=== PATIENT | male | born 1960 | race Caucasian/White ===

== ENCOUNTER → 2020-08-26 13:03 | Outpatient (BNVA) | payer BC, SELFPAY | PROVIDERS: Family Provider Family Medicine; Visit Provider Family Medicine | DX: Z11.59 Encounter for screening for other viral diseases (principal) | CPT/HCPCS: 87635 ==

== ENCOUNTER → 2020-08-28 16:21 | Outpatient (BNVA) | payer BC, SELFPAY | PROVIDERS: Family Provider Family Medicine; Visit Provider Family Medicine | DX: Z11.59 Encounter for screening for other viral diseases (principal) | CPT/HCPCS: 87635 ==

== ENCOUNTER → 2022-09-05 08:08 | Outpatient (BNVA) | payer BC, SELFPAY | PROVIDERS: Family Provider Family Medicine; PCP Family Medicine; Visit Provider Family Medicine | DX: Z00.00 Encounter for general adult medical examination without abnormal findings (principal); I10 Essential (primary) hypertension; E78.5 Hyperlipidemia, unspecified; E11.9 Type 2 diabetes mellitus without complications | CPT/HCPCS: 80053; 80061; 83036 ==

== ENCOUNTER → 2023-02-28 08:29 | Outpatient (BNVA) | payer BC, SELFPAY | PROVIDERS: Family Provider Family Medicine; PCP Family Medicine; Visit Provider Family Medicine | DX: E11.9 Type 2 diabetes mellitus without complications (principal); I10 Essential (primary) hypertension; E78.5 Hyperlipidemia, unspecified | CPT/HCPCS: 80053; 80061; 83036 ==

== ENCOUNTER → 2023-05-24 08:25 | Outpatient (BNVA) | payer BC, SELFPAY | PROVIDERS: Family Provider Family Medicine; PCP Family Medicine; Visit Provider Family Medicine | DX: E78.5 Hyperlipidemia, unspecified (principal); I10 Essential (primary) hypertension; E11.9 Type 2 diabetes mellitus without complications | CPT/HCPCS: 80053; 83036 ==

== ENCOUNTER → 2023-08-22 08:42 | Outpatient (BNVA) | payer BC, SELFPAY | PROVIDERS: Family Provider Family Medicine; PCP Family Medicine; Visit Provider Family Medicine | DX: E11.9 Type 2 diabetes mellitus without complications (principal); M10.9 Gout, unspecified; M19.90 Unspecified osteoarthritis, unspecified site | CPT/HCPCS: 83036; 84550 ==

== ENCOUNTER → 2023-10-22 12:28 | Outpatient (BNVA) | payer MEDICARE, BC, SELFPAY | PROVIDERS: Family Provider Family Medicine; PCP Family Medicine; Visit Provider Clinical Nurse Specialist Adult Health | DX: R10.9 Unspecified abdominal pain (principal) | CPT/HCPCS: 81000 ==

== ENCOUNTER → 2023-11-21 10:52 | Outpatient (BNVA) | payer MEDICARE, OTHER, SELFPAY | PROVIDERS: Family Provider Family Medicine; PCP Family Medicine; Visit Provider Family Medicine | DX: R10.9 Unspecified abdominal pain (principal); K81.9 Cholecystitis, unspecified; E11.9 Type 2 diabetes mellitus without complications | CPT/HCPCS: 80053; 82150; 83690; 85025 ==

== ENCOUNTER 2023-11-27 15:40 | Outpatient (CLI) | payer MEDICARE, OTHER, SELFPAY ==
[2023-11-27] MEDS: iohexol 350 mg/mL 500 mL Btl (per mL) PO (15:47)
--- NOTE | 2023-11-27 16:00 | CT_ITS ---
WS: [id number] CT ABDOMEN WITH AND WITHOUT CONTRAST HISTORY: R10.9 - Unspecified abdominal pain, right-sided abdominal pain. Imaging performed with and without IV contrast. Oral contrast has been provided. Coronal and sagittal reformats are submitted. All CT scans at [facility] use at least one of these dose optimizat ion techniques: automated exposure control; mA and/or kV adjustment per patient size (includes target ed exams where dose is matched to clinical indication); or iterative reconstruction. IV CONTRAST: Omnipaque 350; 100 mL IV. Oral contrast: Yes. DLP: 1256.84 mGy.cm COMPARISON: None available. Lower thorax: Incompletely visualized 6.4 mm nodule in the RIGHT lower lung field may be associated w ith the seizure. There is an additional 2 mm nodule in the RIGHT lower lobe. Heart is normal size. Sm all hiatal hernia. Liver/biliary system: Normal size with no intrahepatic dilatation. Gallbladder: Normal. No gallstones or wall thickening. No pericholecystic fluid. Pancreas: Normal size pancreas and pancreatic duct. No adjacent inflammation. Spleen: Normal size spleen. No mass or infarct. Adrenal glands: Normal. Right kidney: Moderate perinephric stranding surrounding the RIGHT kidney. There are small parapelvic cysts. No obstruction. No mass identified. Left kidney: Moderate perinephric stranding surrounding the kidney. There is small central parapelvic cyst. No obstruction or solid mass. Aorta: Moderate atherosclerotic plaque within the aorta. More dense calcified plaque at the origin of the celiac axis. There is at least a moderate stenosis. Small amount of plaque at the origin of the SMA with additional plaque in the mid to distal SMA although no obstruction. Retroaortic LEFT renal vein. Lymphadenopathy: None. Free fluid: None. GI tract: As visualized through the abdomen no abnormality. No obstructive pattern. The appendix is n ot included. Abdominal wall: Unremarkable abdominal wall. No hernia. Visualized osseous structures: Unremarkable. IMPRESSION: 1. Moderate bilateral perinephric stranding. This may be of chronic or acute etiologies. No obstruct nimco pattern. Correlate for possible urinary tract infection. 2. Normal gallbladder. 3. RIGHT lower lung field subcentimeter, noncalcified nodules. Recommend follow-up chest CT in 3 mon ths to evaluate stability of the largest nodule measuring 6.4 mm. 4. Moderate atherosclerosis aorta. More dense calcified plaque at the origin of the celiac axis caus ing at least a moderate obstructive pattern. 5. No ascites or adenopathy through the abdomen.
[2023-11-27] MEDS: iohexol 350 mg/mL 500 mL Btl (per mL) IV (16:41)
== END 2023-11-27 15:41 | disposition home or self-care (01) ==
LOC: RAD 15:41
PROVIDERS: Family Provider Family Medicine; PCP Family Medicine; Visit Provider Family Medicine
DX: R10.9 Unspecified abdominal pain (principal); K81.9 Cholecystitis, unspecified; E11.9 Type 2 diabetes mellitus without complications; I70.0 Atherosclerosis of aorta; R91.8 Other nonspecific abnormal finding of lung field
CPT/HCPCS: 74170; Q9967

== ENCOUNTER 2023-11-29 15:53 | Emergency (ER) | payer MEDICARE, OTHER, SELFPAY ==
[2023-11-29] VITALS (11 sets, daily range): BP systolic 127–192; BP diastolic 66–104; PULSE 69–87; RESP 16; TEMP 36.4; O2SAT 92–100
--- NOTE | 2023-11-29 16:00 | W.ED.BACK ---
HPI - Back Pain/Injury General: Chief Complaint: Back Pain/Injury Stated Complaint: Back pain Time Seen by Provider: 11/29/23 16:00 History of Present Illness: 63-year-old male presents emergency department with complaints of low back pain and pain on the right lower back and flank area. He states he was seen today at the walk-in clinic and advised to come to the emergency department. Patient was seen on the 10th of this month and received a CT scan that demonstrated perinephric stranding concerning for urinary tract infection at that time. Patient states that he was provided antibiotics today at the walk-in clinic but states that his pain became much worse after picking up the antibiotics and thought he should come to the emergency department for additional evaluation treatment and care. Review of Systems General: Reports: 10 or more systems reviewed and unremarkable except in HPI and below Musc: Reports: back pain [facility] ED PFSH: Medical History Gout Hyperlipidemia Hypertension Diabetes Physical Exam Narrative: EXAM NARRATIVE: Constitutional: the patient appears well nourished and of normal development. Vital signs as documented. No acute distress at present. Alert and oriented-to person, place, time and situation. Head, eyes, ears, nose, mouth, throat: Normocephalic, atraumatic. Pupils-equal, round, reactive to light. No scleral icterus. Normal-appearing external ears. Normal appearing nasal turbinates, no drainage. No obvious oral lesions, posterior oropharynx without erythema or exudates. Neck: Supple, trachea is midline, no lymphadenopathy, no jugular venous distension, thyromegaly, or carotid bruits. Carotid upstrokes are brisk bilaterally. Lungs: clear to auscultation to all lung escobar. Symmetrical rise and fall of chest, no obvious signs of increased work of breathing at present. Cardiac: Regular rate and rhythm, positive S1, S2. No murmurs, rubs or gallops that I can appreciate Abdomen: Soft, non-tender to palpation, normal active bowel sounds to all quadrants. No palpable masses, no organomegaly and abdominal bruits. Extremities: 2+ pulses in the upper extremities that are equal bilaterally, 2+ pulses in the lower extremities that are equal bilaterally. Non-edematous. Moves all extremities well, sensation to all extremities are noted. Skin: Warm, dry, intact. Course Vital Signs: Vital signs: Vital Signs Temperature 97.5 F L 11/29/23 15:58 Pulse Rate 85 11/29/23 20:58 Respiratory Rate 16 11/29/23 20:58 Blood Pressure 147/84 11/29/23 20:58 Pulse Oximetry 95 11/29/23 20:58 Oxygen Delivery Me thod Room Air 11/29/23 20:31 MDM - Back Pain/Injury Medical Decision Making 49-year-old male was seen by his primary care provider on November [address] scan concerning for bilateral perinephric stranding, patient was seen at the walk-in clinic today and given prescription for antibiotics at which time he states he picked it up from the pharmacy and then started having worse right lower back and flank pain. I reviewed the patient's previous CT scan as well as his previous medical records and the note from the walk-in clinic from Dr. Angulo who saw him today. It does appear that his last laboratory evaluation was November 21, 2023 I will repeat labs to include a CBC, CMP, procalcitonin, lactic and obtain IV access for potential IV antibiotic therapy. I will provide the patient with Toradol for his pain relief and will reevaluate. Medical Records I reviewed the patient's medical records. Labs I reviewed the patient's lab results. 11/29/23 16:34 11/29/23 16:34 Radiology Impressions Abdomen X-Ray 11/29/23 16:46 IMPRESSION: No evidence of bowel obstruction. Dilute contrast noted throughout the colon. Abdomen/Pelvis CT 11/29/23 19:38 IMPRESSION: 1. No acute findings. 2. Stable appearance of nonspecific symmetrical bilateral perinephric stranding without evidence of urinary obstruction. Laboratory Results WBC 10.49 10^3/uL (3.29-11.43) 11/29/23 16:34 RBC 5.77 10^6/uL (3.85-5.65) H 11/29/23 16:34 Hgb 17.10 g/dL (11.27-16.99) H 11/29/23 16:34 Hct 51.0 % (37-53) 11/29/23 16:34 MCV 88.4 fl (82-101) 11/29/23 16:34 MCH 29.6 pg (27-33) 11/29/23 16:34 MCHC 33.5 g/dL (30-55) 11/29/23 16:34 RDW 13.8 % (12.1-15.1) 11/29/23 16:34 Plt Count 219 10^3/cmm (157-399) 11/29/23 16:34 MPV 10.6 fL (7.4-10.4) H 11/29/23 16:34 Neut % (Auto) 68.4 % 11/29/23 16:34 Lymph % (Auto) 20.3 % 11/29/23 16:34 [place] % (Auto) 8.1 % 11/29/23 16:34 Eos % (Auto) 2.6 % 11/29/23 16:34 Baso % (Auto) 0.3 % 11/29/23 16:34 Neut # (Auto) 7.18 10^3/uL (1.8-7.7) 11/29/23 16:34 Lymph # (Auto) 2.1 10^3/uL (0.8-4.8) 11/29/23 16:34 [place] # (Auto) 0.9 10^3/uL (0.2-0.9) 11/29/23 16:34 Eos # (Auto) 0.3 10^3/uL (0.0-0.8) 11/29/23 16:34 Baso # (Auto) 0.0 10^3/uL (0.0-0.1) 11/29/23 16:34 Nucleated RBC % (auto) 0 % 11/29/23 16:34 Nucleated RBCs # 0.0 /100WBC 11/29/23 16:34 Sodium 130 mmol/L (136-145) L 11/29/23 16:34 Potassium 4.3 mmol/L (3.5-5.1) 11/29/23 16:34 Chloride 93 mmol/L (98-107) L 11/29/23 16:34 Carbon Dioxide 25 mmol/L (22-29) 11/29/23 16:34 Anion Gap 16.3 (5-19) 11/29/23 16:34 BUN 17 mg/dL (8-23) 11/29/23 16:34 Creatinine 1.0 mg/dL (0.7-1.2) 11/29/23 16:34 GFR Calculation 75.0 mL/min (90-130) L 11/29/23 16:34 Glucose 409 mg/dL (65-115) H 11/29/23 16:34 Calculated Osmolality 289 mOsm/kg (285-295) 11/29/23 16:34 Lactic Acid 1.5 mmol/L (0.5-2.2) 11/29/23 16:34 Calcium 9.8 mg/dL (8.5-10.5) 11/29/23 16:34 Total Bilirubin 0.5 mg/dL (0.15-1.2) 11/29/23 16:34 AST 18 U/L (0-40) 11/29/23 16:34 ALT 22 U/L (0-41) 11/29/23 16:34 Alkaline Phosphatase 114 U/L (40-130) 11/29/23 16:34 Total Protein 7.5 g/dL (6.6-8.7) 11/29/23 16:34 Albumin 4.5 g/dL (3.5-5.2) 11/29/23 16:34 Globulin 3.0 g/dL (1.3-4.6) 11/29/23 16:34 Lipase 34 U/L (13-60) 11/29/23 16:34 Procalcitonin 0.07 ng/mL (0-0.5) 11/29/23 16:34 Urine Color Colorless (Yellow) 11/29/23 18:13 Urine Appearance Clear (CLEAR) 11/29/23 18:13 Urine pH 5 (5-7) 11/29/23 18:13 Ur Specific [place] 1.015 (1.005-1.030) 11/29/23 18:13 Urine Protein Trace (Negative) 11/29/23 18:13 Urine Glucose (UA) 4+ (Normal) H 11/29/23 18:13 Urine Ketones Negative (Negative) 11/29/23 18:13 Urine Blood Neg (Negative) 11/29/23 18:13 Urine Nitrate Negative (Negative) 11/29/23 18:13 Urine Bilirubin Neg (Negative) 11/29/23 18:13 Urine Urobilinogen Norm mg/dL (Negative) 11/29/23 18:13 Ur Leukocyte Esterase Negative (Negative) 11/29/23 18:13 Urine RBC 0-4 /hpf (0-2) H 11/29/23 18:13 Urine WBC 0-4 /hpf (0-5) H 11/29/23 18:13 Ur Squamous Epith Cells 0-4 /hpf (0-5) H 11/29/23 18:13 Amorphous Sediment Not Reportable 11/29/23 18:13 Urine Bacteria Trace /hpf (NONE) 11/29/23 18:13 Hyaline Casts 0-4 /lpf H 11/29/23 18:13 Urine Mucus Trace /hpf 11/29/23 18:13 All radiology interpretation(s) finalized by discharge Discharge Plan Discharge Patient Disposition: Home Clinical Impression: Acute UTI Back pain Qualifiers: Back pain location: low back pain Chronicity: acute Back pain laterality: right Sciatica presence: without sciatica Qualified Code(s): M54.50 - Low back pain, unspecified Condition: Stable Prescriptions: No Action colchicine 0.6 mg capsule See Rx Instructions PO DAILY Qty: 9 3RF Rx Instructions: take 2 tabs at onset of symptoms of gout, may repeat one dose one hour later as needed. hydrocodone-acetaminophen 5-325 mg tablet 1 tab PO Q4H PRN (Reason: pain, acute) 7 Days Qty: 42 0RF olmesartan 20 mg tablet PO semaglutide 0.25 mg or 0.5 mg (2 mg/3 mL) pen injector 0.5 mg SUBCUT .weekly Qty: 3 3RF Rx Instructions: 0.5 mg weekly X 1 month the increase to 1 mg weekly cyclobenzaprine 5 mg tablet 5 mg PO TID PRN (Reason: muscle spasm) Qty: 30 0RF tramadol 50 mg tablet 50 mg PO BID PRN (Reason: pain) Qty: 20 0RF hydrocodone-acetaminophen 7.5-325 mg tablet 1 tab PO Q6H PRN (Reason: pain) 7 Days Qty: 28 0RF sulfamethoxazole-trimethoprim [Bactrim DS] 800-160 mg tablet 1 tab PO BID 10 Days Qty: 20 0RF Januvia 100 mg tablet 100 mg PO DAILY Qty: 90 3RF metformin 1,000 mg tablet 1,000 mg PO BID Qty: 180 3RF semaglutide 1 mg/dose (4 mg/3 mL) pen injector 2 mg SUBCUT .weekly Qty: 3 5RF atorvastatin 40 mg tablet 40 mg PO DAILY 90 Days Qty: 90 3RF Levemir FlexPen 100 unit/mL (3 mL) insulin pen See Rx Instructions .ROUTE .COMPLEX Qty: 45 3RF Dose Instruction: INJECT 105 UNITS SUBCUTANEOUSLY ONCE DAILY Rx Instructions: INJECT 105 UNITS SUBCUTANEOUSLY ONCE DAILY Discharge Orders: Discharge ED (Routine); Ordered 11/29/23 Ordered By: Ashok Jacob Referrals: Karl Whitmore, DO [Primary Care Provider] - Discharge Diet: Advance as tolerated Discharge Activity: Resume usual activity Patient Instructions: Opioid Safety, Pain Management Activity Restrictions/Additional Instructions: Activity Restrictions/Additional Instructions: Thank you for choosing [facility] for your healthcare needs today. Please realize that you were seen in the Emergency Department and that we are providing you with an emergency medical screening exam and this may not be a complete and all inclusive of all the testing and or medical work-up that you may need to determine your ailment or severity of your illness. It is very important that you follow-up as instructed with your Primary care provider or Specialist for additional evaluation and to discuss your medical treatment plan. You may return to the Emergency Department should you have concerns or if your condition changes or worsens in any way. Coding Level of Care Code ED Shelter Case Manager for [facility]
[2023-11-29] MEDS: ketorolac 30 mg/mL INJ IVP (16:38)
[2023-11-29 16:41] LABS: Basophils % 0.3 %; Eosinophils # 0.3 10^3/uL (0.0-0.8); Eosinophils % 2.6 %; Lymphocytes # 2.1 10^3/uL (0.8-4.8); Lymphocytes % 20.3 %; Mean Corpuscular HGB Conc 33.5 g/dL (30-55); Mean Corpuscular Hemoglobin 29.6 pg (27-33); Mean Corpuscular Volume 88.4 fl (82-101); Mean Platelet Volume 10.6 fL (7.4-10.4); Monocytes # 0.9 10^3/uL (0.2-0.9); Monocytes % 8.1 %; Neutrophils # 7.18 10^3/uL (1.8-7.7); Neutrophils % 68.4 %; Nucleated Red Blood Cells % 0 %; Platelet Count 219 10^3/cmm (157-399); Red Blood Count 5.77 10^6/uL (3.85-5.65); Red Cell Distribution Width 13.8 % (12.1-15.1); White Blood Count 10.49 10^3/uL (3.29-11.43)
--- NOTE | 2023-11-29 16:46 | XRR_ITS ---
PROCEDURE INFORMATION: Exam: XR Abdomen Exam date and time: 11/29/2023 5:03 PM Age: 63 years old Clinical indication: Bloating and constipation; Additional info: Abdominal bloating/cramping TECHNIQUE: Imaging protocol: Radiologic exam of the abdomen. Views: Frontal supine view of the abdomen. 1 View. COMPARISON: CT abdomen wo/w con [id number] 11/27/2023 4:43 PM FINDINGS: Gastrointestinal tract: Dilute contrast material is now distributed throughout the colon. No significantly dilated bowel loops are evident. Intraperitoneal space: Vascular calcifications are present in the pelvis. Bones/joints: Scattered multilevel degenerative changes noted in the skeletal system. XR/XR abdomen 1V* [id number] IMPRESSION: No evidence of bowel obstruction. Dilute contrast noted throughout the colon.
[2023-11-29 16:59] LABS: Alanine Aminotransferase 22 U/L (0-41); Albumin Level 4.5 g/dL (3.5-5.2); Alkaline Phosphatase 114 U/L (40-130); Anion Gap 16.3 (5-19); Aspartate Amino Transferase 18 U/L (0-40); Blood Urea Nitrogen 17 mg/dL (8-23); Calcium 9.8 mg/dL (8.5-10.5); Carbon Dioxide 25 mmol/L (22-29); Chloride 93 mmol/L (98-107); Glucose 409 mg/dL (65-115); Osmolality Calculated 289 mOsm/kg (285-295); Potassium 4.3 mmol/L (3.5-5.1); Sodium 130 mmol/L (136-145); Total Bilirubin 0.5 mg/dL (0.15-1.2); Total Protein 7.5 g/dL (6.6-8.7)
[2023-11-29 17:00] LABS: Lactic Sepsis W/Reflex 1.5 mmol/L (0.5-2.2)
[2023-11-29 17:06] LABS: Procalcitonin 0.07 ng/mL (0-0.5)
[2023-11-29 17:10] LABS: Lipase 34 U/L (13-60)
[2023-11-29 18:38] LABS: Add Urine Microscopic? YES; Bilirubin Urine Neg (Negative); Blood Urine Neg (Negative); Glucose Urine UA 4+ (Normal); Ketones Urine Negative (Negative); Leukocyte Esterase Urine Negative (Negative); Nitrate Urine Negative (Negative); Protein Urine Trace (Negative); Specific Gravity, Urine 1.015 (1.005-1.030); Urine Appearance Clear (CLEAR); Urine Color Colorless (Yellow); Urobilinogen Urine Norm (Negative); pH Urine 5 (5-7)
[2023-11-29 18:40] LABS: Bacteria Urine TRACE /hpf; Hyaline Casts Urine 0-4 /lpf; Mucus Urine TRACE /hpf; RBC Urine 0-4 /hpf (0-2); Squamous Epithelial Cell Urine 0-4 /hpf (0-5); WBC Urine 0-4 /hpf (0-5)
--- NOTE | 2023-11-29 18:49 | PC.NURSE ---
Creative Art Therapist assumed care at 1850.
--- NOTE | 2023-11-29 19:38 | CTR_ITS ---
PROCEDURE INFORMATION: Exam: CT Abdomen And Pelvis With Contrast Exam date and time: 11/29/2023 7:43 PM Age: 63 years old Clinical indication: Abdominal pain; Localized; Right; Patient HX: C/O RT sided abd pain. ; Additional info: Flank pain TECHNIQUE: Imaging protocol: Computed tomography of the abdomen and pelvis with contrast. Radiation optimization: All CT scans at this facility use at least one of these dose optimization techniques: automated exposure control; mA and/or kV adjustment per patient size (includes targeted exams where dose is matched to clinical indication); or iterative reconstruction. Contrast material: OMNI 350; Contrast volume: 100 ml; Contrast route: INTRAVENOUS (IV); COMPARISON: CT abdomen wo/w con [id number] 11/27/2023 4:43 PM RADIATION DOSE METRICS: Total DLP (mGy-cm): 1020.88 FINDINGS: Liver: Unremarkable. Gallbladder and bile ducts: Unremarkable. Pancreas: Unremarkable. Spleen: Unremarkable. Adrenal glands: Unremarkable. Kidneys and ureters: Symmetric perinephric stranding which is unchanged and nonspecific. No hydronephrosis. Mild colonic diverticulosis without evidence of acute diverticulitis. Stomach and bowel: See Kidneys and ureters finding. Appendix: No evidence of appendicitis. Intraperitoneal space: Unremarkable. Vasculature: [id number] atherosclerotic disease in the abdomen and pelvis. Incidental note of a left retroaortic renal vein. Lymph nodes: Unremarkable. Urinary bladder: Unremarkable as visualized. Reproductive: Unremarkable as visualized. Bones/joints: No acute osseous abnormality. Soft tissues: Fat containing bilateral inguinal hernias. CT/CT abdomen pelvis w con* [id number] IMPRESSION: 1. No acute findings. 2. Stable appearance of nonspecific symmetrical bilateral perinephric stranding without evidence of urinary obstruction.
[2023-11-29] MEDS: iohexol 350 mg/mL 500 mL Btl (per mL) IV (19:46)
[2023-11-29] MEDS: cefTRIAXone 1,000 MG in sodium chloride 0.9% (plus) 50 ML 100 MG IV (20:25)
[2023-11-29] MEDS: morphine 4 mg/mL SDV 1 mL IM (20:28)
[2023-11-29] MEDS: ondansetron 2 mg/ML SDV 2 mL 4 MG IVP (20:29)
== END 2023-11-29 21:00 | disposition home or self-care (01) ==
PROVIDERS: Emergency Provider Internal Medicine; Family Provider Family Medicine; PCP Family Medicine
DX: N39.0 Urinary tract infection, site not specified (principal); M54.50 Low back pain, unspecified; Z79.4 Long term (current) use of insulin; Z79.84 Long term (current) use of oral hypoglycemic drugs; E78.5 Hyperlipidemia, unspecified; I10 Essential (primary) hypertension; E11.9 Type 2 diabetes mellitus without complications
CPT/HCPCS: 74018; 74177; 80053; 81000; 81001; 83605; 83690; 84145; 85025; 87086; 96365; 96372; 96375; 99285; J0696; J1885; J2270; J2405; Q9967

== ENCOUNTER → 2023-12-12 09:45 | Outpatient (BNVA) | payer MEDICARE, OTHER, SELFPAY | PROVIDERS: Family Provider Family Medicine; PCP Family Medicine; Visit Provider Clinical Nurse Specialist Adult Health | DX: N39.0 Urinary tract infection, site not specified (principal) | CPT/HCPCS: 81000; 87086 ==

== ENCOUNTER 2024-02-08 18:23 | Emergency (ER) | payer MEDICARE, OTHER, SELFPAY ==
[2024-02-08] VITALS (8 sets, daily range): BP systolic 127–173; BP diastolic 84–99; PULSE 102–109; RESP 12–20; TEMP 36.6; O2SAT 95–100; BMI 30.1
--- NOTE | 2024-02-08 18:33 | ECG_ITS ---
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 Measurements Intervals [place] Rate: 102 P: 63 MT: 163 QRS: -20 QRSD: 93 T: 149 QT: 322 QTc: 421 Interpretive Statements SINUS TACHYCARD[address] DEVIATION AND MODERATE T-WAVE ABNORMALITY, CONSIDER LATERAL ISCHEMIA [-0.1+ mV T-WAVE IN I/aVL/V5/V6] No previous ECG available for comparison Electronically Signed On 02-09-2024 23:56:38 CDT by Jersey Watts M.D. [email or web address]
--- NOTE | 2024-02-08 20:12 | XRR_ITS ---
PROCEDURE INFORMATION: Exam: XR Chest Exam date and time: 02/08/2024 8:29 PM Age: 63 years old Clinical indication: Shortness of breath; Patient HX: Increased SOB; Lung CA PT TECHNIQUE: Imaging protocol: Radiologic exam of the chest. Views: 1 view. COMPARISON: CT abdomen pelvis w con* [id number] 11/29/2023 7:43 PM FINDINGS: Tubes, catheters and devices: Right chest port a cath. Lungs: No consolidation. Pleural spaces: No pleural effusion. No pneumothorax. Heart/Mediastinum: Normal cardiomediastinal silhouette. Bones/joints: No acute osseous abnormality. XR/XR chest 1V portable [id number] IMPRESSION: No acute findings.
[2024-02-08 20:29] LABS: Basophils % 0.3 %; Eosinophils # 0.2 10^3/uL (0.0-0.8); Eosinophils % 1.9 %; Hematocrit 41.3 % (37-53); Lymphocytes # 0.9 10^3/uL (0.8-4.8); Lymphocytes % 8.8 %; Mean Corpuscular HGB Conc 33.2 g/dL (30-55); Mean Corpuscular Hemoglobin 29.3 pg (27-33); Mean Corpuscular Volume 88.2 fl (82-101); Mean Platelet Volume 10.5 fL (7.4-10.4); Monocytes # 0.9 10^3/uL (0.2-0.9); Monocytes % 8.8 %; Neutrophils % 79.8 %; Nucleated Red Blood Cells % 0 %; Platelet Count 305 10^3/cmm (157-399); Red Blood Count 4.68 10^6/uL (3.85-5.65); Red Cell Distribution Width 12.9 % (12.1-15.1); White Blood Count 10.65 10^3/uL (3.29-11.43)
[2024-02-08] MEDS: HYDROmorphone 1 mg/mL INJ 1 mL IVP ×2 (20:36→22:48)
[2024-02-08 20:47] LABS: Anion Gap 18.6 (5-19); Blood Urea Nitrogen 13 mg/dL (8-23); Calcium 8.7 mg/dL (8.5-10.5); Carbon Dioxide 23 mmol/L (22-29); Chloride 101 mmol/L (98-107); Creatinine Clr Calc Pharmacy 113.0719; Glomerular Filtration Rate 113.2 mL/min (90-130); Glucose 204 mg/dL (65-115); Osmolality Calculated 292 mOsm/kg (285-295); Potassium 4.6 mmol/L (3.5-5.1); Sodium 138 mmol/L (136-145); Troponin(5th) Baseline 45 ng/L (0-15)
--- NOTE | 2024-02-08 21:04 | ED_ITS ---
Documented by User: Shant Olivares DO 02/08/24 21:05 HPI - SOB/Dyspnea 2 General: Chief Complaint: Shortness of Breath/Dyspnea Stated Complaint: SOB, Cancer pt Time Seen by Provider: 02/08/24 20:08 History of Present Illness: HPI Narrative: Patient presents to the ER complaining of being shortness of breath. Patient stated this started at 4:00 this morning and is been bad all day long. He states he can barely breathe and got worse this afternoon. Patient does not wear oxygen. Patient denies any history of CHF or COPD but does have lung cancer. Upon arrival patient was O2 sat was 98% on room air and patient was in no distress and appears nontoxic. Review of Systems 2 General: Reports: 10 or more systems reviewed and unremarkable except in HPI and below PFSH ED 2 PFSH: Medical History Gout Hyperlipidemia Hypertension Diabetes Physical Exam 2 Const: COMMON NORMALS: no acute distress, average body habitus, patient oriented x3, no limitations, healthy appearing, alert and well nourished HENMT: COMMON NORMALS: normocephalic, atraumatic, hearing grossly normal bilaterally, external ears normal, Normal external nose present, moist oral mucous membranes and oropharynx normal HEAD & SCALP: normocephalic and atraumatic NOSE: Normal external nose present EXTERNAL EAR: Yes external ears normal Neck/C-Spine: COMMON NORMALS: no JVD Chest: COMMONS NORMALS: normal inspection of the chest and normal palpation of entire chest wall Resp: COMMON NORMALS: normal respiratory effort, No retractions, No use of accessory muscles and clear to auscultation bilaterally AUSCULTATION: clear to auscultation bilaterally Cardio: COMMON NORMALS: no JVD, regular rate, regular rhythm, S1 normal heart sound present, S2 normal heart sound present, No gallops present (Cardio), No clicks present (Cardio), No murmurs present (Cardio) and No rub (Cardio) R ATE: regular rate RHYTHM: regular rhythm HEART SOUNDS: S1 normal heart sound present and S2 normal heart sound present GI: COMMON NORMALS: Normal to inspection, nondistended, normoactive bowel sounds present, Soft to palpation, non-tender, No hepatosplenomegaly present and no masses PALPATION: Yes Soft to palpation and Yes No hepatosplenomegaly present Neuro: COMMON NORMALS: patient oriented x3 SENSORIUM/ORIENTATION: Yes alert Course 2 Vital Signs: Vital signs: Vital Signs Temperature 97.9 F 02/08/24 18:27 Pulse Rate 94 02/09/24 00:34 Respiratory Rate 18 02/09/24 00:34 Blood Pressure 178/105 02/09/24 00:34 Pulse Oximetry 94 02/09/24 00:34 Oxygen Delivery Me thod Room Air 02/08/24 22:28 MDM - SOB/Dyspnea Differential Diagnosis Unlikely acute exacerbation of chronic obstructive airways disease, congestive heart failure, community acquired pneumonia, asthma with exacerbation or pulmonary embolism Medical Records I reviewed the patient's medical records. Lab Data I reviewed the patient's lab results. 02/08/24 20:23 02/08/24 20:23 Labs/Radiology: Radiology Impressions Chest X-Ray 02/08/24 20:12 IMPRESSION: No acute findings. Chest CTA 02/08/24 23:52 IMPRESSION: 1. No evidence of acute pulmonary embolism. 2. Right upper lobe spiculated 1.7 cm nodule with cavitation in keeping with history of lung cancer. 3. Solid right lung pulmonary nodules compatible with pulmonary metastatic disease. 4. T10 metastatic lesion involving the right 10th rib with epidural and neural foraminal extension. 5. Small right pleural effusion compatible with malignant effusion. Nonspecific trace left pleural effusion. 6. Small pericardial effusion with pericardial thickening compatible with pericarditis. 7. Mildly enlarged subcarinal and right hilar lymph nodes compatible with lymph node metastatic disease. Laboratory Results WBC 10.65 10^3/uL (3.29-11.43) 02/08/24 20: RBC 4.68 10^6/uL (3.85-5.65) 02/08/24 20:23 Hgb 13.70 g/dL (11.27-16.99) 02/08/24 20: Hct 41.3 % (37-53) 02/08/24 20: MCV 88.2 fl (82-101) 02/08/24 20: MCH 29.3 pg (27-33) 02/08/24 20: MCHC 33.2 g/dL (30-55) 02/08/24 20: RDW 12.9 % (12.1-15.1) 02/08/24 20:23 Plt Count 305 10^3/cmm (157-399) 02/08/24 20: MPV 10.5 fL (7.4-10.4) H 02/08/24 20: Neut % (Auto) 79.8 % 02/08/24 20: Lymph % (Auto) 8.8 % 02/08/24 20: [place] % (Auto) 8.8 % 02/08/24 20: Eos % (Auto) 1.9 % 02/08/24 20: Baso % (Auto) 0.3 % 02/08/24 20: Neut # (Auto) 8.50 10^3/uL (1.8-7.7) H 02/08/24 20: Lymph # (Auto) 0.9 10^3/uL (0.8-4.8) 02/08/24 20: [place] # (Auto) 0.9 10^3/uL (0.2-0.9) 02/08/24 20: Eos # (Auto) 0.2 10^3/uL (0.0-0.8) 02/08/24 20: Baso # (Auto) 0.0 10^3/uL (0.0-0.1) 02/08/24 20: Nucleated RBC % (auto) 0 % 02/08/24 20: Nucleated RBCs # 0.0 /100WBC 02/08/24 20: D-Dimer 3.44 ug/mLFEU (0-0.59) H 02/08/24 20:23 Sodium 138 mmol/L (136-145) 02/08/24 20:23 Potassium 4.6 mmol/L (3.5-5.1) 02/08/24 20:23 Chloride 101 mmol/L (98-107) 02/08/24 20:23 Carbon Dioxide 23 mmol/L (22-29) 02/08/24 20:23 Anion Gap 18.6 (5-19) 02/08/24 20:23 BUN 13 mg/dL (8-23) 02/08/24 20:23 Creatinine 0.7 mg/dL (0.7-1.2) 02/08/24 20: GFR Calculation 113.2 mL/min (90-130) 02/08/24 20:23 Glucose 204 mg/dL (65-115) H 02/08/24 20:23 POC Glucose 232 mg/dL (70-110) H 02/08/24 23:04 Calculated Osmolality 292 mOsm/kg (285-295) 02/08/24 20:23 Calcium 8.7 mg/dL (8.5-10.5) 02/08/24 20:23 Troponin T Baseline 45 ng/L (0-15) H 02/08/24 20:23 Troponin T 120 Minute 43.25 ng/L (0-15) H 02/08/24 22:23 Delta Troponin T -1.75 ABS# (0-10) L 02/08/24 22:23 NT-Pro-B Natriuret Pep 507 pg/mL (0-125) H 02/08/24 22:23 All radiology interpretation(s) finalized by discharge Discharge Plan Discharge Patient Disposition: Home Clinical Impression: Pneumonitis, Pericarditis Condition: Stable Prescriptions: New ondansetron 4 mg tablet,disintegrating 4 mg PO Q6H PRN (Reason: nausea and vomiting) Qty: 14 0RF Medrol (Alfred) 4 mg tablets,dose pack See Rx Instructions .ROUTE .COMPLEX Qty: 21 0RF Rx Instructions: orally per package directions Changed colchicine 0.6 mg capsule 0.6 mg PO BID Qty: 30 0RF No Action hydrocodone-acetaminophen 5-325 mg tablet 1 tab PO Q4H PRN (Reason: pain, acute) 7 Days Qty: 42 0RF olmesartan 20 mg tablet PO cyclobenzaprine 10 mg tablet 10 mg PO TID PRN (Reason: muscle spasm) Qty: 60 0RF hydromorphone 2 mg tablet 2 mg PO Q6H PRN (Reason: pain) 7 Days Qty: 30 0RF metformin 1,000 mg tablet 1,000 mg PO BID Qty: 180 3RF atorvastatin 40 mg tablet 40 mg PO DAILY 90 Days Qty: 90 3RF Levemir FlexPen 100 unit/mL (3 mL) insulin pen See Rx Instructions .ROUTE .COMPLEX Qty: 45 3RF Dose Instruction: INJECT 105 UNITS SUBCUTANEOUSLY ONCE DAILY Rx Instructions: INJECT 105 UNITS SUBCUTANEOUSLY ONCE DAILY Discharge Orders: Discharge ED (Routine); Ordered 02/09/24 Ordered By: Rafael Sanders Referrals: Karl Whitmore DO [Primary Care Provider] - 1-3 days Patient Instructions: Pneumonitis (ED), Acute Pericarditis (ED), Opioid Safety, Pain Management Activity Restrictions/Additional Instructions: Medication as directed. Take the prescribed steroid in addition to your previously prescribed steroid per package directions. Return for worsening shortness of breath despite treatment, fever, chest pain, any other concerning symptoms. Call your doctor on Saturday and let them know you were seen here. 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[employer] Documented by User: Rafael Sanders DO 02/09/24 05:49 HPI - SOB/Dyspnea 2 General: Chief Complaint: Shortness of Breath/Dyspnea Stated Complaint: SOB, Cancer pt Time Seen by Provider: 02/08/24 20:08 PFSH ED 2 PFSH: Medical History Gout Hyperlipidemia Hypertension Diabetes Course 2 Vital Signs: Vital signs: Vital Signs Temperature 97.9 F 02/08/24 18:27 Pulse Rate 94 02/09/24 00:34 Respiratory Rate 18 02/09/24 00:34 Blood Pressure 178/105 02/09/24 00:34 Pulse Oximetry 94 02/09/24 00:34 Oxygen Delivery Me thod Room Air 02/08/24 22:28 MDM - SOB/Dyspnea Medical Decision Making 63-year-old male gentleman checked out at shift change. This gentleman was complaining of shortness of breath. His vitals remained good, except for minimal tachycardia. His respiratory rate has remained normal, and saturations are normal. However, the patient does have a history of metastatic lung disease. EKGs showed some T wave inversions without significant ST depression or elevation. CBC is not remarkable. BMP is not remarkable. Troponin did not change significantly in 2 hours. However, D-dimer was significantly elevated. This prompted CTA of the chest to be performed. It shows no acute findings in the lungs including no pulmonary embolus. It does show a small pericardial effusion with pericardial thickening compatible with pericarditis. This may be due to metastatic disease, recent radiation, or other causes. The patient will be placed on colchicine for this as well as a tapering dose of steroid. Close outpatient follow-up will be needed. Return for worsening symptoms. Lab Data 02/08/24 20:23 02/08/24 20:23 Labs/Radiology: Radiology Impressions Chest X-Ray 02/08/24 20:12 IMPRESSION: No acute findings. Chest CTA 02/08/24 23:52 IMPRESSION: 1. No evidence of acute pulmonary embolism. 2. Right upper lobe spiculated 1.7 cm nodule with cavitation in keeping with history of lung cancer. 3. Solid right lung pulmonary nodules compatible with pulmonary metastatic disease. 4. T10 metastatic lesion involving the right 10th rib with epidural and neural foraminal extension. 5. Small right pleural effusion compatible with malignant effusion. Nonspecific trace left pleural effusion. 6. Small pericardial effusion with pericardial thickening compatible with pericarditis. 7. Mildly enlarged subcarinal and right hilar lymph nodes compatible with lymph node metastatic disease. Laboratory Results WBC 10.65 10^3/uL (3.29-11.43) 02/08/24 20:23 RBC 4.68 10^6/uL (3.85-5.65) 02/08/24 20:23 Hgb 13.70 g/dL (11.27-16.99) 02/08/24 20:23 Hct 41.3 % (37-53) 02/08/24 20:23 MCV 88.2 fl (82-101) 02/08/24 20: MCH 29.3 pg (27-33) 02/08/24 20: MCHC 33.2 g/dL (30-55) 02/08/24 20:23 RDW 12.9 % (12.1-15.1) 02/08/24 20:23 Plt Count 305 10^3/cmm (157-399) 02/08/24 20: MPV 10.5 fL (7.4-10.4) H 02/08/24 20:23 Neut % (Auto) 79.8 % 02/08/24 20:23 Lymph % (Auto) 8.8 % 02/08/24 20: [place] % (Auto) 8.8 % 02/08/24 20: Eos % (Auto) 1.9 % 02/08/24 20:23 Baso % (Auto) 0.3 % 02/08/24 20: Neut # (Auto) 8.50 10^3/uL (1.8-7.7) H 02/08/24 20:23 Lymph # (Auto) 0.9 10^3/uL (0.8-4.8) 02/08/24 20:23 [place] # (Auto) 0.9 10^3/uL (0.2-0.9) 02/08/24 20: Eos # (Auto) 0.2 10^3/uL (0.0-0.8) 02/08/24 20: Baso # (Auto) 0.0 10^3/uL (0.0-0.1) 02/08/24 20: Nucleated RBC % (auto) 0 % 02/08/24: Nucleated RBCs # 0.0 /100WBC 02/08/24 20:23 D-Dimer 3.44 ug/mLFEU (0-0.59) H 02/08/24 20:23 Sodium 138 mmol/L (136-145) 02/08/24 20:23 Potassium 4.6 mmol/L (3.5-5.1) 02/08/24 20:23 Chloride 101 mmol/L (98-107) 02/08/24 20:23 Carbon Dioxide 23 mmol/L (22-29) 02/08/24 20:23 Anion Gap 18.6 (5-19) 02/08/24 20:23 BUN 13 mg/dL (8-23) 02/08/24 20:23 Creatinine 0.7 mg/dL (0.7-1.2) 02/08/24 20:23 GFR Calculation 113.2 mL/min (90-130) 02/08/24 20:23 Glucose 204 mg/dL (65-115) H 02/08/24 20:23 POC Glucose 232 mg/dL (70-110) H 02/08/24 23:04 Calculated Osmolality 292 mOsm/kg (285-295) 02/08/24 20:23 Calcium 8.7 mg/dL (8.5-10.5) 02/08/24 20:23 Troponin T Baseline 45 ng/L (0-15) H 02/08/24 20:23 Troponin T 120 Minute 43.25 ng/L (0-15) H 02/08/24 22:23 Delta Troponin T -1.75 ABS# (0-10) L 02/08/24 22:23 NT-Pro-B Natriuret Pep 507 pg/mL (0-125) H 02/08/24 22:23 Discharge Plan Discharge Patient Disposition: Home Clinical Impression: Pneumonitis, Pericarditis Condition: Stable Prescriptions: New ondansetron 4 mg tablet,disintegrating 4 mg PO Q6H PRN (Reason: nausea and vomiting) Qty: 14 0RF Medrol (Alfred) 4 mg tablets,dose pack See Rx Instructions .ROUTE .COMPLEX Qty: 21 0RF Rx Instructions: orally per package directions Changed colchicine 0.6 mg capsule 0.6 mg PO BID Qty: 30 0RF No Action hydrocodone-acetaminophen 5-325 mg tablet 1 tab PO Q4H PRN (Reason: pain, acute) 7 Days Qty: 42 0RF olmesartan 20 mg tablet PO cyclobenzaprine 10 mg tablet 10 mg PO TID PRN (Reason: muscle spasm) Qty: 60 0RF hydromorphone 2 mg tablet 2 mg PO Q6H PRN (Reason: pain) 7 Days Qty: 30 0RF metformin 1,000 mg tablet 1,000 mg PO BID Qty: 180 3RF atorvastatin 40 mg tablet 40 mg PO DAILY 90 Days Qty: 90 3RF Levemir FlexPen 100 unit/mL (3 mL) insulin pen See Rx Instructions .ROUTE .COMPLEX Qty: 45 3RF Dose Instruction: INJECT 105 UNITS SUBCUTANEOUSLY ONCE DAILY Rx Instructions: INJECT 105 UNITS SUBCUTANEOUSLY ONCE DAILY Discharge Orders: Discharge ED (Routine); Ordered 02/09/24 Ordered By: Rafael Sanders Referrals: Karl Whitmore DO [Primary Care Provider] - 1-3 days Patient Instructions: Pneumonitis (ED), Acute Pericarditis (ED), Opioid Safety, Pain Management Activity Restrictions/Additional Instructions: Medication as directed. Take the prescribed steroid in addition to your previously prescribed steroid per package directions. Return for worsening shortness of breath despite treatment, fever, chest pain, any other concerning symptoms. Call your doctor on Saturday and let them know you were seen here. 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
[2024-02-08] MEDS: ipratropium-albuterol 3 mL Neb INHALATION (22:23)
--- NOTE | 2024-02-08 22:25 | ECG_ITS ---
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 Measurements Intervals [place] Rate: 102 P: 28 [place]: 158 QRS: -29 QRSD: 96 T: 126 QT: 323 QTc: 422 Interpretive Statements SINUS TACHYCARDIA WITH OCCASIONAL SUPRAVENTRICULAR PREMATURE COMPLEXES BORDERLINE LEFT AXIS DEVIATION [QRS AXIS < -20] ST DEVIATION AND MODERATE T-WAVE ABNORMALITY, CONSIDER LATERAL ISCHEMIA [-0.1+ mV T-WAVE IN I/aVL/V5/V6] Compared to ECG 02/08/2024 18:33:28 No significant changes Electronically Signed On 02-09-2024 23:58:38 CDT by Jersey Watts M.D. [id number]
[2024-02-08 22:47] LABS: Troponin 5 2HR 43.25 ng/L (0-15)
[2024-02-08 22:49] LABS: Troponin 5 2HR Delta -1.75 ABS# (0-10)
[2024-02-08] MEDS: methylPREDNISolone sod succ 125 mg/2 mL INJ IVP (22:49)
[2024-02-08 22:54] LABS: NT Pro B Type Natriuretic Pept 507 pg/mL (0-125)
[2024-02-08 23:07] LABS: Glucose Point of Care 232 mg/dL (70-110)
[2024-02-08 23:49] LABS: D Dimer 3.44 ug/mLFEU (0-0.59)
--- NOTE | 2024-02-08 23:52 | CTR_ITS ---
PROCEDURE INFORMATION: Exam: CTA Chest With Contrast Exam date and time: 02/09/2024 12:12 AM Age: 63 years old Clinical indication: Pain and abnormal findings; Abnormal diagnostic tests; Elevated d-dimer; Shortness of breath; Chest pressure; Prior surgery; Surgery date: 6+ months; Surgery type: Chest port; Patient HX: Cp with SOB and tachycardia. Dimer 3.4. History of lung cancer with bone mets. TECHNIQUE: Imaging protocol: Computed tomographic angiography of the chest with contrast. Exam focused on the arteries. 3D rendering (Not supervised by radiologist): MIP and/or 3D reconstructed images were created by the technologist. Radiation optimization: All CT scans at this facility use at least one of these dose optimization techniques: automated exposure control; mA and/or kV adjustment per patient size (includes targeted exams where dose is matched to clinical indication); or iterative reconstruction. Contrast material: OMNI 350; Contrast volume: 54 ml; Contrast route: INTRAVENOUS (IV); COMPARISON: CR (CHEST, ) 02/08/2024 8:29 PM RADIATION DOSE METRICS: Total DLP (mGy-cm): 488.37 FINDINGS: Tubes, catheters and devices: Right chest port. Pulmonary arteries: Normal caliber main pulmonary artery. No definite pulmonary artery filling defect. Aorta: Mild atherosclerosis. No aortic aneurysm. No aortic dissection. Lungs: Mild emphysema. Spiculated right upper lobe 1.7cm nodule with cavitation. SMall right lung solid nodules (eg 11 mm right lower lobe nodule on axial image 307) Pleural spaces: No pneumothorax. Small right and trace left pleural effusions. Heart: Small pericardial effusion with pericardial thickening. Stranding of the epicardial fat. Lymph nodes: Mildly enlarged subcarinal and right hilar lymph nodes.. Bones/joints: T10 osteolytic lesion which involves the right pedicle and right posterior 10th rib. Epidural and neuroforaminal extension present. Soft tissues: Unremarkable. CT/CT angio chest PE protcl [id number] IMPRESSION: 1. No evidence of acute pulmonary embolism. 2. Right upper lobe spiculated 1.7 cm nodule with cavitation in keeping with history of lung cancer. 3. Solid right lung pulmonary nodules compatible with pulmonary metastatic disease. 4. T10 metastatic lesion involving the right 10th rib with epidural and neural foraminal extension. 5. Small right pleural effusion compatible with malignant effusion. Nonspecific trace left pleural effusion. 6. Small pericardial effusion with pericardial thickening compatible with pericarditis. 7. Mildly enlarged subcarinal and right hilar lymph nodes compatible with lymph node metastatic disease.
[2024-02-08] MEDS: metoprolol tartrate 25 mg Tablet PO (23:57)
[2024-02-09] MEDS: iohexol 350 mg/mL 500 mL Btl (per mL) IV (00:19)
[2024-02-09 00:34] VITALS: BP 178/105; PULSE 94; RESP 18; O2SAT 94
== END 2024-02-09 01:11 | disposition home or self-care (01) ==
PROVIDERS: Emergency Medicine; Emergency Provider Emergency Medicine; Family Provider Family Medicine; PCP Family Medicine
DX: J98.4 Other disorders of lung (principal); I31.9 Disease of pericardium, unspecified; Z79.4 Long term (current) use of insulin; E78.5 Hyperlipidemia, unspecified; I10 Essential (primary) hypertension; E11.9 Type 2 diabetes mellitus without complications
CPT/HCPCS: 36415; 36416; 71045; 71275; 80048; 82962; 83880; 84484; 85025; 85378; 93005; 94640; 96374; 96375; 96376; 99285; J1170; J2930; Q9967

== ENCOUNTER 2024-03-09 08:00 | Oncology outpatient (recurring) (ONCR) | payer MEDICARE, OTHER, SELFPAY ==
[2024-03-06] MEDS: sodium chloride 0.9% 1,000 ML 999 ML IV (08:23)
[2024-03-09 08:05] VITALS: BP 91/63; PULSE 119; RESP 18; TEMP 35.9; O2SAT 96
[2024-03-09] MEDS: sodium chloride 0.9% 1,000 ML 999 ML IV (08:12)
== END 2024-03-17 23:59 | disposition home or self-care (01) ==
PROVIDERS: Family Provider Family Medicine; PCP Family Medicine; Visit Provider Internal Medicine Hematology & Oncology
DX: K81.9 Cholecystitis, unspecified (principal); Z53.9 Procedure and treatment not carried out, unspecified reason
CPT/HCPCS: 96360; J7030

== ENCOUNTER 2024-04-16 15:00 | Oncology outpatient (recurring) (ONCR) | payer MEDICARE, OTHER, SELFPAY ==
[2024-03-25] MEDS: sodium chloride 0.9% 1,000 ML 999 ML IV (12:57)
[2024-03-25 13:00] VITALS: BP 101/66; PULSE 75; RESP 16; TEMP 36.6; O2SAT 96
[2024-03-25 13:50] VITALS: BP 125/75; PULSE 66; RESP 16; O2SAT 94
[2024-03-27 09:14] VITALS: BP 147/75; PULSE 94; RESP 16; TEMP 36.3; O2SAT 96
[2024-03-27] MEDS: sodium chloride 0.9% 1,000 ML 999 ML IV (09:31)
[2024-03-27 09:34] VITALS: BP 132/80; PULSE 83; RESP 17; TEMP 35.6; O2SAT 100
[2024-03-27 10:22] VITALS: BP 152/86; PULSE 82; RESP 16; O2SAT 99
[2024-03-30 14:42] VITALS: BP 101/67; PULSE 99; RESP 18; TEMP 35.8; O2SAT 92
[2024-03-30] MEDS: sodium chloride 0.9% 1,000 ML 999 ML IV (14:48)
[2024-03-30 15:40] VITALS: BP 122/64; PULSE 87; RESP 16; TEMP 35.9; O2SAT 97
[2024-04-15] MEDS: sodium chloride 0.9% 1,000 ML 999 ML IV (15:15)
[2024-04-15 15:20] VITALS: BP 124/78; PULSE 74; RESP 18; TEMP 36.6; O2SAT 98
[2024-04-15 15:27] VITALS: BP 124/78; PULSE 78; RESP 18; TEMP 36.6; O2SAT 98
[2024-04-16 15:10] VITALS: BP 130/77; PULSE 77; RESP 18; TEMP 35.6; O2SAT 96
[2024-04-16] MEDS: sodium chloride 0.9% 1,000 ML 999 ML IV (15:16)
[2024-04-16 16:50] VITALS: BP 132/78; PULSE 78; RESP 18; TEMP 36.6; O2SAT 98
== END 2024-04-17 23:59 | disposition home or self-care (01) ==
PROVIDERS: Family Provider Family Medicine; PCP Family Medicine; Visit Provider Internal Medicine Hematology & Oncology
DX: Z53.9 Procedure and treatment not carried out, unspecified reason (principal); E87.8 Other disorders of electrolyte and fluid balance, not elsewhere classified
CPT/HCPCS: 96360; J7030

== ENCOUNTER 2024-04-22 17:13 | Inpatient (IN) | payer MEDICARE, SELFPAY ==
[2024-04-22 17:14] VITALS: BP 96/65; PULSE 77; RESP 18; TEMP 36.8; O2SAT 94; BMI 27.8
--- NOTE | 2024-04-22 17:18 | XRR_ITS ---
PROCEDURE INFORMATION: Exam: XR Chest Exam date and time: 04/22/2024 5:22 PM Age: 63 years old Clinical indication: Other: Dizzy; Additional info: Weakness TECHNIQUE: Imaging protocol: Radiologic exam of the chest. Views: 1 view. COMPARISON: CT angio chest PE protcl [id number] 02/09/2024 12:12 AM FINDINGS: Tubes, catheters and devices: Port catheter tip remains in the lower superior vena cava. Lungs: Focal vague opacity at the site of the nodule seen on the prior CT. Pleural spaces: Unremarkable. No pleural effusion. No pneumothorax. Heart/Mediastinum: Unremarkable. No cardiomegaly. Bones/joints: Unremarkable. Other findings: XR/XR chest 1V portable [id number] IMPRESSION: 1. No acute findings. 2. Focal vague opacity at the site of the nodule seen on the prior CT.
--- NOTE | 2024-04-22 17:24 | ECG_ITS ---
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 Measurements Intervals [place] Rate: 74 P: 29 [place]: 155 QRS: -3 QRSD: 91 T: -74 QT: 378 QTc: 421 Interpretive Statements SINUS RHYTHM WITH FREQUENT SUPRAVENTRICULAR PREMATURE COMPLEXES NONSPECIFIC T-WAVE ABNORMALITY Compared to ECG 02/08/2024 22:25:42 Sinus tachycardia no longer present Possible ischemia no longer present T-wave abnormality still present Electronically Signed On 04-22-2024 18:13:56 CDT by Jersey Watts M.D. [id number]
--- NOTE | 2024-04-22 17:41 | ED_ITS ---
HPI - Weakness 2 General: Chief complaint: Weakness Stated complaint: Dizzy, Weakness Time Seen by Provider: 04/22/24 17:15 Source: patient and EMS Mode of arrival: EMS Limitations: no limitations History of Present Illness: 63-year-old male with a history of lung cancer with mets to the spine he states he had just finished chemo and radiation states that last day has been having increasing weakness fatigue and feeling extremely lightheaded like he is going to pass out anytime he ambulates with family called EMS because having some diaphoresis. Patient was found to be hypotensive into the 80s. He denies any acute pain anywhere denies any vomiting or diarrhea Associated symptoms: Denies chest pain, chills, fever(s), headache(s), nausea or vomiting Review of Systems 2 Const: Reports: fatigue and malaise; Denies: fever(s), chills, body aches or change in appetite ENMT: Denies: throat pain or dental pain Card: Denies: chest pain Resp: Denies: dyspnea GI: Denies: abdominal pain, nausea, vomiting or diarrhea Musc: Denies: neck pain or back pain Skin/Breast: Denies: rash Neuro: Denies: headache(s) PFSH ED 2 PFSH: Medical History Gout Hyperlipidemia Hypertension Diabetes Physical Exam 2 Const: COMMON NORMALS: patient oriented x3 GENERAL APPEARANCE: ill appearing and frail appearing HENMT: COMMON NORMALS: normocephalic and atraumatic HEAD & SCALP: n ormocephalic and atraumatic Eye: COMMON NORMALS: Equal, round and reactive pupils present and EOMs intact bilaterally PUPIL: Yes Equal, round and reactive pupils present Neck/C-Spine: COMMON NORMALS: full ROM and supple Chest: COMMONS NORMALS: normal inspection of the chest and normal palpation of entire chest wall Resp: COMMON NORMALS: normal respiratory effort, No retractions, No use of accessory muscles and clear to auscultation bilaterally AUSCULTATION: clear to auscultation bilaterally Cardio: COMMON NORMALS: regular rate, regular rhythm and No murmurs present (Cardio) RATE: regular rate RHYTHM: regular rhythm GI: COMMON NORMALS: Normal to inspection, nondistended, normoactive bowel sounds present, Soft to palpation, non-tender and no masses PALPATION: Yes Soft to palpation Extremity: COMMON NORMALS: normal to inspection and full ROM Neuro: COMMON NORMALS: patient oriented x3, moves all extremities and no focal motor deficits Psych: COMMON NORMALS: mental status grossly normal, Normal thought process present and cooperative THOUGHT PROCESS: Normal thought process present Skin: COMMON NORMALS: no rashes or lesions noted and no wounds GENERAL SKIN EXAM: no rashes or lesions noted Course 2 Vital Signs: Vital signs: Vital Signs Temperature 98.3 F 04/22/24 17:14 Pulse Rate 71 04/22/24 19:37 Respiratory Rate 22 H 04/22/24 19:37 Blood Pressure 110/60 04/22/24 19:37 Pulse Oximetry 100 04/22/24 19:37 Oxygen Delivery Me thod Room Air 04/22/24 19:37 MDM - Weakness Medical Decision Making Patient presents here with near syncopal event generalized weakness he was hypotensive his blood pressure is much improved here after IV fluids is likely from some dehydration he does have a leukopenia as well likely from his chemo he has no signs of infection he has no fever. Spoke to the hospitalist will admit for observation. Medical Records I reviewed the patient's medical records. Lab Data I reviewed the patient's lab results. 04/22/24 17:43 04/22/24 17:43 Radiology Impressions Chest X-Ray 04/22/24 17:18 IMPRESSION: 1. No acute findings. 2. Focal vague opacity at the site of the nodule seen on the prior CT. Laboratory Results WBC 2.11 10^3/uL (3.29-11.43) L 04/22/24 17:43 RBC 2.77 10^6/uL (3.85-5.65) L 04/22/24 17:43 Hgb 8.30 g/dL (11.27-16.99) L 04/22/24 17:43 Hct 25.4 % (37-53) L 04/22/24 17:43 MCV 91.7 fl (82-101) 04/22/24 17:43 MCH 30.0 pg (27-33) 04/22/24 17:43 MCHC 32.7 g/dL (30-55) 04/22/24 17:43 RDW 17.9 % (12.1-15.1) H 04/22/24 17:43 Plt Count 118 10^3/cmm (157-399) L 04/22/24 17:43 MPV 10.2 fL (7.4-10.4) 04/22/24 17:43 Neut % (Auto) 44.5 % 04/22/24 17:43 Lymph % (Auto) 37.0 % 04/22/24 17:43 Irwin % (Auto) 17.1 % 04/22/24 17:43 Eos % (Auto) 0.5 % 04/22/24 17:43 Baso % (Auto) 0.9 % 04/22/24 17:43 Neut # (Auto) 0.94 10^3/uL (1.8-7.7) L* 04/22/24 17:43 Lymph # (Auto) 0.8 10^3/uL (0.8-4.8) 04/22/24 17:43 Irwin # (Auto) 0.4 10^3/uL (0.2-0.9) 04/22/24 17:43 Eos # (Auto) 0.0 10^3/uL (0.0-0.8) 04/22/24 17:43 Baso # (Auto) 0.0 10^3/uL (0.0-0.1) 04/22/24 17:43 Nucleated RBC % (auto) 0 % 04/22/24 17:43 Nucleated RBCs # 0.0 /100WBC 04/22/24 17:43 PT 12.80 SECONDS (12.1-14.9) 04/22/24 17:43 INR 0.94 (0.8-1.2) 04/22/24 17:43 Sodium 139 mmol/L (136-145) 04/22/24 17:43 Potassium 4.7 mmol/L (3.5-5.1) 04/22/24 17:43 Chloride 103 mmol/L (98-107) 04/22/24 17:43 Carbon Dioxide 25 mmol/L (22-29) 04/22/24 17:43 Anion Gap 15.7 (5-19) 04/22/24 17:43 BUN 25 mg/dL (8-23) H 04/22/24 17:43 Creatinine 1.2 mg/dL (0.7-1.2) 04/22/24 17:43 GFR Calculation 60.8 mL/min (90-130) L 04/22/24 17:43 Glucose 114 mg/dL (65-115) 04/22/24 17:43 POC Glucose 122 mg/dL (70-110) H 04/22/24 18:06 Calculated Osmolality 293 mOsm/kg (285-295) 04/22/24 17:43 Lactic Acid 2.1 mmol/L (0.5-2.2) 04/22/24 17:43 Calcium 8.3 mg/dL (8.5-10.5) L 04/22/24 17:43 Magnesium 1.3 mg/dL (1.7-2.3) L 04/22/24 17:43 Total Bilirubin 0.3 mg/dL (0.15-1.2) 04/22/24 17:43 AST 25 U/L (0-40) 04/22/24 17:43 ALT 14 U/L (0-41) 04/22/24 17:43 Alkaline Phosphatase 92 U/L (40-130) 04/22/24 17:43 NT-Pro-B Natriuret Pep 581 pg/mL (0-125) H 04/22/24 17:43 Total Protein 6.2 g/dL (6.6-8.7) L 04/22/24 17:43 Albumin 3.7 g/dL (3.5-5.2) 04/22/24 17:43 Globulin 2.5 g/dL (1.3-4.6) 04/22/24 17:43 All radiology interpretation(s) finalized by discharge EKG Data EKG 1: I personally reviewed and interpreted this EKG as follows: EKG interpretation date: 04/22/24 EKG interpretation time: 17:24 Interpretation: nsr hr [address] or t wave abnormalities qrs 91 qtc 406 Discharge Plan Discharge Patient Disposition: Admitted As Inpatient Clinical Impression: Near syncope, Weakness, Leukopenia Condition: Stable Prescriptions: No Action hydrocodone-acetaminophen 5-325 mg tablet 1 tab PO Q4H PRN (Reason: pain, acute) 7 Days Qty: 42 0RF olmesartan 20 mg tablet PO cyclobenzaprine 10 mg tablet 10 mg PO TID PRN (Reason: muscle spasm) Qty: 60 0RF hydromorphone 2 mg tablet 2 mg PO Q6H PRN (Reason: pain) 7 Days Qty: 30 0RF atorvastatin 40 mg tablet 40 mg PO DAILY 90 Days Qty: 90 3RF Levemir FlexPen 100 unit/mL (3 mL) insulin pen See Rx Instructions .ROUTE .COMPLEX Qty: 45 3RF Dose Instruction: INJECT 105 UNITS SUBCUTANEOUSLY ONCE DAILY Rx Instructions: INJECT 105 UNITS SUBCUTANEOUSLY ONCE DAILY insulin glargine [Lantus Solostar U-100 Insulin] 100 unit/mL (3 mL) insulin pen See Rx Instructions SUBCUT BID Qty: 15 0RF Rx Instructions: INJECT 105 UNITS SUBCUTANEOUSLY ONCE DAILY metformin 1,000 mg tablet 1,000 mg PO BID Qty: 180 3RF ondansetron 4 mg tablet,disintegrating 4 mg PO Q6H PRN (Reason: nausea and vomiting) Qty: 14 0RF colchicine 0.6 mg capsule 0.6 mg PO BID Qty: 30 0RF Medrol (Alfred) 4 mg tablets,dose pack See Rx Instructions .ROUTE .COMPLEX Qty: 21 0RF Rx Instructions: orally per package directions Referrals: Cole Helms DO [Primary Care Provider] - Coding Level of Care Code ED Courtesy [facility] for [facility]
[2024-04-22] MEDS: sodium chloride 0.9% 1,000 ML 999 ML IV ×2 (17:42→19:27)
[2024-04-22 18:00] VITALS: BP 76/48; PULSE 70; RESP 19; O2SAT 97
[2024-04-22 18:00] LABS: Basophils % 0.9 %; Eosinophils % 0.5 %; Hematocrit 25.4 % (37-53); Lymphocytes # 0.8 10^3/uL (0.8-4.8); Mean Corpuscular HGB Conc 32.7 g/dL (30-55); Mean Corpuscular Volume 91.7 fl (82-101); Mean Platelet Volume 10.2 fL (7.4-10.4); Monocytes # 0.4 10^3/uL (0.2-0.9); Monocytes % 17.1 %; Neutrophils % 44.5 %; Nucleated Red Blood Cells % 0 %; Platelet Count 118 10^3/cmm (157-399); Red Blood Count 2.77 10^6/uL (3.85-5.65); Red Cell Distribution Width 17.9 % (12.1-15.1); White Blood Count 2.11 10^3/uL (3.29-11.43)
[2024-04-22 18:09] LABS: Glucose Point of Care 122 mg/dL (70-110)
[2024-04-22 18:18] LABS: Lactic Sepsis W/Reflex 2.1 mmol/L (0.5-2.2)
[2024-04-22 18:28] LABS: Alanine Aminotransferase 14 U/L (0-41); Albumin Level 3.7 g/dL (3.5-5.2); Alkaline Phosphatase 92 U/L (40-130); Anion Gap 15.7 (5-19); Aspartate Amino Transferase 25 U/L (0-40); Blood Urea Nitrogen 25 mg/dL (8-23); Calcium 8.3 mg/dL (8.5-10.5); Carbon Dioxide 25 mmol/L (22-29); Chloride 103 mmol/L (98-107); Creatinine Clr Calc Pharmacy 72.7035; Globulin 2.5 g/dL (1.3-4.6); Glomerular Filtration Rate 60.8 mL/min (90-130); Glucose 114 mg/dL (65-115); Magnesium 1.3 mg/dL (1.7-2.3); NT Pro B Type Natriuretic Pept 581 pg/mL (0-125); Osmolality Calculated 293 mOsm/kg (285-295); Potassium 4.7 mmol/L (3.5-5.1); Sodium 139 mmol/L (136-145); Total Bilirubin 0.3 mg/dL (0.15-1.2); Total Protein 6.2 g/dL (6.6-8.7)
[2024-04-22 18:30] VITALS: BP 102/55; PULSE 77; O2SAT 100
[2024-04-22 18:30] LABS: INR 0.94 (0.8-1.2)
[2024-04-22 19:19] LABS: Neutrophils # 0.94 10^3/uL (1.8-7.7)
[2024-04-22] MEDS: magnesium sulfate premix 2 GM/50 ML PIGGYBACK IV (19:33)
[2024-04-22 19:37] VITALS: BP 110/60; PULSE 71; RESP 22; O2SAT 100
[2024-04-22 19:42] LABS: Reflex Lactate Order REFLEX LACTIC ORDERD
--- NOTE | 2024-04-22 19:49 | P.HP_ITS ---
Providers/Chief Complaint 2 Primary Care Provider: Cole Helms DO Chief Complaint: Dizzy, Weakness History of Present Illness Siddhartha Christina is a 63 year old male with a past medical history significant for non-small cell lung cancer (grade 2 adenocarcinoma) stage IV T4N2M1 with metastasis to rib and spine status post palliative radiation and currently on palliative chemotherapy just completing cycle 4 of carboplatinum/pemetrexed/pembrolizumab on 04/14/24, insulin-dependent type 2 diabetes mellitus, hypertension, and multiple other comorbidities who presents to the emergency department via EMS with generalized malaise and fatigue. Patient reports he has not felt well for some time but the last few days symptoms have been worsening. Endorses weakness, generalized fatigue, malaise, nausea and very poor oral intake. Exertion worsens symptoms; rest improves. Denies othe alleviating or aggrevating factors. Family is bedside and appears very supportive. They noticed severe weakness today. They took his blood pressure and it was around 60/40 for which they called EMS for further help. Patient denies any fevers or chills. He notes an occasional cough, occurring about 3 times a day which is new for him. Otherwise denies other new complaints. In the emergency department, patient was found to be hypotensive on arrival. He was started on IV fluid boluses. His other vitals were largely unremarkable. CBC revealed pancytopenia including moderate neutropenia. CMP revealed azotemia and elevated creatinine to 1.2, previously 0.7; as well as hypomagnesia. Review of Systems 2 Narrative: A complete review of systems was obtained and is negative except as stated in HPI. Medications/Allergies Home Medications Medication Instructions Recorded Confirmed Last Taken Type olmesartan 20 mg tablet ea PO 09/11/22 12/27/23 Unknown History atorvastatin 40 mg tablet 40 mg PO DAILY 90 days #90 tabs 09/17/23 12/27/23 Unknown Rx insulin detemir U-100 100 unit/mL See Rx Instructions .Route 10/16/23 12/27/23 Unknown Rx (3 mL) subcutaneous pen (Levemir .COMPLEX #45 mL FlexPen) hydrocodone 5 mg-acetaminophen 325 1 tab PO Q4H PRN pain, acute 7 11/21/23 12/27/23 Unknown Rx mg tablet days #42 tabs cyclobenzaprine 10 mg tablet 10 mg PO TID PRN muscle spasm #60 12/12/23 12/27/23 Unknown Rx tabs hydromorphone 2 mg tablet 2 mg PO Q6H PRN pain 7 days #30 12/31/23 12/31/23 Unknown Rx tabs colchicine 0.6 mg capsule 0.6 mg PO BID gout #30 caps 02/09/24 Unknown Rx methylprednisolone 4 mg tablets in See Rx Instructions PO .COMPLEX 02/09/24 Unknown Rx a dose pack (Medrol (Alfred)) #21 ea ondansetron 4 mg disintegrating 4 mg PO Q6H PRN nausea and 02/09/24 Unknown Rx tablet vomiting #14 tabs insulin glargine 100 unit/mL (3 See Rx Instructions SUBCUT BID #15 02/25/24 Unknown Rx mL) subcutaneous pen (Lantus mL Solostar U-100 Insulin) metformin 1,000 mg tablet 1,000 mg PO BID #180 tabs 03/18/24 Unknown Rx Allergies Allergy/AdvReac Type Severity Reaction Status Date / Time No Known Allergies Allergy Verified 12/31/23 08:57 PFSH Acute 2 PFSH: Medical History Port-A-Cath in place Non-small cell lung cancer Right-sided back pain Cholecystitis Abdominal pain Rib pain on right side Gout Hyperlipidemia Hypertension Diabetes Surgical History History of cholecystectomy Family History Father Stomach cancer Grandfather Stomach cancer Social History Smoking and tobacco/nicotine status: former use of tobacco/nicotine Alcohol intake: never Substance/Drug Use: never 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 Vitals/I&O/Wt Last Vital Signs Temp 98.3 F 04/22/24 17:14 Pulse 71 04/22/24 19:37 Resp 22 H 04/22/24 19:37 BP 110/60 04/22/24 19:37 Pulse Ox 100 04/22/24 19:37 O2 Del Method Room Air 04/22/24 19:37 04/22/24 04/22/24 04/22/24 06:59 14:59 22:59 Intake Total 1000 / 1000 Balance 1000 / 1000 Weight last 48 hrs Weight 92.986 kg Physical Exam 2 Narrative: General: Patient is awake and alert. Very pleasant but appears fatigued. Head: Normocephalic. Atraumatic. EOM intact. Dry mucous membranes. Neck: No JVD. Cardiovascular: RRR. No gallops. No murmurs. Trace pedal edema. Blood pressure is soft. Lungs: Clear to auscultation, no use of accessory muscles, no crackles or wheezes. Skin: No jaundice. No rashes. Abdomen: Normal bowel sounds, abdomen soft and nontender. Genito Urinary: Genital exam not performed since complaints not related. Rectal: Rectal exam not performed since no symptoms indicated blood loss. Extremities: No cyanosis or clubbing. Musculoskeletal: No swollen or erythematous joints. Neurological: Moves all 4 extremities. No myoclonus. Data 04/22/24 17:43 04/22/24 17:43 A&P Assessment and plan (1) Hypotension due to hypovolemia: Presentation most consistent with hypotension secondary to hypovolemia from dehydration and anorexia Suspect presentation secondary to side effects from his cumulative side effects of chemotherapy Continue evaluating for underlying infection, urinalysis is pending Blood cultures x 2 obtained Procalcitonin 0.15; CRP 6.2 Monitor for development of fever Continue to monitor blood pressure Status post IV fluids in ED Continue hydration Consider appetite stimulant Antiemetics for nausea Supportive care (2) Leukopenia: CBC with leukopenia with moderate neutropenia Suspect findings secondary to chemotherapy side effects Trend CBC Monitor platelets closely while on Lovenox (3) Non-small cell lung cancer: Status post radiation Currently on chemotherapy, completing cycle 4 last Saturday He follows with [facility] medical oncology in [place] Continue supportive care (4) Anorexia: Management as above (5) Dehydration: Dehydration with acute kidney injury, suspected prerenal Baseline creatinine previously 0.7-0.8 Admission creatinine 1.2 with associated azotemia to 25 IV fluid management as noted above Strict I's and O's Daily weights Encourage oral intake, can consider appetite stimulant pending clinical course (6) Diabetes: Insulin-dependent diabetes mellitus Hold home metformin Awaiting home insulin dose to be updated Will continue insulin at marked reduced rate is to avoid hypoglycemia after home med list is updated Plan for sliding scale correction as well Qualifiers: Diabetes mellitus type: type 2 Diabetes mellitus retirement insulin use: without retirement use Diabetes mellitus complication status: with other specified complication Qualified Code(s): E11.69 - Type 2 diabetes mellitus with other specified complication (7) Hyperlipidemia: Continue home statin Plan DVT prophylaxis: Lovenox CODE STATUS: Full code Attestations 2 Medical Necessity Statement*: Patient presents with hypotension among other symptoms, found to have dehydration, acute kidney injury, anorexia, leukopenia and other metabolic/hematologic derangement with expected hospitalization not to cross 2 midnights for IV fluid resuscitation, serial labs, and supportive care. Coding Level of Care Code Acute Code for Chg Fwd Diagnoses Hypotension due to hypovolemia E86.1 Leukopenia D72.819 Non-small cell lung cancer C34.90 Anorexia R63.0 Dehydration E86.0 Type 2 diabetes mellitus with other specified complication, without long-term current use of insulin E11.69 Diabetes mellitus type: type 2 Diabetes mellitus terminal carman insulin use: without terminal carman use Diabetes mellitus complication status: with other specified complication Hyperlipidemia E78.5
[2024-04-22 20:00] VITALS: BP 113/77; PULSE 95; RESP 20; O2SAT 99
[2024-04-22 20:18] LABS: C Reactive Protein 8.4 mg/L (0.0-4.9)
[2024-04-22 20:26] LABS: Procalcitonin 0.15 ng/mL (0-0.5)
--- NOTE | 2024-04-22 20:36 | PC.NURSE ---
report called to rudy r/sanna landaverde at 2035. room currently dirty, 261, rudy will call back when clean.
[2024-04-22 21:18] VITALS: BMI 29.1
[2024-04-22] MEDS: sodium chloride 0.9% 1,000 ML 90 ML IV (21:43)
[2024-04-22] MEDS: enoxaparin 40 mg/0.4 mL Syringe SUBCUT (21:43)
[2024-04-22] MEDS: duloxetine 60 mg Capsule PO (22:00)
[2024-04-22] MEDS: acetaminophen 325 mg Tablet 650 MG PO (22:02)
[2024-04-23] VITALS (10 sets, daily range): BP systolic 84–150; BP diastolic 50–82; PULSE 66–84; RESP 16–17; TEMP 36.3–36.6; O2SAT 91–97
[2024-04-23 00:29] LABS: Basophils % 0.4 %; Eosinophils % 0.4 %; Hematocrit 21.2 % (37-53); Lymphocytes # 0.9 10^3/uL (0.8-4.8); Lymphocytes % 38.7 %; Mean Corpuscular HGB Conc 32.1 g/dL (30-55); Mean Corpuscular Hemoglobin 29.8 pg (27-33); Mean Platelet Volume 10.4 fL (7.4-10.4); Monocytes # 0.4 10^3/uL (0.2-0.9); Monocytes % 16.4 %; Neutrophils # 1.03 10^3/uL (1.8-7.7); Neutrophils % 43.3 %; Nucleated Red Blood Cells % 0 %; Platelet Count 95 10^3/cmm (157-399); Red Blood Count 2.28 10^6/uL (3.85-5.65); Red Cell Distribution Width 18.2 % (12.1-15.1); White Blood Count 2.38 10^3/uL (3.29-11.43)
[2024-04-23 00:41] LABS: Lactic Acid level (Lactate) 0.6 mmol/L (0.5-2.2)
[2024-04-23 00:48] LABS: Alanine Aminotransferase 12 U/L (0-41); Albumin Level 3.2 g/dL (3.5-5.2); Alkaline Phosphatase 76 U/L (40-130); Anion Gap 13.9 (5-19); Aspartate Amino Transferase 20 U/L (0-40); Blood Urea Nitrogen 25 mg/dL (8-23); Calcium 7.8 mg/dL (8.5-10.5); Carbon Dioxide 23 mmol/L (22-29); Chloride 108 mmol/L (98-107); Creatinine Clr Calc Pharmacy 89.1342; Globulin 1.7 g/dL (1.3-4.6); Glucose 49 mg/dL (65-115); Magnesium 1.8 mg/dL (1.7-2.3); Osmolality Calculated 294 mOsm/kg (285-295); Potassium 3.9 mmol/L (3.5-5.1); Sodium 141 mmol/L (136-145); Total Bilirubin 0.2 mg/dL (0.15-1.2); Total Protein 4.9 g/dL (6.6-8.7)
[2024-04-23] MEDS: dextrose 5%-sod chloride 0.45% 1,000 ML 100 ML IV (01:52)
[2024-04-23] MEDS: HYDROcodone-acetaminophen 5-325 mg Tablet 1 TAB PO ×3 (01:55→16:58)
[2024-04-23 04:09] LABS: Add Urine Microscopic? NO; Charge for UA Resulting for Rev
[2024-04-23 04:14] LABS: Bilirubin Urine Neg (Negative); Blood Urine Neg (Negative); Glucose Urine UA Norm (Normal); Ketones Urine Negative (Negative); Leukocyte Esterase Urine Negative (Negative); Nitrate Urine Negative (Negative); Protein Urine Neg (Negative); Specific Gravity, Urine 1.025 (1.005-1.030); Urine Appearance Clear (CLEAR); Urine Color Yellow (Yellow); Urobilinogen Urine Neg (Negative); pH Urine 5 (5-7)
--- NOTE | 2024-04-23 05:31 | PC.NURSE ---
Pt's blood sugar was [address] Conroy notified and stated to hold morning dose of Lantus.
[2024-04-23 05:58] LABS: Glucose Point of Care 88 mg/dL (70-110)
[2024-04-23 06:23] LABS: Glucose Point of Care 83 mg/dL (70-110)
[2024-04-23 08:04] LABS: Hematocrit 23.4 % (37-53)
[2024-04-23] MEDS: sennosides 8.6 mg Tablet 17.2 MG PO (09:20)
[2024-04-23] MEDS: duloxetine 60 mg Capsule PO (09:20)
[2024-04-23] MEDS: atorvastatin 40 mg Tablet PO (09:20)
--- NOTE | 2024-04-23 09:30 | P.PN_ITS ---
Subjective 2 Subjective: White count improving No fever this morning Patient complaining of back pain, he takes fentanyl patch every 72 hours Hemodynamically stable Continue IV fluids I have asked family to get me information if patient has received Neulasta or Neupogen with his chemotherapy Vitals/I&O/Wt Last Vital Signs Temp 97.6 F 04/23/24 05:51 Pulse 71 04/23/24 05:51 Resp 16 04/23/24 05:51 BP 128/79 04/23/24 05:51 Pulse Ox 96 04/23/24 05:51 O2 Del Method Room Air 04/23/24 04:00 04/22/24 04/23/24 04/23/24 22:59 06:59 14:59 Intake Total 2049 350 / 2400 Balance 2049 350 / 2400 Weight last 48 hrs Weight 97.522 kg Weight 97.522 kg Weight 92.986 kg Physical Exam 2 Narrative: Awake and alert Euvolemic GCS 15 nonfocal neuroexam Complain of back pain No signs of cauda equina Nonfocal neuroexam S1, S2 Currently on room air Family at the bedside Normotensive Data 04/23/24 07:20 04/23/24 00:12 Micro: Microbiology 04/22/24 19:34 Blood Culture - Preliminary Blood SPECIMEN COLLECTED 04/22/24 19:34 Blood Culture - Preliminary Blood SPECIMEN COLLECTED A&P Assessment and plan (1) Hypotension due to hypovolemia: (2) Diabetes: Qualifiers: Diabetes mellitus type: type 2 Diabetes mellitus ferry terminal supervisor insulin use: without ferry terminal supervisor use Diabetes mellitus complication status: with other specified complication Qualified Code(s): E11.69 - Type 2 diabetes mellitus with other specified complication (3) Dehydration: (4) Leukopenia: (5) Non-small cell lung cancer: (6) Weakness: (7) Anorexia: Plan Hypovolemic hypotension Patient was also taking antihypertensive regimen at home Antihypertensive regimen on hold Continue IV fluids No sign of sepsis or septic shock I do not see sign of addisonian crisis Change IV fluid to normal saline Neutropenia White count improving I will hold off on giving Neupogen and Neulasta will try to find out if oncology clinic has given him already Afebrile Continue neutropenic precautions Type 2 diabetes continue insulin with sliding scale Cardiac consistent carb diet will be used Plan to discharge by tomorrow Blood pressure is better Full code Use fentanyl patch for his back pain Which needs to be changed every 72 hours Constipation secondary to opioids Will give him lactulose She had 1 bowel movement this morning which was loose Attestations 2 Medical Necessity Statement*: Continue medical management Diagnoses Hypotension due to hypovolemia E86.1 Type 2 diabetes mellitus with other specified complication, without long-term current use of insulin E11.69 Diabetes mellitus type: type 2 Diabetes mellitus ferry terminal supervisor insulin use: without ferry terminal supervisor use Diabetes mellitus complication status: with other specified complication Dehydration E86.0 Leukopenia D72.819 Non-small cell lung cancer C34.90 Weakness R53.1 Anorexia R63.0
[2024-04-23] MEDS: fentaNYL 100 mcg Patch 1 PATCH TRANSDERMA (10:37)
--- NOTE | 2024-04-23 10:39 | PC.PHAR ---
FAMILY PRESENTED CURRENT MED LIST TO COMPARE WITH INTERNAL AND EXTERNAL MED LIST. VERIFIED AND COMBINED ALL MEDICATIONS. DOSAGE ON OXYCODONE 10MG CHANGED PER PT FAMILY TO 1.5 TABLETS (15MG) EVERY 4 HOURS NEEDED FOR PAIN. PT IS ON FENTANYL 50MCG PATCH-2 PATCHES EVERY 72 HOURS. ALL OTHER PREVIOUS PAIN MEDS DC'D.
[2024-04-23] MEDS: lactulose oral liq 20 gm/30 mL UDC 10 GM PO (10:47)
[2024-04-23] MEDS: meloxicam 7.5 mg tablet PO (10:47)
[2024-04-23] MEDS: sodium chloride 0.9% 1,000 ML 75 ML IV (10:48)
[2024-04-23 11:18] LABS: Glucose Point of Care 113 mg/dL (70-110)
--- NOTE | 2024-04-23 12:17 | PC.NURSE ---
Pt complains of dizziness and appears diaphoretic. This nurse assesses pt. Orthostatics positive - see charting. 1L bolus ordered per Dr. De La Paz. BS WNL.
--- NOTE | 2024-04-23 12:19 | PC.NURSE ---
New Fentanyl patch applied to pt left shoulder. Secured with tegaderm. Two 50mcg patches removed and wasted with Meredith Castillo LPN.
[2024-04-23] MEDS: sodium chloride 0.9% 1,000 ML 999 ML IV (12:20)
[2024-04-23 16:41] LABS: Glucose Point of Care 75 mg/dL (70-110)
[2024-04-23 20:03] LABS: Glucose Point of Care 91 mg/dL (70-110)
[2024-04-23] MEDS: ondansetron 4 MG Tablet PO (20:09)
[2024-04-23 20:37] LABS: Glucose Point of Care 70 mg/dL (70-110)
[2024-04-23] MEDS: dextrose 5%-sod chloride 0.45% 1,000 ML 75 ML IV (21:06)
[2024-04-23] MEDS: enoxaparin 40 mg/0.4 mL Syringe SUBCUT (21:06)
[2024-04-24] VITALS: BP 129/69; PULSE 73; RESP 17; TEMP 36.8; O2SAT 97
[2024-04-24 04:00] VITALS: BP 150/80; PULSE 95; RESP 19; TEMP 36.3; O2SAT 97
[2024-04-24 06:02] LABS: Glucose Point of Care 131 mg/dL (70-110)
[2024-04-24 06:32] LABS: Basophils % 0.4 %; Lymphocytes # 0.7 10^3/uL (0.8-4.8); Lymphocytes % 28.3 %; Mean Corpuscular HGB Conc 32.5 g/dL (30-55); Mean Corpuscular Hemoglobin 29.5 pg (27-33); Mean Corpuscular Volume 90.9 fl (82-101); Mean Platelet Volume 10.3 fL (7.4-10.4); Monocytes # 0.4 10^3/uL (0.2-0.9); Monocytes % 15.5 %; Neutrophils # 1.28 10^3/uL (1.8-7.7); Neutrophils % 54.9 %; Nucleated Red Blood Cells % 0 %; Platelet Count 63 10^3/cmm (157-399); Red Blood Count 2.64 10^6/uL (3.85-5.65); Red Cell Distribution Width 17.1 % (12.1-15.1); White Blood Count 2.33 10^3/uL (3.29-11.43)
[2024-04-24 06:54] LABS: Anion Gap 11.1 (5-19); Blood Urea Nitrogen 12 mg/dL (8-23); Calcium 7.8 mg/dL (8.5-10.5); Carbon Dioxide 24 mmol/L (22-29); Chloride 109 mmol/L (98-107); Creatinine Clr Calc Pharmacy 111.7016; Glomerular Filtration Rate 113.2 mL/min (90-130); Glucose 123 mg/dL (65-115); Osmolality Calculated 291 mOsm/kg (285-295); Potassium 4.1 mmol/L (3.5-5.1); Sodium 140 mmol/L (136-145)
[2024-04-24 08:00] VITALS: BP 143/77; PULSE 93; RESP 16; TEMP 36.6; O2SAT 96
[2024-04-24] MEDS: lactulose oral liq 20 gm/30 mL UDC 10 GM PO (08:41)
[2024-04-24] MEDS: sennosides 8.6 mg Tablet 17.2 MG PO (08:42)
[2024-04-24] MEDS: atorvastatin 40 mg Tablet PO (08:42)
[2024-04-24] MEDS: duloxetine 60 mg Capsule PO (08:42)
[2024-04-24] MEDS: HYDROcodone-acetaminophen 5-325 mg Tablet 1 TAB PO (08:42)
[2024-04-24] MEDS: meloxicam 7.5 mg tablet PO (08:42)
--- NOTE | 2024-04-24 08:47 | P.DS_ITS ---
Discharge Providers Date of Admission: 04/23/24 12:30 Date of Discharge: April 24, 2024 Attending Provider at Admission: Jose Raul Conroy MD Attending Provider at Discharge: Henrry De La Paz MD Primary Care Provider: Cole Helms DO Diagnoses at Discharge Discharge Diagnosis (1) Hypotension due to hypovolemia: Status: Acute (2) Diabetes: Status: Acute Qualifiers: Diabetes mellitus complication status: with other specified complication Diabetes mellitus terminal worker insulin use: without terminal worker use Diabetes mellitus type: type 2 Qualified Code(s): E11.69 - Type 2 diabetes mellitus with other specified complication (3) Dehydration: Status: Acute (4) Leukopenia: Status: Acute (5) Non-small cell lung cancer: Status: Acute (6) Weakness: Status: Acute (7) Anorexia: Status: Acute Reason for Visit Reason for Visit: Dizzy, Weakness Hospital Course Hospital Course 63-year male who present to the hospital with dehydration related hypotension, he was orthostatic positive, he was neutropenic as well, he was given aggressive IV fluid hydration, remained afebrile, white count is improving, he received Neupogen during hospitalization because he did not receive that with his chemotherapy that was confirmed from his oncology clinic in [facility]. Patient remained hemodynamically stable improved with IV fluid hydration. He will be discharged home with stable hemodynamics. Patient never required steroids. He does have constipation related to opioids. He had 1 bowel movement on day of discharge, I will add lactulose at the time of discharge. Next appointment is on Saturday at oncology clinic for his bone scan. I am feeling comfortable discharging him after knowing that he will close follow-up with his oncology clinic as follow-up for his neutropenia. He may resume his antihypertensive regimen when he goes home, we held his antinausea regimen during hospitalization. Physical Exam Narrative: Awake and alert Euvolemic GCS 15 Nonfocal neuroexam Tolerating diet Pleasant and cooperative Discharge Data Studies Completed and Pending Completed Studies During Hospitalization Category Date Time Status XR chest 1V portable [id number] Stat Exams 04/22/24 17:18 Completed Pending at discharge Category Date Time Status Blood Culture Stat Lab 04/22/24 19:34 Results Radiology Impressions Chest X-Ray 04/22/24 17:18 IMPRESSION: 1. No acute findings. 2. Focal vague opacity at the site of the nodule seen on the prior CT. Laboratory Results WBC 2.33 10^3/uL (3.29-11.43) L 04/24/24 06:20 RBC 2.64 10^6/uL (3.85-5.65) L 04/24/24 06:20 Hgb 7.80 g/dL (11.27-16.99) L 04/24/24 06:20 Hct 24.0 % (37-53) L 04/24/24 06:20 MCV 90.9 fl (82-101) 04/24/24 06:20 MCH 29.5 pg (27-33) 04/24/24 06:20 MCHC 32.5 g/dL (30-55) 04/24/24 06:20 RDW 17.1 % (12.1-15.1) H 04/24/24 06:20 Plt Count 63 10^3/cmm (157-399) L 04/24/24 06:20 MPV 10.3 fL (7.4-10.4) 04/24/24 06:20 Neut % (Auto) 54.9 % 04/24/24 06:20 Lymph % (Auto) 28.3 % 04/24/24 06:20 [place] % (Auto) 15.5 % 04/24/24 06:20 Eos % (Auto) 0.0 % 04/24/24 06:20 Baso % (Auto) 0.4 % 04/24/24 06:20 Neut # (Auto) 1.28 10^3/uL (1.8-7.7) L 04/24/24 06:20 Lymph # (Auto) 0.7 10^3/uL (0.8-4.8) L 04/24/24 06:20 [place] # (Auto) 0.4 10^3/uL (0.2-0.9) 04/24/24 06:20 Eos # (Auto) 0.0 10^3/uL (0.0-0.8) 04/24/24 06:20 Baso # (Auto) 0.0 10^3/uL (0.0-0.1) 04/24/24 06:20 Nucleated RBC % (auto) 0 % 04/24/24 06:20 Nucleated RBCs # 0.0 /100WBC 04/24/24 06:20 PT 12.80 SECONDS (12.1-14.9) 04/22/24 17:43 INR 0.94 (0.8-1.2) 04/22/24 17:43 Sodium 140 mmol/L (136-145) 04/24/24 06:20 Potassium 4.1 mmol/L (3.5-5.1) 04/24/24 06:20 Chloride 109 mmol/L (98-107) H 04/24/24 06:20 Carbon Dioxide 24 mmol/L (22-29) 04/24/24 06:20 Anion Gap 11.1 (5-19) 04/24/24 06:20 BUN 12 mg/dL (8-23) 04/24/24 06:20 Creatinine 0.7 mg/dL (0.7-1.2) 04/24/24 06:20 GFR Calculation 113.2 mL/min (90-130) 04/24/24 06:20 Glucose 123 mg/dL (65-115) H 04/24/24 06:20 POC Glucose 131 mg/dL (70-110) H 04/24/24 05:44 Calculated Osmolality 291 mOsm/kg (285-295) 04/24/24 06:20 Lactic Acid 2.1 mmol/L (0.5-2.2) 04/22/24 17:43 Lactic Acid (Sepsis) 0.6 mmol/L (0.5-2.2) 04/23/24 00:12 Calcium 7.8 mg/dL (8.5-10.5) L 04/24/24 06:20 Phosphorus 3.0 mg/dL (2.5-4.5) 04/23/24 00:12 Magnesium 1.8 mg/dL (1.7-2.3) 04/23/24 00:12 Total Bilirubin 0.2 mg/dL (0.15-1.2) 04/23/24 00:12 AST 20 U/L (0-40) 04/23/24 00:12 ALT 12 U/L (0-41) 04/23/24 00:12 Alkaline Phosphatase 76 U/L (40-130) 04/23/24 00:12 C-Reactive Protein 8.4 mg/L (0.0-4.9) H 04/22/24 17:43 NT-Pro-B Natriuret Pep 581 pg/mL (0-125) H 04/22/24 17:43 Total Protein 4.9 g/dL (6.6-8.7) L D 04/23/24 00:12 Albumin 3.2 g/dL (3.5-5.2) L 04/23/24 00:12 Globulin 1.7 g/dL (1.3-4.6) 04/23/24 00:12 Procalcitonin 0.15 ng/mL (0-0.5) 04/22/24 17:43 Urine Color Yellow (Yellow) 04/23/24 04:04 Urine Appearance Clear (CLEAR) 04/23/24 04:04 Urine pH 5 (5-7) 04/23/24 04:04 Ur Specific [place] 1.025 (1.005-1.030) 04/23/24 04:04 Urine Protein Neg (Negative) 04/23/24 04:04 Urine Glucose (UA) Norm (Normal) 04/23/24 04:04 Urine Ketones Negative (Negative) 04/23/24 04:04 Urine Blood Neg (Negative) 04/23/24 04:04 Urine Nitrate Negative (Negative) 04/23/24 04:04 Urine Bilirubin Neg (Negative) 04/23/24 04:04 Urine Urobilinogen Neg mg/dL (Negative) 04/23/24 04:04 Ur Leukocyte Esterase Negative (Negative) 04/23/24 04:04 Blood Type O Positive 04/23/24 01:49 Rho(D) Type Rh positive 04/23/24 01:49 Antibody Screen Negative 04/23/24 01:49 Crossmatch See Detail 04/23/24 01:49 Vitals Last Vital Signs Temp 98 F 04/24/24 08:00 Pulse 93 04/24/24 08:00 Resp 16 04/24/24 08:00 BP 143/77 04/24/24 08:00 Pulse Ox 96 04/24/24 08:00 O2 Del Method Room Air 04/23/24 16:35 Discharge Plan Discharge Patient Disposition: Home Condition: Stable Prescriptions: New lactulose 20 gram/30 mL solution 20 g PO DAILY PRN (Reason: constipation) Qty: 1200 0RF Continued olmesartan 20 mg tablet 10 mg PO DAILY atorvastatin 40 mg tablet 40 mg PO DAILY 90 Days Qty: 90 3RF metformin 1,000 mg tablet 1,000 mg PO BID Qty: 180 3RF ondansetron 4 mg tablet,disintegrating 4 mg PO Q6H PRN (Reason: nausea and vomiting) Qty: 14 0RF colchicine 0.6 mg Tablet 0.6 mg PO BID PRN (Reason: gout) Lantus Solostar U-100 Insulin 100 unit/mL (3 mL) insulin pen 105 unit SUBCUT DAILY fentanyl 50 mcg/hr patch 72 hour 2 patch topical .Q72H metoprolol succinate 50 mg tablet extended release 24 hr 50 mg PO BID prochlorperazine maleate 10 mg tablet 10 mg PO QID PRN (Reason: Nausea And Vomiting) olanzapine 2.5 mg tablet 2.5 mg PO BID meloxicam 7.5 mg tablet 7.5 mg PO DAILY folic acid 1 mg tablet 1 mg PO DAILY duloxetine 60 mg capsule,delayed release(DR/EC) 60 mg PO DAILY oxycodone 10 mg tablet 15 mg PO Q4H PRN (Reason: Pain) Discharge Orders: Discharge Order (Routine); Ordered 04/24/24 Ordered By: Henrry De La Paz Referrals: Cole Helms DO [Primary Care Provider] - 04/29/24 2:00 pm Patient Instructions: Syncope, Neutropenia (GEN), Near Syncope (GEN), Neutropenic Diet, Opioid Safety Discharge Attestations Time Spent in Discharge Care*: greater than 30 min Quality Metrics Clinical Quality Measures [ No reported AMI, CVA or VTE this stay] Coding Level of Care Code Acute Code for Chg Fwd Diagnoses Hypotension due to hypovolemia E86.1 Type 2 diabetes mellitus with other specified complication, without long-term current use of insulin E11.69 Diabetes mellitus complication status: with other specified complication Diabetes mellitus terminal worker insulin use: without terminal worker use Diabetes mellitus type: type 2 Dehydration E86.0 Leukopenia D72.819 Non-small cell lung cancer C34.90 Weakness R53.1 Anorexia R63.0
[2024-04-24 08:48] VITALS: BP 120/74; BP 156/88; BP 160/88
--- NOTE | 2024-04-24 10:33 | PC.SOCIAL ---
IMM Update pg 2 of IMM updated and reviewed w/ patient. Copy provided and copy dated, initialed and placed in chart.
--- NOTE | 2024-04-24 10:38 | PC.PHAR ---
CALLED DR. SEARS. ORDER CLARIFIED FILGRASTIM OVER PEGFILGRASTIM. WILL GIVE THE PATIENT 480MCG X1 PRIOR TO DISCHARGE. RBTO /ORION/ADALID HEATH
[2024-04-24] MEDS: filgrastim-sndz 480 mcg/0.8 mL Syringe SUBCUT (11:00)
[2024-04-24 11:24] LABS: Glucose Point of Care 152 mg/dL (70-110)
[2024-04-24 11:33] VITALS: BP 143/77; PULSE 93; RESP 16; TEMP 36.6; O2SAT 96
--- NOTE | 2024-04-24 12:54 | PC.SOCIAL ---
IMM Update pg 2 of IMM updated and reviewed w/ patient and signed. Copy provided and copy dated, initialed and placed in chart.
== END 2024-04-24 11:36 | disposition home or self-care (01) | DRG 312 ==
LOC: ER 19:52 → MEDSURG 20:25
PROVIDERS: Admitting Provider Internal Medicine; Emergency Provider Emergency Medicine; PCP Electrodiagnostic Medicine; Visit Provider Internal Medicine
DX: I95.1 Orthostatic hypotension (principal); D61.818 Other pancytopenia; C34.90 Malignant neoplasm of unspecified part of unspecified bronchus or lung; C79.51 Secondary malignant neoplasm of bone; N17.9 Acute kidney failure, unspecified; T45.1X5A Adverse effect of antineoplastic and immunosuppressive drugs, initial encounter; D70.1 Agranulocytosis secondary to cancer chemotherapy; E86.0 Dehydration; R63.0 Anorexia; Z87.891 Personal history of nicotine dependence; Z79.84 Long term (current) use of oral hypoglycemic drugs; Z79.4 Long term (current) use of insulin; Z95.828 Presence of other vascular implants and grafts; E83.42 Hypomagnesemia; K59.03 Drug induced constipation; T40.2X5A Adverse effect of other opioids, initial encounter; E78.5 Hyperlipidemia, unspecified; E11.9 Type 2 diabetes mellitus without complications; I10 Essential (primary) hypertension; Z92.3 Personal history of irradiation; Z79.891 Long term (current) use of opiate analgesic; R53.1 Weakness; Z68.29 Body mass index [BMI] 29.0-29.9, adult; Z79.1 Long term (current) use of non-steroidal anti-inflammatories (NSAID); M54.9 Dorsalgia, unspecified; M10.9 Gout, unspecified
CPT/HCPCS: 36415; 36416; 36430; 36591; 71045; 80048; 80053; 81003; 82962; 83605; 83735; 83880; 84100; 84145; 85014; 85018; 85025; 85610; 86140; 86850; 86900; 86920; 87040; 93005; 96372; G0378; J1650; J3475; J7030; J7799; P9016; Q0162; Q5101

== ENCOUNTER 2024-06-17 15:00 | Oncology outpatient (recurring) (ONCR) | payer MEDICARE, SELFPAY ==
[2024-05-25] MEDS: sodium chloride 0.9% 1,000 ML 999 ML IV (15:25)
[2024-05-25 16:17] VITALS: BP 149/85; PULSE 80; RESP 17; TEMP 36.3; O2SAT 98
--- OUTSIDE RECORDS SUMMARY | 2024-05-27 14:49 | XMS_ITS | Continuity of Care Document ---
Author Name Unknown Organization [facility] Address [address] [place] [address]- Care Team Providers Care Natural Remedy Consultant Name Role Phone Karl Whitmore DO Primary Care Physician [phone] Encounter [employer] Number [id number] Date(s): 01/16/24 - 01/16/24 [facility] [address] [place] [address]- [phone] Encounter Diagnosis Family history of stomach cancer(Discharge Diagnosis) - 01/16/24 Lesion of lung(Discharge Diagnosis) - 01/16/24 Bone lesion(Discharge Diagnosis) - 01/16/24 Discharge Disposition: .Discharge to Home (Routine) Attending Physician: Ryan Jefferson III, MD Admitting Physician: Ryan Jefferson III, MD Allergies, Adverse Reactions, Alerts No Known Medication Allergies Assessment and Plan Extracted from: Title:Instructions to Patients Author:Yari De La Vega Date:01/16/24 Infectious Disease Implanted Port Insertion, Care After The following information offers guidance on how to care for yourself after your procedure. Your health care provider may also give you more specific instructions. If you have problems or questions, contact your health care provider. What can I expect after the procedure? After the procedure, it is common to have: ? ? Discomfort at the port insertion site. ? ? Bruising on the skin over the port. This should improve over 3? 4 days. Follow these instructions at home: Port care ? ? After your port is placed, you will get a sawmill supervisor's information card. The card has information about your port. Keep this card with you at all times. ? ? Take care of the port as told by your health care provider. Ask your health care provider if you or a family member can get training for taking care of the port at home. ? ? A home health care nurse will be be available to help care for the port. ? ? Make sure to remember what type of port you have. Incision care ? ? Follow instructions from your health care provider about how to take care of your port insertion site. Make sure you: ? ? Wash your hands with soap and water for at least 20 seconds before and after you change your bandage (dressing). If soap and water are not available, use hand copper miner. ? ? Change your dressing as told by your health care provider. ? ? Leave stitches (sutures), skin glue, or adhesive strips in place. These skin closures may need to stay in place for 2 weeks or longer. If adhesive strip edges start to loosen and curl up, you may trim the loose edges. Do not remove adhesive strips completely unless your health care provider tells you to do that. ? ? Check your port insertion site every day for signs of infection. Check for: ? ? Redness, swelling, or pain. ? ? Fluid or blood. ? ? Warmth. ? ? Pus or a bad smell. Activity ? ? Return to your normal activities as told by your health care provider. Ask your health care provider what activities are safe for you. ? ? You may have to avoid lifting. Ask your health care provider how much you can safely lift. General instructions ? ? Take tjto-yfq-yjwnbsd and prescription medicines only as told by your health care provider. ? ? Do not take baths, swim, or use a hot tub until your health care provider approves. Ask your health care provider if you may take showers. You may only be allowed to take sponge baths. ? ? If you were given a sedative during the procedure, it can affect you for several hours. Do not drive or operate machinery until your health care provider says that it is safe. ? ? Wear a medical alert bracelet in case of an emergency. This will tell any health care providers that you have a port. ? ? Keep all follow-up visits. This is important. Contact a health care provider if: ? ? You cannot flush your port with saline as directed, or you cannot draw blood from the port. ? ? You have a fever or chills. ? ? You have redness, swelling, or pain around your port insertion site. ? ? You have fluid or blood coming from your port insertion site. ? ? Your port insertion site feels warm to the touch. ? ? You have pus or a bad smell coming from the port insertion site. Get help right away if: ? ? You have chest pain or shortness of breath. ? ? You have bleeding from your port that you cannot control. These symptoms may be an emergency. Get help right away. Call 911. ? ? Do not wait to see if the symptoms will go away. ? ? Do not drive yourself to the hospital. Summary ? ? Take care of the port as told by your health care provider. Keep the sawmill supervisor's information card with you at all times. ? ? Change your dressing as told by your health care provider. ? ? Contact a health care provider if you have a fever or chills or if you have redness, swelling, or pain around your port insertion site. ? ? Keep all follow-up visits. This information is not intended to replace advice given to you by your health care provider. Make sure you discuss any questions you have with your health care provider. Document Revised: 05/08/2022 Document Reviewed: 05/08/2022 [employer] Patient Education ?? 2021 [employer]. Pharmacology Monitored Anesthesia Care, Care After This sheet gives you information about how to care for yourself after your procedure. Your health care provider may also give you more specific instructions. If you have problems or questions, contact your health care provider. What can I expect after the procedure? After the procedure, it is common to have: ? ? Tiredness. ? ? Forgetfulness about what happened after the procedure. ? ? Impaired judgment for important decisions. ? ? Nausea or vomiting. ? ? Some difficulty with balance. Follow these instructions at home: For the time period you were told by your health care provider: ? ? Rest as needed. ? ? Do not participate in activities where you could fall or become injured. ? ? Do not drive or use machinery. ? ? Do not drink alcohol. ? ? Do not take sleeping pills or medicines that cause drowsiness. ? ? Do not make important decisions or sign legal documents. ? ? Do not take care of children on your own. Eating and drinking ? ? Follow the diet that is recommended by your health care provider. ? ? Drink enough fluid to keep your urine pale yellow. ? ? If you vomit: ? ? Drink water, juice, or soup when you can drink without vomiting. ? ? Make sure you have little or no nausea before eating solid foods. General instructions ? ? Have a responsible adult stay with you for the time you are told. It is important to have someone help care for you until you are awake and alert. ? ? Take bibw-ecw-fiucxkk and prescription medicines only as told by your health care provider. ? ? If you have sleep apnea, surgery and certain medicines can increase your risk for breathing problems. Follow instructions from your health care provider about wearing your sleep device: ? ? Anytime you are sleeping, including during daytime naps. ? ? While taking prescription pain medicines, sleeping medicines, or medicines that make you drowsy. ? ? Avoid smoking. ? ? Keep all follow-up visits as told by your health care provider. This is important. Contact a health care provider if: ? ? You keep feeling nauseous or you keep vomiting. ? ? You feel light-headed. ? ? You are still sleepy or having trouble with balance after 24 hours. ? ? You develop a rash. ? ? You have a fever. ? ? You have redness or swelling around the IV site. Get help right away if: ? ? You have trouble breathing. ? ? You have new-onset confusion at home. Summary ? ? For several hours after your procedure, you may feel tired. You may also be forgetful and have poor judgment. ? ? Have a responsible adult stay with you for the time you are told. It is important to have someone help care for you until you are awake and alert. ? ? Rest as told. Do not drive or operate machinery. Do not drink alcohol or take sleeping pills. ? ? Get help right away if you have trouble breathing, or if you suddenly become confused. This information is not intended to replace advice given to you by your health care provider. Make sure you discuss any questions you have with your health care provider. Document Revised: 07/20/2021 Document Reviewed: 10/06/2020 [employer] Patient Education ?? 2021 [employer] Future Appointments Appointment Date:01/22/2024 10:00:00 AM Scheduled Provider:Danilo Freitas MD Location:[facility] Appointment Type:Established Patient Appointment Date:01/22/2024 10:15:00 AM Scheduled Provider:Danilo Freitas MD Location:[facility] Appointment Type:Simulation Appointment Date:01/22/2024 11:20:00 AM Scheduled Provider:Harrison Lopez DO Location:[facility] Appointment Type:Established Patient Appointment Date:01/23/2024 01:00:00 PM Scheduled Provider:Juli Mensah DO Location:[facility] Appointment Type:New Patient Appointment Date:02/12/2024 11:00:00 AM Scheduled Provider:Boo Trejo MD Location:[facility] Appointment Type:New Patient Medications atorvastatin By mouth, Daily, Refill(s) 0 Start Date: 12/05/23 Status: Ordered Colace 100 mg oral capsule 100 mg = 1 cap, By mouth, BID, PRN for constipation, # 20 cap, Refill(s) 0, Pharmacy: [facility] #[id number], [id number], 1 cap By mouth BID,PRN:for constipation, 110.9, 12/06/23 8:09:00 PROFESSIONAL NURSING ASSISTANT, kg, Weight (kg) (Clinical) Start Date: 12/06/23 Status: Ordered colchicine mg, By mouth, Daily, as needed for gout., Refill(s) 0 Start Date: 12/05/23 Status: Ordered gabapentin 300 mg oral capsule 300 mg = 1 cap, By mouth, TID, # 90 cap, Refill(s) 0, Pharmacy: [facility] #[id number], [id number], 1 cap By mouth TID, 104.95, 01/01/24 11:49:00 PROFESSIONAL NURSING ASSISTANT, kg, Weight (kg) (Clinical) Start Date: 01/01/24 Status: Ordered Levemir SUBQ, Refill(s) 0 Start Date: 12/05/23 Status: Ordered MetFORMIN (Eqv-Fortamet) By mouth, Daily, Refill(s) 0 Start Date: 12/05/23 Status: Ordered Metoprolol Tartrate BID, Refill(s) 0 Start Date: 12/05/23 Status: Ordered olmesartan By mouth, Daily, Refill(s) 0 Start Date: 12/05/23 Status: Ordered oxyCODONE 5 mg oral tablet 10 mg, = 2 tab, By mouth, Q4H, PRN for moderate pain, 40 tab, 0, 0, Substitution Permitted, [facility], 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 Start Date: 01/16/24 Stop Date: 02/15/24 Status: Ordered Tylenol By mouth, Refill(s) 0 Start Date: 12/23/23 Status: Ordered Problem List Condition Confirmation Course Effective Dates Status Health [facility] Informant Ex-smoker Confirmed Active patient Family history of stomach cancer Confirmed Active Bone lesion Confirmed Active Lesion of lung Confirmed Active Procedures Procedure Date Related Diagnosis Body Site Status ESOPHAGOGASTRODUODENOSCOPY T RANSORAL DIAGNOSTIC 01/16/24 Completed INSJ TUNNELED CTR VAD W/SUBQ PORT AGE 5 YR/> 01/16/24 Completed Robotic Lap Lupe 12/06/23 Complet ed Results Laboratory List Name Date PT/INR 01/16/24 PTT 01/16/24 Most recent to oldest [Reference Range]: 1 Bedside Glucose 317 mg/dL 1 (01/16/24 1:55 PM) PTT [22-33 sec] 26 sec (01/16/24 1:56 PM) PT [9.0-13.5 sec] 10.6 sec (01/16/24 1:56 PM) INR [0.80-1.30] 0.99 (01/16/24 1:56 PM) 1Result Comment: Notify RN/DR Performed at:[facility], [address] [place] [address], [id number] Reference Ranges: Age 0 - 24 hours: 45 - 115 mg/dL Age 24 hours - 30 days: 55 - 115 mg/dL Age > 30 days: 70 - 100 mg/dL Critical Results Requiring Immediate Notification: Age <72 Hours: <40 or >350 mg/dL Age >72 Hours: <50 or >400 mg/dL Radiology Reports * Exam Date Time Procedure Performing Provider Status 01/16/24 4:43 PM XR Chest 1 View Li BRISENO MD, Prateek Gaines; Auth (Verified) Notes: (XR Chest 1 View) Reason For Exam: Post op Port Placement XR Chest 1 View PROCEDURE INFORMATION: Exam: XR Chest Exam date and time: 01/16/2024 4:33 PM Age: 63 years old Clinical indication: Disorder of bone, unspecified; Solitary pulmonary nodule; Family history of malignant neoplasm of digestive organs; Additional info: Post op port placement TECHNIQUE: Imaging protocol: Radiologic exam of the chest. Views: 1 view. COMPARISON: DX XR Chest 1 View 01/16/2024 3:47 PM FINDINGS: Lungs: A group of small nodules can be seen in the right mid lung field. Pleural spaces: Unremarkable. No pleural effusion. No pneumothorax. Heart/Mediastinum: Unremarkable. No cardiomegaly. Bones/joints: Unremarkable. Other findings: A right-sided VAD is in good position. IMPRESSION: Good VAD positioning. No complication. Electronically signed by: Kimani Ocampo MD, [facility], 01/16/2024 17:0 Terrence SHAH, Kimani Montejo Signed 01/16/24 17:00:54 (Electronic Signature) Technologist BLANCA CARLSON REPORT * Exam Date Time Procedure Performing Provider Status 01/16/24 3:47 PM XR Chest 1 View Rm RT(R), Siria; Gi[facility] (Verified) Notes: (XR Chest 1 View) Reason For Exam: s/p port placement REPORT XR Chest 1 View Exam: XR Chest 1 View Date/Time of Exam: 01/16/2024 3:47 PM Reason For Exam: Preop for port placement. Diagnosis Codes: Z80.0 Family history of malignant neoplasm of digestive organs M89.9 Disorder of bone, unspecified R91.1 Solitary pulmonary nodule Comparison: CXR 01/15/2024. Reading Location: [address]\ [address] Findings: Lungs: There is no consolidation or atelectasis in either lung. Heart and mediastinum: Heart size normal. No abnormal mediastinal or hilar lymph nodes. Tracheal air shadow and aortic contour normal. Pleural spaces: No pleural fluid nor pneumothorax. Musculoskeletal: No acute osseous abnormalities present. IMPRESSION: No acute cardiopulmonary process. Electronically signed by: Dr Dona Rashid 01/16/2024 4:29 PM Dona Rashid DO Signed 01/16/24 16:29:02 (Electronic Signature) Dermatological Surgeon IMELDA Technologist CORDELL Vital Signs Most recent to oldest [Reference Range]: 1 2 3 Blood Pressure 145/86mmHg (01/16/24 5:28 PM) 156/82mmHg (01/16/24 5:20 PM) 143/75mmHg (01/16/24 5:06 PM) Height (inches) (Clinical) 72 in (01/16/24 2:16 PM) 72 in (01/16/24 1:52 PM) Weight (kg) (Clinical) 102.1 kg (01/16/24 1:52 PM) BMI (Clinical) 0 kg/m2 (01/16/24 2:16 PM) 30.5 kg/m2 (01/16/24 1:52 PM) Scale Type Bed (01/16/24 1:52 PM) Social History Social History Type Response Smoking Status Former smoker; Smoke less tobacco use: Never; Has the patient smoked in the last 365 days, even once? No; Type: Cigarettes 1 entered on: 01/07/24 Sex Male 1quit 15 years ago. Implantable Device List Procedure Provider Procedure Date Device Type Site Unknown Unknown 01/16/24 Non Biological Subclavian , Right Device Identifier Serial Number Lot or Batch Number Manufacturing Date Expiration Date Distinct Identification Code MRI Safety Implantable Status Assigning Authority Unknown Unknown [id number] Unknown 05/17/25 Unknown Unknown Active Unknown Hospital Discharge Instructions Patient Education 01/16/2024 15:53:49 Implanted Port Insertion, Care After Implanted Port Insertion, Care After The following information offers guidance on how to care for yourself after your procedure. Your health care provider may also give you more specific instructions. If you have problems or questions, contact your health care provider. What can I expect after the procedure? After the procedure, it is common to have: ??? Discomfort at the port insertion site. ??? Bruising on the skin over the port. This should improve over 3???4 days. Follow these instructions at home: Port care ??? After your port is placed, you will get a sawmill supervisor's information card. The card has information about your port. Keep this card with you at all times. ??? Take care of the port as told by your health care provider. Ask your health care provider if you or a family member can get training for taking care of the port at home. ??? A home health care nurse will be be available to help care for the port. ??? Make sure to remember what type of port you have. Incision care ??? Follow instructions from your health care provider about how to take care of your port insertion site. Make sure you: ??? Wash your hands with soap and water for at least 20 seconds before and after you change your bandage (dressing). If soap and water are not available, use hand copper miner. ??? Change your dressing as told by your health care provider. ??? Leave stitches (sutures), skin glue, or adhesive strips in place. These skin closures may need to stay in place for 2 weeks or longer. If adhesive strip edges start to loosen and curl up, you maytrim the loose edges. Do not remove adhesive strips completely unless your health care provider tells you to do that. ??? Check your port insertion site every day for signs of infection. Check for: ??? Redness, swelling, or pain. ??? Fluid or blood. ??? Warmth. ??? Pus or a bad smell. Activity ??? Return to your normal activities as told by your health care provider. Ask your health care provider what activities are safe for you. ??? You may have to avoid lifting. Ask your health care provider how much you can safely lift. General instructions ??? Take xuwh-lgq-ecethet and prescription medicines only as told by your health care provider. ??? Do not take baths, swim, or use a hot tub until your health care provider approves. Ask your health care provider if you may take showers. You may only be allowed to take sponge baths. ??? If you were given a sedative during the procedure, it can affect you for several hours. Do not drive or operate machinery until your health care provider says that it is safe. ??? Wear a medical alert bracelet in case of an emergency. This will tell any health care providersthat you have a port. ??? Keep all follow-up visits. This is important. Contact a health care provider if: ??? You cannot flush your port with saline as directed, or you cannot draw blood from the port. ??? You have a fever or chills. ??? You have redness, swelling, or pain around your port insertion site. ??? You have fluid or blood coming from your port insertion site. ??? Your port insertion site feels warm to the touch. ??? You have pus or a bad smell coming from the port insertion site. Get help right away if: ??? You have chest pain or shortness of breath. ??? You have bleeding from your port that you cannot control. These symptoms may be an emergency. Get help right away. Call 911. ??? Do not wait to see if the symptoms will go away. ??? Do not drive yourself to the hospital. Summary ??? Take care of the port as told by your health care provider. Keep the sawmill supervisor's informationcard with you at all times. ??? Change your dressing as told by your health care provider. ??? Contact a health care provider if you have a fever or chills or if you have redness, swelling, or pain around your port insertion site. ??? Keep all follow-up visits. This information is not intended to replace advice given to you by your health care provider. Make sure you discuss any questions you have with your health care provider. Document Revised: 05/08/2022 Document Reviewed: 05/08/2022 [employer] Patient Education ?? 2021 [employer]. 01/16/2024 15:53:49 Monitored Anesthesia Care, Care After Monitored Anesthesia Care, Care After This sheet gives you information about how to care for yourself after your procedure. Your health care provider may also give you more specific instructions. If you have problems or questions, contact your health care provider. What can I expect after the procedure? After the procedure, it is common to have: ??? Tiredness. ??? Forgetfulness about what happened after the procedure. ??? Impaired judgment for important decisions. ??? Nausea or vomiting. ??? Some difficulty with balance. Follow these instructions at home: For the time period you were told by your health care provider: ??? Rest as needed. ??? Do not participate in activities where you could fall or become injured. ??? Do not drive or use machinery. ??? Do not drink alcohol. ??? Do not take sleeping pills or medicines that cause drowsiness. ??? Do not make important decisions or sign legal documents. ??? Do not take care of children on your own. Eating and drinking ??? Follow the diet that is recommended by your health care provider. ??? Drink enough fluid to keep your urine pale yellow. ??? If you vomit: ??? Drink water, juice, or soup when you can drink without vomiting. ??? Make sure you have little or no nausea before eating solid foods. General instructions ??? Have a responsible adult stay with you for the time you are told. It is important to have someone help care for you until you are awake and alert. ??? Take prov-laq-wjqqtrk and prescription medicines only as told by your health care provider. ??? If you have sleep apnea, surgery and certain medicines can increase your risk for breathing problems. Follow instructions from your health care provider about wearing your sleep device: ??? Anytime you are sleeping, including during daytime naps. ??? While taking prescription pain medicines, sleeping medicines, or medicines that make you drowsy. ??? Avoid smoking. ??? Keep all follow-up visits as told by your health care provider. This is important. Contact a health care provider if: ??? You keep feeling nauseous or you keep vomiting. ??? You feel light-headed. ??? You are still sleepy or having trouble with balance after 24 hours. ??? You develop a rash. ??? You have a fever. ??? You have redness or swelling around the IV site. Get help right away if: ??? You have trouble breathing. ??? You have new-onset confusion at home. Summary ??? For several hours after your procedure, you may feel tired. You may also be forgetful and have poor judgment. ??? Have a responsible adult stay with you for the time you are told. It is important to have someone help care for you until you are awake and alert. ??? Rest as told. Do not drive or operate machinery. Do not drink alcohol or take sleeping pills. ??? Get help right away if you have trouble breathing, or if you suddenly become confused. This information is not intended to replace advice given to you by your health care provider. Make sure you discuss any questions you have with your health care provider. Document Revised: 07/20/2021 Document Reviewed: 10/06/2020 [employer] Patient Education ?? 2021 [employer]. Follow Up Care 01/08/2024 00:06:53 With:Harrison Lopez Address: [address] [place] [id number] Business (1) When:1 to 2 weeks Comments:Office to contact you with follow up appt. Progress note * Ryan Jefferson III, MD: MODIFY, SIGN, VERIFY, PERFORM Event Display: Progress Notes Authored Date: [id number] Patient: ERNESTINA VILLEGAS Age: 63 years Sex: Male : 1960 Associated Diagnoses: None Author: Ryan Jefferson III, MD Postoperative Information Date/ Time: 01/16/2024 15:45:00 Preoperative Diagnosis: Bone lesion - [id number]-FV M89.9, Family history of stomach cancer - GQU00-FG Z80.0, Lesion of lung - OZW45-AL R91.1. Postoperative Diagnosis: Bone lesion - JYA54-PX M89.9, Family history of stomach cancer - FUV98-XV Z80.0, Lesion of lung - OCO14-ZT R91.1. Procedure: 1) Port 2) Fluoro 3) US 4) EGD. Performed by: Ryan Jefferson III, MD. Anesthetic Used: MAC. Findings: Satisfactorily placed port. Specimens Removed: None. Estimated Blood Loss: 5 ml. Complications: None. Description of Techniques: Standard. Implants/Grafts: Port. Final Count Verification: OK . Electronically signed by:Ryan Jefferson III, MD 01/16/24 15:45 XR Chest Single view * Rachid DO, Veeral: PERFORM, TRANSCRIBE, VERIFY, VERIFY Event Display: Report Authored Date: [id number] * Kimani Ocampo MD: PERFORM, VERIFY, VERIFY Event Display: [employer] Read Authored Date: [id number] PROCEDURE INFORMATION: Exam: XR Chest Exam date and time: 01/16/2024 4:33 PM Age: 63 years old Clinical indication: Disorder of bone, unspecified; Solitary pulmonary nodule; Family history of malignant neoplasm of digestive organs; Additional info: Post op port placement TECHNIQUE: Imaging protocol: Radiologic exam of the chest. Views: 1 view. COMPARISON: DX XR Chest 1 View 01/16/2024 3:47 PM FINDINGS: Lungs: A group of small nodules can be seen in the right mid lung field. Pleural spaces: Unremarkable. No pleural effusion. No pneumothorax. Heart/Mediastinum: Unremarkable. No cardiomegaly. Bones/joints: Unremarkable. Other findings: A right-sided VAD is in good position. IMPRESSION: Good VAD positioning. No complication. Electronically signed by: Kimani Ocampo MD, [employer], 01/16/2024 17:0 Kimani Ocampo MD Signed 01/16/24 17:00:54 (Electronic Signature) Technologist BLANCA CARLSON Note * Dona Rashid DO: PERFORM, TRANSCRIBE, VERIFY, VERIFY Event Display: [employer] Read Authored Date: [id number] Exam: XR Chest 1 View Date/Time of Exam: 01/16/2024 3:47 PM Reason For Exam: Preop for port placement. Diagnosis Codes: Z80.0 Family history of malignant neoplasm of digestive organs M89.9 Disorder of bone, unspecified R91.1 Solitary pulmonary nodule Comparison: CXR 01/15/2024. Reading Location: [place] [address] \\ [facility] Findings: Lungs: There is no consolidation or atelectasis in either lung. Heart and mediastinum: Heart size normal. No abnormal mediastinal or hilar lymph nodes. Tracheal air shadow and aortic contour normal. Pleural spaces: No pleural fluid nor pneumothorax. Musculoskeletal: No acute osseous abnormalities present. IMPRESSION: No acute cardiopulmonary process. Electronically signed by: Dr Dona Rashid 01/16/2024 4:29 PM Dona Rashid DO Signed 01/16/24 16:29:02 (Electronic Signature) Dermatological Surgeon VB Technologist JW * Kimani Ocampo MD: PERFORM, VERIFY, VERIFY Event Display: Report Authored Date: [id number] Cardiology * Kimani Ramsey MD: SIGN, VERIFY Event Display: EKG 12-Lead Authored Date: [id number] Patient Care team information Care Team Personnel Name: Karl Whitmore DO Position: 2 Restricted Providers Member Role: Primary Care Physician Address: Address: [address], [place] [address] Name: Ryan Jefferson III, MD Position: PX Physician - General Surgery Med Service: General Surgery Member Role: Ordering Physician Address: Address: [address] [place] [address] Care Team Related Persons Name: NORMA VILLEGAS Name: FRAN ALVES Name: NELLY GREEN
--- OUTSIDE RECORDS SUMMARY | 2024-05-27 14:49 | XMS_ITS | Continuity of Care Document ---
Author Name Unknown Organization [facility] Address [address] [place] [address]- Care Team Providers Care Warehouse Consultant Name Role Phone Karl Whitmore DO Primary Care Physician Encounter [employer] Number [id number] Date(s): 12/27/23 - 12/27/23 [facility] [address] [place] [address]- Encounter Diagnosis Multiple lung nodules on CT(Discharge Diagnosis) - 12/27/23 Lytic lesion of bone on x-ray(Discharge Diagnosis) - 12/27/23 Discharge Disposition: .Discharge to Home (Routine) Attending Physician: Isaias Brewer MD Allergies, Adverse Reactions, Alerts No Known Medication Allergies Assessment and Plan Extracted from: Title:Abdominal Pain *ED Author:Eliana Diallo Date:12/27/23 Impression and Plan Diagnosis Lytic lesion of bone on x-ray ([id number] M89.9, Emergency medicine) Multiple lung nodules on CT ([id number] R91.8, Emergency medicine) Calls-Consults - Boo Trejo MD, pulm, consult, recommends will follow up outpatient for ion bronch. - Harrison Lopez DO, onc, recommends will follow up OP. Plan Condition: Stable. Disposition: Medically cleared, Discharged: To home, The patient received an appropriate MSE including H&P exam as well as ancillary studies and procedures determined appropriate in the provider's judgement. The patient is medically and/or psychologically cleared for discharge. . Patient was given the following educational materials: Lung Mass. Follow up with: Karl Whitmore Within 5 to 7 days; Boo Trejo Within 1 to 3 days; Harrison Lopez Within 1 to 3 days Please follow up with oncology and pulmonology - if you do not hear from the office regarding follow up in 3-5 days, call the office numbers provided.. 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 Education: Lung Mass Orders: ( Completed ): Height to [employer] CBC-d (CBC-d) 12/27/2023 14:47 CMP (CMP) 12/27/2023 15:09 Lipase (Lipase) 12/27/2023 15:09 zCBC Automated Diff 12/27/2023 14:47 Phlebotomy dicyclomine (Bentyl) 20 mg 12/27/2023 20:51 CT Abd Pelvis w Contrast Routine (CT Abd Pelvis w Contrast Routine) 12/27/2023 21:49 labetalol (labetalol) 20 mg 12/27/2023 20:51 Sodium Chloride 0.9% intravenous solutio (Sodium Chloride 0.9% bolus) 500 mL 12/27/2023 20:51 iopamidol (ISOVUE 370 IBP INJ 500 ML) 75 mL 12/27/2023 21:13 EKG 12-Lead (EKG 12-Lead) 12/27/2023 21:08 Obtain EKG (Obtain EKG) 12/27/2023 20:59 morphine (morphine INJ) 4 mg 12/27/2023 20:51 ED Physician Request Pending Complete (ED Physician Request Pending Complete) 12/27/2023 21:56 CRP-Cardiac (HS CRP) 12/27/2023 21:30 ED Physician Request (ED Physician Request) 12/27/2023 21:56 CT Chest wo Contrast (CT Chest wo Contrast) 12/27/2023 22:43 ED Physician Request (ED Physician Request) 12/27/2023 22:56 HYDROmorphone (Dilaudid INJ) 1 mg 12/27/2023 22:23 ED Physician Request Pending Complete (ED Physician Request Pending Complete) 12/27/2023 22:59 Orders: ( Ordered ): Urinalysis w/ microscopy (Urinalysis w/ microscopy) Follow Up: Karl Whitmore 5 to 7 days Boo Trejo 1 to 3 days Harrison Lpoez 1 to 3 days Please follow up with oncology and pulmonology - if you do not hear from the office regarding follow up in 3-5 days, call the office numbers provided. . Counseled: Patient, Family, Regarding diagnosis, Regarding diagnostic results, Regarding treatment plan, Regarding prescription, Patient indicated understanding of instructions. Diagnostic Tests Pending * Urinalysis w/ microscopy 12/27/23 Medications atorvastatin By mouth, Daily, Refill(s) 0 Start Date: 12/05/23 Status: Ordered Colace 100 mg oral capsule 100 mg = 1 cap, By mouth, BID, PRN for constipation, # 20 cap, Refill(s) 0, Pharmacy: [facility] #[id number], [id number], 1 cap By mouth BID,PRN:for constipation, 110.9, 12/06/23 8:09:00 POST CLOSER, kg, Weight (kg) (Clinical) Start Date: 12/06/23 Status: Ordered colchicine mg, By mouth, Daily, Refill(s) 0 Start Date: 12/05/23 Status: Ordered hydrocodone-APAP 5mg-325mg oral tablet ED RX 6PK By mouth, Q6H, 0, 0, Substitution Permitted Start Date: 12/05/23 Status: Ordered Levemir SUBQ, Refill(s) 0 Start Date: 12/05/23 Status: Ordered MetFORMIN (Eqv-Fortamet) By mouth, Daily, Refill(s) 0 Start Date: 12/05/23 Status: Ordered Metoprolol Tartrate BID, Refill(s) 0 Start Date: 12/05/23 Status: Ordered olmesartan By mouth, Daily, Refill(s) 0 Start Date: 12/05/23 Status: Ordered oxyCODONE 5 mg oral tablet 5 mg, = 1 tab, By mouth, Q6H, PRN for moderate pain, 30 tab, 0, 0, 01/17/24 0:00:00 POST CLOSER, Substitution Permitted, [facility] #[id number], 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 Start Date: 12/27/23 Stop Date: 01/17/24 Status: Ordered Tylenol By mouth, Refill(s) 0 Start Date: 12/23/23 Status: Ordered Problem List Condition Confirmation Course Effective Dates Status [facility] Informant Ex-smoker Confirmed Active patient Procedures Procedure Date Related Diagnosis Body Site Status Robotic Lap Lupe 12/06/23 Complet ed Results Laboratory List Name Date CBC-d 12/27/23 CMP 12/27/23 CRP-Cardiac (HS CRP) 12/27/23 Lipase 12/27/23 zCBC Automated Diff 12/27/23 Most recent to oldest [Reference Range]: 1 Anion Gap [2-15 mEq/L] 7 mEq/L (12/27/23 2:34 PM) CRP High Sensitivity [0.000-0.300 mg/dL] 0.350 mg/dL *HI* (12/27/23 2:34 PM) eGFR CKD-EPI [>=61 mL/min/1.73 m2] 96 mL /min/1.73 m2 (12/27/23 2:34 PM) Glucose, Serum/Plasma [70-100 mg/dL] 251 mg/dL *HI* (12/27/23 2:34 PM) WBC [4.8-10.8 Thous/mm3] 11.8 Thous/mm3 *HI* (12/27/23 2:34 PM) Hct [42.0-52.0 %] 47.2 % (12/27/23 2:34 PM) Hgb [14.0-18.0 g/dL] 16.1 g/dL (12/27/23 2:34 PM) RBC [4.60-6.20 Million/mm3] 5.46 Million /mm3 (12/27/23 2:34 PM) MCV [80.0-100.0 fl] 86.4 fl (12/27/23 2:34 PM) MCH [26.0-34.0 pg] 29.5 pg (12/27/23 2:34 PM) MCHC [31.0-36.5 g/dL] 34.1 g/dL (12/27/23 2:34 PM) RDW [10.4-14.4 %] 13.2 % (12/27/23 2:34 PM) Platelets [130-440 Thous/mm3] 252 Thous/ mm3 (12/27/23 2:34 PM) MPV [9.4-12.4 fl] 10.7 fl (12/27/23 2:34 PM) AutoNeutrophil [43.0-78.0 %] 70.5 % (12/27/23 2:34 PM) AutoLymphs [20.0-40.0 %] 20.1 % (12/27/23 2:34 PM) AutoMono [2.0-10.0 %] 7.1 % (12/27/23:34 PM) AutoEo [0.0-7.0 %] 1.8 % (12/27/23 2:34 PM) Sodium [136-145 mEq/L] 137 mEq/L (12/27/23:34 PM) Potassium [3.5-5.1 mEq/L] 4.4 mEq/L (12/27/23:34 PM) Chloride [98-107 mEq/L] 103 mEq/L (12/27/23 2:34 PM) AbsNeut [2.0-8.0 Thous/mm3] 8.3 Thous/mm 3 *HI* (12/27/23:34 PM) CO2 [21-32 mEq/L] 27 mEq/L (12/27/23 2:34 PM) BUN [7-18 mg/dL] 16 mg/dL (12/27/23 2:34 PM) Creatinine [0.73-1.18 mg/dL] 0.86 mg/dL (12/27/23 2:34 PM) AbsLymph [1.0-4.0 Thous/mm3] 2.4 Thous/m m3 (12/27/23 2:34 PM) AbsMono [0.1-1.0 Thous/mm3] 0.8 Thous/mm 3 (12/27/23 2:34 PM) Bilirubin, Total [0.2-1.0 mg/dL] 0.7 mg/ dL (12/27/23 2:34 PM) AbsEo [0.0-0.5 Thous/mm3] 0.2 Thous/mm3 (12/27/23 2:34 PM) AbsBaso [0.0-0.2 Thous/mm3] 0.0 Thous/mm 3 (12/27/23 2:34 PM) AutoBaso [0.0-2.5 %] 0.3 % (12/27/23 2:34 PM) Calcium [8.3-10.6 mg/dL] 9.5 mg/dL (12/27/23 2:34 PM) Protein Total [6.4-8.5 g/dL] 7.3 g/dL (12/27/23 2:34 PM) Albumin [3.4-5.0 g/dL] 4.2 g/dL (12/27/23 2:34 PM) AST [15-37 U/L] 20 U/L (12/27/23 2:34 PM) Alk Phos [45-117 U/L] 112 U/L (12/27/23 2:34 PM) ALT [10-49 U/L] 25 U/L (12/27/23 2:34 PM) Lipase, Serum/Plasma [12-53 U/L] 28 U/L (12/27/23 2:34 PM) Imm. Grans % [0-5 %] <5 % (12/27/23 2:34 PM) Imm. Grans # [0.0-0.5 Thous/mm3] <0.5 Th ous/mm3 (12/27/23 2:34 PM) ANC-AbsNeutCount 8.3 Thous/mm3 *NA* (12/27/23 2:34 PM) Radiology Reports * Exam Date Time Procedure Performing Provider Status 12/27/23 10:[address] Chest wo Contrast Eliana Diallo; Auth (Verified) Notes: (CT Chest wo Contrast) Reason For Exam: Pain REPORT CT Chest wo Contrast PROCEDURE INFORMATION: Exam: CT Chest Without Contrast; Diagnostic Exam date and time: 12/27/2023 10:08 PM Age: 63 years old Clinical indication: Pain TECHNIQUE: Imaging protocol: Diagnostic computed tomography of the chest without contrast. Radiation optimization: All CT scans at this facility use at least one of these dose optimization techniques: automated exposure control; mA and/or kV adjustment per patient size (includes targeted exams where dose is matched to clinical indication); or iterative reconstruction. COMPARISON: DX XR Chest 1 View 05/12/2023 14:46 FINDINGS: Thyroid: Calcification in the left thyroid lobe. No visible nodule. No imaging follow-up recommended. Lungs: Severe emphysema. 1.7 cm spiculated nodule in the inferior right lower lobe, abutting the major fissure. Multiple smaller scattered nodules in the right middle and lower lobes, the largest measuring 8 mm. The left lung is clear. No left pulmonary nodules. Pleural spaces: Unremarkable. No pneumothorax. No pleural effusion. Heart: Mild coronary artery calcifications. No cardiomegaly. No pericardial effusion. Lymph nodes: Unremarkable. No enlarged lymph nodes. Vasculature: Unremarkable. No aortic aneurysm. Bones/joints: Lytic lesions in the T10 vertebral body and right pedicle. Expansile destructive lesion in the posterior right 10th rib with soft tissue extension. The other bones are intact. Mild degenerative changes. Soft tissues: See Bones/joints finding. IMPRESSION: 1. Dominant 1.7 cm spiculated nodule in the right lower lobe. This is highly suspicious for primary lung malignancy. Consider non-emergent PET/CT, or tissue sampling.(Reference: Gt) 2. Multiple additional smaller nodules in the right lung, most likely metastatic disease. 3. 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 References: Gt H, et al. Guidelines for Management of Incidental Pulmonary Nodules Detected on CT Images: From the Fleischner Society 2017. Radiology. 2017;284(1):228-243. COMMENTS: The presence of pulmonary emphysema on CT is an independent risk factor for lung cancer. In the absence of a history or active diagnosis of lung cancer, it is recommended that this patient with emphysema be evaluated for enrollment in a low dose CT lung cancer screening program. Electronically signed by: Luis Miguel Braun MD, [facility], 12/27/2023 22:43 Kade SHAH, Luis Miguel O Signed 12/27/23 22:43:26 (Electronic Signature) Technologist RW * Exam Date Time Procedure Performing Provider Status 12/27/23 9:[address] Abd Pelvis w Contrast Eliana Diallo; Modified Notes: (CT Abd Pelvis w Contrast) Reason For Exam: Abdominal Pain CT Abd Pelvis w Contrast Addendum Begin THIS REPORT CONTAINS FINDINGS THAT MAY BE CRITICAL TO PATIENT CARE. The findings were verbally communicated via telephone conference with Dr. Brewer at 9:57 PM POST CLOSER on 12/27/2023. The findings were acknowledged and understood. Addendum End Kade SHAH, Luis Miguel Weaver Signed 12/27/23 21:57:43 (Electronic Signature) Technologist JH REPORT CT Abd Pelvis w Contrast PROCEDURE INFORMATION: Exam: CT Abdomen And Pelvis With Contrast Exam date and time: 12/27/2023 9:13 PM Age: 63 years old Clinical indication: Abdominal pain TECHNIQUE: Imaging protocol: Computed tomography of the abdomen and pelvis with contrast. Radiation optimization: All CT scans at this facility use at least one of these dose optimization techniques: automated exposure control; mA and/or kV adjustment per patient size (includes targeted exams where dose is matched to clinical indication); or iterative reconstruction. COMPARISON: US GB Bile Ducts 05/12/2023 13:03 FINDINGS: Lungs: 6 mm right middle lobe nodule. 6 mm and 4 mm right lower lobe nodules. Liver: Normal. No mass. Gallbladder and bile ducts: Cholecystectomy. The bile ducts are normal. Pancreas: Normal. No ductal dilation. Spleen: Normal. No splenomegaly. Adrenal glands: Normal. No mass. Kidneys and ureters: Small central cysts in both kidneys, Hounsfield units less than 20. No follow-up imaging recommended. No calculus or hydronephrosis. Mild perinephric stranding is most likely chronic. Stomach and bowel: Mild diverticulosis of the colon. No diverticulitis. The stomach and small bowel are unremarkable. No wall thickening or obstruction. Appendix: The appendix is visualized and is normal. Intraperitoneal space: Unremarkable. No free air. No significant fluid collection. Vasculature: Diffuse calcified arterial plaque. No aneurysm. 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 Mild stenosis at the origin of the superior mesenteric artery. Lymph nodes: Unremarkable. No enlarged lymph nodes. Urinary bladder: Unremarkable as visualized. Reproductive: Mildly enlarged prostate. Bones/joints: Degenerative changes of the spine. Multiple Schmorl's nodes. Multiple lytic lesions in the T10 vertebral body and right pedicle. Destructive lesion with soft tissue extension in the posterior right 10th rib. Soft tissues: Fat containing bilateral inguinal hernias. Scar in the left abdominal wall. IMPRESSION: 1. No acute findings in the abdomen or pelvis. 2. Lytic lesion in the T10 vertebral body and right pedicle, suspicious for metastatic disease. 3. Expansile lytic lesion with soft tissue extension in the posterior right 10th rib, suspicious for metastatic disease. 4. Right pulmonary nodules, suspicious for metastatic disease. Follow-up with a CT chest versus PET/CT imaging should be considered. COMMENTS: Consistent with the [employer]'s Incidental Findings Committee white paper (J Am Stella Radiol 2018): Any incidental renal lesion less than 1 cm or classified as too small to characterize, or any incidental cystic renal lesion characterized as simple-appearing, is likely benign. No follow-up imaging is recommended for these lesions per consensus recommendations based on imaging criteria. Electronically signed by: Luis Miguel Braun MD, [facility], 12/27/2023 21:49 Luis Miguel Braun MD Signed 12/27/23 21:49:40 (Electronic Signature) Technologist JH Vital Signs Most recent to oldest [Reference Range]: 1 2 3 Blood Pressure 161/74 (12/27/23 10:30 PM) 163/91 (12/27/23 10:00 PM) 148/74 (12/27/23 9:30 PM) Height (inches) (Clinical) 71 in (12/27/23 1:58 PM) Weight (kg) (Clinical) 106 kg (12/27/23 1:58 PM) BMI (Clinical) 32.5 kg/m2 (12/27/23 1:58 PM) Social History Social History Type Response Smoking Status Former smoker; Smoke less tobacco use: Never; Has the patient smoked in the last 365 days, even once? No; Type: Cigarettes entered on: 12/23/23 Sex Male Hospital Discharge Instructions Patient Education 12/27/2023 23:09:36 Lung Mass Lung Mass A lung mass is a growth in the lung that is larger than 1.2 inches (3 cm). Smaller growths are called nodules. Most lung, or pulmonary, nodules are not cancer. Lung masses have a higher risk of beingcancer than nodules do. A lung mass is sometimes found during a routine chest X-ray or while other imaging tests are done to check for other problems. Lung masses include: ??? Tumors. These may be cancerous (malignant) or noncancerous (benign). ??? Granulomas. These are infectious masses. They are caused by inflammation from bacterial infections, such as tuberculosis, or from fungal infections. ??? Noninfectious masses. Some diseases that cause lung inflammation may also cause lung masses to form. ??? Blood vessel malformations. What are the causes? This condition may be caused by: ??? A bacterial, fungal, or viral infection, such as tuberculosis. The infection is usually an old and inactive one. ??? Cancerous tissue, such as lung cancer or a cancer in another part of the body that has spread to the lung. ??? A noncancerous mass of tissue. ??? Inflammation from conditions such as rheumatoid arthritis. ??? Abnormal blood vessels in the lungs. What are the signs or symptoms? Usually, there are no symptoms of this condition. If symptoms appear, they are usually related to the underlying cause or due to pressure on surrounding tissue. For example, if the condition is caused by an infection, you may have a cough or a fever. How is this diagnosed? This condition may be diagnosed based on testing to find the cause of the mass. If a lung mass is found, you may have: ??? A physical exam. ??? Blood tests. ??? Imaging tests. These may include: ??? Chest X-rays. ??? CT scan. This test shows smaller pulmonary nodules more clearly and with more detail than an X-ray. ??? Positron emission tomography (PET) scan. This test is done to check if a nodule or mass is cancerous. During the test, a small amount of a radioactive substance is injected into the bloodstream. Then a picture is taken. ??? Biopsy to evaluate for cancer or confirm a diagnosis. This procedure involves removing a tissuesample from the mass by: ??? Inserting a needle through the chest. ??? Using a scope placed down into the lung. ??? Doing open surgery. Tests and physical exams may be done once, or they may be done regularly for a period of time. Tests and exams that are done regularly will help monitor whether the mass is growing and becoming a concern. How is this treated? Treatment for a lung mass depends on the cause and whether the mass is cancerous. Treatment optionsfor a cancerous lung mass may include: ??? Surgical removal. ??? Radiation therapy. This therapy uses high-energy X-rays to kill cancer cells. ??? Chemotherapy. This therapy uses medicines to slow down or stop the growth of cancer. ??? Targeted therapy, if the mass is cancerous. In this therapy, medicines are used that directly fight cancer cells and do not harm normal cells. ??? Immunotherapy, if the mass is cancerous. This therapy uses medicines that help your disease-fighting system (immune system) fight cancer cells. Noncancerous masses may require treatment specific to the cause. Follow these instructions at home: If you have had surgery or a biopsy, your health care provider will give you specific instructions for taking care of yourself at home after your procedure. Follow these instructions carefully. General home care instructions include: ??? Take mpec-luw-[id number] and prescription medicines only as told by your health care provider. ??? Return to your normal activities as told by your health care provider. Ask your health care provider what activities are safe for you. ??? Do not use any products that contain nicotine or tobacco. These products include cigarettes, chewing tobacco, and vaping devices, such as e-cigarettes. If you need help quitting, ask your health care provider. ??? Keep all follow-up visits. This is important. Contact a health care provider if: ??? You have pain in your chest, back, or shoulder. ??? You are short of breath or have trouble breathing when you are active. ??? You develop a cough, or you develop hoarseness for an unexplained reason. ??? You feel sick or unusually tired. ??? You do not feel like eating, or you lose weight without trying. ??? You get chills or night sweats. ??? You need two or more pillows to sleep on at night. ??? You have any of these problems: ??? A fever and symptoms that suddenly get worse. ??? A fever or persistent symptoms for more than 2???3 days. Get help right away if: ??? You cannot catch your breath. ??? You have sudden chest pain. ??? You start making high-pitched whistling sounds when you breathe, most often when you breathe out (you wheeze). ??? You cannot stop coughing, or you cough up blood or bloody mucus from your lungs (sputum). ??? You become dizzy or feel like you may faint. These symptoms may represent a serious problem that is an emergency. Do not wait to see if the symptoms will go away. Get medical help right away. Call your local emergency services (911 in the [place] Do not drive yourself to the hospital. Summary ??? A lung mass is a growth in the lung that is larger than 1.2 inches (3 cm). ??? Lung masses have a higher risk of being cancer than do smaller growths. ??? Sometimes a lung mass is found during a routine chest X-ray or other imaging test. ??? Your health care provider may remove a tissue sample of the lung mass for testing (do a biopsy)to rule out or confirm cancer. ??? Treatment for this condition depends on the cause. This information is not intended to replace advice given to you by your health care provider. Make sure you discuss any questions you have with your health care provider. Document Revised: 05/24/2021 Document Reviewed: 05/24/2021 [employer] Patient Education ?? 2022 [employer]. Follow Up Care 12/27/2023 13:57:29 With:Harrison Lopez Address: [address] [place] [address]- Business (1) When:1 to 3 days Comments:Please follow up with oncology and pulmonology - if you do not hear from the office regarding follow up in 3-5 days, call the office numbers provided. With:Boo Trejo Address: [address] [facility] [address] [place], [place] [address]- Business (1) When:1 to 3 days With:Karl Whitmore Address: [address] [place] [address] Business (1) When:[address] Abdomen and Pelvis W contrast IV * Luis Miguel Braun MD: PERFORM, VERIFY, MODIFY Event Display: [employer] Addendum Authored Date: [id number] Addendum Begin THIS REPORT CONTAINS FINDINGS THAT MAY BE CRITICAL TO PATIENT CARE. The findings were verbally communicated via telephone conference with Dr. Brewer at 9:57 PM POST CLOSER on 12/27/2023. The findings were acknowledged and understood. Addendum End Luis Miguel Braun MD Signed 12/27/23 21:57:43 (Electronic Signature) Technologist Note * Luis Miguel Braun MD: PERFORM, VERIFY, VERIFY Event Display: Report Authored Date: * Luis Miguel Braun MD: PERFORM, VERIFY, VERIFY Event Display: Powers[employer] Read Authored Date: PROCEDURE INFORMATION: Exam: CT Abdomen And Pelvis With Contrast Exam date and time: 12/27/2023 9:13 PM Age: 63 years old Clinical indication: Abdominal pain TECHNIQUE: Imaging protocol: Computed tomography of the abdomen and pelvis with contrast. Radiation optimization: All CT scans at this facility use at least one of these dose optimization techniques: automated exposure control; mA and/or kV adjustment per patient size (includes targeted exams where dose is matched to clinical indication); or iterative reconstruction. COMPARISON: US GB Bile Ducts 05/12/2023 13:03 FINDINGS: Lungs: 6 mm right middle lobe nodule. 6 mm and 4 mm right lower lobe nodules. Liver: Normal. No mass. Gallbladder and bile ducts: Cholecystectomy. The bile ducts are normal. Pancreas: Normal. No ductal dilation. Spleen: Normal. No splenomegaly. Adrenal glands: Normal. No mass. Kidneys and ureters: Small central cysts in both kidneys, Hounsfield units less than 20. No follow-up imaging recommended. No calculus or hydronephrosis. Mild perinephric stranding is most likely chronic. Stomach and bowel: Mild diverticulosis of the colon. No diverticulitis. The stomach and small bowel are unremarkable. No wall thickening or obstruction. Appendix: The appendix is visualized and is normal. Intraperitoneal space: Unremarkable. No free air. No significant fluid collection. Vasculature: Diffuse calcified arterial plaque. No aneurysm. 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 Mild stenosis at the origin of the superior mesenteric artery. Lymph nodes: Unremarkable. No enlarged lymph nodes. Urinary bladder: Unremarkable as visualized. Reproductive: Mildly enlarged prostate. Bones/joints: Degenerative changes of the spine. Multiple Schmorl's nodes. Multiple lytic lesions in the T10 vertebral body and right pedicle. Destructive lesion with soft tissue extension in the posterior right 10th rib. Soft tissues: Fat containing bilateral inguinal hernias. Scar in the left abdominal wall. IMPRESSION: 1. No acute findings in the abdomen or pelvis. 2. Lytic lesion in the T10 vertebral body and right pedicle, suspicious for metastatic disease. 3. Expansile lytic lesion with soft tissue extension in the posterior right 10th rib, suspicious for metastatic disease. 4. Right pulmonary nodules, suspicious for metastatic disease. Follow-up with a CT chest versus PET/CT imaging should be considered. COMMENTS: Consistent with the [employer]'s Incidental Findings Committee white paper (J Am Stella Radiol 2018): Any incidental renal lesion less than 1 cm or classified as too small to characterize, or any incidental cystic renal lesion characterized as simple-appearing, is likely benign. No follow-up imaging is recommended for these lesions per consensus recommendations based on imaging criteria. Electronically signed by: Luis Miguel Braun MD, [facility], 12/27/2023 21:49 Luis Miguel Braun MD Signed 12/27/23 21:49:40 (Electronic Signature) Technologist Luis Miguel Farah MD: PERFORM, VERIFY, VERIFY Event Display: [employer] Read Authored Date: [id number] PROCEDURE INFORMATION: Exam: CT Chest Without Contrast; Diagnostic Exam date and time: 12/27/2023 10:08 PM Age: 63 years old Clinical indication: Pain TECHNIQUE: Imaging protocol: Diagnostic computed tomography of the chest without contrast. Radiation optimization: All CT scans at this facility use at least one of these dose optimization techniques: automated exposure control; mA and/or kV adjustment per patient size (includes targeted exams where dose is matched to clinical indication); or iterative reconstruction. COMPARISON: DX XR Chest 1 View 05/12/2023 14:46 FINDINGS: Thyroid: Calcification in the left thyroid lobe. No visible nodule. No imaging follow-up recommended. Lungs: Severe emphysema. 1.7 cm spiculated nodule in the inferior right lower lobe, abutting the major fissure. Multiple smaller scattered nodules in the right middle and lower lobes, the largest measuring 8 mm. The left lung is clear. No left pulmonary nodules. Pleural spaces: Unremarkable. No pneumothorax. No pleural effusion. Heart: Mild coronary artery calcifications. No cardiomegaly. No pericardial effusion. Lymph nodes: Unremarkable. No enlarged lymph nodes. Vasculature: Unremarkable. No aortic aneurysm. Bones/joints: Lytic lesions in the T10 vertebral body and right pedicle. Expansile destructive lesion in the posterior right 10th rib with soft tissue extension. The other bones are intact. Mild degenerative changes. Soft tissues: See Bones/joints finding. IMPRESSION: 1. Dominant 1.7 cm spiculated nodule in the right lower lobe. This is highly suspicious for primary lung malignancy. Consider non-emergent PET/CT, or tissue sampling.(Reference: Gt) 2. Multiple additional smaller nodules in the right lung, most likely metastatic disease. 3. 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 References: Gt Mcclendon, et al. Guidelines for Management of Incidental Pulmonary Nodules Detected on CT Images: From the [employer] 2017. Radiology. 2017;284(1):228-243. COMMENTS: The presence of pulmonary emphysema on CT is an independent risk factor for lung cancer. In the absence of a history or active diagnosis of lung cancer, it is recommended that this patient with emphysema be evaluated for enrollment in a low dose CT lung cancer screening program. Electronically signed by: Luis Miguel Braun MD, [facility], 12/27/2023 22:43 Luis Miguel Braun MD Signed 12/27/23 22:43:26 (Electronic Signature) Technologist RW CT Chest WO contrast * Luis Miguel Braun MD: PERFORM, VERIFY, VERIFY Event Display: Report Authored Date: [id number] Cardiology * Kimani Ramsey MD: SIGN, VERIFY Event Display: EKG 12-Lead Authored Date: [id number] Patient Care team information Care Team Personnel Name: Karl Whitmore DO Position: 2 Restricted Providers Member Role: Primary Care Physician Address: Address: [address] [place] [id number]- Care Team Related Persons Name: NELLY GREEN
--- OUTSIDE RECORDS SUMMARY | 2024-05-27 14:49 | XMS_ITS | Continuity of Care Document ---
Author Name Unknown Organization [facility] Address [address] 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 Name Role Phone Karl Whitmore DO Primary Care Physician [phone] Encounter [employer] Number [id number] Date(s): 02/14/24 - 02/14/24 [facility] [address] [place] [address]- Encounter Diagnosis Lung cancer(Discharge Diagnosis) - 02/14/24 Dyspnea(Discharge Diagnosis) - 02/14/24 PAC (premature atrial contraction)(Discharge Diagnosis) - 02/14/24 Palpitations(Discharge Diagnosis) - 02/14/24 Discharge Disposition: .Discharge to Home (Routine) Attending Physician: Hal Healy MD Allergies, Adverse Reactions, Alerts Substance Reaction Severity Status morphine pain Unknown Active Assessment and Plan Extracted from: Title:ED Physician Note Author:Hal Healy MD Date:02/14/24 Impression and Plan Plan Condition: Stable. Disposition: Discharged: The patient received an appropriate MSE including H&P exam as well as ancillary studies and procedures determined appropriate in the provider's judgement. The patient is medically and/or psychologically cleared for discharge. . Discharge: Diagnosis: Lung cancer (C34.90) Dyspnea (R06.00) PAC (premature atrial contraction) (I49.1) Palpitations (R00.2) Education: Palpitations, Ucyt-ti-Wrar Orders: ( Completed ): EKG 12-Lead (EKG 12-Lead) 02/14/2024 08:35 Height to Glucommander Obtain EKG (Obtain EKG) 02/14/2024 07:13 Xtra Gold Top 02/14/2024 08:40 Xtra blue top 02/14/2024 08:40 Xtra Amin Top 02/14/2024 08:40 Xtra green top 02/14/2024 08:40 CBC-d (CBC-d) 02/14/2024 08:44 CMP (CMP) 02/14/2024 09:05 NT-proBNP (NT-proBNP) 02/14/2024 09:23 Troponin I - Series High-Sensitivity (Troponin I - Series High-Sensitivity) 02/14/2024 09:05 XR Chest PA Lateral Left Routine (XR Chest PA Lateral Left Routine) 02/14/2024 09:16 zCBC Automated Diff 02/14/2024 08:44 zTroponin I - HS 2 Hr (zTroponin I - HS 2 Hr) 02/14/2024 10:53 LORazepam (Ativan) 0.5 mg 02/14/2024 09:28 CT Angio Chest (CT Angio Chest for PE Protocol) 02/14/2024 10:21 LORazepam (LORazepam 2 mg/1 mL INJ *VIAL*) 2 mg Xtra Blood Culture 02/14/2024 09:57 iopamidol (ISOVUE 370 IBP INJ 500 ML) 100 mL 02/14/2024 10:02 Orders: ( Ordered ): Obtain EKG 12 Lead (Obtain EKG 12 Lead) Follow Up: Karl Whitmore 5 to 7 days . Counseled: Patient, Regarding diagnosis, Regarding diagnostic results, Regarding treatment plan, Patient indicated understanding of instructions. Future Appointments Appointment Date:02/18/2024 10:00:00 AM Scheduled Provider: Location:[address] Appointment Type:OP Central Line Draw Appointment Date:02/18/2024 11:20:00 AM Scheduled Provider:Anna Gamez Location:[facility] Appointment Type:Established Patient Appointment Date:03/03/2024 09:30:00 AM Scheduled Provider: Location:[address] Appointment Type:OP Central Line Draw Appointment Date:03/03/2024 10:20:00 AM Scheduled Provider:Harrison Lopez DO Location:[facility] Appointment Type:Established Patient Appointment Date:03/03/2024 11:30:00 AM Scheduled Provider: Location:[address] Appointment Type:Orders Infusion Chemo Appointment Date:03/24/2024 10:00:00 AM Scheduled Provider: Location:[address] Appointment Type:OP Central Line Draw Appointment Date:03/24/2024 11:00:00 AM Scheduled Provider:Harrison Lopez DO Location:[facility] Appointment Type:Established Patient Appointment Date:03/24/2024 12:30:00 PM Scheduled Provider: Location:[place] [facility] Appointment Type:Orders Infusion Chemo Appointment Date:04/14/2024 10:00:00 AM Scheduled Provider: Location:[place] [facility] Appointment Type:OP Central Line Draw Appointment Date:04/14/2024 11:20:00 AM Scheduled Provider:Harrison Lopez DO Location:[facility] Appointment Type:Established Patient Appointment Date:04/14/2024 12:00:00 PM Scheduled Provider: Location:[place] [address] [facility] Appointment Type:Orders Infusion Chemo Appointment Date:04/20/2024 11:45:00 AM Scheduled Provider:Maddi Villegas NP Location:[facility] Appointment Type:Established Patient Appointment Date:05/08/2024 02:30:00 PM Scheduled Provider:Danilo Freitas MD Location:[facility] Appointment Type:Established Patient Future Scheduled Tests Laboratory* Miscellaneous Send out 01/22/24 * CBC w/ Auto Diff Clinic 02/18/24 * CBC w/ Auto Diff Clinic 02/18/24 * CMP 02/18/24 * CMP 02/18/24 Radiology* CT Abd Pelvis w Contrast Routine 01/20/24 * CT Chest wo Contrast 01/20/24 * XR Thoracic Spine AP Lateral 01/23/24 Medications atorvastatin By mouth, Daily, Refill(s) 0 Start Date: 12/05/23 Status: Ordered Colace 100 mg oral capsule 100 mg = 1 cap, By mouth, BID, PRN for constipation, # 20 cap, Refill(s) 0, Pharmacy: [facility] #[id number], [id number], 1 cap By mouth BID,PRN:for constipation, 110.9, 12/06/23 8:09:00 METAL FRAMER, kg, Weight (kg) (Clinical) Start Date: 12/06/23 Status: Ordered colchicine mg, By mouth, Daily, as needed for gout., Refill(s) 0 Start Date: 12/05/23 Status: Ordered colchicine 0.6 mg oral tablet 0.6 mg = 1 tab, By mouth, BID, # 30 tab, Refill(s) 0 Start Date: 02/11/24 Status: Ordered dexAMETHasone 4 mg oral tablet 4 mg = 1 tab, By mouth, BID, 1 tab by mouth every 12hr x 6 doses starting evening before chemo. with food, X 3 Days, # 6 tab, Refill(s) 5, Pharmacy: [facility] #[id number], [id number], 1 tab By mouth BID,x3 Days,Instr:... Start Date: 02/05/24 Stop Date: 02/23/24 Status: Ordered fentaNYL 50 mcg/hr transdermal film, extended release 1 patch, Topical, Q72H, 10 patch, 0, 0, Substitution Permitted, [facility] #[id number], replaces Oxycontin d/t insurance, 72, Height (inches) (Clinical), 01/23/24 11:02:00 METAL FRAMER, in, 100.82, Weight (kg) (Clinical), 01/23/24 11:04:00 METAL FRAMER, kg Start Date: 01/28/24 Status: Ordered folic acid 1 mg oral tablet 1 mg = 1 tab, By mouth, Daily, # 30 tab, Refill(s) 2, Pharmacy: [facility] #[id number], [id number], 1 tab By mouth Daily,x30 Days, 102.41, 02/05/24 15:33:00 CDT, kg, Weight (kg) (Clinical) Start Date: 02/05/24 Stop Date: 05/05/24 Status: Ordered gabapentin 300 mg oral capsule 300 mg = 1 cap, By mouth, TID, # 90 cap, Refill(s) 3, Pharmacy: [facility] #[id number], [id number], 1 cap By mouth TID, 100.82, 01/23/24 11:04:00 METAL FRAMER, kg, Weight (kg) (Clinical) Start Date: 01/28/24 Status: Ordered gabapentin 600 mg oral tablet 600 mg = 1 tab, By mouth, TID, # 90 tab, Refill(s) 0, Pharmacy: [facility] #[id number], [id number], 1 tab By mouth TID, 100.82, 01/23/24 11:04:00 METAL FRAMER, kg, Weight (kg) (Clinical) Start Date: 01/23/24 Status: Ordered Levemir SUBQ, Refill(s) 0 Start Date: 12/05/23 Status: Ordered MetFORMIN (Eqv-Fortamet) By mouth, Daily, Refill(s) 0 Start Date: 12/05/23 Status: Ordered methylPREDNISolone 4 mg oral tablet 4 mg = 1 tab, PO, Daily, # 10 tab, Refill(s) 0 Start Date: 02/11/24 Stop Date: 02/21/24 Status: Ordered Metoprolol Tartrate BID, Refill(s) 0 Start Date: 12/05/23 Status: Ordered OLANZapine 2.5 mg oral tablet 2.5 mg = 1 tab, By mouth, BID, # 60 tab, Refill(s) 2, Pharmacy: [facility] #[id number], [id number], 101.09, 01/22/24 11:11:00 METAL FRAMER, kg, Weight (kg) (Clinical) Start Date: 01/22/24 Stop Date: 04/21/24 Status: Ordered olmesartan By mouth, Daily, Refill(s) 0 Start Date: 12/05/23 Status: Ordered oxyCODONE 10 mg oral tablet 10 mg, = 1 tab, By mouth, Q4H, 30 Days, 180 tab, 0, 0, 02/23/24 11:16:00 CDT, Substitution Permitted, [facility] #[id number], 72, Height (inches) (Clinical), 01/23/24 11:02:00 METAL FRAMER, in, 100.82, Weight (kg) (Clinical), 01/23/24 11:04:00 METAL FRAMER, kg Start Date: 01/24/24 Stop Date: 02/23/24 Status: Ordered OxyCONTIN 30 mg oral tablet, extended release 30 mg, = 1 tab, By mouth, Q12H, 60 tab, 0, 0, Substitution Permitted, [facility] #[id number], 72, Height (inches) (Clinical), 01/22/24 11:06:00 METAL FRAMER, in, 101.09, Weight (kg) (Clinical), 01/22/24 11:11:00 METAL FRAMER, kg Start Date: 01/22/24 Status: Ordered prochlorperazine 10 mg oral tablet 10 mg = 1 tab, By mouth, QID, X 30 Days, # 30 tab, Refill(s) 3, Pharmacy: [facility] #[id number], [id number], 1 tab By mouth QID,x30 Days, 101.09, 01/22/24 11:11:00 METAL FRAMER, kg, Weight (kg) (Clinical) Start Date: 01/22/24 Stop Date: 05/21/24 Status: Ordered Tylenol By mouth, Refill(s) 0 Start Date: 12/23/23 Status: Ordered Problem List Condition Confirmation Course Effective Dates Status [facility] atus Informant Ex-smoker Confirmed Active patient Family history of stomach cancer Confirmed Active Bone lesion Confirmed Active Lesion of lung Confirmed Active Procedures Procedure Date Related Diagnosis Body Site Status Robotic Lap Lupe 12/06/23 Complet ed Results Laboratory List Name Date zTroponin I - HS 2 Hr (zTrop I HS 2Hr) CBC-d 02/14/24 CMP 02/14/24 NT-proBNP 02/14/24 Troponin I - Series High-Sensitivity (Tr op I SeriesHS) 02/14/24 zCBC Automated Diff 02/14/24 Most recent to oldest [Reference Range]: 1 2 Anion Gap [2-15 mEq/L] 7 mEq/L (02/14/24 8:32 AM) Troponin I HS Delta 0-2 hr [<=3 ng/L] 0 ng/L 1 (02/14/24 10:19 AM) Troponin I HS [<=15 ng/L] 8 ng/L (02/14/24 10:19 AM) 8 ng/L (02/14/24 8:32 AM) eGFR CKD-EPI [>=61 mL/min/1.73 m2] 92 mL /min/1.73 m2 (02/14/24 8:32 AM) BNP [<=99 pg/mL] 64 pg/mL (02/14/24 8:32 AM) Glucose, Serum/Plasma [70-100 mg/dL] 161 mg/dL *HI* (02/14/24 8:32 AM) WBC [4.8-10.8 Thous/mm3] 14.9 Thous/mm3 *HI* (02/14/24 8:32 AM) Hct [42.0-52.0 %] 41.9 % *LOW* (02/14/24 AM) Hgb [14.0-18.0 g/dL] 14.3 g/dL (02/14/24:32 AM) RBC [4.60-6.20 Million/mm3] 4.96 Million /mm3 (02/14/24: AM) MCV [80.0-100.0 fl] 84.5 fl (02/14/24: AM) MCH [26.0-34.0 pg] 28.8 pg (02/14/24: AM) MCHC [31.0-36.5 g/dL] 34.1 g/dL (02/14/24 8:32 AM) RDW [10.4-14.4 %] 13.0 % (02/14/24: AM) Platelets [130-440 Thous/mm3] 342 Thous/ mm3 (02/14/24:32 AM) MPV [9.4-12.4 fl] 10.2 fl (02/14/24 8:32 AM) AutoNeutrophil [43.0-78.0 %] 90.5 % *HI* (02/14/24: AM) AutoLymphs [20.0-40.0 %] 5.7 % *LOW* (02/14/24 AM) AutoMono [2.0-10.0 %] 2.1 % (02/14/24: AM) AutoEo [0.0-7.0 %] 1.2 % (02/14/24 AM) Sodium [136-145 mEq/L] 138 mEq/L (02/14/24 AM) Potassium [3.5-5.1 mEq/L] 3.9 mEq/L (02/14/24 8:32 AM) Chloride [98-107 mEq/L] 105 mEq/L (02/14/24 8:32 AM) AbsNeut [2.0-8.0 Thous/mm3] 13.5 Thous/m m3 *HI* (02/14/24 8:32 AM) CO2 [20-31 mEq/L] 26 mEq/L (02/14/24 8:32 AM) BUN [7-18 mg/dL] 27 mg/dL *HI* (02/14/24 8:32 AM) Creatinine [0.73-1.18 mg/dL] 0.92 mg/dL (02/14/24 8:32 AM) AbsLymph [1.0-4.0 Thous/mm3] 0.8 Thous/m m3 *LOW* (02/14/24 8:32 AM) AbsMono [0.1-1.0 Thous/mm3] 0.3 Thous/mm 3 (02/14/24 8:32 AM) Bilirubin, Total [0.2-1.0 mg/dL] 1.0 mg/ dL (02/14/24 8:32 AM) AbsEo [0.0-0.5 Thous/mm3] 0.2 Thous/mm3 (02/14/24 8:32 AM) AbsBaso [0.0-0.2 Thous/mm3] 0.0 Thous/mm 3 (02/14/24 8:32 AM) AutoBaso [0.0-2.5 %] 0.2 % (02/14/24 8:32 AM) Calcium [8.3-10.6 mg/dL] 9.1 mg/dL (02/14/24 8:32 AM) Protein Total [6.4-8.5 g/dL] 6.6 g/dL (02/14/24 8:32 AM) Albumin [3.4-5.0 g/dL] 3.5 g/dL (02/14/24 8:32 AM) AST [15-37 U/L] 18 U/L (02/14/24 8:32 AM) Alk Phos [45-117 U/L] 102 U/L (02/14/24 8:32 AM) ALT [10-49 U/L] 14 U/L (02/14/24 8:32 AM) Imm. Grans % [0-5 %] <5 % (02/14/24 8:32 AM) Imm. Grans # [0.0-0.5 Thous/mm3] <0.5 Th ous/mm3 (02/14/24 8:32 AM) ANC-AbsNeutCount 13.5 Thous/mm3 *NA* (02/14/24 8:32 AM) 1Result Comment: Calculated by rule: [id number]_[id number]_DELTA Radiology Reports * Exam Date Time Procedure Performing Provider Status 02/14/24 10:[address] Angio Chest Maria Fernanda Yuan; Auth ( Verified) Notes: (CT Angio Chest) Reason For Exam: afib, SOB REPORT CT Angio Chest Exam: CT Angio Chest Date/Time of Exam: 02/14/2024 10:02 AM Reason For Exam: afib, SOB. Dose - Dose Report for Accession No. : [id number] (ipnexus, Revolution IRMA) Dose 1 : CT DLP Total : 873.58 mGycm Maximum CTDI Vol : 21.01 mGy Diagnosis Codes: Comparison: CTA chest, 02/03/2024 Reading Location: [place] [address] Technique: Examination consists of a helical CT scan of the chest performed with and without IV contrast on a Smartestingpeed [address] scanner using pulmonary embolus protocol. A total of 150 mL of Isovue 370 contrast material were injected intravenously without complications. Post-processing was performed, including sagittal and coronal reformations and 3-D reconstruction. This CT study used one or more of the following dose reduction techniques: Automated exposure control, Adjustment of the mA and/or kV according to patient size, Use of iterative reconstruction technique. Patient radiation dose is recorded for each exam using dose tracking software. Findings: Pulmonary arterial vasculature: Unremarkable without filling defect to indicate pulmonary embolus. Aorta: Normal configuration with no aneurysm nor dissection seen. Take offs of the great vessels from the aortic arch are normal. Lung parenchyma: As on prior examination, noncalcified pulmonary nodules are again identified, mainly involving the right lung, similar in size and appearance to the prior exam. No other new lung abnormalities developing. Mediastinum: Heart size normal. Mediastinal and right hilar adenopathy similar to prior exam. No new lesions developing. Pleural spaces: Small right pleural effusion again identified, similar to prior exam.. Musculoskeletal: Destructive process involving lower right ribs and thoracic spine (series 2, images 6348) similar to prior exams. Bony structures otherwise appear intact. Upper abdomen: Visualized portions of solid organs are normal. No ascites or free gas seen. IMPRESSION: No pulmonary thromboembolus or acute aortic pathology identified.. Lung nodules, mediastinal and hilar adenopathy, and destructive process involving lower thoracic spine and right ribs similar to prior exam and consistent with neoplastic involvement. Other incidental/non-acute findings are as described above. Electronically signed by: Dr. Gutierrez Vickers 02/14/2024 10:18 AM Radiologist Gutierrez Vickers MD Signed 02/14/24 10:18:53 (Electronic Signature) Corrections Caseworker SAVANA Technologist * Exam Date Time Procedure Performing Provider Status 02/14/24 7:48 AM XR Chest PA Lateral Left Routine Agustin lindo MD, Ghanshyam Gaines; Eulalio (Verified) Notes: (XR Chest PA Lateral Left Routine) Reason For Exam: Dyspnea REPORT XR Chest PA Lateral Left Routine PROCEDURE INFORMATION: Exam: XR Chest Exam date and time: 02/14/2024 7:35 AM Age: 63 years old Clinical indication: Dyspnea, palpitations, intermittent nausea x 3 days post chemo for lung cancer; Former smoker TECHNIQUE: Imaging protocol: Radiologic exam of the chest. Views: 2 views. COMPARISON: CT Angio Chest w CT Abd Pelvis w Contrast 02/03/2024 1:37 PM FINDINGS: Tubes, catheters and devices: Chemotherapy infusion device enters from the right and terminates in the SVC. Lungs: Unremarkable. No consolidation. Pleural spaces: Unremarkable. No pleural effusion. No pneumothorax. Heart/Mediastinum: Unremarkable. No cardiomegaly. Bones/joints: Unremarkable. IMPRESSION: No acute findings. Electronically signed by: Get Smart MD, [facility] [employer], 02/14/2024 9:16 Bing SHAH, Get Signed 02/14/24 09:16:23 (Electronic Signature) Technologist Vital Signs Most recent to oldest [Reference Range]: 1 2 3 Blood Pressure 128/82 (02/14/24 1:45 PM) 118/72 (02/14/24 1:00 PM) 123/77 (02/14/24 12:45 PM) Height (inches) (Clinical) 72 in (02/14/24 7:04 AM) Weight (kg) (Clinical) 97 kg (02/14/24 7:04 AM) BMI (Clinical) 28.9 kg/m2 (02/14/24 7:04 AM) Social History Social History Type Response Smoking Status Former smoker; Smoke less tobacco use: Never; Has the patient smoked in the last 365 days, even once? No; Type: Cigarettes 1 entered on: 01/07/24 Sex Male 1quit 15 years ago. Implantable Device List Procedure Provider Procedure Date Device Type Site Unknown Unknown 01/16/24 Non Biological Internal J ugular, Right Device Identifier Serial Number Lot or Batch Number Manufacturing Date Expiration Date Distinct Identification Code MRI Safety Implantable Status Assigning Authority Unknown Unknown [id number] Unknown 05/17/25 Unknown Unknown Active Unknown Hospital Discharge Instructions Patient Education 02/14/2024 13:44:33 Palpitations, Lhgn-yf-Omoj Palpitations Palpitations are feelings that your heartbeat is not normal. Your heartbeat may feel like it is: ??? Uneven (irregular). ??? Faster than normal. ??? Fluttering. ??? Skipping a beat. This is usually not a serious problem. However, a doctor will do tests and check your medical history to make sure that you do not have a serious heart problem. Follow these instructions at home: Watch for any changes in your condition. Tell your doctor about any changes. Take these actions to help manage your symptoms: Eating and drinking Follow instructions from your doctor about things to eat and drink. You may be told to avoid these things: ??? Drinks that have caffeine in them, such as coffee, tea, soft drinks, and energy drinks. ??? Chocolate. ??? Alcohol. ??? Diet pills. Lifestyle ??? Try to lower your stress. These things can help you relax: ??? Yoga. ??? Deep breathing and meditation. ??? Guided imagery. This is using words and images to create positive thoughts. ??? Exercise, including swimming, jogging, and walking. Tell your doctor if you have more abnormal heartbeats when you are active. If you have chest pain or feel short of breath with exercise, do notkeep doing the exercise until you are seen by your doctor. ??? Biofeedback. This is using your mind to control things in your body, such as your heartbeat. ??? Get plenty of rest and sleep. Keep a regular bed time. ??? Do not use drugs, such as cocaine or ecstasy. Do not use marijuana. ??? Do not smoke or use any products that contain nicotine or tobacco. If you need help quitting, ask your doctor. General instructions ??? Take hvil-jsb-zhaqeaf and prescription medicines only as told by your doctor. ??? Keep all follow-up visits. You may need more tests if palpitations do not go away or get worse. Contact a doctor if: ??? You keep having fast or uneven heartbeats for a long time. ??? Your symptoms happen more often. Get help right away if: ??? You have chest pain. ??? You feel short of breath. ??? You have a very bad headache. ??? You feel dizzy. ??? You faint. These symptoms may be an emergency. Get help right away. Call your local emergency services ([address] [place] [address] [place] ??? Do not wait to see if the symptoms will go away. ??? Do not drive yourself to the hospital. Summary ??? Palpitations are feelings that your heartbeat is uneven or faster than normal. It may feel likeyour heart is fluttering or skipping a beat. ??? Avoid food and drinks that may cause this condition. These include caffeine, chocolate, and alcohol. ??? Try to lower your stress. Do not smoke or use drugs. ??? Get help right away if you faint, feel dizzy, feel short of breath, have chest pain, or have a very bad headache. This information is not intended to replace advice given to you by your health care provider. Make sure you discuss any questions you have with your health care provider. Document Revised: 03/28/2022 Document Reviewed: 03/28/2022 [employer] Patient Education ?? 2022 [employer] Follow Up Care 02/14/2024 07:01:57 With:Karl Whitmore Address: [address] [place] [address]- Business (1) When:5 to 7 days XR Chest PA and Lateral * Get Smart MD: PERFORM, VERIFY, VERIFY Event Display: Report Authored Date: [id number] Note * Get Smart MD: PERFORM, VERIFY, VERIFY Event Display: Powerscribe Read Authored Date: [id number] PROCEDURE INFORMATION: Exam: XR Chest Exam date and time: 02/14/2024 7:35 AM Age: 63 years old Clinical indication: Dyspnea, palpitations, intermittent nausea x 3 days post chemo for lung cancer; Former smoker TECHNIQUE: Imaging protocol: Radiologic exam of the chest. Views: 2 views. COMPARISON: CT Angio Chest w CT Abd Pelvis w Contrast 02/03/2024 1:37 PM FINDINGS: Tubes, catheters and devices: Chemotherapy infusion device enters from the right and terminates in the SVC. Lungs: Unremarkable. No consolidation. Pleural spaces: Unremarkable. No pleural effusion. No pneumothorax. Heart/Mediastinum: Unremarkable. No cardiomegaly. Bones/joints: Unremarkable. IMPRESSION: No acute findings. Electronically signed by: Get Smart MD, [facility], 02/14/2024 9:16 Get Smart MD Signed 02/14/24 09:16:23 (Electronic Signature) Technologist UMER Vickers MD, Gutierrez Matta: PERFORM, TRANSCRIBE, VERIFY, VERIFY Event Display: Powerscribe Read Authored Date: [id number] Exam: CT Angio Chest Date/Time of Exam: 02/14/2024 10:02 AM Reason For Exam: afib, SOB. Dose - Dose Report for Accession No. : [id number] (ipnexus, [employer] IRMA) Dose 1 : CT DLP Total : 873.58 mGycm Maximum CTDI Vol : 21.01 mGy Diagnosis Codes: Comparison: CTA chest, 02/03/2024 Reading Location: [place] [address] \\ [facility] Technique: Examination consists of a helical CT scan of the chest performed with and without IV contrast on a GE Oatmealpeed [address] scanner using pulmonary embolus protocol. A total of 150 mL of Isovue 370 contrast material were injected intravenously without complications. Post-processing was performed, including sagittal and coronal reformations and 3-D reconstruction. This CT study used one or more of the following dose reduction techniques: Automated exposure control, Adjustment of the mA and/or kV according to patient size, Use of iterative reconstruction technique. Patient radiation dose is recorded for each exam using dose tracking software. Findings: Pulmonary arterial vasculature: Unremarkable without filling defect to indicate pulmonary embolus. Aorta: Normal configuration with no aneurysm nor dissection seen. Take offs of the great vessels from the aortic arch are normal. Lung parenchyma: As on prior examination, noncalcified pulmonary nodules are again identified, mainly involving the right lung, similar in size and appearance to the prior exam. No other new lung abnormalities developing. Mediastinum: Heart size normal. Mediastinal and right hilar adenopathy similar to prior exam. No new lesions developing. Pleural spaces: Small right pleural effusion again identified, similar to prior exam.. Musculoskeletal: Destructive process involving lower right ribs and thoracic spine (series 2, images 6348) similar to prior exams. Bony structures otherwise appear intact. Upper abdomen: Visualized portions of solid organs are normal. No ascites or free gas seen. IMPRESSION: No pulmonary thromboembolus or acute aortic pathology identified.. Lung nodules, mediastinal and hilar adenopathy, and destructive process involving lower thoracic spine and right ribs similar to prior exam and consistent with neoplastic involvement. Other incidental/non-acute findings are as described above. Electronically signed by: Dr. Gutierrez Vickers 02/14/2024 10:18 AM Radiologist Gutierrez Vickers MD Signed 02/14/24 10:18:53 (Electronic Signature) Corrections Caseworker WDS Technologist CTA Chest vessels * Gutierrez Vickers MD: PERFORM, TRANSCRIBE, VERIFY, VERIFY Event Display: Report Authored Date: [id number] Cardiology * Waylon Hussein MD R: SIGN, VERIFY Event Display: EKG 12-Lead Authored Date: [id number] Patient Care team information Care Team Personnel Name: Karl Whitmore DO Position: 2 Restricted Providers Member Role: Primary Care Physician Address: Address: [address] [place] [address] Care Team Related Persons Name: NORMA VILLEGAS Name: FRAN ALVES Name: NELLY GREEN
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
--- OUTSIDE RECORDS SUMMARY | 2024-05-27 14:50 | XMS_ITS ---
Author Name Brant Blackburn Address [address] [place] [address] Organization Unknown Address [address] [place] [address] ALLERGIES AND ADVERSE REACTIONS No information ASSESSMENT No information CHIEF COMPLAINT No information Medications Date Medication Startdate Active Ndccode Drugcode Isprescrip tion Srcstatus 06/15/20 12:00:0 0 AM invokana 300 mg tablet 12/12/2015 12:00:00 AM 1 [id number] M ACT[facility] 06/15/20 12:00:0 0 AM omeprazole 12/09/2015 12:00:00 AM 1 M ACTIVE 06/15/20 12:00:0 0 AM viagra 100 mg tablet 01/11/2016 12:00:00 AM 1 [id number] [id number] M ACTIVE 06/15/20 12:00:0 0 AM metformin 12/09/2015 12:00:00 AM 1 M ACTIVE 06/15/20 12:00:0 0 AM tramadol 50 mg tablet 07/14/2014 12:00:00 AM 1 [id number] [id number] M ACTIVE 06/15/20 12:00:0 0 AM levemir flextouch u100 insulin 12/12/2015 12:00:00 AM 1 M ACTIVE 06/15/20 12:00:0 0 AM low dose aspirin 11/03/2007 12:00:00 AM 1 M ACTIVE 06/15/20 12:00:0 0 AM lovastatin 40 mg tablet 12/09/2015 12:00:00 AM 1 [id number] [id number] M ACTIVE 06/15/20 12:00:0 0 AM benicar 12/09/2015 12:00:00 AM 1 M ACTIVE 06/15/20 12:00:0 0 AM cialis 08/12/2014 12:00:00 AM 1 M ACTIVE 7/29/20 23 12:00:0 0 AM januvia 100 mg tablet 12/12/2015 12:00:00 AM 1 [id number] M ACTIVE OBJECTIVE DATA No information PHYSICAL EXAMINATION No information TREATMENT PLAN No information PROBLEMS No information RESULTS No information REVIEW OF SYSTEMS No information SUBJECTIVE DATA No information VITAL SIGNS No information
--- OUTSIDE RECORDS SUMMARY | 2024-05-27 14:50 | XMS_ITS | Continuity of Care Document ---
Author Name Unknown Organization [facility] Address [address] [place] [address]- Care Team Providers Care Administrative Court Justice Name Role Phone Karl Whitmore DO Primary Care Physician Encounter [employer] Number [id number] Date(s): 02/03/24 - 02/03/24 [facility] [address] [place] [address]- Encounter Diagnosis Fever(Discharge Diagnosis) - 02/03/24 Lung cancer(Discharge Diagnosis) - 02/03/24 Discharge Disposition: .Discharge to Home (Routine) Attending Physician: Geovany Campos MD Allergies, Adverse Reactions, Alerts Substance Reaction Severity Status morphine pain Unknown Active Assessment and Plan Extracted from: Title:Fever - Immunocompromised Author:Geovany Campos MD Date:02/03/24 Impression and Plan Diagnosis Fever ([id number] R50.9) Lung cancer ([id number] C34.90) Plan Condition: Stable. Disposition: Medically cleared, Discharged: To home, The patient received an appropriate MSE including H&P exam as well as ancillary studies and procedures determined appropriate in the provider's judgement. The patient is medically and/or psychologically cleared for discharge. . Follow up with: Return to Emergency Department (if symptoms persist or worsen), Primary Care Physician (call tomorrow to schedule appointment). Discharge: Diagnosis: Fever (R50.9) Lung cancer (C34.90) Education: Fever, Adult, Ftse-id-Qfsa Lung Cancer Orders: ( Completed ): Height to [employer] Gene Xpert Coronavirus/Flu/RSV PCR (Gene Xpert Coronavirus/Flu/RSV PCR) 02/03/2024 15:14 Urinalysis w/ microscopy (Urinalysis w/ microscopy) 02/03/2024 17:29 CBC-d (CBC-d) 02/03/2024 15:09 CMP (CMP) 02/03/2024 15:17 Lipase (Lipase) 02/03/2024 15:17 EKG 12-Lead (EKG 12-Lead) 02/03/2024 12:43 XR Chest PA Lateral Left Routine (XR Chest PA Lateral Left Routine) 02/03/2024 13:46 CT Angio Chest w CT Abd Pelvis w Contras 02/03/2024 16:49 Lactate w/ Reflex (Lactate w/ Reflex) 02/03/2024 15:18 Troponin I - Series High-Sensitivity (Troponin I - Series High-Sensitivity) 02/03/2024 15:15 NT-proBNP (NT-proBNP) 02/03/2024 15:45 zCBC Automated Diff 02/03/2024 15:09 zTroponin I - HS 2 Hr (zTroponin I - HS 2 Hr) 02/03/2024 16:47 Xtra blue top 02/03/2024 14:42 iopamidol (ISOVUE 370 IBP INJ 500 ML) 100 mL 02/03/2024 15:47 Charge Bedside Glucose Sodium Chloride 0.9% intravenous solutio (Sodium Chloride 0.9% bolus) 1,000 mL 02/03/2024 18:22 Sodium Chloride 0.9% intravenous solutio (Target Fluid Bolus NS) 1,000 mL 02/03/2024 16:24 ED Physician Request (ED Physician Request) 02/03/2024 17:43 ED Physician Request Pending Complete (ED Physician Request Pending Complete) 02/03/2024 17:58 Orders: ( Ordered ): Blood Cultures X 2 (Blood Cultures X 2) Blood Culture (Blood Culture) Blood Culture 2of2 (Blood Culture 2of2) Repeat Lactate (Repeat Lactate) Urine Culture (C Urine) Follow Up: Karl Whitmore 5 to 7 days Harrison Lopez Call Tomorrow . Counseled: Patient, Regarding diagnosis, Regarding diagnostic results, Regarding treatment plan, Patient indicated understanding of instructions. Future Appointments Appointment Date:02/04/2024 02:00:00 PM Scheduled Provider: Location:[facility] Appointment Type:Radiation Treatment Appointment Date:02/05/2024 02:00:00 PM Scheduled Provider:Danilo Freitas MD Location:[facility] Appointment Type:Radiation Treatment Appointment Date:02/05/2024 02:30:00 PM Scheduled Provider: Location:[facility] Appointment Type:OP Central Line Draw Appointment Date:02/05/2024 03:20:00 PM Scheduled Provider:Harrison Lopez DO Location:[facility] Appointment Type:Established Patient Appointment Date:02/06/2024 02:00:00 PM Scheduled Provider: Location:[facility] Appointment Type:Radiation Treatment Appointment Date:02/07/2024 02:00:00 PM Scheduled Provider: Location:[facility] Appointment Type:Radiation Treatment Appointment Date:02/10/2024 02:00:00 PM Scheduled Provider: Location:[facility] Appointment Type:Radiation Treatment Appointment Date:02/12/2024 11:00:00 AM Scheduled Provider:[facility] Patient Appointment Date:04/20/2024 11:45:00 AM Scheduled Provider:Maddi Villegas NP Location:-[facility] Appointment Type:Established Patient Diagnostic Tests Pending * Urine Culture 02/03/24 * Blood Culture 02/03/24 * Blood Culture 2of2 02/03/24 * Repeat Lactate 02/03/24 Future Scheduled Tests Laboratory* Miscellaneous Send out 01/22/24 * CBC w/ Auto Diff Clinic 02/05/24 * CMP 02/05/24 Radiology* CT Abd Pelvis w Contrast Routine 01/20/24 * CT Chest wo Contrast 01/20/24 * XR Thoracic Spine AP Lateral 01/23/24 Medications atorvastatin By mouth, Daily, Refill(s) 0 Start Date: 12/05/23 Status: Ordered Colace 100 mg oral capsule 100 mg = 1 cap, By mouth, BID, PRN for constipation, # 20 cap, Refill(s) 0, Pharmacy: [facility] #[id number], [id number], 1 cap By mouth BID,PRN:for constipation, 110.9, 12/06/23 8:09:00 MERCHANDISE COORDINATOR, kg, Weight (kg) (Clinical) Start Date: 12/06/23 Status: Ordered colchicine mg, By mouth, Daily, as needed for gout., Refill(s) 0 Start Date: 12/05/23 Status: Ordered fentaNYL 50 mcg/hr transdermal film, extended release 1 patch, Topical, Q72H, 10 patch, 0, 0, Substitution Permitted, [facility] #[id number], replaces Oxycontin d/t insurance, 72, Height (inches) (Clinical), 01/23/24 11:02:00 MERCHANDISE COORDINATOR, in, 100.82, Weight (kg) (Clinical), 01/23/24 11:04:00 MERCHANDISE COORDINATOR, kg Start Date: 01/28/24 Status: Ordered gabapentin 300 mg oral capsule 300 mg = 1 cap, By mouth, TID, # 90 cap, Refill(s) 3, Pharmacy: [facility] #[id number], [id number], 1 cap By mouth TID, 100.82, 01/23/24 11:04:00 MERCHANDISE COORDINATOR, kg, Weight (kg) (Clinical) Start Date: 01/28/24 Status: Ordered gabapentin 600 mg oral tablet 600 mg = 1 tab, By mouth, TID, # 90 tab, Refill(s) 0, Pharmacy: [facility] #[id number], [id number], 1 tab By mouth TID, 100.82, 01/23/24 11:04:00 MERCHANDISE COORDINATOR, kg, Weight (kg) (Clinical) Start Date: 01/23/24 Status: Ordered Levemir SUBQ, Refill(s) 0 Start Date: 12/05/23 Status: Ordered MetFORMIN (Eqv-Fortamet) By mouth, Daily, Refill(s) 0 Start Date: 12/05/23 Status: Ordered Metoprolol Tartrate BID, Refill(s) 0 Start Date: 12/05/23 Status: Ordered OLANZapine 2.5 mg oral tablet 2.5 mg = 1 tab, By mouth, BID, # 60 tab, Refill(s) 2, Pharmacy: [facility] #[id number], [id number], 101.09, 01/22/24 11:11:00 MERCHANDISE COORDINATOR, kg, Weight (kg) (Clinical) Start Date: 01/22/24 Stop Date: 04/21/24 Status: Ordered olmesartan By mouth, Daily, Refill(s) 0 Start Date: 12/05/23 Status: Ordered oxyCODONE 10 mg oral tablet 10 mg, = 1 tab, By mouth, Q4H, 30 Days, 180 tab, 0, 0, 02/23/24 11:16:00 CDT, Substitution Permitted, [facility] #[id number], 72, Height (inches) (Clinical), 01/23/24 11:02:00 MERCHANDISE COORDINATOR, in, 100.82, Weight (kg) (Clinical), 01/23/24 11:04:00 MERCHANDISE COORDINATOR, kg Start Date: 01/24/24 Stop Date: 02/23/24 Status: Ordered OxyCONTIN 30 mg oral tablet, extended release 30 mg, = 1 tab, By mouth, Q12H, 60 tab, 0, 0, Substitution Permitted, [facility] #[id number], 72, Height (inches) (Clinical), 01/22/24 11:06:00 MERCHANDISE COORDINATOR, in, 101.09, Weight (kg) (Clinical), 01/22/24 11:11:00 MERCHANDISE COORDINATOR, kg Start Date: 01/22/24 Status: Ordered prochlorperazine 10 mg oral tablet 10 mg = 1 tab, By mouth, QID, X 30 Days, # 30 tab, Refill(s) 3, Pharmacy: [facility] #[id number], [id number], 1 tab By mouth QID,x30 Days, 101.09, 01/22/24 11:11:00 MERCHANDISE COORDINATOR, kg, Weight (kg) (Clinical) Start Date: 01/22/24 [...] Complet ed Results Laboratory List Name Date Urinalysis w/ microscopy (UA w/ micro) zTroponin I - HS 2 Hr (zTrop I HS 2Hr) Gene Xpert Coronavirus/Flu/RSV PCR (Gene X 4-plex PCR) 02/03/24 CBC-d 02/03/24 CMP 02/03/24 Lactate w/ Reflex 02/03/24 Lipase 02/03/24 NT-proBNP 02/03/24 Troponin I - Series High-Sensitivity (Tr op I SeriesHS) 02/03/24 zCBC Automated Diff 02/03/24 Most recent to oldest [Reference Range]: 1 2 Bedside Glucose 243 mg/dL 1 (02/03/24 4:01 PM) COVID-19 Charles PCR [Negative] Negative (02/03/24 2:31 PM) Anion Gap [2-15 mEq/L] 7 mEq/L (02/03/24 2:17 PM) Troponin I HS Delta 0-2 hr [<=3 ng/L] -1 ng/L 2 (02/03/24 4:10 PM) Troponin I HS [<=15 ng/L] 7 ng/L (02/03/24 4:10 PM) 8 ng/L (02/03/24 2:17 PM) RTE Casts None Seen (02/03/24 4:54 PM) RTEs None Seen (02/03/24 4:54 PM) eGFR CKD-EPI [>=61 mL/min/1.73 m2] 68 mL /min/1.73 m2 (02/03/24 2:17 PM) BNP [<=99 pg/mL] 34 pg/mL (02/03/24 2:17 PM) Flu A (PCR) [NEGATIVE] NEGATIVE *NA* (02/03/24 2:31 PM) Flu B (PCR) [NEGATIVE] NEGATIVE *NA* (02/03/24 2:31 PM) Glucose, Serum/Plasma [70-100 mg/dL] 277 mg/dL *HI* (02/03/24 2:17 PM) WBC [4.8-10.8 Thous/mm3] 15.6 Thous/mm3 *HI* (02/03/24 2:17 PM) Hct [42.0-52.0 %] 46.1 % (02/03/24 2:17 PM) Hgb [14.0-18.0 g/dL] 15.3 g/dL (02/03/24 2: PM) RBC [4.60-6.20 Million/mm3] 5.26 Million /mm3 (02/03/24 2: PM) MCV [80.0-100.0 fl] 87.6 fl (02/03/24 2: PM) MCH [26.0-34.0 pg] 29.1 pg (02/03/24 2: PM) MCHC [31.0-36.5 g/dL] 33.2 g/dL (02/03/24 2:17 PM) RDW [10.4-14.4 %] 13.0 % (02/03/24: PM) Platelets [130-440 Thous/mm3] 251 Thous/ mm3 (02/03/24: PM) MPV [9.4-12.4 fl] 10.5 fl (02/03/24: PM) AutoNeutrophil [43.0-78.0 %] 83.8 % *HI* (02/03/24: PM) AutoLymphs [20.0-40.0 %] 5.8 % *LOW* (02/03/24: PM) AutoMono [2.0-10.0 %] 9.5 % (02/03/24: PM) AutoEo [0.0-7.0 %] 0.1 % (02/03/24: PM) Sodium [136-145 mEq/L] 137 mEq/L (02/03/24: PM) Potassium [3.5-5.1 mEq/L] 5.5 mEq/L *HI* (02/03/24: PM) Chloride [98-107 mEq/L] 104 mEq/L (02/03/24 2: PM) AbsNeut [2.0-8.0 Thous/mm3] 13.1 Thous/m m3 *HI* (02/03/24 2:17 PM) CO2 [20-31 mEq/L] 26 mEq/L (02/03/24 2: PM) BUN [7-18 mg/dL] 34 mg/dL *HI* (02/03/24: PM) Creatinine [0.73-1.18 mg/dL] 1.18 mg/dL (02/03/24 2:17 PM) AbsLymph [1.0-4.0 Thous/mm3] 0.9 Thous/m m3 *LOW* (02/03/24 2:17 PM) AbsMono [0.1-1.0 Thous/mm3] 1.5 Thous/mm 3 *HI* (02/03/24 2:17 PM) Bilirubin, Total [0.2-1.0 mg/dL] 0.7 mg/ dL (02/03/24 2:17 PM) AbsEo [0.0-0.5 Thous/mm3] 0.0 Thous/mm3 (02/03/24 2:17 PM) AbsBaso [0.0-0.2 Thous/mm3] 0.0 Thous/mm 3 (02/03/24 2:17 PM) AutoBaso [0.0-2.5 %] 0.2 % (02/03/24 2:17 PM) Calcium [8.3-10.6 mg/dL] 8.5 mg/dL (02/03/24 2:17 PM) Protein Total [6.4-8.5 g/dL] 6.0 g/dL *LOW* (02/03/24 2:17 PM) Albumin [3.4-5.0 g/dL] 2.8 g/dL *LOW* (02/03/24 2:17 PM) AST [15-37 U/L] 14 U/L *LOW* (02/03/24 2:17 PM) Alk Phos [45-117 U/L] 99 U/L (02/03/24 2:17 PM) ALT [10-49 U/L] 12 U/L (02/03/24 2:17 PM) Appearance [Clear] Clear (02/03/24 4:54 PM) Color [Yellow] Yellow *NA* (02/03/24 4:54 PM) Sp. [place] [1.001-1.035] 1.057 *HI* (02/03/24 4:54 PM) Ketones [Negative] Trace *ABN* (02/03/24 4:54 PM) Glucose [Negative] Trace *ABN* (02/03/24 4:54 PM) Protein [Negative] Negative (02/03/24 4:54 PM) Blood [Negative] Negative (02/03/24 4:54 PM) Nitrites UA [Negative] Negative (02/03/24 4:54 PM) Lactic Acid [0.5-2.2 mmol/L] 2.5 mmol/L *HI* (02/03/24 2:17 PM) Lipase, Serum/Plasma [12-53 U/L] 24 U/L (02/03/24 2:17 PM) Bilirubin UA [Negative] Negative (02/03/24 4:54 PM) Urobilinogen [1.0 mg/dL] 1.0 mg/dL (02/03/24 4:54 PM) Leuko Esterase UA [Negative] Negative (02/03/24 4:54 PM) pH UA [5.0-9.0] 5.0 (02/03/24 4:54 PM) RBC [0-2/hpf] 0-2/hpf (02/03/24 4:54 PM) WBC [0-5/hpf] 0-5/hpf (02/03/24 4:54 PM) Hyaline Casts [0-2/lpf] 11-20/lpf *ABN* (02/03/24 4:54 PM) Bacteria [None Seen] None Seen (02/03/24 4:54 PM) Epithelium [None Seen] None Seen (02/03/24 4:54 PM) Mucous Threads Present *NA* (02/03/24 4:54 PM) Volume 3 mL *NA* (02/03/24 4:54 PM) RSV by PCR [NEGATIVE] NEGATIVE *NA* (02/03/24 2:31 PM) Imm. Grans % [0-5 %] <5 % (02/03/24 2:17 PM) Imm. Grans # [0.0-0.5 Thous/mm3] <0.5 Th ous/mm3 (02/03/24 2:17 PM) ANC-AbsNeutCount 13.1 Thous/mm3 *NA* (02/03/24 2:17 PM) 1Result Comment: Notify RN/ Performed at:[facility], [address], [place], [address] Reference Ranges: Age 0 - 24 hours: 45 - 115 mg/dL Age 24 hours - 30 days: 55 - 115 mg/dL Age > 30 days: 70 - 100 mg/dL Critical Results Requiring Immediate Notification: Age <72 Hours: <40 or >350 mg/dL Age >72 Hours: <50 or >400 mg/dL 2Result Comment: Calculated by rule: [id number] Radiology Reports * Exam Date Time Procedure Performing Provider Status 02/03/24 3:[address] Angio Chest w CT Abd Pelvis w Melanie Campos MD, Geovany Sandy; Auth (Verified) Notes: (CT Angio Chest w CT Abd Pelvis w Melanie) Reason For Exam: Chest pain, shortness of breath, cancerhistory REPORT CT Angio Chest w CT Abd Pelvis w Contrast PROCEDURE INFORMATION: Exam: CTA Chest With Contrast Exam date and time: 02/03/2024 1:37 PM Age: 63 years old Clinical indication: Chest pain, shortness of breath, cancer history TECHNIQUE: Imaging protocol: Computed tomographic angiography of the chest with contrast, including non-contrast images if performed. Exam focused on the arteries. 3D rendering (Not supervised by radiologist): MIP and/or 3D reconstructed images were created by the technologist. Radiation optimization: All CT scans at this facility use at least one of these dose optimization techniques: automated exposure control; mA and/or kV adjustment per patient size (includes targeted exams where dose is matched to clinical indication); or iterative reconstruction. COMPARISON: CT Biopsy Lung 01/15/2024 9:23 AM FINDINGS: Pulmonary arteries: Normal. No pulmonary emboli. Aorta: Unremarkable. No aortic aneurysm. No aortic dissection. Lungs: There are 3 nodules scattered throughout the right lung measuring up to 1.5 cm in diameter. Pleural spaces: Tiny pleural effusions are noted bilaterally. Heart: There is a tiny pericardial effusion. Lymph nodes: A 2.4 cm lymph node lies in the right hilum. There is a 2 cm diameter lymph node in the subcarinal space of the mediastinum. Bones/joints: There is an infiltrating soft tissue mass involving the posterior aspect of the right 10th rib and this mass infiltrates the adjacent thoracic pedicle and vertebral body. There is also mild infiltration of the anterior epidural space of the spinal canal. Soft tissues: Unremarkable. IMPRESSION: 1. Stable mediastinal and right hilar adenopathy. 2. Stable right lung nodules 3. Interval development of tiny pleural effusions PROCEDURE INFORMATION: Exam: CT Abdomen And Pelvis With Contrast Exam date and time: 02/03/2024 1:37 PM Age: 63 years old Clinical indication: Chest pain, shortness of breath, cancer history TECHNIQUE: Imaging protocol: Computed tomography of the abdomen and pelvis with contrast. 3D rendering (Not supervised by radiologist): MIP and/or 3D reconstructed images were created by the technologist. Radiation optimization: All CT scans at this facility use at least one of these dose optimization techniques: automated exposure control; mA and/or kV adjustment per patient size (includes targeted exams where dose is matched to clinical indication); or iterative reconstruction. COMPARISON: PT NM PET Initial Strategy Eyes-Thighs 01/03/2024 3:04 PM FINDINGS: Lungs: Lung bases are clear. No pleural effusion. Liver: Normal. No mass. Gallbladder and bile ducts: Normal. No calcified stones. No ductal dilation. Pancreas: Normal. No ductal dilation. Spleen: Normal. No splenomegaly. Adrenal glands: Normal. No mass. Kidneys and ureters: Normal. No hydronephrosis. Stomach and bowel: Unremarkable. No obstruction. No mucosal thickening. Appendix: No evidence of appendicitis. Intraperitoneal space: Unremarkable. No free air. No significant fluid collection. Vasculature: Unremarkable. No abdominal aortic aneurysm. Lymph nodes: Unremarkable. No enlarged lymph nodes. Urinary bladder: Unremarkable as visualized. Reproductive: Unremarkable as visualized. Bones/joints: Unremarkable. No acute fracture. Soft tissues: Unremarkable. IMPRESSION: No acute findings. Electronically signed by: Kimani Ocampo MD, [facility], 02/03/2024 16:49 Terrence SHAH, Kimani Montejo Signed 02/03/24 16:49:37 (Electronic Signature) Technologist K[facility] * Exam Date Time Procedure Performing Provider Status 02/03/24 1:18 PM XR Chest PA Lateral Left Routine Noah DURAN, Brandy; Auth (Verified) Notes: (XR Chest PA Lateral Left Routine) Reason For Exam: Cough REPORT XR Chest PA Lateral Left Routine PROCEDURE INFORMATION: Exam: XR Chest Exam date and time: 02/03/2024 12:26 PM Age: 63 years old Clinical indication: Cough TECHNIQUE: Imaging protocol: Radiologic exam of the chest. Views: 2 views. COMPARISON: DX XR Chest 1 View 01/16/2024 4:33 PM FINDINGS: Tubes, catheters and devices: The Port-A-Cath on the right has its tip in the superior vena cava just above the right atrium. Lungs: Unremarkable. No consolidation. Pleural spaces: Unremarkable. No pleural effusion. No pneumothorax. Heart/Mediastinum: Unremarkable. No cardiomegaly. Bones/joints: Unremarkable. IMPRESSION: The Port-A-Cath on the right has its tip in the superior vena cava just above the right atrium. There is no acute abnormality. Electronically signed by: Ezra Pereira MD, [facility], 02/03/2024 13:46 Ezra Pereira MD Signed 02/03/24 13:46:36 (Electronic Signature) Technologist [place] Vital Signs Most recent to oldest [Reference Range]: 1 2 3 Blood Pressure 112/65 (02/03/24 6:15 PM) 97/55 (02/03/24 6:00 PM) 96/57 (02/03/24 5:45 PM) Height (inches) (Clinical) 72 in (02/03/24 12:19 PM) Weight (kg) (Clinical) 99 kg (02/03/24 12:19 PM) BMI (Clinical) 29.5 kg/m2 (02/03/24 12:19 PM) Social History Social History Type Response [...] Safety Implantable Status Assigning Authority Unknown Unknown [id number] Unknown 05/17/25 Unknown Unknown Active Unknown Hospital Discharge Instructions Patient Education 02/03/2024 18:10:10 Lung Cancer Lung Cancer Lung cancer is an abnormal growth of cancerous cells that forms a mass (malignant tumor) in a lung.There are several types of lung cancer. The types are based on the appearance of the tumor cells. The two most common types are: ??? Non-small cell lung cancer. This type of lung cancer is the most common type. Non-small cell lung cancers include squamous cell carcinoma, adenocarcinoma, and large cell carcinoma. ??? Small cell lung cancer. In this type of lung cancer, abnormal cells are smaller than those of non-small cell lung cancer. Small cell lung cancer gets worse (progresses) faster than non-small celllung cancer. What are the causes? The most common cause of lung cancer is smoking tobacco. The second most common cause is exposure to a chemical called radon. What increases the risk? You are more likely to develop this condition if: ??? You smoke tobacco. ??? You have been exposed to: ??? Secondhand tobacco smoke. ??? Radon gas. ??? Uranium. ??? Asbestos. ??? Arsenic in drinking water. ??? Air pollution and diesel exhaust. ??? You have a family or personal history of lung cancer. ??? You have had lung radiation therapy in the past. ??? You are older than age 65. What are the signs or symptoms? In the early stages, you may not have any symptoms. As the cancer progresses, symptoms may include: ??? A lasting cough, possibly with blood. ??? Fatigue. ??? Unexplained weight loss. ??? Shortness of breath. ??? High-pitched whistling sounds when you breathe, most often when you breathe out (wheezing). ??? Chest pain. ??? Loss of appetite. Symptoms of advanced lung cancer include: ??? Hoarseness. ??? Bone or joint pain. ??? Weakness. ??? Change in the structure of the fingernails (clubbing), so that the nail looks like an upside-down spoon. ??? Swelling of the face or arms. ??? Inability to move the face (paralysis). ??? Drooping eyelids. How is this diagnosed? This condition may be diagnosed based on: ??? Your symptoms and medical history. ??? A physical exam. ??? A chest X-ray. ??? A CT scan. ??? Blood tests. ??? Sputum tests. ??? Removal of a sample of lung tissue (lung biopsy) for testing. Your cancer will be assessed (staged) to determine how severe it is and how much it has spread (metastasized). How is this treated? Treatment depends on the type and stage of your cancer. Treatment may include one or more of the following: ??? Surgery to remove as much of the cancer as possible. Lymph nodes in the area may be removed andtested for cancer as well. ??? Medicines that kill cancer cells (chemotherapy). ??? High-energy rays that kill cancer cells (radiation therapy). ??? Targeted therapy. This targets specific parts of cancer cells and the area around them to blockthe growth and spread of the cancer. Targeted therapy can help limit the damage to healthy cells. ??? Immunotherapy. This treatment uses a person's own immune system to fight cancer by either boosting the immune system or changing how the immune system works. Follow these instructions at home: ??? Do not use any products that contain nicotine or tobacco. These products include cigarettes, chewing tobacco, and vaping devices, such as e-cigarettes. If you need help quitting, ask your health care provider. ??? Do not drink alcohol. ??? If you are admitted to the hospital, make sure your cancer specialist (oncologist) is aware. Your cancer may affect your treatment for other conditions. ??? Take vkkz-wbf-[id number] and prescription medicines only as told by your health care provider. ??? Work with your health care provider to manage any side effects of treatment. ??? Keep all follow-up visits. This is important. Where to find support Consider joining a local support group for people who have been diagnosed with lung cancer. Where to find more information ??? [place] [employer]: www.cancer.org ??? [employer] [place] (NCI): www.cancer.gov Contact a health care provider if you: ??? Lose weight without trying. ??? Have a persistent cough and wheezing. ??? Feel short of breath. ??? Get tired easily. ??? Have bone or joint pain. ??? Have difficulty swallowing. ??? Notice that your voice is changing or getting hoarse. ??? Have pain that does not get better with medicine. Get help right away if you: ??? Cough up blood. ??? Have chest pain or new breathing problems. ??? Have a fever. ??? Have swelling in an ankle, leg, or arm, or the face or neck. ??? Have paralysis in your face. ??? Are very confused. ??? Have a drooping eyelid. These symptoms may represent a serious problem that is an emergency. Do not wait to see if the symptoms will go away. Get medical help right away. Call your local emergency services (911 in the [place] Do not drive yourself to the hospital. Summary ??? Lung cancer is an abnormal growth of cancerous cells that forms a mass (malignant tumor) in a lung. ??? There are several types of lung cancer. The types are based on the appearance of the tumor cells. The two most common types are non-small cell and small cell. ??? The most common cause of lung cancer is smoking tobacco. ??? Early symptoms include a lasting cough, possibly with blood, and fatigue, unexplained weight loss, and shortness of breath. ??? After diagnosis, treatment depends on the type and stage of your cancer. This information is not intended to replace advice given to you by your health care provider. Make sure you discuss any questions you have with your health care provider. Document Revised: 04/25/2022 Document Reviewed: 04/25/2022 [employer] Patient Education ?? 2022 [employer] ([place]). 02/03/2024 18:10:10 Fever, Adult, Mizr-[id number] Fever, Adult A fever is an increase in your body's temperature. It often means a temperature of 100.4??F (38??C)or higher. Brief mild or moderate fevers often have no long- term effects. They often do not need treatment. Moderate or high fevers may make you feel uncomfortable. Sometimes, they can be a sign of aserious illness or disease. A fever that keeps coming back or that lasts a long time may cause you to lose water in your body (get dehydrated). You can take your temperature with a thermometer to see if you have a fever. Temperature can changewith: ??? Age. ??? Time of day. ??? Where the thermometer is put in the body. Readings may vary when the thermometer is put: ??? In the mouth (oral). ??? In the butt (rectal). ??? In the ear (tympanic). ??? Under the arm (axillary). ??? On the forehead (temporal). Follow these instructions at home: Medicines ??? Take [id number] and prescription medicines only as told by your doctor. Follow the dosinginstructions carefully. ??? If you were prescribed an antibiotic medicine, take it as told by your doctor. Do not stop taking it even if you start to feel better. General instructions ??? Watch for any changes in your symptoms. Tell your doctor about them. ??? Rest as needed. ??? Drink enough fluid to keep your pee (urine) pale yellow. ??? Sponge yourself or bathe with room-temperature water as needed. This helps to lower your body temperature. Do not use ice water. ??? Do not use too many blankets or wear clothes that are too heavy. ??? If your fever was caused by an infection that spreads from person to person (is contagious), such as a cold or the flu: ??? You should stay home from work and public places for at least 24 hours after your fever is gone. ??? Your fever should be gone for at least 24 hours without the need to use medicines. Contact a doctor if: ??? You throw up (vomit). ??? You cannot eat or drink without throwing up. ??? You have watery poop (diarrhea). ??? It hurts when you pee. ??? Your symptoms do not get better with treatment. ??? You have new symptoms. ??? You feel very weak. Get help right away if: ??? You are short of breath or have trouble breathing. ??? You are dizzy or you pass out (faint). ??? You feel mixed up (confused). ??? You have signs of not having enough water in your body, such as: ??? Dark pee, very little pee, or no pee. ??? Cracked lips. ??? Dry mouth. ??? Sunken eyes. ??? Sleepiness. ??? Weakness. ??? You have very bad pain in your belly (abdomen). ??? You keep throwing up or having watery poop. ??? You have a rash on your skin. ??? Your symptoms get worse all of a sudden. Summary ??? A fever is an increase in your body's temperature. It often means a temperature of 100.4??F (38??C) or higher. ??? Watch for any changes in your symptoms. Tell your doctor about them. ??? Take all medicines only as told by your doctor. ??? Do not go to work or other public places if your fever was caused by an illness that can spreadto other people. ??? Get help right away if you have signs that you do not have enough water in your body. This information is not intended to replace advice given to you by your health care provider. Make sure you discuss any questions you have with your health care provider. Document Revised: 03/27/2022 Document Reviewed: 03/27/2022 [employer] Patient Education ?? 2022 [email or web address] Follow Up Care 02/03/2024 12:14:48 With:Harrison Lopez Address: [address] [facility] [address] [place] [address]- Business (1) When: Unknown Comments:Call Tomorrow With:Karl Whitmore Address: [address] [place] [address] Business (1) When:5 to 7 days XR Chest PA and Lateral * Ezra Pereira MD: PERFORM, VERIFY, VERIFY Event Display: Report Authored Date: Note * Ezra Pereira MD: PERFORM, VERIFY, VERIFY Event Display: [employer] Read Authored Date: PROCEDURE INFORMATION: Exam: XR Chest Exam date and time: 02/03/2024 12:26 PM Age: 63 years old Clinical indication: Cough TECHNIQUE: Imaging protocol: Radiologic exam of the chest. Views: 2 views. COMPARISON: DX XR Chest 1 View 01/16/2024 4:33 PM FINDINGS: Tubes, catheters and devices: The Port-A-Cath on the right has its tip in the superior vena cava just above the right atrium. Lungs: Unremarkable. No consolidation. Pleural spaces: Unremarkable. No pleural effusion. No pneumothorax. Heart/Mediastinum: Unremarkable. No cardiomegaly. Bones/joints: Unremarkable. IMPRESSION: The Port-A-Cath on the right has its tip in the superior vena cava just above the right atrium. There is no acute abnormality. Electronically signed by: Ezra Pereira MD, [facility], 02/03/2024 13:46 Ezra Pereira MD Signed 02/03/24 13:46:36 (Electronic Signature) Technologist Kimani Jenkins MD: PERFORM, VERIFY, VERIFY Event Display: [employer] Read Authored Date: [id number] PROCEDURE INFORMATION: Exam: CTA Chest With Contrast Exam date and time: 02/03/2024 1:37 PM Age: 63 years old Clinical indication: Chest pain, shortness of breath, cancer history TECHNIQUE: Imaging protocol: Computed tomographic angiography of the chest with contrast, including non-contrast images if performed. Exam focused on the arteries. 3D rendering (Not supervised by radiologist): MIP and/or 3D reconstructed images were created by the technologist. Radiation optimization: All CT scans at this facility use at least one of these dose optimization techniques: automated exposure control; mA and/or kV adjustment per patient size (includes targeted exams where dose is matched to clinical indication); or iterative reconstruction. COMPARISON: CT Biopsy Lung 01/15/2024 9:23 AM FINDINGS: Pulmonary arteries: Normal. No pulmonary emboli. Aorta: Unremarkable. No aortic aneurysm. No aortic dissection. Lungs: There are 3 nodules scattered throughout the right lung measuring up to 1.5 cm in diameter. Pleural spaces: Tiny pleural effusions are noted bilaterally. Heart: There is a tiny pericardial effusion. Lymph nodes: A 2.4 cm lymph node lies in the right hilum. There is a 2 cm diameter lymph node in the subcarinal space of the mediastinum. Bones/joints: There is an infiltrating soft tissue mass involving the posterior aspect of the right 10th rib and this mass infiltrates the adjacent thoracic pedicle and vertebral body. There is also mild infiltration of the anterior epidural space of the spinal canal. Soft tissues: Unremarkable. IMPRESSION: 1. Stable mediastinal and right hilar adenopathy. 2. Stable right lung nodules 3. Interval development of tiny pleural effusions PROCEDURE INFORMATION: Exam: CT Abdomen And Pelvis With Contrast Exam date and time: 02/03/2024 1:37 PM Age: 63 years old Clinical indication: Chest pain, shortness of breath, cancer history TECHNIQUE: Imaging protocol: Computed tomography of the abdomen and pelvis with contrast. 3D rendering (Not supervised by radiologist): MIP and/or 3D reconstructed images were created by the technologist. Radiation optimization: All CT scans at this facility use at least one of these dose optimization techniques: automated exposure control; mA and/or kV adjustment per patient size (includes targeted exams where dose is matched to clinical indication); or iterative reconstruction. COMPARISON: PT NM PET Initial Strategy Eyes-Thighs 01/03/2024 3:04 PM FINDINGS: Lungs: Lung bases are clear. No pleural effusion. Liver: Normal. No mass. Gallbladder and bile ducts: Normal. No calcified stones. No ductal dilation. Pancreas: Normal. No ductal dilation. Spleen: Normal. No splenomegaly. Adrenal glands: Normal. No mass. Kidneys and ureters: Normal. No hydronephrosis. Stomach and bowel: Unremarkable. No obstruction. No mucosal thickening. Appendix: No evidence of appendicitis. Intraperitoneal space: Unremarkable. No free air. No significant fluid collection. Vasculature: Unremarkable. No abdominal aortic aneurysm. Lymph nodes: Unremarkable. No enlarged lymph nodes. Urinary bladder: Unremarkable as visualized. Reproductive: Unremarkable as visualized. Bones/joints: Unremarkable. No acute fracture. Soft tissues: Unremarkable. IMPRESSION: No acute findings. Electronically signed by: Kimani Ocampo MD, [facility], 02/03/2024 16:49 Kimani Ocampo MD Signed 02/03/24 16:49:37 (Electronic Signature) Technologist [facility] Radiology * Kimani Ocampo MD: PERFORM, VERIFY, VERIFY Event Display: Report Authored Date: [id number] Cardiology * Waylon Hussein MD: SIGN, VERIFY Event Display: EKG 12-Lead Authored Date: Patient Care team information Care Team Personnel Name: Karl Whitmore DO Position: 2 Restricted Providers Member Role: Primary Care Physician Address: Address: [address] [place] [address] Care Team Related Persons Name: NORMA VILLEGAS Name: FRAN ALVES Name: NELLY GREEN
--- OUTSIDE RECORDS SUMMARY | 2024-05-27 14:50 | XMS_ITS | Continuity of Care Document ---
Author Name Unknown Organization Address [address] [place] [address]- Care Team Providers Care Relay Record Clerk Name Role Phone Karl Whitmore DO Primary Care Physician Encounter [employer] Number [id number] Date(s): 01/15/24 - 01/15/[address] [place] [phone] Discharge Disposition: .Discharge to Home (Routine) Attending Physician: Harrison Lopez DO Allergies, Adverse Reactions, Alerts No Known Medication Allergies Assessment and Plan Extracted from: Title:Instructions to Patients Author:Roxanne Vance RN Date:01/15/24 Needle Biopsy of the Bone, Care After This sheet gives you information about how to care for yourself after your procedure. Your health care provider may also give you more specific instructions. If you have problems or questions, contact your health care provider. What can I expect after the procedure? After the procedure, it is common to have soreness or tenderness at the puncture site. Follow these instructions at home: Puncture care ? ? Follow instructions from your health care provider about how to take care of your puncture site. Make sure you: ? ? Wash your hands with soap and water before and after you change your bandage (dressing). If soap and water are not available, use hand senior business objects developer. ? ? Change your dressing as told by your health care provider. ? ? Check your puncture site every day for signs of infection. Check for: ? ? Redness, swelling, or worsening pain. ? ? Fluid or blood. ? ? Warmth. ? ? Pus or a bad smell. General instructions ? ? Take movu-lrp-bcohacs and prescription medicines only as told by your health care provider. ? ? Do not drive for 24 hours if you were given a sedative during your procedure. ? ? Return to your normal activities as told by your health care provider. ? ? Keep all follow-up visits as told by your health care provider. This is important. Contact a health care provider if: ? ? You have redness, swelling, or worsening pain at the site of your puncture. ? ? You have fluid or blood coming from your puncture site. ? ? Your puncture site feels warm to the touch. ? ? You have pus or a bad smell coming from your puncture site. ? ? You have a fever. ? ? You have persistent nausea or vomiting. Get help right away if: ? ? You develop a rash. ? ? You have difficulty breathing. Summary ? ? After the procedure, it is common to have soreness or tenderness at the puncture site. ? ? Follow instructions from your health care provider about how to take care of your puncture site. ? ? Contact a health care provider if you have any signs of infection. ? ? Keep all follow-up visits as told by your health care provider. This is important. This information is not intended to replace advice given to you by your health care provider. Make sure you discuss any questions you have with your health care provider. Document Revised: 01/18/2022 Document Reviewed: 01/18/2022 [employer] Patient Education ?? 2021 [employer] Moderate Conscious Sedation, Adult, Care After This sheet gives you information about how to care for yourself after your procedure. Your health care provider may also give you more specific instructions. If you have problems or questions, contact your health care provider. What can I expect after the procedure? After the procedure, it is common to have: ? ? Sleepiness for several hours. ? ? Impaired judgment for several hours. ? ? Difficulty with balance. ? ? Vomiting if you eat too soon. Follow these instructions at home: For the time period you were told by your health care provider: ? ? Rest. ? ? Do not participate in activities [...] and drinking ? ? Follow the diet recommended by your health care provider. ? ? Drink enough fluid to keep your urine pale yellow. ? ? If you vomit: ? ? Drink water, juice, or soup when you can drink without vomiting. ? ? Make sure you have little or no nausea before eating solid foods. General instructions ? ? Take aaab-smu-xijdlsk and prescription medicines only as told by your health care provider. ? ? Have a responsible adult stay with you for the time you are told. It is important to have someone help care for you until you are awake and alert. ? ? Do not smoke. ? ? Keep all follow-up visits as told by your health care provider. This is important. Contact a health care provider if: ? ? You are still sleepy or having trouble with balance after 24 hours. ? ? You feel light-headed. ? ? You keep feeling nauseous or you keep vomiting. ? ? You develop a rash. ? ? You have a fever. ? ? You have redness or swelling around the IV site. Get help right away if: ? ? You have trouble breathing. ? ? You have new-onset confusion at home. Summary ? ? After the procedure, it is common to feel sleepy, have impaired judgment, or feel nauseous if you eat too soon. ? ? Rest after you get home. Know the things you should not do after the procedure. ? ? Follow the diet recommended by your health care provider and drink enough fluid to keep your urine pale yellow. ? ? Get help right away if you have trouble breathing or new-onset confusion at home. This information is not intended to replace advice given to you by your health care provider. Make sure you discuss any questions you have with your health care provider. Document Revised: 03/03/2021 Document Reviewed: 09/29/2020 [employer] Patient Education ?? 2021 [employer] Lung Biopsy A lung biopsy is a procedure to remove a tissue sample from the lung. An open lung biopsy is a method in which the tissue sample is removed through an incision in the chest wall. The tissue is checked under a microscope to help diagnose various lung disorders. Depending on the results of the biopsy, more surgery may be done. For example, a lung lobe may be removed during this procedure. Tell a health care provider about: ? ? Any allergies you have. ? ? All medicines you are taking, including vitamins, herbs, eye drops, creams, and apxy-hao-nrnxarr medicines. ? ? Any problems you or family members have had with anesthetic medicines. ? ? Any bleeding problems you may have. ? ? Any surgeries you have had. ? ? Any medical conditions you have. ? ? Whether you are or may be . What are the risks? Generally, this is a safe procedure. However, problems may occur, including: ? ? Collapsed lung (pneumothorax). ? ? Bleeding. ? ? Infection. ? ? Pain. ? ? Pneumonia. What happens before the procedure? When to stop eating and drinking Follow instructions from your health care provider about what you may eat and drink before your procedure. These may include: ? ? 8 hours before the procedure ? ? Stop eating most foods. Do not eat meat, fried foods, or fatty foods. ? ? Eat only light foods, such as toast or crackers. ? ? All liquids are okay except energy drinks and alcohol. ? ? 6 hours before the procedure ? ? Stop eating. ? ? Drink only clear liquids, such as water, clear fruit juice, black coffee, plain tea, and sports drinks. ? ? Do not drink energy drinks or alcohol. ? ? 2 hours before the procedure ? ? Stop drinking all liquids. ? ? You may be allowed to take medicines with small sips of water. If you do not follow your health care provider's instructions, your procedure may be delayed or canceled. Medicines Ask your health care provider about: ? ? Changing or stopping your regular medicines. This is especially important if you are taking diabetes medicines or blood thinners. ? ? Taking medicines such as aspirin and ibuprofen. These medicines can thin your blood. Do not take these medicines unless your health care provider tells you to take them. ? ? Taking ndux-iaj-tkxsfwy medicines, vitamins, herbs, and supplements. Surgery safety Ask your health care provider: ? ? How your surgery site will be marked. ? ? What steps will be taken to help prevent infection. These may include: ? ? Removing hair at the surgery site. ? ? Washing skin with a germ-killing soap. ? ? Receiving antibiotic medicine. General instructions ? ? Do not use any products that contain nicotine or tobacco for at least 4 weeks before the procedure. These products include cigarettes, e-cigarettes, and chewing tobacco. If you need help quitting, ask your health care provider. ? ? Plan to have someone take you home from the hospital or clinic. What happens during the procedure? ? ? An IV may be inserted into one of your veins. ? ? You may be given one or both of the following: ? ? A medicine to help you relax (sedative). ? ? A medicine to numb the region where the biopsy sample will be taken (regional anesthetic). ? ? A medicine to make you fall asleep (general anesthetic). ? ? A breathing tube will be inserted into your lungs to help you breathe during and after surgery. ? ? An incision will be made in your chest. The incision will extend under your arm to your back. ? ? A special instrument will be used to spread the ribs apart, leaving the lung area exposed. ? ? Your surgeon will examine the lung. A piece of tissue will be removed from areas where the surgeon sees problems. ? ? Your surgeon may also do other procedures at this time, such as removing a lung lobe. ? ? After the biopsy and any other procedures, one or more tubes may be inserted into the chest cavity to remove air or fluid (chest tube). ? ? The incision will be closed with stitches (sutures). ? ? A sterile bandage or dressing will be applied. ? ? An epidural catheter may be inserted into the incision area. This will give you pain medicine. The exact procedure may vary among health care providers and hospitals. What happens after the procedure? ? ? Your blood pressure, heart rate, breathing rate, and blood oxygen level will be monitored until you leave the hospital or clinic. ? ? You will continue to have a tube to help you breathe until you are able to breathe on your own again. ? ? A chest X-ray may be done immediately after the biopsy. It may be repeated in a few hours. Summary ? ? A lung biopsy is a procedure to remove a tissue sample from your lung. The sample is examined to help diagnose various lung conditions. ? ? Follow instructions from your health care provider about hydration before your procedure. ? ? An incision will be made in your chest. The incision will extend under your arm to your back. ? ? After the biopsy and any other procedures have been completed, one or more chest tubes may be inserted into the chest cavity to aid in the removal of air or fluid as you recover. This information is not intended to replace advice given to you by your health care provider. Make sure you discuss any questions you have with your health care provider. Document Revised: 04/24/2022 Document Reviewed: 04/24/2022 [employer] Patient Education ?? 2021 [employer]. Medication Leaflets: Accessing??[facility]Express??Patient??Portal Access medications, test results, radiology reports, and more through [employer] secure patient portal. Please be patient if waiting on lab results, as these can take several days to process. [place] online at??[email or web address]??Use your community medical record number (CMRN) located below to verify your identity on the Self-Enrollment form.We also offer the ability for you to securely connect other health management apps to your health record. See the [facility] Connection link on the website above for more details. Watch [employer] Patient Education Videos and Access Resources anytime online! Visit [email or web address] Appointments Appointment Date:01/16/2024 01:28:00 PM Scheduled Provider: Location:[facility] Appointment Type:Surgery Appointment Date:01/22/2024 10:00:00 AM Scheduled Provider:Danilo Freitas MD Location: [facility] Appointment Type:Established Patient Appointment Date:01/22/2024 10:15:00 AM Scheduled Provider:Danilo Freitas MD Location:[facility] Appointment Type:Simulation Appointment Date:01/22/2024 11:20:00 AM Scheduled Provider:Harrison Lopez DO Location:[facility] Appointment Type:Established Patient Appointment Date:01/23/2024 01:00:00 PM Scheduled Provider:Juli Mensah DO Location:[facility] Appointment Type:New Patient Appointment Date:02/12/2024 11:00:00 AM Scheduled Provider:Boo Trejo MD Location:[facility] Appointment Type:New Patient Medications atorvastatin By mouth, Daily, Refill(s) 0 Start Date: 12/05/23 Status: Ordered Colace 100 mg oral capsule 100 mg = 1 cap, By mouth, BID, PRN for constipation, # 20 cap, Refill(s) 0, [id number], [id number], 1 cap By mouth BID,PRN:for constipation, 110.9, 12/06/23 8:09:00 [employer], kg, Weight (kg) (Clinical) Start Date: 12/06/23 Status: Ordered colchicine mg, By mouth, Daily, as needed for gout., Refill(s) 0 Start Date: 12/05/23 Status: Ordered gabapentin 300 mg oral capsule 300 mg = 1 cap, By mouth, TID, # 90 cap, Refill(s) 0, Pharmacy: [facility] #[id number], [id number], 1 cap By mouth TID, 104.95, 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 Start Date: 01/01/24 Stop Date: 01/31/24 Status: Ordered Tylenol By mouth, Refill(s) 0 Start Date: 12/23/23 Status: Ordered Problem List Condition Confirmation Course Effective Dates Status Health [facility] Informant Ex-smoker Confirmed Active patient Family history of stomach cancer Confirmed Active Bone lesion Confirmed Active Lesion of lung Confirmed Active Procedures Procedure Date Related Diagnosis Body Site Status Robotic Lap Lupe 12/06/23 Complet ed Results Laboratory List Name Date Platelet Count (PlateletCt) 01/15/24 Most recent to oldest [Reference Range]: 1 iPT 12.7 sec 1 (01/15/24 7:26 AM) iINR 1.1 2 (01/15/24 7:26 AM) Platelets [130-440 Thous/mm3] 259 Thous/ mm3 (01/15/24 7:23 AM) 1Result Comment: Performed at:[facility], [facility] [place], [address] Reference Ranges: 9.0 - 13.5 sec. [employer] have validated the use of the i-STAT PT/INR test on patients receiving anti-coagulant therapy and on non-anticoagulated patients. Testing on patients not on anti-coagulant has not been cleared or approved by the [place] Food and Drug Administration 2Result Comment: Performed at:[facility], [facility] [place], [address] Reference Ranges: 0.80 - 1.30 Radiology Reports * Exam Date Time Procedure Performing Provider Status 01/15/24 9:[address] Biopsy Bone Lissy , Maria Fernanda; Auth (V erified) Notes: (CT Biopsy Bone) Reason For Exam: right 10th rib lesion;Lesion of lung, Lesion of bone REPORT CT Biopsy Bone CT GUIDED BIOPSY OF RIB READING LOCATION: [address] [address]. History: right 10th rib lesion;Lesion of lung, Lesion of bone. Diagnosis Codes: M89.9 Disorder of bone, unspecified R91.8 Other nonspecific abnormal finding of lung field Procedure: 1. CT guided right rib biopsy Body of Report: From the beginning to the end of the procedure and under the supervision of performing radiologist,moderate (conscious) sedation was provided to the patient. A nurse provided continuous monitoring of the patient's level of consciousness and physiological status (blood pressure, pulse oximetry, heart rate). Intravenous Versed and fentanyl were used according to the hospital's dose titration protocols. Total physician face to face sedation intraservice time was 30 minutes. Informed and written consent was obtained from the patient following discussion of risks, benefits and alternatives to this procedure. Pre-procedure CT imaging was performed and showed a target site for biopsy. This imaging was used to determine an appropriate biopsy location. The skin was marked over the planned entry site. The patient was prepped and draped in usual sterile fashion. Adequate analgesia was obtained with 1% lidocaine, infiltrated subcutaneously. Under CT guidance a 17 gauge trocar was placed. 4 passes were performed, obtaining 18g core needle biopsies. The samples were taken to pathology and adequacy was verified. Final pathology results arepending. The tract was then embolized with Gelfoam slurry. Post-biopsy imaging demonstrates no significant hematoma. The patient was transferred to the recovery area, and no immediate complications were noted. See separate dictation for lung biopsy. Impression: 1. Successful CT guided core biopsy of the right rib. Electronically signed by: Radha Santizo MD 01/15/2024 3:26 PM Physician Radha Santizo MD Signed 01/15/24 15:26:40 (Electronic Signature) Colon Therapist DK Technologist * Exam Date Time Procedure Performing Provider Status 01/15/24 9:[address] Biopsy Lung Lissy , Maria Fernanda; Auth (V erified) Notes: (CT Biopsy Lung) Reason For Exam: r. lung lesion;Lesion of lung, Lesion of bone REPORT CT Biopsy Lung CT GUIDED BIOPSY OF RIGHT LUNG LESION READING LOCATION: [address] [address]. History: r. lung lesion;Lesion of lung, Lesion of bone. Diagnosis Codes: M89.9 Disorder of bone, unspecified R91.8 Other nonspecific abnormal finding of lung field Procedure: 1. CT guided lung biopsy Body of Report: From the beginning to the end of the procedure and under the supervision of performing radiologist,moderate (conscious) sedation was provided to the patient. A nurse provided continuous monitoring of the patient's level of consciousness and physiological status (blood pressure, pulse oximetry, heart rate). Intravenous Versed and fentanyl were used according to the hospital's dose titration protocols. Total physician face to face sedation intraservice time was 30 minutes. Informed and written consent was obtained from the patient following discussion of risks, benefits and alternatives to this procedure. Pre-procedure CT imaging was performed and showed a target site for biopsy. The lesion is similar compared to prior CT Chest. This imaging was used to determine an appropriate biopsy location. The skin was marked over the planned entry site. The patient was prepped and draped in usual sterile fashion. Adequate analgesia was obtained with 1% lidocaine, infiltrated subcutaneously. Under CT guidance a 19 gauge trocar was placed. 4 passes were performed, obtaining 20g core needle biopsies. The samples were taken to pathology. Final pathology results are pending. The tract was then embolized with a blood patch. Post-biopsy imaging demonstrates no pneumothorax. The patient was transferred to the recovery area,and no immediate complications were noted. See separate dictation for rib biopsy. Impression: 1. Successful CT guided core biopsy of the right lung lesion. Electronically signed by: Radha Santizo MD 01/15/2024 3:25 PM Physician Radha Santizo MD Signed 01/15/24 15:25:28 (Electronic Signature) Colon Therapist DK Technologist * Exam Date Time Procedure Performing Provider Status 01/15/24 10:22 AM XR Chest 1 View Radha Santizo MD; Auth (Verified) Notes: (XR Chest 1 View) Reason For Exam: post lung biopsy XR Chest 1 View PROCEDURE INFORMATION: Exam: XR Chest Exam date and time: 01/15/2024 10:15 AM Age: 63 years old Clinical indication: Disorder of bone, unspecified; Other nonspecific abnormal finding of lung field; Additional info: Post lung biopsy TECHNIQUE: Imaging protocol: Radiologic exam of the chest. Views: 1 view. COMPARISON: CT Chest wo Contrast 12/27/2023 10:08 PM FINDINGS: Lungs: The nodule seen on CT is partially obscured by crossing ribs in the lateral right mid lung field. No infiltrates or other acute findings. Pleural spaces: Unremarkable. No pleural effusion. No pneumothorax. Heart/Mediastinum: Unremarkable. No cardiomegaly. Bones/joints: Unremarkable. IMPRESSION: The nodule seen on CT is partially obscured by crossing ribs in the lateral right mid lung field. No pneumothorax. Electronically signed by: Link Hines MD, [facility], 01/15/2024 10:43 Link Hines MD Signed 01/15/24 10:43:08 (Electronic Signature) Technologist CS REPORT Vital Signs Most recent to oldest [Reference Range]: 1 2 3 Blood Pressure 146/60 (01/15/24 11:00 AM) 152/66 (01/15/24 10:45 AM) 121/60 (01/15/24 10:30 AM) Social History Social History Type Response Smoking Status Former smoker; Smoke less tobacco use: Never; Has the patient smoked in the last 365 days, even once? No; Type: Cigarettes 1 entered on: 01/07/24 Sex Male 1quit 15 years ago. Hospital Discharge Instructions Patient Education 01/15/2024 09:36:41 Needle Biopsy of the Bone, Care After Needle Biopsy of the Bone, Care After This sheet gives you information about how to care for yourself after your procedure. Your health care provider may also give you more specific instructions. If you have problems or questions, contact your health care provider. What can I expect after the procedure? After the procedure, it is common to have soreness or tenderness at the puncture site. Follow these instructions at home: Puncture care ??? Follow instructions from your health care provider about how to take care of your puncture site. Make sure you: ??? Wash your hands with soap and water before and after you change your bandage (dressing). If soap and water are not available, use hand senior business objects developer. ??? Change your dressing as told by your health care provider. ??? Check your puncture site every day for signs of infection. Check for: ??? Redness, swelling, or worsening pain. ??? Fluid or blood. ??? Warmth. ??? Pus or a bad smell. General instructions ??? Take pyqq-fom-gchjeuh and prescription medicines only as told by your health care provider. ??? Do not drive for 24 hours if you were given a sedative during your procedure. ??? Return to your normal activities as told by your health care provider. ??? Keep all follow-up visits as told by your health care provider. This is important. Contact a health care provider if: ??? You have redness, swelling, or worsening pain at the site of your puncture. ??? You have fluid or blood coming from your puncture site. ??? Your puncture site feels warm to the touch. ??? You have pus or a bad smell coming from your puncture site. ??? You have a fever. ??? You have persistent nausea or vomiting. Get help right away if: ??? You develop a rash. ??? You have difficulty breathing. Summary ??? After the procedure, it is common to have soreness or tenderness at the puncture site. ??? Follow instructions from your health care provider about how to take care of your puncture site. ??? Contact a health care provider if you have any signs of infection. ??? Keep all follow-up visits as told by your health care provider. This is important. This information is not intended to replace advice given to you by your health care provider. Make sure you discuss any questions you have with your health care provider. Document Revised: 01/18/2022 Document Reviewed: 01/18/2022 [employer] Patient Education ?? 2021 [employer]. 01/15/2024 09:36:41 Moderate Conscious Sedation, Adult, Care After Moderate Conscious Sedation, Adult, Care After This sheet gives you information about how to care for yourself after your procedure. Your health care provider may also give you more specific instructions. If you have problems or questions, contact your health care provider. What can I expect after the procedure? After the procedure, it is common to have: ??? Sleepiness for several hours. ??? Impaired judgment for several hours. ??? Difficulty with balance. ??? Vomiting if you eat too soon. Follow these instructions at home: For the time period you were told by your health care provider: ??? Rest. ??? Do not participate in activities where you could fall or become injured. ??? Do not drive or use machinery. ??? Do not drink alcohol. ??? Do not take sleeping pills or medicines that cause drowsiness. ??? Do not make important decisions or sign legal documents. ??? Do not take care of children on your own. Eating and drinking ??? Follow the diet recommended by your health care provider. ??? Drink enough fluid to keep your urine pale yellow. ??? If you vomit: ??? Drink water, juice, or soup when you can drink without vomiting. ??? Make sure you have little or no nausea before eating solid foods. General instructions ??? Take ztxg-vyo-wimgzxn and prescription medicines only as told by your health care provider. ??? Have a responsible adult stay with you for the time you are told. It is important to have someone help care for you until you are awake and alert. ??? Do not smoke. ??? Keep all follow-up visits as told by your health care provider. This is important. Contact a health care provider if: ??? You are still sleepy or having trouble with balance after 24 hours. ??? You feel light-headed. ??? You keep feeling nauseous or you keep vomiting. ??? You develop a rash. ??? You have a fever. ??? You have redness or swelling around the IV site. Get help right away if: ??? You have trouble breathing. ??? You have new-onset confusion at home. Summary ??? After the procedure, it is common to feel sleepy, have impaired judgment, or feel nauseous if you eat too soon. ??? Rest after you get home. Know the things you should not do after the procedure. ??? Follow the diet recommended by your health care provider and drink enough fluid to keep your urine pale yellow. ??? Get help right away if you have trouble breathing or new-onset confusion at home. This information is not intended to replace advice given to you by your health care provider. Make sure you discuss any questions you have with your health care provider. Document Revised: 03/03/2021 Document Reviewed: 09/29/2020 [facility] [employer] Patient Education ?? 2021 [employer]. 01/15/2024 09:36:41 Open Lung Biopsy Lung Biopsy A lung biopsy is a procedure to remove a tissue sample from the lung. An open lung biopsy is a method in which the tissue sample is removed through an incision in the chest wall. The tissue is checked under a microscope to help diagnose various lung disorders. Depending on the results of the biopsy, more surgery may be done. For example, a lung lobe may be removed during thisprocedure. Tell a health care provider about: ??? Any allergies you have. ??? All medicines you are taking, including vitamins, herbs, eye drops, creams, and temf-akn-wxediqz medicines. ??? Any problems you or family members have had with anesthetic medicines. ??? Any bleeding problems you may have. ??? Any surgeries you have had. ??? Any medical conditions you have. ??? Whether you are or may be . What are the risks? Generally, this is a safe procedure. However, problems may occur, including: ??? Collapsed lung (pneumothorax). ??? Bleeding. ??? Infection. ??? Pain. ??? Pneumonia. What happens before the procedure? When to stop eating and drinking Follow instructions from your health care provider about what you may eat and drink before your procedure. These may include: ??? 8 hours before the procedure ??? Stop eating most foods. Do not eat meat, fried foods, or fatty foods. ??? Eat only light foods, such as toast or crackers. ??? All liquids are okay except energy drinks and alcohol. ??? 6 hours before the procedure ??? Stop eating. ??? Drink only clear liquids, such as water, clear fruit juice, black coffee, plain tea, and sportsdrinks. ??? Do not drink energy drinks or alcohol. ??? 2 hours before the procedure ??? Stop drinking all liquids. ??? You may be allowed to take medicines with small sips of water. If you do not follow your health care provider's instructions, your procedure may be delayed or canceled. Medicines Ask your health care provider about: ??? Changing or stopping your regular medicines. This is especially important if you are taking diabetes medicines or blood thinners. ??? Taking medicines such as aspirin and ibuprofen. These medicines can thin your blood. Do not take these medicines unless your health care provider tells you to take them. ??? Taking bpuq-icz-rluzwyy medicines, vitamins, herbs, and supplements. Surgery safety Ask your health care provider: ??? How your surgery site will be marked. ??? What steps will be taken to help prevent infection. These may include: ??? Removing hair at the surgery site. ??? Washing skin with a germ-killing soap. ??? Receiving antibiotic medicine. General instructions ??? Do not use any products that contain nicotine or tobacco for at least 4 weeks before the procedure. These products include cigarettes, e-cigarettes, and chewing tobacco. If you need help quitting, ask your health care provider. ??? Plan to have someone take you home from the hospital or clinic. What happens during the procedure? An IV may be inserted into one of your veins. ??? You may be given one or both of the following: ??? A medicine to help you relax (sedative). ??? A medicine to numb the region where the biopsy sample will be taken (regional anesthetic). ??? A medicine to make you fall asleep (general anesthetic). ??? A breathing tube will be inserted into your lungs to help you breathe during and after surgery. ??? An incision will be made in your chest. The incision will extend under your arm to your back. ??? A special instrument will be used to spread the ribs apart, leaving the lung area exposed. ??? Your surgeon will examine the lung. A piece of tissue will be removed from areas where the surgeon sees problems. ??? Your surgeon may also do other procedures at this time, such as removing a lung lobe. ??? After the biopsy and any other procedures, one or more tubes may be inserted into the chest cavity to remove air or fluid (chest tube). ??? The incision will be closed with stitches (sutures). ??? A sterile bandage or dressing will be applied. ??? An epidural catheter may be inserted into the incision area. This will give you pain medicine. The exact procedure may vary among health care providers and hospitals. What happens after the procedure? Your blood pressure, heart rate, breathing rate, and blood oxygen level will be monitored untilyou leave the hospital or clinic. ??? You will continue to have a tube to help you breathe until you are able to breathe on your own again. ??? A chest X-ray may be done immediately after the biopsy. It may be repeated in a few hours. Summary ??? A lung biopsy is a procedure to remove a tissue sample from your lung. The sample is examined to help diagnose various lung conditions. ??? Follow instructions from your health care provider about hydration before your procedure. ??? An incision will be made in your chest. The incision will extend under your arm to your back. ??? After the biopsy and any other procedures have been completed, one or more chest tubes may be inserted into the chest cavity to aid in the removal of air or fluid as you recover. This information is not intended to replace advice given to you by your health care provider. Make sure you discuss any questions you have with your health care provider. Document Revised: 04/24/2022 Document Reviewed: 04/24/2022 [employer] Patient Education ?? 2021 [employer]. XR Chest Single view * Link Hines MD: PERFORM, VERIFY, VERIFY Event Display: Powerscribe Read Authored Date: [id number] PROCEDURE INFORMATION: Exam: XR Chest Exam date and time: 01/15/2024 10:15 AM Age: 63 years old Clinical indication: Disorder of bone, unspecified; Other nonspecific abnormal finding of lung field; Additional info: Post lung biopsy TECHNIQUE: Imaging protocol: Radiologic exam of the chest. Views: 1 view. COMPARISON: CT Chest wo Contrast 12/27/2023 10:08 PM FINDINGS: Lungs: The nodule seen on CT is partially obscured by crossing ribs in the lateral right mid lung field. No infiltrates or other acute findings. Pleural spaces: Unremarkable. No pleural effusion. No pneumothorax. Heart/Mediastinum: Unremarkable. No cardiomegaly. Bones/joints: Unremarkable. IMPRESSION: The nodule seen on CT is partially obscured by crossing ribs in the lateral right mid lung field. No pneumothorax. Electronically signed by: Link Hines MD, [facility], 01/15/2024 10:43 Link Hines MD Signed 01/15/24 10:43:08 (Electronic Signature) Technologist CS Note * Link Hines MD: PERFORM, VERIFY, VERIFY Event Display: Report Authored Date: [id number] * Darlyn SHAH [facility]: PERFORM, TRANSCRIBE, VERIFY, VERIFY Event Display: Powerscribe Read Authored Date: [id number] CT GUIDED BIOPSY OF RIGHT LUNG LESION READING LOCATION: [place] [address]. History: r. lung lesion;Lesion of lung, Lesion of bone. Diagnosis Codes: M89.9 Disorder of bone, unspecified R91.8 Other nonspecific abnormal finding of lung field Procedure: 1. CT guided lung biopsy Body of Report: From the beginning to the end of the procedure and under the supervision of performing radiologist,moderate (conscious) sedation was provided to the patient. A nurse provided continuous monitoring of the patient's level of consciousness and physiological status (blood pressure, pulse oximetry, heart rate). Intravenous Versed and fentanyl were used according to the hospital's dose titration protocols. Total physician face to face sedation intraservice time was 30 minutes. Informed and written consent was obtained from the patient following discussion of risks, benefits and alternatives to this procedure. Pre-procedure CT imaging was performed and showed a target site for biopsy. The lesion is similar compared to prior CT Chest. This imaging was used to determine an appropriate biopsy location. The skin was marked over the planned entry site. The patient was prepped and draped in usual sterile fashion. Adequate analgesia was obtained with 1% lidocaine, infiltrated subcutaneously. Under CT guidance a 19 gauge trocar was placed. 4 passes were performed, obtaining 20g core needle biopsies. The samples were taken to pathology. Final pathology results are pending. The tract was then embolized with a blood patch. Post-biopsy imaging demonstrates no pneumothorax. The patient was transferred to the recovery area,and no immediate complications were noted. See separate dictation for rib biopsy. Impression: 1. Successful CT guided core biopsy of the right lung lesion. Electronically signed by: Radha Santizo MD 01/15/2024 3:25 PM Physician Radha Santizo MD Signed 01/15/24 15:25:28 (Electronic Signature) Colon Therapist DK Technologist * Radha Santizo MD: PERFORM, TRANSCRIBE, VERIFY, VERIFY Event Display: Powers[employer] Read Authored Date: [id number] CT GUIDED BIOPSY OF RIB READING LOCATION: [place] [address]. History: right 10th rib lesion;Lesion of lung, Lesion of bone. Diagnosis Codes: M89.9 Disorder of bone, unspecified R91.8 Other nonspecific abnormal finding of lung field Procedure: 1. CT guided right rib biopsy Body of Report: From the beginning to the end of the procedure and under the supervision of performing radiologist,moderate (conscious) sedation was provided to the patient. A nurse provided continuous monitoring of the patient's level of consciousness and physiological status (blood pressure, pulse oximetry, heart rate). Intravenous Versed and fentanyl were used according to the hospital's dose titration protocols. Total physician face to face sedation intraservice time was 30 minutes. Informed and written consent was obtained from the patient following discussion of risks, benefits and alternatives to this procedure. Pre-procedure CT imaging was performed and showed a target site for biopsy. This imaging was used to determine an appropriate biopsy location. The skin was marked over the planned entry site. The patient was prepped and draped in usual sterile fashion. Adequate analgesia was obtained with 1% lidocaine, infiltrated subcutaneously. Under CT guidance a 17 gauge trocar was placed. 4 passes were performed, obtaining 18g core needle biopsies. The samples were taken to pathology and adequacy was verified. Final pathology results arepending. The tract was then embolized with Gelfoam slurry. Post-biopsy imaging demonstrates no significant hematoma. The patient was transferred to the recovery area, and no immediate complications were noted. See separate dictation for lung biopsy. Impression: 1. Successful CT guided core biopsy of the right rib. Electronically signed by: Radha Santizo MD 01/15/2024 3:26 PM Physician Darlyn SHAH, Radha Signed 01/15/24 15:26:40 (Electronic Signature) Colon Therapist DK Technologist CT Guidance for biopsy of Lung * Radha Santizo MD: PERFORM, TRANSCRIBE, VERIFY, VERIFY Event Display: Report Authored Date: [id number] CT guidance for percutaneous biopsy of Bone * Radha Santizo MD: PERFORM, TRANSCRIBE, VERIFY, VERIFY Event Display: Report Authored Date: [id number] Patient Care team information Care Team Personnel Name: Karl Whitmore DO Position: 2 Restricted Providers Member Role: Primary Care Physician Address: Address: [address] [place] [address] Care Team Related Persons Name: NORMA VILLEGAS Name: FRAN ALVES Name: NELLY GREEN
--- OUTSIDE RECORDS SUMMARY | 2024-05-27 14:50 | XMS_ITS | Continuity of Care Document ---
Author Name Unknown Organization [facility] Address [address] [place] [address]- Encounter [employer] Number [id number] Date(s): 12/05/23 - 12/06/23 [facility] [address] [place] [phone] Encounter Diagnosis Cholecystitis(Discharge Diagnosis) - 12/05/23 Discharge Disposition: .Discharge to Home (Routine) Attending Physician: Jocelyn Hernández DO Admitting Physician: Jocelyn Hernández DO Allergies, Adverse Reactions, Alerts No Known Medication Allergies Assessment and Plan Extracted from: Title:Instructions to Patients Author:Elodia Webb RN Date:12/06/23 Gastroenterology How to Prevent Constipation After Surgery Constipation is a common problem after surgery. Many things can make constipation more likely after a surgery, including: ? ? Certain medicines, especially numbing medicines (anesthetics) and very strong pain medicines called opioids. ? ? Feeling stressed because of the surgery. ? ? Eating different foods than normal. ? ? Being less active. Symptoms of constipation include: ? ? Having fewer than three bowel movements a week. ? ? Straining to have a bowel movement. ? ? Having hard, dry, or hjsegx-kbie-crooxh stools (feces). ? ? Discomfort in the lower abdomen, such as cramps or bloating. ? ? Not feeling relief after having a bowel movement. ? ? Nausea and vomiting. You can take steps to help prevent constipation after surgery. Follow these instructions at home: Eating and drinking ? ? Eat foods that have a lot of fiber in them, such as beans, bran, whole grains, and fresh fruits and vegetables. ? ? Limit foods that are high in fat and processed sugars, such as fried or sweet foods. These include cameroonian fries, hamburgers, cookies, and candy. ? ? Take a fiber supplement as told by your health care provider. If you are not taking a fiber supplement and you think you are not getting enough fiber from foods, talk to your health care provider about adding a fiber supplement to your diet. ? ? Drink enough fluid to keep your urine pale yellow. ? ? Drink clear fluids, especially water. Avoid drinking alcohol, caffeine, and soda. These can make constipation worse. Activity ? ? After surgery, return to your normal activities slowly, or when your health care provider says it is okay. ? ? Start walking as soon as you can. Try to go a little farther each day. ? ? Once your health care provider approves, do some sort of regular exercise. This helps prevent constipation. Bowel movements ? ? Go to the restroom when you have the urge to go. Do not hold it in. ? ? Try drinking something hot to get a bowel movement started. ? ? Keep track of how often you use the restroom. Medicines ? ? Take ifmz-hpq-gynzmzd and prescription medicines only as told by your health care provider. ? ? Talk to your health care provider about medicines that may help prevent constipation, particularly if you have a history of constipation. Your health care provider may suggest a stool softener, laxative, or fiber supplement. ? ? Do not take any medicines without talking to your health care provider first. Contact a health care provider if: ? ? You used stool softeners or laxatives and still have not had a bowel movement within 24? 48 hours after using them. ? ? You have not had a bowel movement in 3 days. ? ? You have a fever. Get help right away if you have: ? ? Constipation that lasts for more than 4 days or if your symptoms get worse. ? ? Bright red blood in your stool. ? ? Pain in the abdomen or rectum. ? ? Very bad cramping. ? ? Thin, pencil-like stools. ? ? Unexplained weight loss. Summary ? ? Constipation is a common problem after surgery. Many things can make constipation more likely after a surgery, including certain medicines, eating different foods than normal, and being less active. ? ? Symptoms of constipation include having fewer than three bowel movements a week, straining to have a bowel movement, and cramps or bloating in the lower abdomen. ? ? To help prevent constipation, you should eat foods that are high in fiber, drink plenty of fluids, and get regular physical activity. ? ? Your health care provider may suggest medicines, such as stool softeners or laxatives, to help prevent constipation. This information is not intended to replace advice given to you by your health care provider. Make sure you discuss any questions you have with your health care provider. Document Revised: 09/21/2020 Document Reviewed: 09/21/2020 [employer] Patient Education ?? 2021 [employer] Minimally Invasive Cholecystectomy, Care After The following information offers guidance on how to care for yourself after your procedure. Your health care provider may also give you more specific instructions. If you have problems or questions, contact your health care provider. What can I expect after the procedure? After the procedure, it is common to have: ? ? Pain at your incision sites. You will be given medicines to control this pain. ? ? Mild nausea or vomiting. ? ? Bloating and possible shoulder pain from the gas that was used during the procedure. Follow these instructions at home: Medicines ? ? Take zvby-sic-jfnhsjs and prescription medicines only as told by your health care provider. ? ? If you were prescribed an antibiotic medicine, take it as told by your health care provider. Do not stop using the antibiotic even if you start to feel better. ? ? Ask your health care provider if the medicine prescribed to you: ? ? Requires you to avoid driving or using machinery. ? ? Can cause constipation. You may need to take these actions to prevent or treat constipation: ? ? Drink enough fluid to keep your urine pale yellow. ? ? Take eiml-ntn-wqylgra or prescription medicines. ? ? Eat foods that are high in fiber, such as beans, whole grains, and fresh fruits and vegetables. ? ? Limit foods that are high in fat and processed sugars, such as fried or sweet foods. Incision care ? ? Follow instructions from your health care provider about how to take care of your incisions. Make sure you: ? ? Wash your hands with soap and water for at least 20 seconds before and after you change your bandage (dressing). If soap and water are not available, use hand mechanical engineering technician. ? ? Change your dressing as told by your health care provider. ? ? Leave stitches (sutures), skin glue, or adhesive strips in place. These skin closures may need to be in place for 2 weeks or longer. If adhesive strip edges start to loosen and curl up, you may trim the loose edges. Do not remove adhesive strips completely unless your health care provider tells you to do that. ? ? Do not take baths, swim, or use a hot tub until your health care provider approves. Ask your health care provider if you may take showers. You may only be allowed to take sponge baths. ? ? Check your incision area every day for signs of infection. Check for: ? ? More redness, swelling, or pain. ? ? Fluid or blood. ? ? Warmth. ? ? Pus or a bad smell. Activity ? ? Rest as told by your health care provider. Do not do activities that require a lot of effort. ? ? Avoid sitting for a long time without moving. Get up to take short walks every 1? 2 hours. This is important to improve blood flow and breathing. Ask for help if you feel weak or unsteady. ? ? Do not lift anything that is heavier than 10 lb (4.5 kg), or the limit that you are told, until your health care provider says that it is safe. ? ? Do not play contact sports until your health care provider approves. ? ? Do not return to work or school until your health care provider approves. ? ? Return to your normal activities as told by your health care provider. Ask your health care provider what activities are safe for you. General instructions ? ? If you were given a sedative during the procedure, it can affect you for several hours. Do not drive or operate machinery until your health care provider says that it is safe. ? ? Keep all follow-up visits. This is important. Contact a health care provider if: ? ? You develop a rash. ? ? You have more redness, swelling, or pain around your incisions. ? ? You have fluid or blood coming from your incisions. ? ? Your incisions feel warm to the touch. ? ? You have pus or a bad smell coming from your incisions. ? ? You have a fever. ? ? One or more of your incisions breaks open. Get help right away if: ? ? You have trouble breathing. ? ? You have chest pain. ? ? You have more pain in your shoulders. ? ? You faint or feel dizzy when you stand. ? ? You have severe pain in your abdomen. ? ? You have nausea or vomiting that lasts for more than one day. ? ? You have leg pain that is new or unusual, or if it is localized to one specific spot. These symptoms may represent a serious problem that is an emergency. Do not wait to see if the symptoms will go away. Get medical help right away. Call your local emergency services (911 in the [place] Do not drive yourself to the hospital. Summary ? ? After your procedure, it is common to have pain at the incision sites. You may also have nausea or bloating. ? ? Follow your health care provider's instructions about medicine, activity restrictions, and caring for your incision areas. Do not do activities that require a lot of effort. ? ? Contact a health care provider if you have a fever or other signs of infection, such as more redness, swelling, or pain around the incisions. ? ? Get help right away if you have chest pain, increasing pain in the shoulders, or trouble breathing. This information is not intended to replace advice given to you by your health care provider. Make sure you discuss any questions you have with your health care provider. Document Revised: 05/08/2022 Document Reviewed: 05/08/2022 [employer] Patient Education ?? 2021 [employer]. Pharmacology General Anesthesia, Adult, Care After This sheet gives you information about how to care for yourself after your procedure. Your health care provider may also give you more specific instructions. If you have problems or questions, contact your health care provider. What can I expect after the procedure? After the procedure, the following side effects are common: ? ? Pain or discomfort at the IV site. ? ? Nausea. ? ? Vomiting. ? ? Sore throat. ? ? Trouble concentrating. ? ? Feeling cold or chills. ? ? Feeling weak or tired. ? ? Sleepiness and fatigue. ? ? Soreness and body aches. These side effects can affect parts of the body that were not involved in surgery. Follow these instructions at home: For the [...] own. Eating and drinking ? ? Follow any instructions from your health care provider about eating or drinking restrictions. ? ? When you feel hungry, start by eating small amounts of foods that are soft and easy to digest (bland), such as toast. Gradually return to your regular diet. ? ? Drink enough fluid to keep your urine pale yellow. ? ? If you vomit, rehydrate by drinking water, juice, or clear broth. General instructions ? ? If you have sleep apnea, surgery and certain medicines can increase your risk for breathing problems. Follow instructions from your health care provider about wearing your sleep device: ? ? Anytime you are sleeping, including during daytime naps. ? ? While taking prescription pain medicines, sleeping medicines, or medicines that make you drowsy. ? ? Have a responsible adult stay with you for the time you are told. It is important to have someone help care for you until you are awake and alert. ? ? Return to your normal activities as told by your health care provider. Ask your health care provider what activities are safe for you. ? ? Take skrx-elh-vwwwvab and prescription medicines only as told by your health care provider. ? ? If you smoke, do not smoke without supervision. ? ? Keep all follow-up visits as told by your health care provider. This is important. Contact a health care provider if: ? ? You have nausea or vomiting that does not get better with medicine. ? ? You cannot eat or drink without vomiting. ? ? You have pain that does not get better with medicine. ? ? You are unable to pass urine. ? ? You develop a skin rash. ? ? You have a fever. ? ? You have redness around your IV site that gets worse. Get help right away if: ? ? You have difficulty breathing. ? ? You have chest pain. ? ? You have blood in your urine or stool, or you vomit blood. Summary ? ? After the procedure, it is common to have a sore throat or nausea. It is also common to feel tired. ? ? Have a responsible adult stay with you for the time you are told. It is important to have someone help care for you until you are awake and alert. ? ? When you feel hungry, start by eating small amounts of foods that are soft and easy to digest (bland), such as toast. Gradually return to your regular diet. ? ? Drink enough fluid to keep your urine pale yellow. ? ? Return to your normal activities as told by your health care provider. Ask your health care provider what activities are safe for you. This information is not intended to replace advice given to you by your health care provider. Make sure you discuss any questions you have with your health care provider. Document Revised: 07/20/2021 Document Reviewed: 02/16/2021 [employer] Patient Education ?? 2021 [employer] Extracted from: Title:Admission H&P Note Author:Ping Reed MD te:12/05/23 Siddhartha Christina is a 63yo M pres enting for 1 month of abdominal pain. Workup concerning for acute cholecystitis for which [facility] has been consulted. ? Hyperglycemia Non insulin dependent T2DM HTN HLD Acute cholecystitis Morbid obesity H/o tobacco use ?? General- admit to gen surg service Neuro- multimodal pain control, opiate sparing CV- resume home metoprolol, hold olmesartan for OR Resp- monitor O2 per unit standard FEN/GI- regular diet, NPO at midnight Fluids to start when NPO PRN antiemetics Renal- monitor UOP Endo- sliding scale insulin while inpatient, hold home glycemic medications ID- unasyn for cholecystitis ?? Plan for OR tomorrow for lap leelee Clinical course, labs, imaging and exam??are consistent with acute cholecystitis. Recommend laparoscopic cholecystectomy. The risks and benefits of operative intervention including possible common bile duct injury, bleeding, and infection were discussed at length. The patient understands and??wishes to proceed with laparoscopic cholecystectomy.? Obtain imaging from OSH to review pre op ?? DVT ppx: lovenox Dispo: floor ? Addendum by Jocelyn Hernández DO on December 05, 2023 15:19:16 REED FIXER I was present with the resident for the service and evaluation of the patient above.?? I personally verified the history of present illness and performed the physical examination and medical decision making alongside the resident physician.?? I verified all of the resident's documentation for this encounter. ??Abdomen soft, tenderness??to palpation in the right upper quadrant.?? Negative Silva sign. ?? No previous surgical history, only??on aspirin.?Plan on going??to the operating??room tomorrow.? Extracted from: Title:Gastrointestinal Author:Geovany Campos MD Date:12/05/23 Impression and Plan Diagnosis Cholecystitis ([id number] K81.9) Plan Condition: Stable. Disposition: Admit. Counseled: Patient, Family, Regarding diagnosis, Regarding diagnostic results. Medications atorvastatin By mouth, Daily, Refill(s) 0 Start Date: 12/05/23 Status: Ordered Bactrim DS 800mg-160mg oral tablet By mouth, Refill(s) 0 Start Date: 12/05/23 Status: Ordered Colace 100 mg oral capsule 100 mg = 1 cap, By mouth, BID, PRN for constipation, # 20 cap, Refill(s) 0, Pharmacy: [facility] #[id number], [id number], 1 cap By mouth BID,PRN:for constipation, 110.9, 12/06/23 8:09:00 REED FIXER, kg, Weight (kg) (Clinical) Start Date: 12/06/23 [...] Refill(s) 0 Start Date: 12/05/23 Status: Ordered Eads 5 mg-325 mg oral tablet 1-2 tablets, By mouth, Q6H, PRN for pain, 3 Days, 15 EA, 0, 0, 12/09/23 10:55:00 REED FIXER, Substitution Permitted, [facility] #[id number], 71, Height (inches) (Clinical), 12/06/23 8:09:00 REED FIXER, in, 110.9, Weight (kg) (Clinical), 12/06/23 8:09:00 REED FIXER, kg Start Date: 12/06/23 Stop Date: 12/09/23 Status: Ordered olmesartan By mouth, Daily, Refill(s) 0 Start Date: 12/05/23 Status: Ordered semaglutide 0.25 mg/0.5 mL (0.25 mg dose) subcutaneous solution (Wegovy) 0.25 mg = 0.5 mL, SUBQ, QW (once a week), # 4 EA, Refill(s) 0 Start Date: 12/05/23 Status: Ordered Problem List Condition Confirmation Course Effective Dates Status Health [facility] Informant Ex-smoker Confirmed Active patient Procedures Procedure Date Related Diagnosis Body Site Status LAPAROSCOPY SURG CHOLECYSTECTOMY 12/06/23 Completed Results Laboratory List Name Date CBC-d 12/06/23 CMP 12/06/23 Magnesium Serum (Mg Serum) 12/06/23 Phosphorus 12/06/23 zCBC Automated Diff 12/06/23 PT/INR 12/05/23 TSABS auto 12/05/23 TSType 12/05/23 Urinalysis w/ microscopy (UA w/ micro) CBC-d 12/05/23 CMP 12/05/23 Hgb A1C (Glyc Hgb) 12/05/23 Lipase 12/05/23 zCBC Automated Diff 12/05/23 Most recent to oldest [Reference Range]: 1 2 3 Type and RH Interp O Positive *Unknown* (12/05/23 7:05 PM) Bedside Glucose 264 mg/dL 1 (12/06/23 11:22 AM) 210 mg/dL 2 (12/06/23 8:19 AM) 191 mg/dL 3 (12/05/23 9:18 PM) [address] Glucose 229 mg/dL *NA* (12/05/23 11:05 AM) Antibody Screen Interp a Negative (12/05/23 7:05 PM) Anion Gap [2-15 mEq/L] 5 mEq/L (12/06/23 7:20 AM) 10 mEq/L (12/05/23 11:05 AM) RTE Casts None Seen (12/05/23 3:10 PM) RTEs None Seen (12/05/23 3:10 PM) eGFR CKD-EPI [>=61 mL/min/1.73 m2] 97 mL/min/1.73 m2 (12/06/23 7:20 AM) 96 mL/min/1.73 m2 (12/05/23 11:05 AM) Glucose, Serum/Plasma [70-10 0 mg/dL] 218 mg/dL *HI* (12/06/23 7:20 AM) 256 mg/dL *HI* (12/05/23 11:05 AM) WBC [4.8-10.8 Thous/mm3] 9.1 Thous/mm3 (12/06/23:20 AM) 10.4 Thous/mm3 (12/05/23 11:05 AM) Hct [42.0-52.0 %] 44.3 % (12/06/23 7:20 AM) 53.1 % *HI* (12/05/23 11:05 AM) Hgb [14.0-18.0 g/dL] 14.9 g/dL (12/06/23 7:20 AM) 17.3 g/dL (12/05/23 11:05 AM) RBC [4.60-6.20 Million/mm3] 5.00 Million /mm3 (12/06/23 7:20 AM) 5.94 Million/mm3 (12/05/23 11:05 AM) MCV [80.0-100.0 fl] 88.6 fl (12/06/23 7:20 AM) 89.4 fl (12/05/23 11:05 AM) MCH [26.0-34.0 pg] 29.8 pg (12/06/23 7:20 AM) 29.1 pg (12/05/23 11:05 AM) MCHC [31.0-36.5 g/dL] 33.6 g/dL (12/06/23 7:20 AM) 32.6 g/dL (12/05/23 11:05 AM) RDW [10.4-14.4 %] 13.6 % (12/06/23 7:20 AM) 13.6 % (12/05/23 11:05 AM) Platelets [130-440 Thous/mm3] 222 Thous/ mm3 (12/06/23 7:20 AM) 252 Thous/mm3 (12/05/23 11:05 AM) MPV [9.4-12.4 fl] 10.6 fl (12/06/23 7:20 AM) 11.2 fl (12/05/23 11:05 AM) AutoNeutrophil [43.0-78.0 %] 68.3 % (12/06/23 7:20 AM) 72.4 % (12/05/23 11:05 AM) AutoLymphs [20.0-40.0 %] 20.5 % (12/06/23 7:20 AM) 18.1 % *LOW* (12/05/23 11:05 AM) AutoMono [2.0-10.0 %] 8.4 % (12/06/23 7:20 AM) 7.0 % (12/05/23 11:05 AM) AutoEo [0.0-7.0 %] 2.3 % (12/06/23 7:20 AM) 1.5 % (12/05/23 11:05 AM) Sodium [136-145 mEq/L] 139 mEq/L (12/06/23 7:20 AM) 137 mEq/L (12/05/23 11:05 AM) Potassium [3.5-5.1 mEq/L] 4.6 mEq/L (12/06/23 7:20 AM) 4.5 mEq/L (12/05/23 11:05 AM) Chloride [98-107 mEq/L] 106 mEq/L (12/06/23 7:20 AM) 101 mEq/L (12/05/23 11:05 AM) AbsNeut [2.0-8.0 Thous/mm3] 6.2 Thous/mm 3 (12/06/23 7:20 AM) 7.5 Thous/mm3 (12/05/23 11:05 AM) CO2 [21-32 mEq/L] 28 mEq/L (12/06/23 7:20 AM) 26 mEq/L (12/05/23 11:05 AM) BUN [7-18 mg/dL] 12 mg/dL (12/06/23 7:20 AM) 18 mg/dL (12/05/23 11:05 AM) Creatinine [0.73-1.18 mg/dL] 0.84 mg/dL (12/06/23 7:20 AM) 0.87 mg/dL (12/05/23 11:05 AM) AbsLymph [1.0-4.0 Thous/mm3] 1.9 Thous/m m3 (12/06/23 7:20 AM) 1.9 Thous/mm3 (12/05/23 11:05 AM) AbsMono [0.1-1.0 Thous/mm3] 0.8 Thous/mm 3 (12/06/23 7:20 AM) 0.7 Thous/mm3 (12/05/23 11:05 AM) Bilirubin, Total [0.2-1.0 mg/dL] 0.7 mg/dL (12/06/23 7:20 AM) 0.8 mg/dL (12/05/23 11:05 AM) AbsEo [0.0-0.5 Thous/mm3] 0.2 Thous/mm3 (12/06/23 7:20 AM) 0.2 Thous/mm3 (12/05/23 11:05 AM) AbsBaso [0.0-0.2 Thous/mm3] 0.0 Thous/mm 3 (12/06/23 7:20 AM) 0.1 Thous/mm3 (12/05/23 11:05 AM) AutoBaso [0.0-2.5 %] 0.3 % (12/06/23 7:20 AM) 0.6 % (12/05/23 11:05 AM) Calcium [8.3-10.6 mg/dL] 9.0 mg/dL (12/06/23 7:20 AM) 9.6 mg/dL (12/05/23 11:05 AM) Protein Total [6.4-8.5 g/dL] 6.0 g/dL *LOW* (12/06/23 7:20 AM) 7.7 g/dL (12/05/23 11:05 AM) Albumin [3.4-5.0 g/dL] 3.4 g/dL (12/06/23 7:20 AM) 4.5 g/dL (12/05/23 11:05 AM) AST [15-37 U/L] 18 U/L (12/06/23 7:20 AM) 21 U/L (12/05/23 11:05 AM) Alk Phos [45-117 U/L] 78 U/L (12/06/23 7:20 AM) 109 U/L (12/05/23 11:05 AM) Phosphorus [2.4-5.1 mg/dL] 3.6 mg/dL (12/06/23 7:20 AM) Magnesium [1.8-2.4 mg/dL] 1.9 mg/dL (12/06/23 7:20 AM) ALT [10-49 U/L] 19 U/L (12/06/23 7:20 AM) 27 U/L (12/05/23 11:05 AM) PT [9.0-13.5 sec] 10.7 sec (12/05/23 7:05 PM) Appearance [Clear] Clear (12/05/23 3:10 PM) Color [Yellow] Yellow *NA* (12/05/23 3:10 PM) Sp. [place] [1.001-1.035] 1.020 (12/05/23 3:10 PM) Ketones [Negative] 1+ *ABN* (12/05/23 3:10 PM) Glucose [Negative] 3+ *ABN* (12/05/23 3:10 PM) Protein [Negative] Negative (12/05/23 3:10 PM) Blood [Negative] Negative (12/05/23 3:10 PM) Nitrites UA [Negative] Negative (12/05/23 3:10 PM) HgbA1c [4.2-6.4 %] 9.6 % *HI* (12/05/23 11:05 AM) Lipase, Serum/Plasma [12-53 U/L] 31 U/L (12/05/23 11:05 AM) Bilirubin UA [Negative] Negative (12/05/23 3:10 PM) Urobilinogen [1.0 mg/dL] 1.0 mg/dL (12/05/23 3:10 PM) Leuko Esterase UA [Negative] Negative (12/05/23 3:10 PM) INR [0.80-1.30] 1.00 (12/05/23 7:05 PM) pH UA [5.0-9.0] 5.5 (12/05/23 3:10 PM) RBC [0-2/hpf] 0-2/hpf (12/05/23 3:10 PM) WBC [0-5/hpf] 0-5/hpf (12/05/23 3:10 PM) Hyaline Casts [0-2/lpf] 0-2/lpf (12/05/23 3:10 PM) Bacteria [None Seen] None Seen (12/05/23 3:10 PM) Epithelium [None Seen] None Seen (12/05/23 3:10 PM) Volume 3 mL *NA* (12/05/23 3:10 PM) Imm. Grans % [0-5 %] <5 % (12/06/23 7:20 AM) <5 % (12/05/23 11:05 AM) Imm. Grans # [0.0-0.5 Thous/mm3] <0.5 Thous/mm3 (12/06/23 7:20 AM) <0.5 Thous/mm3 (12/05/23 11:05 AM) ANC-AbsNeutCount 6.2 Thous/mm3 *NA* (12/06/23 7:20 AM) 7.5 Thous/mm3 *NA* (12/05/23 11:05 AM) 1Result Comment: Pieter CASAS/ Performed at:[address], [address] Reference Ranges: Age 0 - 24 hours: 45 - 115 mg/dL Age 24 hours - 30 days: 55 - 115 mg/dL Age > 30 days: 70 - 100 mg/dL Critical Results Requiring Immediate Notification: Age <72 Hours: <40 or >350 mg/dL Age >72 Hours: <50 or >400 mg/dL 2Result Comment: Pieter CASAS/ Performed at:[address], [address] Reference Ranges: Age 0 - 24 hours: 45 - 115 mg/dL Age 24 hours - 30 days: 55 - 115 mg/dL Age > 30 days: 70 - 100 mg/dL Critical Results Requiring Immediate Notification: Age <72 Hours: <40 or >350 mg/dL Age >72 Hours: <50 or >400 mg/dL 3Result Comment: Pieter CASAS/ Performed at:[facility], [address] [place] [place] [address], [id number] Reference Ranges: Age 0 - 24 hours: 45 - 115 mg/dL Age 24 hours - 30 days: 55 - 115 mg/dL Age > 30 days: 70 - 100 mg/dL Critical Results Requiring Immediate Notification: Age <72 Hours: <40 or >350 mg/dL Age >72 Hours: <50 or >400 mg/dL Radiology Reports * Exam Date Time Procedure Performing Provider Status 12/05/23 3:04 PM XR Chest 1 View Ping Reed MD; Auth (V erified) Notes: (XR Chest 1 View) Reason For Exam: pre op REPORT XR Chest 1 View PROCEDURE INFORMATION: Exam: XR Chest Exam date and time: 12/05/2023 2:46 PM Age: 63 years old Clinical indication: Cholecystitis, unspecified; Additional info: Pre op TECHNIQUE: Imaging protocol: Radiologic exam of the chest. Views: 1 view. COMPARISON: No relevant prior studies available. FINDINGS: Lungs: Unremarkable. No consolidation. Pleural spaces: Unremarkable. No pleural effusion. No pneumothorax. Heart/Mediastinum: Unremarkable. No cardiomegaly. Bones/joints: Unremarkable. IMPRESSION: No acute findings. Electronically signed by: Get Smart MD, [facility], 12/05/2023 15:7 Get Smart MD Signed 12/05/23 15:07:39 (Electronic Signature) Technologist RUPA ALMAZAN * Exam Date Time Procedure Performing Provider Status 12/05/23 1:03 PM US GB Bile Ducts Geovany Campos MD; Auth (Verified) Notes: (US GB Bile Ducts) Reason For Exam: Abdominal pain, right upper quadrant worse with eating US GB Bile Ducts PROCEDURE INFORMATION: Exam: US Abdomen, Limited; Right Upper Quadrant Exam date and time: 12/05/2023 1:03 PM Age: 63 years old Clinical indication: Abdominal pain, right upper quadrant worse with eating TECHNIQUE: Imaging protocol: Real time ultrasound of the abdomen with image documentation. Limited exam focused on the right upper quadrant. COMPARISON: No relevant prior studies available. FINDINGS: Liver: Normal. Small rounded focus diminished attenuation near the gallbladder fossa is likely a small area of fatty replacement within the liver. Gallbladder: No gallstones. The gallbladder wall is minimally thickened at 3.5 mm. Trace pericholecystic fluid is present. Biliary ducts: Normal. No stones. No dilation. Pancreas: Visualized pancreas is unremarkable. Right kidney: Normal. No mass. No hydronephrosis. IMPRESSION: Possible mild gallbladder wall edema/thickening with trace pericholecystic fluid but without evidence of stones. Electronically signed by: Get Smart MD, [employer], 12/05/2023 13:52 Bing SHAH, Get Signed 12/05/23 13:52:37 (Electronic Signature) Technologist KE REPORT Vital Signs Most recent to oldest [Reference Range]: 1 2 3 Blood Pressure 134/81mmHg (12/06/23 12:40 PM) 146/76mmHg (12/06/23 12:21 PM) Blood Pressure 139/70 (12/06/23 12:10 PM) Height (inches) (Clinical) 71 in (12/06/23 8:01 AM) Weight (kg) (Clinical) 110.9 kg (12/06/23 8:01 AM) 110.9 kg (12/05/23 10:45 AM) 110.9 kg (12/05/23 10:39 AM) BMI (Clinical) 34 kg/m2 (12/06/23 8:01 AM) Scale Type Bed (12/06/23 8:01 AM) Social History Social History Type Response Smoking Status Former smoker; Smoke less tobacco use: Never; Has the patient smoked in the last 365 days, even once? No; Type: Cigarettes entered on: 12/05/23 Sex Male Hospital Discharge Instructions Patient Education 12/06/2023 12:41:06 How to Prevent Constipation After Surgery How to Prevent Constipation After Surgery Constipation is a common problem after surgery. Many things can make constipation more likely aftera surgery, including: ??? Certain medicines, especially numbing medicines (anesthetics) and very strong pain medicines called opioids. ??? Feeling stressed because of the surgery. ??? Eating different foods than normal. ??? Being less active. Symptoms of constipation include: ??? Having fewer than three bowel movements a week. ??? Straining to have a bowel movement. ??? Having hard, dry, or diepue-lguh-qvmiyq stools (feces). ??? Discomfort in the lower abdomen, such as cramps or bloating. ??? Not feeling relief after having a bowel movement. ??? Nausea and vomiting. You can take steps to help prevent constipation after surgery. Follow these instructions at home: Eating and drinking ??? Eat foods that have a lot of fiber in them, such as beans, bran, whole grains, and fresh fruitsand vegetables. ??? Limit foods that are high in fat and processed sugars, such as fried or sweet foods. These include cameroonian fries, hamburgers, cookies, and candy. ??? Take a fiber supplement as told by your health care provider. If you are not taking a fiber supplement and you think you are not getting enough fiber from foods, talk to your health care providerabout adding a fiber supplement to your diet. ??? Drink enough fluid to keep your urine pale yellow. ??? Drink clear fluids, especially water. Avoid drinking alcohol, caffeine, and soda. These can make constipation worse. Activity ??? After surgery, return to your normal activities slowly, or when your health care provider says it is okay. ??? Start walking as soon as you can. Try to go a little farther each day. ??? Once your health care provider approves, do some sort of regular exercise. This helps prevent constipation. Bowel movements ??? Go to the restroom when you have the urge to go. Do not hold it in. ??? Try drinking something hot to get a bowel movement started. ??? Keep track of how often you use the restroom. Medicines ??? Take ulml-wyq-mtfwwku and prescription medicines only as told by your health care provider. ??? Talk to your health care provider about medicines that may help prevent constipation, particularly if you have a history of constipation. Your health care provider may suggest a stool softener, laxative, or fiber supplement. ??? Do not take any medicines without talking to your health care provider first. Contact a health care provider if: ??? You used stool softeners or laxatives and still have not had a bowel movement within 24???48 hours after using them. ??? You have not had a bowel movement in 3 days. ??? You have a fever. Get help right away if you have: ??? Constipation that lasts for more than 4 days or if your symptoms get worse. ??? Bright red blood in your stool. ??? Pain in the abdomen or rectum. ??? Very bad cramping. ??? Thin, pencil-like stools. ??? Unexplained weight loss. Summary ??? Constipation is a common problem after surgery. Many things can make constipation more likely after a surgery, including certain medicines, eating different foods than normal, and being less active. ??? Symptoms of constipation include having fewer than three bowel movements a week, straining to have a bowel movement, and cramps or bloating in the lower abdomen. ??? To help prevent constipation, you should eat foods that are high in fiber, drink plenty of fluids, and get regular physical activity. ??? Your health care provider may suggest medicines, such as stool softeners or laxatives, to help prevent constipation. This information is not intended to replace advice given to you by your health care provider. Make sure you discuss any questions you have with your health care provider. Document Revised: 09/21/2020 Document Reviewed: 09/21/2020 [employer] Patient Education ?? 2021 [employer]. 12/06/2023 12:41:06 General Anesthesia, Adult, Care After General Anesthesia, Adult, Care After This sheet gives you information about how to care for yourself after your procedure. Your health care provider may also give you more specific instructions. If you have problems or questions, contact your health care provider. What can I expect after the procedure? After the procedure, the following side effects are common: ??? Pain or discomfort at the IV site. ??? Nausea. ??? Vomiting. ??? Sore throat. ??? Trouble concentrating. ??? Feeling cold or chills. ??? Feeling weak or tired. ??? Sleepiness and fatigue. ??? Soreness and body aches. These side effects can affect parts of the body that were not involvedin surgery. Follow these instructions at home: For the [...] your own. Eating and drinking ??? Follow any instructions from your health care provider about eating or drinking restrictions. ??? When you feel hungry, start by eating small amounts of foods that are soft and easy to digest (bland), such as toast. Gradually return to your regular diet. ??? Drink enough fluid to keep your urine pale yellow. ??? If you vomit, rehydrate by drinking water, juice, or clear broth. General instructions ??? If you have sleep apnea, surgery and certain medicines can increase your risk for breathing problems. Follow instructions from your health care provider about wearing your sleep device: ??? Anytime you are sleeping, including during daytime naps. ??? While taking prescription pain medicines, sleeping medicines, or medicines that make you drowsy. ??? Have a responsible adult stay with you for the time you are told. It is important to have someone help care for you until you are awake and alert. ??? Return to your normal activities as told by your health care provider. Ask your health care provider what activities are safe for you. ??? Take lstp-xog-lvshdcq and prescription medicines only as told by your health care provider. ??? If you smoke, do not smoke without supervision. ??? Keep all follow-up visits as told by your health care provider. This is important. Contact a health care provider if: ??? You have nausea or vomiting that does not get better with medicine. ??? You cannot eat or drink without vomiting. ??? You have pain that does not get better with medicine. ??? You are unable to pass urine. ??? You develop a skin rash. ??? You have a fever. ??? You have redness around your IV site that gets worse. Get help right away if: ??? You have difficulty breathing. ??? You have chest pain. ??? You have blood in your urine or stool, or you vomit blood. Summary ??? After the procedure, it is common to have a sore throat or nausea. It is also common to feel tired. ??? Have a responsible adult stay with you for the time you are told. It is important to have someone help care for you until you are awake and alert. ??? When you feel hungry, start by eating small amounts of foods that are soft and easy to digest (bland), such as toast. Gradually return to your regular diet. ??? Drink enough fluid to keep your urine pale yellow. ??? Return to your normal activities as told by your health care provider. Ask your health care provider what activities are safe for you. This information is not intended to replace advice given to you by your health care provider. Make sure you discuss any questions you have with your health care provider. Document Revised: 07/20/2021 Document Reviewed: 02/16/2021 [employer] Patient Education ?? 2021 [employer] 12/06/2023 12:41:06 Minimally Invasive Cholecystectomy, Care After Minimally Invasive Cholecystectomy, Care After The following information offers guidance on how to care for yourself after your procedure. Your health care provider may also give you more specific instructions. If you have problems or questions, contact your health care provider. What can I expect after the procedure? After the procedure, it is common to have: ??? Pain at your incision sites. You will be given medicines to control this pain. ??? Mild nausea or vomiting. ??? Bloating and possible shoulder pain from the gas that was used during the procedure. Follow these instructions at home: Medicines ??? Take greq-bwh-gqykrfo and prescription medicines only as told by your health care provider. ??? If you were prescribed an antibiotic medicine, take it as told by your health care provider. Donot stop using the antibiotic even if you start to feel better. ??? Ask your health care provider if the medicine prescribed to you: ??? Requires you to avoid driving or using machinery. ??? Can cause constipation. You may need to take these actions to prevent or treat constipation: ??? Drink enough fluid to keep your urine pale yellow. ??? Take vuhq-pfe-sdfgdne or prescription medicines. ??? Eat foods that are high in fiber, such as beans, whole grains, and fresh fruits and vegetables. ??? Limit foods that are high in fat and processed sugars, such as fried or sweet foods. Incision care ??? Follow instructions from your health care provider about how to take care of your incisions. Make sure you: ??? Wash your hands with soap and water for at least 20 seconds before and after you change your bandage (dressing). If soap and water are not available, use hand mechanical engineering technician. ??? Change your dressing as told by your health care provider. ??? Leave stitches (sutures), skin glue, or adhesive strips in place. These skin closures may need to be in place for 2 weeks or longer. If adhesive strip edges start to loosen and curl up, you may trim the loose edges. Do not remove adhesive strips completely unless your health care provider tellsyou to do that. ??? Do not take baths, swim, or use a hot tub until your health care provider approves. Ask your health care provider if you may take showers. You may only be allowed to take sponge baths. ??? Check your incision area every day for signs of infection. Check for: ??? More redness, swelling, or pain. ??? Fluid or blood. ??? Warmth. ??? Pus or a bad smell. Activity ??? Rest as told by your health care provider. Do not do activities that require a lot of effort. ??? Avoid sitting for a long time without moving. Get up to take short walks every 1???2 hours. This is important to improve blood flow and breathing. Ask for help if you feel weak or unsteady. ??? Do not lift anything that is heavier than 10 lb (4.5 kg), or the limit that you are told, untilyour health care provider says that it is safe. ??? Do not play contact sports until your health care provider approves. ??? Do not return to work or school until your health care provider approves. ??? Return to your normal activities as told by your health care provider. Ask your health care provider what activities are safe for you. General instructions ??? If you were given a sedative during the procedure, it can affect you for several hours. Do not drive or operate machinery until your health care provider says that it is safe. ??? Keep all follow-up visits. This is important. Contact a health care provider if: ??? You develop a rash. ??? You have more redness, swelling, or pain around your incisions. ??? You have fluid or blood coming from your incisions. ??? Your incisions feel warm to the touch. ??? You have pus or a bad smell coming from your incisions. ??? You have a fever. ??? One or more of your incisions breaks open. Get help right away if: ??? You have trouble breathing. ??? You have chest pain. ??? You have more pain in your shoulders. ??? You faint or feel dizzy when you stand. ??? You have severe pain in your abdomen. ??? You have nausea or vomiting that lasts for more than one day. ??? You have leg pain that is new or unusual, or if it is localized to one specific spot. These symptoms may represent a serious problem that is an emergency. Do not wait to see if the symptoms will go away. Get medical help right away. Call your local emergency services (911 in the [place] Do not drive yourself to the hospital. Summary ??? After your procedure, it is common to have pain at the incision sites. You may also have nauseaor bloating. ??? Follow your health care provider's instructions about medicine, activity restrictions, and caring for your incision areas. Do not do activities that require a lot of effort. ??? Contact a health care provider if you have a fever or other signs of infection, such as more redness, swelling, or pain around the incisions. ??? Get help right away if you have chest pain, increasing pain in the shoulders, or trouble breathing. This information is not intended to replace advice given to you by your health care provider. Make sure you discuss any questions you have with your health care provider. Document Revised: 05/08/2022 Document Reviewed: 05/08/2022 [employer] Patient Education ?? 2021 [employer]. Follow Up Care 12/05/2023 10:38:45 With:[facility] (Acute Care Surgery) Address: [facility] [address] [address] Business (1) When:1 to 2 weeks Comments:Discharge Plan:1) ACS clinic - follow-up in 2 weeks for incisions check2) PCP - as needed post hospitalization. Notify your PCP of recent surgery. *Do NOT drive until no longer taking pain medicationand able to hit brakes without fear of incision pain.*Take antibiotics as prescribed; may take probi otic as needed if GI upset occurs. Pain:- Take Tylenol/Ibuprofen, per package instructions, as needed for pain/discomfort.- Take prescribed pain medication as prescribed, only as needed for pain/discomfort. Diet: As toleratedPreventing Constipation: Recommend taking a stool softener as needed and staying well- hydrated to prevent constipation. May add MiraLax daily if needed for continued constipation until stooling regularly. Wound Care: Monitor for signs of infection - redness, warmth, purulent/foul-smelling drainage. Fever, chills. - Wound Instructions: May shower and allow soap to run over. Do not rub, scrub, or wash sites directly. Pat dry. Allow Dermabond to fall off. Avoid picking skin glue. May leave uncovered. Activity Precautions - Activity: No more than 10lbs (gallon of milk) for two weeks. - Sexual Activity: No sexual activity for 2 weeks. Notify your provider or seek immediate care if you???re experiencing any: increasing abdominal pain, fevers/chills, severe increase in head pain, altered mental status, continued vomiting, shortness of breath, chest pain, or numbness/weakness in any extremities. Call with any questions or concerns. Surgical operation note * Jocelyn Hernández DO: PERFORM Event Display: Operative Report Authored Date: [id number] Indication for Surgery: The patient is a 63-year-old??male who presented[facility]to [facility]??ER with abdominal??pain as a transfer??[place]. ? Preoperative Diagnosis: 1. Acute??cholecystitis ?? Postoperative Diagnosis: Acute cholecystitis ?? Operation: 1. Robotic Assisted Laparoscopic cholecystectomy with ICG cholangiogram ?? Surgeon(s): Jocelyn Hernández DO ?? Soybean Grower: Sherly Reed MD ?? Anesthesia General Endotracheal Anasthesia ?? Estimated Blood Loss: Minimal ?? Urine Output: - ?? Findings: Fatty, edematous thickened gallbladder? Specimen(s): gallbladder and contents ?? Complications: none apparent ?? Technique:??dissected free. Following appropriate informed consent, the patient was taken to the operative suite in supine position. The patient was transferred to the operating room table and general endotracheal anesthesia was achieved. The patient and the True Blue Fluid Systemsi Robot were was prepped and draped in sterile fashion and timeout was performed appropriately. ?? The procedure commenced with a small vertical supraumbilical incision.?? The skin was grasped inferiorly with a perforating towel clamp, elevating the abdominal wall.?? A Veress needle was placed intraabdominally and pneumoperitoneum was unable to be achieved??achieved.?? Therefore,??a laparoscopic??5 mm trocar??was utilized under Optiview??approach??in the left subcostal region.?An eight mm trocar was inserted through the umbilical incision gently and guided into the abdominal cavity. No major abnormalities and no evidence of underlying injury from the Veress needle or trocar. Three further ports were placed under direct visualization - an 8 mm on the right lateral abdominal wall, and two further 8 mm ports along the left side of the abdomen.?? The supraumbilical port was then upsizedto an 8 mm trocar as well. The DaVinci was then docked in standard fashion and scrub was broken to turn attention to the robotic console.?There??was difficulty in docking??the robot due??to the patient's body??habitus and needing??to stand??him straight??up in order??to perform the dissection.??Therefore,??one further trocar??was placed??in the left??lateral abdominal wall, utilizing another??8 mm robotic??trocar.? The dome of the gallbladder was grasped and pulled cephalad. ??It was noted??to be edematous, covered??in a fairly thick layer??of fatty tissue.?? This??was carefully? With meticulous dissection, a critical view was then obtained and verified with ICG cholangiogram.?? The cystic duct was clipped using two clips proximally and one distally, the artery with one clips proximally and one distally.?? The two structures were then divided. ?? The gallbladder was then taken off the liver bed using hook cautery without difficulty. It was placed in an endocatch bag. The bag was then removed with minimal dilation of the fascia with a pion. Attention was turned back to the liver bed, which was then inspected and noted to be hemostatic.?? Allpreviously placed clips were in good position and the area was suctioned dry. ?? At this point, the remaining robotic arms were removed as well as the trocars as pneumoperitoneum was released.?? A 4-0 Monocryl was then used in an interrupted technique at the incision sites. Dermabond was applied. ?? At this point, the procedure was deemed appropriate for completion. All needle, instrument and sponge counts were correct times two. ?? Electronically signed by:Jocelyn Hernández DO 12/06/23 10:58 History and physical note * Jocelyn Hernández DO: MODIFY Jocelyn Hernández DO: MODIFY Event Display: History and Physicals Authored Date: [id number] Chief Complaint RUQ pain intermittent Xmonths radiates into back Has has 2 CT's, showed kidney infections.. denies n/v/d reports constipation. 4/10 pain increases with laying ??and 2-3 hours after eating. Pt has gallbladder. PWD Care Team Primary Care Physician??- Attending Physician - Geovany Campos MD Arrival Date/Time??- 12/05/2023 10:37:00 History of Present Illness Siddhartha Christina is a 63yo M who presents for abdominal pain. He states that for about 1 month he has had abdominal pain. This has gotten acutely worse over the last week. The pain is?? a constant aching in his RUQ and radiates to his back. The pain is exacerbated with eating. He denies nausea or vomiting. He is voiding without dysuria. He is having regular bowel function and denies melena or hematochezia. He presented to OSH where CT imaging was obtained. He was started on bactrim for presumed UTI,which he has been taking. He is fairly active. He can walk more than 1/4 mile without shortness of breath. He has no stairs at home but he is able to ambulate up stairs??if needed.??Workup today shows WBC 10.4. Hgb 17.3, Glu 256, Power Washer .87, CO2 26. US of RUQ obtained demonstrates a mildly thickened gallbladder wall at 3.5mm with trace pericholecystic fluid. ACS consulted for further evaluation. ?? PMH: HTN, HLD, T2DM PSH: none Social: denies tobacco, denies EtOH, denies recreational drugs FamHx: father from stomach cancer Review of Systems GENERAL: Patient denies significant change in weight, fever, chills, or fatigue. EYE: Patient denies changes in vision. ENT: Patient denies changes in hearing, sinus headaches or ENT symptoms. CV: Patient denies chest pain, palpitations, and edema. RESP: Patient denies cough, wheezing, or dyspnea. GI: per HPI. : Patient denies dysuria, urinary frequency, or urinary hesitancy. MS: Patient denies back pain, denies arthralgia/myalgia.?? SKIN: Patient denies rashes, lesions, or pruritus. NEURO: Patient denies memory problems, vertigo, headaches, or seizures. ENDO: Patient denies excessive thirst, excessive urination, and changes in skin or hair texture. HEME/LYMPH: Patient denies easy bleeding or bruising. PSYCH: Patient denies symptoms of anxiety, depression, or insomnia. Physical Exam Vitals & Measurements T:??97.2?F?? HR:??84?? RR:??20?? BP:??173/82?? SpO2:??93%?? WT:??110.9??kg?? General: Alert and oriented, No acute distress. Eye: Pupils are equal, round and reactive to light, Extraocular movements are intact, Normal conjunctiva. HENT: Normocephalic, Normal hearing, Oral mucosa is moist.?? Neck: Supple, Non-tender, No jugular venous distention, No lymphadenopathy, No thyromegaly. Respiratory: Respirations are non-labored, Symmetrical chest wall expansion, No chest wall tenderness. Cardiovascular: Normal rate, Regular rhythm,??Normal peripheral perfusion, No edema. Gastrointestinal: Abd soft, tenderness to palpation in right upper quadrant with??negative Silva'ssign. No diffuse peritonitis. No erythema of the skin. Genitourinary: No costovertebral angle tenderness, No inguinal tenderness, No lesions. Lymphatics: No lymphadenopathy neck, axilla, groin. Musculoskeletal: Normal range of motion, Normal strength, No tenderness, No swelling, No deformity. Integumentary: Warm, Dry, [place], Intact, No pallor, No rash. Neurologic: Alert, Oriented, Normal sensory, Normal motor function, No focal deficits, Cranial Nerves II-XII are grossly intact. Psychiatric: Cooperative, Appropriate mood & affect, Normal judgment, Non-suicidal. Assessment/Plan Siddhartha Christina is a 63yo M presenting for 1 month of abdominal pain. Workup concerning for acute cholecystitis for which ACS has been consulted. ? Hyperglycemia Non insulin dependent T2DM HTN HLD Acute cholecystitis Morbid obesity H/o tobacco use ?? General- admit to gen surg service Neuro- multimodal pain control, opiate sparing CV- resume home metoprolol, hold olmesartan for OR Resp- monitor O2 per unit standard FEN/GI- regular diet, NPO at midnight Fluids to start when NPO PRN antiemetics Renal- monitor UOP Endo- sliding scale insulin while inpatient, hold home glycemic medications ID- [id number] for cholecystitis ?? Plan for OR tomorrow for lap leelee Clinical course, labs, imaging and exam??are consistent with acute cholecystitis. Recommend laparoscopic cholecystectomy. The risks and benefits of operative intervention including possible common bile duct injury, bleeding, and infection were discussed at length. The patient understands and??wishes to proceed with laparoscopic cholecystectomy.? Obtain imaging from OSH to review pre op ?? DVT ppx: lovenox Dispo: floor Problem List/Past Medical History Ongoing Ex-smoker Historical No qualifying data Medications Home Medications (9) Active atorvastatin??, By mouth, Daily Bactrim DS 800mg-160mg oral tablet??, By mouth colchicine??, By mouth, Daily hydrocodone-APAP 5mg-325mg oral tablet ED RX 6PK??, By mouth, Q6H Levemir??, SUBQ MetFORMIN (Eqv-Fortamet)??, By mouth, Daily Metoprolol Tartrate??, BID olmesartan??, By mouth, Daily semaglutide 0.25 mg/0.5 mL (0.25 mg dose) subcutaneous solution (Wegovy)??0.25 mg = 0.5 mL, SUBQ, QW (once a week) Allergies No Known Medication Allergies Social History Social History Alcohol ??Current, Type: Beer. ??1-2 times per month Tobacco ??Smoking Status: Former smoker. ??Smokeless tobacco use: Never. ?Type: Cigarettes. Lab Results Labs??(Last two charted values on this encounter) WBC 10.4 ??(DEC 05) ?? Hgb 17.3 ??(DEC 05) ?? Hct 53.1 ??(DEC 05) ?? Platelets 252 ??(DEC 05) ?? Na 137 ??(DEC 05) ?? K 4.5 ??(DEC 05) ?? Cl 101 ??(DEC 05) ?? CO2 26 ??(DEC 05) ?? BUN 18 ??(DEC 05) ?? Cr 0.87 ??(DEC 05) ?? ProteinT ?7.7 ??(DEC 05) ?? Albumin ?4.5 ??(DEC 05) ?? Bilirubin ,Total ??0.8 ??(DEC 05) ?? Alk Phos ?109 ??(DEC 05) ?? ALT ?27 ??(DEC 05) ?? AST ?21 ??(DEC 05) ?? Lipase 31 ??(DEC 05) ?? Bedside Glucose 259 ??(DEC 05) ?? Glucose,Plasma 256 ??(DEC 05) ?? Diagnostic Results Radiology Results:?? US GB Bile Ducts - ??Auth (Verified) - 12/05/23 13:03 ( Bing SHAH, Get )?? IMPRESSION: Possible mild gallbladder wall edema/thickening with trace pericholecystic fluid but without evidence of stones. ??Electronically signed by: Get Smart MD, ??[facility], 12/05/2023 13:52 Electronically signed by:Ping Reed 12/05/23 14:40 Electronically cosigned by: Jocelyn Hernández DO 12/05/23 15:19 * Jocelyn Hernández DO: PERFORM Event Display: History and Physicals Authored Date: [id number] I was present with the resident for the service and evaluation of the patient above.?? I personallyverified the history of present illness and performed the physical examination and medical decisionmaking alongside the resident physician.?? I verified all of the resident's documentation for this encounter. ??Abdomen soft, tenderness??to palpation in the right upper quadrant.?? Negative Silva sign. ?? No previous surgical history, only??on aspirin.?Plan on going??to the operating??room tomorrow.? Electronically signed by:Jocelyn Hernández DO 12/05/23 15:19 US Biliary ducts and Gallbladder * Get Smatr MD: PERFORM, VERIFY, VERIFY Event Display: Powerscribe Read Authored Date: PROCEDURE INFORMATION: Exam: US Abdomen, Limited; Right Upper Quadrant Exam date and time: 12/05/2023 1:03 PM Age: 63 years old Clinical indication: Abdominal pain, right upper quadrant worse with eating TECHNIQUE: Imaging protocol: Real time ultrasound of the abdomen with image documentation. Limited exam focused on the right upper quadrant. COMPARISON: No relevant prior studies available. FINDINGS: Liver: Normal. Small rounded focus diminished attenuation near the gallbladder fossa is likely a small area of fatty replacement within the liver. Gallbladder: No gallstones. The gallbladder wall is minimally thickened at 3.5 mm. Trace pericholecystic fluid is present. Biliary ducts: Normal. No stones. No dilation. Pancreas: Visualized pancreas is unremarkable. Right kidney: Normal. No mass. No hydronephrosis. IMPRESSION: Possible mild gallbladder wall edema/thickening with trace pericholecystic fluid but without evidence of stones. Electronically signed by: Get Smart MD, [facility], 12/05/2023 13:52 Get Smart MD Signed 12/05/23 13:52:37 (Electronic Signature) Technologist TREVA Note * Get Smart MD: PERFORM, VERIFY, VERIFY Event Display: Report Authored Date: * Get Smart MD: PERFORM, VERIFY, VERIFY Event Display: Powerscribe Read Authored Date: PROCEDURE INFORMATION: Exam: XR Chest Exam date and time: 12/05/2023 2:46 PM Age: 63 years old Clinical indication: Cholecystitis, unspecified; Additional info: Pre op TECHNIQUE: Imaging protocol: Radiologic exam of the chest. Views: 1 view. COMPARISON: No relevant prior studies available. FINDINGS: Lungs: Unremarkable. No consolidation. Pleural spaces: Unremarkable. No pleural effusion. No pneumothorax. Heart/Mediastinum: Unremarkable. No cardiomegaly. Bones/joints: Unremarkable. IMPRESSION: No acute findings. Electronically signed by: Get Smart MD, [facility], 12/05/2023 15:7 Get Smart MD Signed 12/05/23 15:07:39 (Electronic Signature) Technologist RUPA ALMAZAN XR Chest Single view * Get Smart MD: PERFORM, VERIFY, VERIFY Event Display: Report Authored Date: [id number] Cardiology * Braulio MD, Kimani D: SIGN, VERIFY Event Display: EKG 12-Lead Authored Date: [id number] Patient Care team information Care Team Personnel Name: Silvio Villavicencio Position: Nurse (CEE) Member Role: Nurse Care Team Related Persons Name: NELLY GREEN
[2024-05-27] MEDS: sodium chloride 0.9% 1,000 ML 999 ML IV (15:51)
[2024-05-27 15:52] VITALS: BP 108/69; PULSE 98; RESP 16; TEMP 36.4; O2SAT 100
[2024-05-27 16:50] VITALS: BP 123/71; PULSE 78; RESP 16; TEMP 36.6; O2SAT 98
[2024-05-28] MEDS: sodium chloride 0.9% 1,000 ML 999 ML IV (15:14)
[2024-05-28 15:17] VITALS: BP 122/78; PULSE 78; RESP 18; TEMP 36.6; O2SAT 98
[2024-06-15 15:03] VITALS: PULSE 59; RESP 16; TEMP 36.3; O2SAT 93
[2024-06-15] MEDS: sodium chloride 0.9% 1,000 ML 999 ML IV (15:12)
[2024-06-15 15:15] VITALS: BP 120/82
[2024-06-15 16:20] VITALS: BP 134/72; PULSE 58; RESP 16; TEMP 36.3; O2SAT 99
[2024-06-17 15:00] VITALS: BP 133/82; PULSE 73; RESP 16; TEMP 36.1; O2SAT 99
[2024-06-17] MEDS: sodium chloride 0.9% 1,000 ML 999 ML IV (15:02)
[2024-06-17 15:42] VITALS: BP 146/84; PULSE 64; RESP 16; TEMP 36.2; O2SAT 99
== END 2024-06-17 23:59 | disposition home or self-care (01) ==
PROVIDERS: PCP Electrodiagnostic Medicine; Visit Provider Internal Medicine Hematology & Oncology
DX: Z53.9 Procedure and treatment not carried out, unspecified reason (principal); E86.0 Dehydration; Z79.899 Other long term (current) drug therapy
CPT/HCPCS: 96360; J7030

== ENCOUNTER 2024-07-06 15:06 | Oncology outpatient (recurring) (ONCR) | payer MEDICARE, SELFPAY ==
[2024-06-18] MEDS: sodium chloride 0.9% 1,000 ML 999 ML IV (14:45)
[2024-06-18 14:50] VITALS: BP 136/84; PULSE 76; O2SAT 95
[2024-06-18 15:34] VITALS: BP 147/69; PULSE 73; RESP 18; O2SAT 95
[2024-07-06 15:25] VITALS: BP 141/84; PULSE 75; RESP 18; TEMP 35.6; O2SAT 97
[2024-07-06] MEDS: sodium chloride 0.9% 1,000 ML 999 ML IV (15:28)
[2024-07-06 16:13] VITALS: BP 154/80; PULSE 72; RESP 18; TEMP 36.5; O2SAT 99
== END 2024-07-18 23:59 | disposition home or self-care (01) ==
PROVIDERS: PCP Electrodiagnostic Medicine; Visit Provider Internal Medicine Hematology & Oncology
DX: E86.0 Dehydration (principal); Z79.899 Other long term (current) drug therapy; Z53.9 Procedure and treatment not carried out, unspecified reason
CPT/HCPCS: 96360; J7030

== ENCOUNTER 2024-09-05 15:34 | Inpatient (IN) | payer MEDICARE, OTHER, SELFPAY ==
[2024-09-05 15:46] VITALS: BP 121/72; PULSE 90; RESP 17; TEMP 36.7; O2SAT 95; BMI 27.1
--- NOTE | 2024-09-05 16:12 | XRR_ITS ---
PROCEDURE INFORMATION: Exam: XR Chest Exam date and time: 09/05/2024 4:16 PM Age: 63 years old Clinical indication: Shortness of breath and other: Weakness; Prior surgery; Surgery date: 6+ months; Surgery type: RT port placement; Patient HX: Weakness; Afib; Cold sweats; Lung CA PT TECHNIQUE: Imaging protocol: Radiologic exam of the chest. Views: 1 view. COMPARISON: CR XR chest 1V portable [id number] 04/22/2024 5:22 PM FINDINGS: Tubes, catheters and devices: The right IJ Port-A-Cath is again noted, stable in position compared to the prior. Lungs: The left lung remains clear. Pleural spaces: There has been interval moderate right pleural effusion and adjacent atelectasis. Thickening along the right minor fissure could represent minimal fissural effusion. Heart/Mediastinum: The cardiac silhouette is obscured on the right side. The remaining cardiomediastinal silhouette appears grossly stable compared to the prior. Bones/joints: There are degenerative changes of the spine and shoulder joints. XR/XR chest 1V portable [id number] IMPRESSION: Compared to the prior chest radiograph from 04/22/2024: 1. Interval moderate right pleural effusion and adjacent atelectasis. 2. Additional findings as detailed above.
--- NOTE | 2024-09-05 16:13 | ECG_ITS ---
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
--- NOTE | 2024-09-05 16:17 | ED_ITS ---
HPI - Weakness 2 General: Chief complaint: Weakness Stated complaint: Afib, peeing a lot, weakness Time Seen by Provider: 09/05/24 16:13 Source: patient Mode of arrival: ambulatory Limitations: no limitations History of Present Illness: 63-year-old male has a history of lung c ancer he states he been feeling generally weak over the last 5 to 6 days. Denies any fevers states had some diaphoresis he denies any pain anywhere denies any vomiting or diarrhea states he is felt fatigued. States he has A-fib felt like he has had some palpitations at times denies any chest pain Associated symptoms: Denies chest pain, chills, fever(s), headache(s), nausea or vomiting Review of Systems 2 Const: Reports: fatigue and malaise; Denies: fever(s), chills, body aches or change in appetite ENMT: Denies: throat pain or dental pain Card: Denies: chest pain Resp: Denies: dyspnea GI: Denies: abdominal pain, nausea, vomiting or diarrhea Musc: Denies: neck pain or back pain Skin/Breast: Denies: rash Neuro: Denies: headache(s) PFSH ED 2 PFSH: Medical History Hypotension due to hypovolemia Anorexia Dehydration Leukopenia Weakness Near syncope Port-A-Cath in place Non-small cell lung cancer Right-sided back pain Cholecystitis Abdominal pain Rib pain on right side Gout Hyperlipidemia Hypertension Diabetes Surgical History History of cholecystectomy Family History Father Stomach cancer Grandfather Stomach cancer Social History Smoking and tobacco/nicotine status: former use of tobacco/nicotine Alcohol intake: never Substance/Drug Use: never 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 Physical Exam 2 Const: COMMON NORMALS: no acute distress, patient oriented x3 and healthy appearing HENMT: COMMON NORMALS: normocephalic and atraumatic HEAD & SCALP: n ormocephalic and atraumatic Eye: COMMON NORMALS: conjunctivae normal CONJUNCTIVA: Yes conjunctivae normal Neck/C-Spine: COMMON NORMALS: full ROM and supple Chest: COMMONS NORMALS: normal inspection of the chest Resp: COMMON NORMALS: normal respiratory effort, No retractions, No use of accessory muscles and clear to auscultation bilaterally AUSCULTATION: clear to auscultation bilaterally Cardio: COMMON NORMALS: regular rate, regular rhythm and No murmurs present (Cardio) RATE: regular rate RHYTHM: regular rhythm GI: COMMON NORMALS: Normal to inspection, nondistended, normoactive bowel sounds present, Soft to palpation, non-tender and no masses PALPATION: Yes Soft to palpation Extremity: COMMON NORMALS: normal to inspection and full ROM Neuro: COMMON NORMALS: patient oriented x3, moves all extremities and no focal motor deficits Psych: COMMON NORMALS: mental status grossly normal, Normal thought process present and cooperative THOUGHT PROCESS: Normal thought process present Skin: COMMON NORMALS: no rashes or lesions noted and no wounds GENERAL SKIN EXAM: no rashes or lesions noted Course 2 Vital Signs: Vital signs: Vital Signs Temperature 97.7 F 09/06/24 04:00 Pulse Rate 57 L 09/06/24 04:00 Respiratory Rate 17 09/06/24 04:00 Blood Pressure 150/78 09/06/24 04:00 Pulse Oximetry 99 09/06/24 04:00 Oxygen Delivery Me thod Nasal Cannula 09/06/24 04:00 MDM - Weakness Medical Decision Making Patient presents for generalized weakness he is also had subjective fevers at home chills diaphoresis he is found to have a pleural effusion here is new will start antibiotics admit at this time Medical Records I reviewed the patient's medical records. Lab Data I reviewed the patient's lab results. 09/06/24 04:22 09/06/24 04:22 Radiology Impressions Chest X-Ray 09/05/24 16:12 IMPRESSION: Compared to the prior chest radiograph from 04/22/2024: 1. Interval moderate right pleural effusion and adjacent atelectasis. 2. Additional findings as detailed above. Laboratory Results WBC 12.08 10^3/uL (3.29-11.43) H 09/05/24 16:30 RBC 5.40 10^6/uL (3.85-5.65) 09/05/24 16:30 Hgb 16.10 g/dL (11.27-16.99) 09/05/24 16:30 Hct 49.3 % (37-53) 09/05/24 16:30 MCV 91.3 fl (82-101) 09/05/24 16:30 MCH 29.8 pg (27-33) 09/05/24 16:30 MCHC 32.7 g/dL (30-55) 09/05/24 16:30 RDW 13.1 % (12.1-15.1) 09/05/24 16:30 Plt Count 271 10^3/cmm (157-399) 09/05/24 16:30 MPV 10.4 fL (7.4-10.4) 09/05/24 16:30 Neut % (Auto) 74.6 % 09/05/24 16:30 Lymph % (Auto) 14.4 % 09/05/24 16:30 [place] % (Auto) 7.8 % 09/05/24 16:30 Eos % (Auto) 2.6 % 09/05/24 16:30 Baso % (Auto) 0.3 % 09/05/24 16:30 Neut # (Auto) 9.01 10^3/uL (1.8-7.7) H 09/05/24 16:30 Lymph # (Auto) 1.7 10^3/uL (0.8-4.8) 09/05/24 16:30 [place] # (Auto) 0.9 10^3/uL (0.2-0.9) 09/05/24 16:30 Eos # (Auto) 0.3 10^3/uL (0.0-0.8) 09/05/24 16:30 Baso # (Auto) 0.0 10^3/uL (0.0-0.1) 09/05/24 16:30 Nucleated RBC % (auto) 0 % 09/05/24 16:30 Nucleated RBCs # 0.0 /100WBC 09/05/24 16:30 Sodium 137 mmol/L (136-145) 09/05/24 16:30 Potassium 4.8 mmol/L (3.5-5.1) 09/05/24 16:30 Chloride 98 mmol/L (98-107) 09/05/24 16:30 Carbon Dioxide 27 mmol/L (22-29) 09/05/24 16:30 Anion Gap 16.8 (5-19) 09/05/24 16:30 BUN 20 mg/dL (8-23) 09/05/24 16:30 Creatinine 1.0 mg/dL (0.7-1.2) 09/05/24 16:30 GFR Calculation 75.0 mL/min (90-130) L 09/05/24 16:30 Glucose 289 mg/dL (65-115) H 09/05/24 16:30 POC Glucose 255 mg/dL (70-110) H 09/05/24 17:05 Calculated Osmolality 297 mOsm/kg (285-295) H 09/05/24 16:30 Lactic Acid 2.8 mmol/L (0.5-2.2) H 09/05/24 16:30 Calcium 9.2 mg/dL (8.5-10.5) 09/05/24 16:30 Total Bilirubin 0.7 mg/dL (0.15-1.2) 09/05/24 16:30 AST 12 U/L (0-40) 09/05/24 16:30 ALT 11 U/L (0-41) 09/05/24 16:30 Alkaline Phosphatase 104 U/L (40-130) 09/05/24 16:30 Lactate Dehydrogenase 186 U/L (135-225) 09/05/24 16:30 NT-Pro-B Natriuret Pep 437 pg/mL (0-125) H 09/05/24 16:30 Total Protein 7.2 g/dL (6.6-8.7) 09/05/24 16:30 Albumin 3.9 g/dL (3.5-5.2) 09/05/24 16:30 Globulin 3.3 g/dL (1.3-4.6) 09/05/24 16:30 Procalcitonin 0.08 ng/mL (0-0.5) 09/05/24 16:30 TSH 0.74 uIU/mL (0.27-4.20) 09/05/24 16:30 Urine Color Dark yellow (Yellow) A 09/05/24 16:55 Urine Appearance Clear (CLEAR) 09/05/24 16:55 Urine pH 5.0 (5-7) 09/05/24 16:55 Ur Specific [place] 1.027 (1.005-1.030) 09/05/24 16:55 Urine Protein 1+ (Negative) A 09/05/24 16:55 Urine Glucose (UA) 3+ (Normal) H 09/05/24 16:55 Urine Ketones 1+ (Negative) H 09/05/24 16:55 Urine Blood Negative (Negative) 09/05/24 16:55 Urine Nitrate Negative (Negative) 09/05/24 16:55 Urine Bilirubin Negative (Negative) 09/05/24 16:55 Urine Urobilinogen 1.0 mg/dL (Negative) 09/05/24 16:55 Ur Leukocyte Esterase Negative (Negative) 09/05/24 16:55 Urine RBC 0-2 /hpf (0-2) 09/05/24 16:55 Urine WBC 5-10 /hpf (0-5) H 09/05/24 16:55 Ur Squamous Epith Cells 0-5 /hpf (0-5) 09/05/24 16:55 Amorphous Sediment Not Reportable 09/05/24 16:55 Urine Bacteria 1+ /hpf (NONE) H 09/05/24 16:55 Hyaline Casts 15.28 /lpf 09/05/24 16:55 Urine Mucus 2+ /hpf 09/05/24 16:55 SARS-CoV-2 Ag (Rapid) negative (Negative) 09/05/24 16:55 All radiology interpretation(s) finalized by discharge EKG Data EKG 1: I personally reviewed and interpreted this EKG as follows: EKG interpretation date: 09/05/24 EKG interpretation time: 16:19 Interpretation: nsr hr [address] or t wave abnormalities qrs 90 qtc 374 Discharge Plan Discharge Patient Disposition: Admitted As Inpatient Admit Provider: María Carlson Clinical Impression: Pleural effusion Condition: Stable Coding Level of Care Code ED [employer] 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 Fwd Related Data Home Medications Medication Instructions Recorded Confirmed olmesartan 20 mg tablet 10 mg PO DAILY 09/11/22 09/05/24 colchicine 0.6 mg tablet 0.6 mg PO BID PRN gout 04/23/24 09/05/24 duloxetine 60 mg capsule,delayed 60 mg PO DAILY 04/23/24 09/05/24 release fentanyl 50 mcg/hr transdermal 3 patch topical .Q72H 04/23/24 09/05/24 patch folic acid 1 mg tablet 1 mg PO DAILY 04/23/24 09/05/24 insulin glargine 100 unit/mL (3 105 unit SUBCUT BEDTIME 04/23/24 09/05/24 mL) subcutaneous pen (Lantus Solostar U-100 Insulin) meloxicam 7.5 mg tablet 7.5 mg PO DAILY 04/23/24 09/05/24 metoprolol succinate 50 mg 50 mg PO BID 04/23/24 09/05/24 tablet,extended release 24 hr oxycodone 10 mg tablet 15 mg PO Q4H PRN Pain 04/23/24 09/05/24 prochlorperazine maleate 10 mg 10 mg PO QID PRN Nausea And 04/23/24 09/05/24 tablet Vomiting aspirin 81 mg tablet 81 mg PO DAILY 09/05/24 09/05/24 atorvastatin 40 mg tablet 40 mg PO BEDTIME 09/05/24 09/05/24 Previous Rx's Medication Instructions Recorded ondansetron 4 mg disintegrating 4 mg PO Q6H PRN nausea and 02/09/24 tablet vomiting #14 tabs metformin 1,000 mg tablet 1,000 mg PO BID #180 tabs 03/18/24 lactulose 20 gram/30 mL oral 20 g (30 mL) PO DAILY PRN 04/24/24 solution constipation #1,200 mL Allergies Allergy/AdvReac Type Severity Reaction Status Date / Time morphine Allergy ADR-Irritab Verified 09/05/24 15:49 carlos
[2024-09-05 16:40] LABS: Basophils % 0.3 %; Eosinophils # 0.3 10^3/uL (0.0-0.8); Eosinophils % 2.6 %; Hematocrit 49.3 % (37-53); Lymphocytes # 1.7 10^3/uL (0.8-4.8); Lymphocytes % 14.4 %; Mean Corpuscular HGB Conc 32.7 g/dL (30-55); Mean Corpuscular Hemoglobin 29.8 pg (27-33); Mean Corpuscular Volume 91.3 fl (82-101); Mean Platelet Volume 10.4 fL (7.4-10.4); Monocytes # 0.9 10^3/uL (0.2-0.9); Monocytes % 7.8 %; Neutrophils # 9.01 10^3/uL (1.8-7.7); Neutrophils % 74.6 %; Nucleated Red Blood Cells % 0 %; Platelet Count 271 10^3/cmm (157-399); Red Cell Distribution Width 13.1 % (12.1-15.1); White Blood Count 12.08 10^3/uL (3.29-11.43)
[2024-09-05 17:00] VITALS: BP 151/89
[2024-09-05 17:01] LABS: Bilirubin Urine Negative (Negative); Blood Urine Negative (Negative); Glucose Urine UA 3+ (Normal); Ketones Urine 1+ (Negative); Leukocyte Esterase Urine Negative (Negative); Nitrate Urine Negative (Negative); Protein Urine 1+ (Negative); Specific Gravity, Urine 1.027 (1.005-1.030); Urine Appearance Clear (CLEAR); Urine Color Dark Yellow (Yellow)
[2024-09-05 17:03] LABS: Add Urine Microscopic? YES; Hyaline Casts Urine 15.28 /lpf; RBC Urine 0-2 /hpf (0-2); Squamous Epithelial Cell Urine 0-5 /hpf (0-5)
[2024-09-05 17:08] LABS: Glucose Point of Care 255 mg/dL (70-110)
[2024-09-05 17:10] LABS: Alanine Aminotransferase 11 U/L (0-41); Albumin Level 3.9 g/dL (3.5-5.2); Alkaline Phosphatase 104 U/L (40-130); Anion Gap 16.8 (5-19); Aspartate Amino Transferase 12 U/L (0-40); Blood Urea Nitrogen 20 mg/dL (8-23); Calcium 9.2 mg/dL (8.5-10.5); Carbon Dioxide 27 mmol/L (22-29); Chloride 98 mmol/L (98-107); Creatinine Clr Calc Pharmacy 86.2992; Globulin 3.3 g/dL (1.3-4.6); Glucose 289 mg/dL (65-115); Osmolality Calculated 297 mOsm/kg (285-295); Potassium 4.8 mmol/L (3.5-5.1); Sodium 137 mmol/L (136-145); Thyroid Stimulating Hormone 0.74 uIU/mL (0.27-4.20); Total Bilirubin 0.7 mg/dL (0.15-1.2); Total Protein 7.2 g/dL (6.6-8.7)
[2024-09-05 17:15] VITALS: BP 160/101; O2SAT 91
[2024-09-05 17:17] LABS: SARS Covid-2 Antigen negative (Negative)
[2024-09-05 17:18] LABS: UA Slide Review UA Slide Review Perf
[2024-09-05 17:19] LABS: Bacteria Urine 1+ /hpf; Mucus Urine 2+ /hpf
[2024-09-05 17:45] VITALS: BP 158/98; O2SAT 93
[2024-09-05] MEDS: cefTRIAXone 1,000 mg SDV 1000 MG IVP (18:17)
[2024-09-05] MEDS: azithromycin 500 MG in sodium chloride 0.9% 250 ML 250 MG IV (18:18)
[2024-09-05 18:26] LABS: Lactic Sepsis W/Reflex 2.8 mmol/L (0.5-2.2)
[2024-09-05 18:27] LABS: NT Pro B Type Natriuretic Pept 437 pg/mL (0-125); Procalcitonin 0.08 ng/mL (0-0.5)
[2024-09-05 18:39] LABS: Lactate Dehydrogenase 186 U/L (135-225)
[2024-09-05 18:40] VITALS: BP 126/74; O2SAT 92
[2024-09-05 19:52] LABS: Reflex Lactate Order REFLEX LACTIC ORDERD
[2024-09-05 20:00] VITALS: BP 114/71; PULSE 84; RESP 16; TEMP 36.8; O2SAT 94
--- NOTE | 2024-09-05 20:00 | PM.HP ---
Providers/Chief Complaint Admitting Physician: María Carlson MD Primary Care Provider: Cole Helms DO Chief Complaint: Afib, peeing a lot, weakness History of Present Illness Siddhartha Christina is a 63 year old male With past medical history of hypotension secondary to hypovolemia, dehydration, leukopenia, weakness, Port-A-Cath in place, non-small cell lung cancer, abdominal pain, gout, hyperlipidemia, hypertension, diabetes, currently on immunotherapy with oncology in [place] with Dr. Oropeza presented to the hospital with complaint of being fatigued and tired and feeling hot and cold x 1 week. He feels it drained. In the ER he was noted to have a pleural effusion which is worse compared to before with possible infiltrate on right side. Was given ceftriaxone azithromycin and requested for admission. He has been having fevers at home and diaphoresis. Chest x-ray does show interval moderate right pleural effusion and adjacent atelectasis. White count 12,000, creatinine 1.0, BNP 437, WBC count 5-10, bacteria in urine 1+, COVID-negative. Patient does state that his left hand is puffier than before. He also states he fell at home his legs gave out. Medications/Allergies Home Medications Medication Instructions Recorded Confirmed Last Taken Type olmesartan 20 mg tablet 10 mg PO DAILY 09/11/22 09/05/24 09/05/24 08:00 History ondansetron 4 mg disintegrating 4 mg PO Q6H PRN nausea and 02/09/24 09/05/24 Unknown Rx tablet vomiting #14 tabs metformin 1,000 mg tablet 1,000 mg PO BID #180 tabs 03/18/24 09/05/24 09/05/24 08:00 Rx colchicine 0.6 mg tablet 0.6 mg PO BID PRN gout 04/23/24 09/05/24 Unknown History duloxetine 60 mg capsule,delayed 60 mg PO DAILY 04/23/24 09/05/24 09/05/24 08:00 History release fentanyl 50 mcg/hr transdermal 3 patch topical .Q72H 04/23/24 09/05/24 09/03/24 10:00 History patch folic acid 1 mg tablet 1 mg PO DAILY 04/23/24 09/05/24 09/05/24 08:00 History insulin glargine 100 unit/mL (3 105 unit SUBCUT BEDTIME 04/23/24 09/05/24 09/04/24 20:00 History mL) subcutaneous pen (Lantus Solostar U-100 Insulin) meloxicam 7.5 mg tablet 7.5 mg PO DAILY 04/23/24 09/05/24 09/05/24 08:00 History metoprolol succinate 50 mg 50 mg PO BID 04/23/24 09/05/24 09/05/24 08:00 History tablet,extended release 24 hr oxycodone 10 mg tablet 15 mg PO Q4H PRN Pain 04/23/24 09/05/24 Unknown History prochlorperazine maleate 10 mg 10 mg PO QID PRN Nausea And 04/23/24 09/05/24 Unknown History tablet Vomiting lactulose 20 gram/30 mL oral 20 g (30 mL) PO DAILY PRN 04/24/24 09/05/24 Unknown Rx solution constipation #1,200 mL aspirin 81 mg tablet 81 mg PO DAILY 09/05/24 09/05/24 09/05/24 08:00 History atorvastatin 40 mg tablet 40 mg PO BEDTIME 09/05/24 09/05/24 09/04/24 20:00 History Allergies Allergy/AdvReac Type Severity Reaction Status Date / Time morphine Allergy ADR-Irritab Verified 09/05/24 15:49 le PFSH Acute PFSH: Medical History (Updated 09/06/24 @ 15:40 by María Carlson MD) Diabetes Hypotension due to hypovolemia Anorexia Dehydration Leukopenia Weakness Near syncope Port-A-Cath in place Non-small cell lung cancer Right-sided back pain Cholecystitis Abdominal pain Rib pain on right side Gout Hyperlipidemia Hypertension Surgical History History of cholecystectomy Family History Father Stomach cancer Grandfather Stomach cancer Social History Smoking and tobacco/nicotine status: former use of tobacco/nicotine Alcohol intake: never Substance/Drug Use: never 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 Vitals/I&O/Wt Last Vital Signs Temp 98.2 F 09/06/24 11:43 Pulse 84 09/06/24 11:43 Resp 18 09/06/24 11:43 BP 119/75 09/06/24 11:43 Pulse Ox 93 09/06/24 11:43 O2 Del Method Room Air 09/06/24 11:43 09/06/24 09/06/24 09/06/24 06:59 14:59 22:59 Intake Total 170 / 670 1732.5 / 1732.5 Output Total 350 / 350 Balance -180 / 320 1732.5 / 1732.5 Weight last 48 hrs Weight 87.543 kg Weight 87.543 kg Weight 90.718 kg Physical Exam Narrative: Awake and alert Euvolemic GCS 15 nonfocal neuroexam Nonfocal neuroexam S1, S2 Currently on room air States he feels tired. Afebrile at this time Normotensive Port in place. Dressing intact at this time. Data 09/06/24 04:22 09/06/24 04:22 Micro: Microbiology 09/05/24 17:56 Blood Culture - Preliminary Blood Staphylococcus epidermidis Staphylococcus lugdunensis 09/05/24 18:04 Blood Culture - Preliminary Blood SPECIMEN COLLECTED A&P Assessment and plan (1) Hypertension: (2) Pleural effusion: (3) Diabetes: Qualifiers: Diabetes mellitus type: type 2 Diabetes mellitus nursing home insulin use: without nursing home use Diabetes mellitus complication status: with other specified complication Qualified Code(s): E11.69 - Type 2 diabetes mellitus with other specified complication (4) Port-A-Cath in place: (5) Dehydration: (6) Acute UTI: (7) Weakness: (8) Pneumonia: Plan #Generalized weakness, fatigue, fever, chills, malaise #Right-sided pleural effusion with possible infiltrate #Small cell lung cancer currently on immunotherapy #Diabetes mellitus insulin-dependent #Weakness and falls at home #History of gout, hypertension ? Will hold home antihypertensives at this time patient does have a right-sided pleural effusion. Will request thoracentesis and pleural fluid studies discussed with patient this might be available Saturday as opposed to tomorrow. ? Will check upper extremity ReSound to rule out DVT ? Check blood cultures, sputum culture Gram stain, urine culture ? Placed on vancomycin and Zosyn secondary to being on immunotherapy ? Patient did receive 1 dose of Zithromax and ceftriaxone in the ER ? Check orthostatic vitals ? Placed on IV fluids normal saline 75 cc/h ? Hold home olmesartan ? Sliding scale insulin moderate dose intensity. Hold off on Lantus at this time. Will confirm home medications ? Continue duloxetine, atorvastatin, aspirin. Will hold aspirin Saturday in anticipation of thoracentesis Saturday. ? PT OT Full code Due to prophylaxis: Heparin subcu twice daily Attestations Medical Necessity Statement*: Presented with generalized weakness right-sided pleural effusion with possible infiltrate. Requires IV antibiotics and infectious workup at this time. Plan for thoracentesis on Saturday. Patient will cross greater than 2 midnights at this time. 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
[2024-09-05 20:12] VITALS: BMI 26.2
[2024-09-05] MEDS: heparin 5,000 unit/mL INJ 1 mL 5000 UNIT SUBCUT (20:32)
[2024-09-05] MEDS: metoprolol succinate ER (24 HR) 50 mg Tablet PO (20:32)
[2024-09-05] MEDS: sodium chloride 0.9% 1,000 ML 75 ML IV (20:32)
[2024-09-05 20:42] LABS: Glucose Point of Care 165 mg/dL (70-110)
[2024-09-05 20:56] LABS: Lactic Acid level (Lactate) 1.6 mmol/L (0.5-2.2)
[2024-09-05] MEDS: vancomycin 1,250 MG/250 ML PIGGYBACK 166.67 MG IV (21:12)
[2024-09-05] MEDS: insulin lispro 100 unit/1 mL SUBCUT (21:13)
[2024-09-05] MEDS: piperacillin-tazobactam 3.375 GM in sodium chloride 0.9% (plus) 50 ML IV (22:55)
[2024-09-06] VITALS (7 sets, daily range): BP systolic 102–154; BP diastolic 54–85; PULSE 57–100; RESP 16–20; TEMP 36.4–36.8; O2SAT 90–99
[2024-09-06 04:36] LABS: Basophils % 0.3 %; Eosinophils # 0.5 10^3/uL (0.0-0.8); Eosinophils % 4.9 %; Hematocrit 39.1 % (37-53); Lymphocytes # 1.1 10^3/uL (0.8-4.8); Lymphocytes % 10.9 %; Mean Corpuscular Hemoglobin 30.1 pg (27-33); Mean Corpuscular Volume 91.1 fl (82-101); Mean Platelet Volume 9.8 fL (7.4-10.4); Monocytes # 1.1 10^3/uL (0.2-0.9); Monocytes % 10.4 %; Neutrophils # 7.49 10^3/uL (1.8-7.7); Neutrophils % 73.1 %; Nucleated Red Blood Cells % 0 %; Platelet Count 209 10^3/cmm (157-399); Red Blood Count 4.29 10^6/uL (3.85-5.65); Red Cell Distribution Width 13.2 % (12.1-15.1); White Blood Count 10.25 10^3/uL (3.29-11.43)
[2024-09-06 04:58] LABS: Alanine Aminotransferase 7 U/L (0-41); Albumin Level 3.2 g/dL (3.5-5.2); Alkaline Phosphatase 76 U/L (40-130); Anion Gap 12.8 (5-19); Aspartate Amino Transferase 10 U/L (0-40); Blood Urea Nitrogen 19 mg/dL (8-23); Calcium 8.5 mg/dL (8.5-10.5); Carbon Dioxide 26 mmol/L (22-29); Chloride 102 mmol/L (98-107); Creatinine Clr Calc Pharmacy 106.2203; Globulin 2.6 g/dL (1.3-4.6); Glucose 168 mg/dL (65-115); Magnesium 1.4 mg/dL (1.7-2.3); Osmolality Calculated 290 mOsm/kg (285-295); Phosphorus 3.1 mg/dL (2.5-4.5); Potassium 3.8 mmol/L (3.5-5.1); Sodium 137 mmol/L (136-145); Total Bilirubin 0.6 mg/dL (0.15-1.2); Total Protein 5.8 g/dL (6.6-8.7)
[2024-09-06] MEDS: heparin 5,000 unit/mL INJ 1 mL 5000 UNIT SUBCUT ×2 (06:33→17:18)
[2024-09-06] MEDS: piperacillin-tazobactam 3.375 GM in sodium chloride 0.9% (plus) 50 ML IV ×3 (06:33→22:50)
[2024-09-06 06:40] LABS: Glucose Point of Care 160 mg/dL (70-110)
--- NOTE | 2024-09-06 07:16 | USR_ITS ---
PROCEDURE INFORMATION: Exam: US Duplex Upper Extremity Veins, Bilateral, Complete Exam date and time: 09/06/2024 2:41 PM Age: 63 years old Clinical indication: Screening exam; R/O dvt TECHNIQUE: Imaging protocol: Real-time duplex ultrasound of the extremities with 2-D oreilly scale, color Doppler flow and spectral waveform analysis including responses to compression and other maneuvers (when performed) with image documentation. Complete exam focused on the bilateral upper extremity veins. COMPARISON: CT angio chest PE protcl [id number] 02/09/2024 12:12 AM FINDINGS: Right deep veins: Unremarkable. Axillary and brachial veins are patent throughout without thrombus. Normal Doppler waveforms. Normal compressibility and/or augmentation response. Visualized internal jugular and subclavian veins are patent. Left deep veins: Unremarkable. Axillary and brachial veins are patent throughout without thrombus. Normal Doppler waveforms. Normal compressibility and/or augmentation response. Visualized internal jugular and subclavian veins are patent. Superficial veins: Unremarkable. Visualized cephalic and basilic veins are patent without thrombus. Soft tissues: Unremarkable. US/[place] [id number] IMPRESSION: No evidence of deep vein thrombosis.
[2024-09-06] MEDS: duloxetine 60 mg Capsule PO (08:23)
[2024-09-06] MEDS: atorvastatin 40 mg Tablet PO (08:23)
[2024-09-06] MEDS: metoprolol succinate ER (24 HR) 50 mg Tablet PO ×2 (08:23→17:18)
[2024-09-06] MEDS: folic acid 1 mg Tablet PO (08:23)
[2024-09-06] MEDS: OLANZapine 5 mg TABLET PO ×2 (08:23→17:18)
[2024-09-06] MEDS: insulin lispro 100 unit/1 mL SUBCUT ×3 (08:24→22:50)
[2024-09-06] MEDS: sodium chloride 0.9% 1,000 ML 75 ML IV ×2 (08:26→20:42)
[2024-09-06 11:44] LABS: Glucose Point of Care 165 mg/dL (70-110)
--- NOTE | 2024-09-06 12:11 | PHA.VACGOAL ---
Vancomycin Goal - Goal Vancomycin Goal:: other Vancomycin Indication:: Other - Therapy Current therapy:: Pip/Tazo Day of therpy:: Day []of [] . Actual body weight (kg): 193 lb - Data Labs: WBC 10.25 10^3/uL (3.29-11.43) 09/06/24 04:22 RBC 4.29 10^6/uL (3.85-5.65) 09/06/24 04:22 Hgb 12.90 g/dL (11.27-16.99) 09/06/24 04:22 Hct 39.1 % (37-53) 09/06/24 04:22 MCV 91.1 fl (82-101) 09/06/24 04:22 MCH 30.1 pg (27-33) 09/06/24 04:22 MCHC 33.0 g/dL (30-55) 09/06/24 04:22 RDW 13.2 % (12.1-15.1) 09/06/24 04:22 Sodium 137 mmol/L (136-145) 09/06/24 04:22 Potassium 3.8 mmol/L (3.5-5.1) 09/06/24 04:22 Chloride 102 mmol/L (98-107) 09/06/24 04:22 Carbon Dioxide 26 mmol/L (22-29) 09/06/24 04:22 Anion Gap 12.8 (5-19) 09/06/24 04:22 BUN 19 mg/dL (8-23) 09/06/24 04:22 Creatinine 0.8 mg/dL (0.7-1.2) 09/06/24 04:22 GFR Calculation 97.0 mL/min (90-130) 09/06/24 04:22 Treatment plan:: new consult Regimen:: 1250 MG PER CPS NO INDICATION CONTINUE TO MONITOR DAILY
--- NOTE | 2024-09-06 12:18 | PC.NURSE ---
Patient refused the flu shot. Will talk with oncologist.
[2024-09-06] MEDS: magnesium sulfate premix 4 GM/100 ML PREMIX IV (12:47)
[2024-09-06 14:17] LABS: MRSA PCR OZH (swab) NOT DETECTED (Negative)
[2024-09-06] MEDS: vancomycin 1,000 MG in sodium chloride 0.9% 250 ML 250 MG IV ×2 (14:45→20:41)
--- NOTE | 2024-09-06 15:41 | P.PN_ITS ---
Subjective 2 Subjective: Seen this morning. at bedside. She states that patient does have a known right-sided pleural effusion however was quite small in the past and was not amenable to thoracentesis as per the doctor this point Shannon. His next treatment is upcoming on Saturday for his immunotherapy however if there second in the hospital they may be able to cancel the appointment. Upper extremity Dopplers are still pending. ? Patient states he has been having chills including this morning. Has been afebrile during hospital stay. WBC has normalized Blood culture 1 out of 4 bottles positive for Staphylococcus lugdunensis Staphylococcus epidermidis Vitals/I&O/Wt Last Vital Signs Temp 98.2 F 09/06/24 11:43 Pulse 84 09/06/24 11:43 Resp 18 09/06/24 11:43 BP 119/75 09/06/24 11:43 Pulse Ox 93 09/06/24 11:43 O2 Del Method Room Air 09/06/24 11:43 09/06/24 09/06/24 09/06/24 06:59 14:59 22:59 Intake Total 170 / 670 1732.5 / 1732.5 Output Total 350 / 350 Balance -180 / 320 1732.5 / 1732.5 Weight last 48 hrs Weight 87.543 kg Weight 87.543 kg Weight 90.718 kg Physical Exam 2 Narrative: Awake and alert Euvolemic GCS 15 nonfocal neuroexam Nonfocal neuroexam S1, S2 Currently on room air States he feels tired. Afebrile at this time Normotensive Port in place. Dressing intact at this time. Data 09/06/24 04:22 09/06/24 04:22 Micro: Microbiology 09/05/24 17:56 Blood Culture - Preliminary Blood Staphylococcus epidermidis Staphylococcus lugdunensis 09/05/24 18:04 Blood Culture - Preliminary Blood SPECIMEN COLLECTED A&P Assessment and plan (1) Hypertension: (2) Pleural effusion: (3) Diabetes: Qualifiers: Diabetes mellitus type: type 2 Diabetes mellitus ad terminal makeup operator insulin use: without mcfp use Diabetes mellitus complication status: with other specified complication Qualified Code(s): E11.69 - Type 2 diabetes mellitus with other specified complication (4) Port-A-Cath in place: (5) Dehydration: (6) Acute UTI: (7) Weakness: (8) Pneumonia: (9) Staphylococcus aureus bacteremia: (10) Immunocompromised: (11) Non-small cell lung cancer: Plan #Generalized weakness, fatigue, fever, chills, malaise #Right-sided pleural effusion with possible infiltrate #Small cell lung cancer currently on immunotherapy #Diabetes mellitus insulin-dependent #Weakness and falls at home #History of gout, hypertension ? Will hold home antihypertensives at this time patient does have a right-sided pleural effusion. Will request thoracentesis and pleural fluid studies discussed with patient this might be available Saturday as opposed to tomorrow. ? Will check upper extremity ReSound to rule out DVT ? Check blood cultures, sputum culture Gram stain, urine culture ? Placed on vancomycin and Zosyn secondary to being on immunotherapy ? Patient did receive 1 dose of Zithromax and ceftriaxone in the ER ? Check orthostatic vitals ? Placed on IV fluids normal saline 75 cc/h ? Hold home olmesartan ? Sliding scale insulin moderate dose intensity. Hold off on Lantus at this time. Will confirm home medications ? Continue duloxetine, atorvastatin, aspirin. Will hold aspirin Saturday in anticipation of thoracentesis Saturday. ? PT OT Full code Due to prophylaxis: Heparin subcu twice daily 09/06/2024 Staphylococcus lugdunensis?1 out of 4 bottles positive for this organism. I highly doubt that this is a contaminant and it is typically associated with endocarditis. Will check TTE. Repeat blood cultures today. Patient may or may not require JOHAN as well. Recommend ID consult. ? Continue vancomycin and Zosyn at this time. Patient is immunocompromise as he is currently on immunotherapy. Last treatment was 6 weeks ago. ? Continue normal saline 75 cc/h ? Check orthostatic vitals ? Continue to hold home antihypertensives ?Hold home olmesartan ? Sliding scale insulin moderate dose intensity. Hold off on Lantus at this time. Will confirm home medications ? Continue duloxetine, atorvastatin, aspirin. Will hold aspirin Saturday in anticipation of thoracentesis Saturday. ? PT OT N.p.o. at midnight tonight for thoracentesis in a.m. ? Will hold home aspirin Pleural fluid cytology and studies have or bloody been ordered. Updated patient and at bedside. Attestations 2 Medical Necessity Statement*: Presented with generalized weakness right-sided pleural effusion with possible infiltrate. Requires IV antibiotics and infectious workup at this time. Plan for thoracentesis on Saturday. Patient will cross greater than 2 midnights at this time. Positive blood cultures. Diagnoses Hypertension I10 Pleural effusion J90 Type 2 diabetes mellitus with other specified complication, without long-term current use of insulin E11.69 Diabetes mellitus type: type 2 Diabetes mellitus ad terminal makeup operator insulin use: without mcfp use Diabetes mellitus complication status: with other specified complication Port-A-Cath in place Z95.828 Dehydration E86.0 Acute UTI N39.0 Weakness R53.1 Pneumonia J18.9 Staphylococcus aureus bacteremia R78.81; B95.61 Immunocompromised D84.9 Non-small cell lung cancer C34.90
[2024-09-06 16:24] LABS: Glucose Point of Care 112 mg/dL (70-110)
--- NOTE | 2024-09-06 17:32 | PC.NURSE ---
Notified Dr. Carlson patient stated 50 mcg Fentanyl patches times 3 needs to be changed today. Dr. Carlson stated to confirm with external pharmacy that is the correct dosage. Called [facility] and spoke to Faustina which confirmed the order. Order placed to have put in the system.
[2024-09-06] MEDS: fentaNYL 50 mcg Patch 1 PATCH TRANSDERMA (18:32)
[2024-09-06] MEDS: fentaNYL 100 mcg Patch 1 PATCH TRANSDERMA (18:34)
[2024-09-06 21:26] LABS: Glucose Point of Care 318 mg/dL (70-110)
[2024-09-07] VITALS (8 sets, daily range): BP systolic 116–168; BP diastolic 74–96; PULSE 85–100; RESP 14–20; TEMP 36.3–36.7; O2SAT 93–97
--- NOTE | 2024-09-07 06:00 | US_ITS ---
WS: [id number] ULTRASOUND-GUIDED THORACENTESIS, RIGHT HISTORY: right pleural effusion, new Procedure, risks, and complications were explained to the patient. With the patient in an upright pos ition, the skin over the RIGHT posterior thorax was cleansed with ChloraPrep and anesthetized with 1% buffered lidocaine. A 5 Syriac Yueh needle is inserted into the pleural fluid without complication. Approximately 1100 cc of red-tinged clear pleural fluid is removed without difficulty. Specimen collected for analysis. / thoracentesis [id number] IMPRESSION: 1. RIGHT thoracentesis yielding 1100 cc of fluid. 2. Chest radiograph to follow to evaluate for pneumothorax.
[2024-09-07 06:22] LABS: Glucose Point of Care 178 mg/dL (70-110)
[2024-09-07] MEDS: vancomycin 1,000 MG in sodium chloride 0.9% 250 ML 250 MG IV (06:25)
[2024-09-07] MEDS: heparin 5,000 unit/mL INJ 1 mL 5000 UNIT SUBCUT ×2 (06:26→17:48)
[2024-09-07] MEDS: duloxetine 60 mg Capsule PO (08:29)
[2024-09-07] MEDS: OLANZapine 5 mg TABLET PO ×2 (08:29→17:48)
[2024-09-07] MEDS: atorvastatin 40 mg Tablet PO (08:30)
[2024-09-07] MEDS: piperacillin-tazobactam 3.375 GM in sodium chloride 0.9% (plus) 50 ML IV ×3 (08:30→23:06)
[2024-09-07] MEDS: metoprolol succinate ER (24 HR) 50 mg Tablet PO ×2 (08:30→17:48)
[2024-09-07] MEDS: insulin lispro 100 unit/1 mL SUBCUT ×4 (08:33→21:13)
[2024-09-07] MEDS: folic acid 1 mg Tablet PO (08:49)
--- NOTE | 2024-09-07 09:55 | PC.SOCIAL ---
IMM Updated Updated pt on IMM. No questions voiced. Provided pt a copy. Initialed, dated, & timed a copy & placed in chart.
--- NOTE | 2024-09-07 10:34 | XR_ITS ---
WS: [id number] CHEST, 1 view. HISTORY: post thoracentesis, RIGHT COMPARISON: 09/05/2024 No pneumothorax status post RIGHT thoracentesis. Small amount of atelectasis and persistent RIGHT pleural effusion. Pleural effusions extends into the fissure. Slight improvement in the pleural effusion. LEFT lung is clear. Right-sided Mediport. Cardiac size: Normal. Mediastinum/Aorta: Normal mediastinum. No osseous abnormality seen. XR/XR chest 1V [id number] IMPRESSION: 1. No pneumothorax status post RIGHT thoracentesis. 2. Residual small RIGHT pleural effusion. Slight improvement in the amount of fluid.
[2024-09-07 10:45] LABS: PT 50/50 Mix 12.9 Seconds (12.0-15.1); PTT 50/50 MIX 25.8 Seconds (23.9-36.7); Partial Thromboplastin Time 23.5 Seconds (23.9-36.7); Prothrombin Time (Patient) 13.6 Seconds (12-15.1)
--- NOTE | 2024-09-07 11:01 | PC.CHAP ---
Pastoral Care Encounter/Spiritual Assessment Type of Contact [] Declined electrical machinist visit [] Patient/Family/Request visit [] Outpatient visit [] Follow-up visit [] Physician referral [] Code/Alert [x] Routine visit [] Staff referral [] Actively dying [] Patient sleeping [x] Family support [] [] Out of room [] Palliative care [] [] Receiving care in room [] Pre-surgical visit [] Trauma [] Long length of stay [] ICU visit [] Other: Relational/Emotional Strength [] Patient feels connected with others/family/visitors/staff [] Distress [] Loneliness/isolation [] Abandonment Spirituality of Patient [x] Person of Courtney [] Attends Religious of their Courtney [x] Believes in Prayer [] Reads Bible or Yazdanism materials [] There are Spiritual issues to be addressed Heading And Priming Tool Setter Interventions [x] Prayer [x] Active listening [] Non-anxious presence [] Spiritual/emotional support [] Crisis/trauma care [] Spiritual counseling [] Bereavement support [] Provided bereavement packet [x] Provided Bible/devotional materials [] Provided toy/stuffed animal, coloring book to patient or family member [] Provided Communion [] Anointing/[place] [] Salvation [x] Completed spiritual assessment [] Other: Impact on Illness or Injury [] Angry [] Fearful [] Anxious [] Often cries [] Exhaustion [] Unable to work [] Unable to attend zoroastrian [] Unable to walk/stand [] Unable to read [] Unable to drive [] Unable to eat/drink [] Unable to sleep [] Unable to be with family [] Patient intubated [] Other: Summary Time spent with patient 10 min
[2024-09-07 11:16] LABS: Body Fluid Polynuclear #Cells 0.317; Body Fluid WBC 900 /uL; Monocytes # Body Fluid 0.583
[2024-09-07 11:18] LABS: Hematocrit Body Fluid 0.1 %
[2024-09-07 11:28] LABS: Apprearance, Body Fluid CLOUDY; Color, Body Fluid YELLOW; Cyto Order Verification Order Verified
[2024-09-07] MEDS: sodium chloride 0.9% 1,000 ML 75 ML IV (11:28)
[2024-09-07 11:30] LABS: Glucose Point of Care 187 mg/dL (70-110)
[2024-09-07 11:47] LABS: Albumin Body Fluid 2.7 g/dL; Creatinine Body Fluid 0.88 (0.7-1.2); LDH Pleural Fluid 452 U/L; Total Protein Pleural Fluid 3.8 g/dL; Triglycerides, Pleural Fluid 40 mg/dL
--- NOTE | 2024-09-07 11:58 | P.PN_ITS ---
Subjective 2 Subjective: Just underwent thoracentesis. Tolerated procedure well. Denies chest pain, no shortness of breath. Currently not coughing. A liter of fluid had been removed. Vitals/I&O/Wt Last Vital Signs Temp 98.0 F 09/07/24 08:00 Pulse 88 09/07/24 08:00 Resp 19 H 09/07/24 08:00 BP 162/80 09/07/24 08:00 Pulse Ox 93 09/07/24 08:00 O2 Del Method Room Air 09/07/24 08:00 09/06/24 09/07/24 09/07/24 22:59 06:59 14:59 Intake Total 1930 / 3712.5 50 / 3762.5 1250 / 1250 Balance 1930 / 3712.5 50 / 3762.5 1250 / 1250 Weight last 48 hrs Weight 90.31 kg Weight 87.543 kg Weight 87.543 kg Weight 90.718 kg Physical Exam 2 Narrative: Accompanied by family. Const: COMMON NORMALS: patient oriented x3 and alert GENERAL APPEARANCE: c ooperative ORIENTATION/CONSCIOUSNESS: Yes awake HENMT: COMMON NORMALS: oropharynx normal Neck/C-Spine: COMMON NORMALS: no JVD Resp: COMMON NORMALS: normal respiratory effort AUSCULTATION: breath sounds absent on the right (lower) Cardio: COMMON NORMALS: no JVD, regular rhythm, S1 normal heart sound present, S2 normal heart sound present and No murmurs present (Cardio) RHYTHM: regular rhythm HEART SOUNDS: S1 normal heart sound present and S2 normal heart sound present GI: COMMON NORMALS: Normal to inspection, nondistended, normoactive bowel sounds present, Soft to palpation and non-tender PALPATION: Yes Soft to palpation Extremity: COMMON NORMALS: no joint enlargement GENERAL: Yes edema (Trace) Neuro: COMMON NORMALS: patient oriented x3 and moves all extremities S ENSORIUM/ORIENTATION: Yes alert Skin: COMMON NORMALS: no rashes or lesions noted GENERAL SKIN EXAM: no rashes or lesions noted Data 09/06/24 04:22 09/06/24 04:22 Micro: Microbiology 09/05/24 17:56 Blood Culture - Preliminary Blood Staphylococcus epidermidis Staphylococcus lugdunensis 09/05/24 18:04 Blood Culture - Preliminary Blood NEGATIVE TO DATE 09/06/24 16:03 Blood Culture - Preliminary Blood SPECIMEN COLLECTED 09/06/24 16:03 Blood Culture - Preliminary Blood SPECIMEN COLLECTED 09/06/24 16:15 Blood Culture - Preliminary Blood SPECIMEN COLLECTED 09/06/24 16:10 Blood Culture - Preliminary Blood SPECIMEN COLLECTED A&P Assessment and plan (1) Hypertension: (2) Pleural effusion: (3) Diabetes: Qualifiers: Diabetes mellitus type: type 2 Diabetes mellitus long term care social worker insulin use: without long term care social worker use Diabetes mellitus complication status: with other specified complication Qualified Code(s): E11.69 - Type 2 diabetes mellitus with other specified complication (4) Port-A-Cath in place: (5) Dehydration: (6) Acute UTI: (7) Weakness: (8) Pneumonia: (9) Staphylococcus aureus bacteremia: (10) Immunocompromised: (11) Non-small cell lung cancer: Plan #Generalized weakness, fatigue, fever, chills, malaise #Right-sided pleural effusion with possible infiltrate #Small cell lung cancer currently on immunotherapy #Diabetes mellitus insulin-dependent #Weakness and falls at home #History of gout, hypertension Reviewed PT, PTT. Underwent thoracentesis. 1 L of pink fluid removed. No empyema. Exudative effusion. Reviewed fluid LDH, protein, albumin, RBC, pH 7.5. Pending Gram stain, culture. Follow-up. Continue to biotics for now. Possible bacteremia: Reviewed blood culture, Staph epidermidis, staph lugdunensis growing in blood culture from 09/05. Discussed with him and family. Discussed concern it is difficult to know if it is contamination versus true infection. Follow-up culture from pleural fluid. Follow-up repeat blood cultures. Continue antibiotic. Discussed with patient, family, embedded case manager may require prolonged course of IV antibiotics for 6 weeks after discharge through port. ID unavailable today, will try to see if may be able to consult, otherwise would benefit from follow-up in office. Continue vancomycin and Zosyn secondary to being on immunotherapy. Monitor for risk of kidney injury with this combination of antibiotics. Stop IV fluid. Repeat chemistry. ? Sliding scale insulin moderate dose intensity. Hold off on Lantus at this time. ? Continue duloxetine, atorvastatin, aspirin. Aspirin was held Saturday night in anticipation of thoracentesis Saturday morning. ? PT OT Echocardiogram has been requested. Follow-up. Full code Due to prophylaxis: Heparin subcu twice daily Attestations 2 Medical Necessity Statement*: Continue admission for assessment management of possible bacteremia, pleural effusion, and gentleman with underlying lung cancer, on immunotherapy, with generalized weakness, fatigue, fever, chills and malaise. and High MDM includes amount and/or complexity of data reviewed/ordered [ resulted lab(s)/test(s), ordered lab(s)/test(s) and other healthcare professional discussion] and described risk of complication, morbidity or mortality of management as documented Diagnoses Hypertension I10 Pleural effusion J90 Type 2 diabetes mellitus with other specified complication, without long-term current use of insulin E11.69 Diabetes mellitus type: type 2 Diabetes mellitus senior living insulin use: without senior living use Diabetes mellitus complication status: with other specified complication Port-A-Cath in place Z95.828 Dehydration E86.0 Acute UTI N39.0 Weakness R53.1 Pneumonia J18.9 Staphylococcus aureus bacteremia R78.81; B95.61 Immunocompromised D84.9 Non-small cell lung cancer C34.90
[2024-09-07 13:29] LABS: Vancomycin Trough 21.2 ug/mL (10-15)
[2024-09-07 16:41] LABS: Glucose Point of Care 211 mg/dL (70-110)
[2024-09-07] MEDS: vancomycin 1,250 MG/250 ML PIGGYBACK 166.67 MG IV (17:49)
[2024-09-07 20:53] LABS: Glucose Point of Care 253 mg/dL (70-110)
[2024-09-08] VITALS (7 sets, daily range): BP systolic 118–186; BP diastolic 67–98; PULSE 70–87; RESP 14–18; TEMP 36.4–36.9; O2SAT 92–95
[2024-09-08] MEDS: heparin 5,000 unit/mL INJ 1 mL 5000 UNIT SUBCUT ×2 (05:43→17:41)
[2024-09-08] MEDS: vancomycin 1,250 MG/250 ML PIGGYBACK 166 MG IV ×2 (05:44→18:33)
[2024-09-08 06:25] LABS: Glucose Point of Care 228 mg/dL (70-110)
[2024-09-08 06:38] LABS: Basophils % 0.4 %; Eosinophils # 0.5 10^3/uL (0.0-0.8); Eosinophils % 6.2 %; Hematocrit 35.8 % (37-53); Lymphocytes # 1.2 10^3/uL (0.8-4.8); Lymphocytes % 14.8 %; Mean Corpuscular HGB Conc 32.7 g/dL (30-55); Mean Corpuscular Hemoglobin 29.5 pg (27-33); Mean Corpuscular Volume 90.2 fl (82-101); Mean Platelet Volume 10.2 fL (7.4-10.4); Monocytes # 0.9 10^3/uL (0.2-0.9); Monocytes % 11.6 %; Neutrophils # 5.19 10^3/uL (1.8-7.7); Neutrophils % 66.7 %; Nucleated Red Blood Cells % 0 %; Platelet Count 197 10^3/cmm (157-399); Red Blood Count 3.97 10^6/uL (3.85-5.65); Red Cell Distribution Width 13.1 % (12.1-15.1); White Blood Count 7.77 10^3/uL (3.29-11.43)
[2024-09-08 06:39] LABS: Anion Gap 12.9 (5-19); Blood Urea Nitrogen 12 mg/dL (8-23); Carbon Dioxide 26 mmol/L (22-29); Chloride 108 mmol/L (98-107); Creatinine Clr Calc Pharmacy 85.8646; Glucose 217 mg/dL (65-115); Osmolality Calculated 302 mOsm/kg (285-295); Potassium 3.9 mmol/L (3.5-5.1); Sodium 143 mmol/L (136-145)
[2024-09-08] MEDS: piperacillin-tazobactam 3.375 GM in sodium chloride 0.9% (plus) 50 ML IV ×3 (07:50→22:57)
[2024-09-08] MEDS: OLANZapine 5 mg TABLET PO ×2 (08:59→17:42)
[2024-09-08] MEDS: atorvastatin 40 mg Tablet PO (08:59)
[2024-09-08] MEDS: folic acid 1 mg Tablet PO (08:59)
[2024-09-08] MEDS: duloxetine 60 mg Capsule PO (08:59)
[2024-09-08] MEDS: acetaminophen 325 mg Tablet 650 MG PO (09:00)
[2024-09-08] MEDS: metoprolol succinate ER (24 HR) 50 mg Tablet PO (09:04)
[2024-09-08] MEDS: insulin lispro 100 unit/1 mL SUBCUT ×3 (11:56→22:14)
[2024-09-08 12:20] LABS: Glucose Point of Care 266 mg/dL (70-110)
--- NOTE | 2024-09-08 15:47 | P.PN_ITS ---
Subjective 2 Subjective: He is overall doing a bit better. He has been having a bit of edema, minimal swelling of his ankles, slight worsening of swelling of his left hand. He has been bothered by bouts of tachycardia from his atrial fibrillation. Vitals/I&O/Wt Last Vital Signs Temp 97.5 F L 09/08/24 12:00 Pulse 83 09/08/24 12:00 Resp 14 09/08/24 12:00 BP 148/79 09/08/24 12:00 Pulse Ox 94 09/08/24 12:00 O2 Del Method Room Air 09/08/24 12:00 O2 Flow Rate 2 09/07/24 10:30 09/08/24 09/08/24 09/08/24 06:59 14:59 22:59 Intake Total 450 / 3010 980 / 980 Balance 450 / 3010 980 / 980 Weight last 48 hrs Weight 89.675 kg Weight 90.31 kg Physical Exam 2 Narrative: Accompanied by his . Const: COMMON NORMALS: patient oriented x3 and alert GENERAL APPEARANCE: c ooperative ORIENTATION/CONSCIOUSNESS: Yes awake HENMT: COMMON NORMALS: oropharynx normal Neck/C-Spine: COMMON NORMALS: no JVD Resp: COMMON NORMALS: normal respiratory effort AUSCULTATION: breath sounds absent on the right (lower) Cardio: COMMON NORMALS: no JVD, regular rhythm, S1 normal heart sound present, S2 normal heart sound present and No murmurs present (Cardio) RHYTHM: regular rhythm HEART SOUNDS: S1 normal heart sound present and S2 normal heart sound present GI: COMMON NORMALS: Normal to inspection, nondistended, normoactive bowel sounds present, Soft to palpation and non-tender PALPATION: Yes Soft to palpation Extremity: COMMON NORMALS: no joint enlargement GENERAL: Yes edema (Trace) Neuro: COMMON NORMALS: patient oriented x3 and moves all extremities S ENSORIUM/ORIENTATION: Yes alert Skin: COMMON NORMALS: no rashes or lesions noted GENERAL SKIN EXAM: no rashes or lesions noted Data 09/08/24 05:48 09/08/24 05:48 Micro: Microbiology 09/05/24 17:56 Blood Culture - Final Blood Staphylococcus epidermidis Staphylococcus lugdunensis 09/07/24 09:28 Gram Stain - Final Sputum - Expectorated Sputum Sputum Culture - Preliminary Yeast species 09/07/24 10:30 Gram Stain - Final Pleural Fluid Body Fluid Culture - Preliminary 09/06/24 16:03 Blood Culture - Preliminary Blood NEGATIVE TO DATE 09/06/24 16:03 Blood Culture - Preliminary Blood NEGATIVE TO DATE 09/06/24 16:15 Blood Culture - Preliminary Blood NEGATIVE TO DATE 09/06/24 16:10 Blood Culture - Preliminary Blood NEGATIVE TO DATE A&P Assessment and plan (1) Hypertension: (2) Pleural effusion: (3) Diabetes: Qualifiers: Diabetes mellitus type: type 2 Diabetes mellitus retirement insulin use: without long filler cigar roller machine use Diabetes mellitus complication status: with other specified complication Qualified Code(s): E11.69 - Type 2 diabetes mellitus with other specified complication (4) Port-A-Cath in place: (5) Dehydration: (6) Acute UTI: (7) Weakness: (8) Pneumonia: (9) Staphylococcus aureus bacteremia: (10) Immunocompromised: (11) Non-small cell lung cancer: Plan #Generalized weakness, fatigue, fever, chills, malaise #Right-sided pleural effusion with possible infiltrate #Small cell lung cancer currently on immunotherapy #Diabetes mellitus insulin-dependent #Weakness and falls at home #History of gout, hypertension Possible bacteremia: Reviewed vitals, CBC, BMP, repeat blood cultures, so far negative. Discussed with infectious disease provider. Appreciate consultation. Discussed with him and his concern regarding pathogenic organism with staff eleni. Depending on infectious disease findings, discussed with him in case of concern for pathogenic infection of the port port may have to be removed. Discussed with nursing, case assistant. If this were the case, he understands that we are able to remove the port here, but would prefer to have the port removed at [facility] by the provider who had placed it. Continue vancomycin and Zosyn empirically for now. Monitor for risk of kidney injury with this combination of antibiotics. Follow-up repeat blood cultures. Reviewed pleural fluid culture, underwent thoracentesis. 1 L of pink fluid removed. No empyema. Exudative effusion. Suspect secondary to malignancy. Follow-up. In case of recurrent effusion pleural drain may be considered. ? Sliding scale insulin moderate dose intensity. Add Lantus 20 units at bedtime. ? Continue duloxetine, atorvastatin, aspirin. Resume aspirin. ? PT OT Echocardiogram has been requested. I do not see that the study has been taken or any results. He is dealing with some paroxysmal A-fib at the moment, will try to improve rate control. Cardiac monitoring requested. If heart rates remained steady, obtain TTE. A-fib with paroxysmal RVR: Has been bothered by more episodes of tachycardia. Will increase metoprolol dose to 75 mg twice daily. Monitor heart rates. Add monitoring engineer. Lung cancer: Renew fentanyl patch for pain. Full code Due to prophylaxis: Heparin subcu twice daily Attestations 2 Medical Necessity Statement*: Continue admission for assessment management of possible bacteremia, pleural effusion, and gentleman with underlying lung cancer, on immunotherapy, with generalized weakness, fatigue, fever, chills and malaise. and High MDM includes amount and/or complexity of data reviewed/ordered [ resulted lab(s)/test(s), ordered lab(s)/test(s) and other healthcare professional discussion] and described risk of complication, morbidity or mortality of management as documented Diagnoses Hypertension I10 Pleural effusion J90 Type 2 diabetes mellitus with other specified complication, without long-term current use of insulin E11.69 Diabetes mellitus type: type 2 Diabetes mellitus long filler cigar roller machine insulin use: without retirement use Diabetes mellitus complication status: with other specified complication Port-A-Cath in place Z95.828 Dehydration E86.0 Acute UTI N39.0 Weakness R53.1 Pneumonia J18.9 Staphylococcus aureus bacteremia R78.81; B95.61 Immunocompromised D84.9 Non-small cell lung cancer C34.90
[2024-09-08 16:30] LABS: Magnesium 1.7 mg/dL (1.7-2.3)
--- NOTE | 2024-09-08 17:09 | USCV_ITS ---
Siddhartha Christina Age: 63 Gender: M : 1960 Exam Date: 09/08/2024 20:59 Ordering Phys: Abigail Damon MD Technologist: AYESHA Exam Location: [facility] [place] Indication: BP: 127 / 79 HR: 65 Rhythm: Sinus Technical Quality: Adequate MEASUREMENTS (Male / Female) Normal Values 2D ECHO LV Diastolic Diameter PLAX 4.3 cm 4.2 - 5.9 / 3.9 - 5.3 cm IVS Diastolic Thickness 1.5 cm 0.6 - 1.0 / 0.6 - 0.9 cm IVS Systolic Thickness 1.8 cm LVPW Diastolic Thickness 1.3 cm 0.6 - 1.0 / 0.6 - 0.9 cm LVPW Systolic Thickness 1.6 cm LVOT Diameter 2.1 cm LV Ejection Fraction 2D Teich 67.4 % LV Ejection Fraction MOD 4C 65.5 % LV Ejection Fraction MOD 2C 52.7 % LV Ejection Fraction 2C AL 52.0 % LA Diameter 3.5 cm Aorta at Sinotubular Diameter 2.9 cm IVC Diameter 1.2 cm M-MODE LA Ao Ratio MM 1.2 AV Cusp Separation MM 2.0 cm DOPPLER AV Peak Velocity 145.0 cm/s LVOT Peak Velocity 78.0 cm/s AV Area Cont Eq vti 2.8 cm squared AV Area Cont Eq pk 1.9 cm squared MV Peak Velocity 86.0 cm/s MV Area PHT 2.1 cm squared Mitral E to A Ratio 0.8 TV Peak Velocity 244.0 cm/s TR Peak Velocity 248.0 cm/s TR Peak Gradient 24.6 mmHg TV Peak E Velocity 53.0 cm/s Right Atrial Pressure 3.0 mmHg Pulmonary Artery Systolic Pressu 27.6 mmHg PV Peak Velocity 103.0 cm/s FINDINGS Left Ventricle Normal LV size and ejection fraction of 67%. Mild concentric left-ventricular hypertrophy.Grade I/IV diastolic dysfunction (abnormal relaxation filling pattern), normal to mildly elevated filling pressures. Right Ventricle The right ventricle is normal in size and function. Right Atrium The right atrium is normal in size. Left Atrium The left atrium is normal in size. Mitral Valve No gross abnormalities noted Aortic Valve No gross abnormalities noted no gross abnormalities noted Tricuspid Valve Trace tricuspid valve regurgitation. Pulmonic Valve Trace pulmonary valve regurgitation. Pericardium Normal pericardium without effusion. Aorta Normal ascending aorta dimension. IVC The inferior vena cava appears normal. CONCLUSIONS Normal LV size and ejection fraction of 67%. Mild concentric left-ventricular hypertrophy.Grade I/IV diastolic dysfunction (abnormal relaxation filling pattern), normal to mildly elevated filling pressures. Trace tricuspid valve regurgitation. Trace pulmonary valve regurgitation. There is no pericardial effusion. There are no intracardiac masses. No similar previous studies are available for comparison Dr Juan Davidson MD [facility] (Electronically Signed) Final Date: 09 September 2024 13:06 S
--- NOTE | 2024-09-08 17:10 | P.CONIM_ITS ---
Providers/Reason For Consult 2 Consulting Physician/Specialty*: Abigail Damon MD/infectious disease Reason for Consult*: Staph lugdunensis bacteremia Requesting Physician: Piter Gardner MD Attending Physician: Piter Gardner Primary Care Provider: Cole Helms DO History of Present Illness History of Present Illness Siddhartha Christina is a 63 year old male with a past medical history of lung cancer, currently on treatment with Keytruda every 6 weeks. He has previously completed chemotherapy and immunotherapy combination in March 2024 under care of oncology service at [facility]. He is currently admitted to the hospital after presenting here with generalized weakness, increasing fatigue and subjective chills worsened over the past week prior to admission. He was noted to have a large right pleural effusion. Per family, patient has been known to have a right pleural effusion since the diagnosis of his lung cancer but has not previously needed thoracentesis. He did undergo thoracentesis for this effusion today. He had an elevated white blood cell count of 12,000. He had noted swelling in his right arm, ultrasound Doppler was negative for DVT.His blood culture from admission returned positive for staph lugdunensis and Staph epidermidis. Infectious diseases consulted regarding the same. Patient has a Port-A-Cath in place over the right chest wall for which he gets his immunotherapy infusions. No history of IV drug use. No history of valvular surgeries. He has A-fib but does not appear to be on anticoagulation. No recent issues with port functioning. Review of Systems 2 General: Reports: 10 or more systems reviewed and unremarkable except in HPI and below Const: Denies: fever(s), chills or body aches Eyes: Denies: change in vision, blurry vision or photophobia ENMT: Reports: hoarseness; Denies: throat pain, enlarged tonsils, odynophagia or nasal congestion Card: Denies: chest pain, palpitations, irregular heart rhythm, edema, swelling of feet/ankles, lightheadedness, pre-syncope, dyspnea on exertion or orthopnea Resp: Denies: dyspnea, productive cough, non-productive cough, wheezing, stridor, pain on inspiration, change in phlegm color, hemoptysis or chest congestion GI: Denies: abdominal pain, nausea, vomiting, hematemesis, coffee ground emesis, dysphagia, heartburn, diarrhea, constipation, GI cramping, change in stool character, hematochezia or melena : Denies: flank pain, dysuria, urinary frequency, urinary urgency, urinary hesitancy or hematuria Musc: Denies: neck pain, back pain, extremity pain, joint swelling, joint warmth or deformity Neuro: Denies: headache(s), numbness in extremities, weakness in extremities, sensory changes, difficulty walking, frequent falls, dizziness, vertigo, behavioral changes, Slurred speech present or seizure-like activity Psych: Denies: anxiety, depression, suicidal ideation or homicidal ideation Endo: Denies: polyuria, polydipsia, tired all the time, cold intolerance or hot flashes Kwesi/Lymph: Denies: easy bruising or easy bleeding Medications/Allergies Home Medications Medication Instructions Recorded Confirmed Last Taken Type olmesartan 20 mg tablet 10 mg PO DAILY 09/11/22 09/05/24 09/05/24 08:00 History ondansetron 4 mg disintegrating 4 mg PO Q6H PRN nausea and 02/09/24 09/05/24 Unknown Rx tablet vomiting #14 tabs metformin 1,000 mg tablet 1,000 mg PO BID #180 tabs 03/18/24 09/05/24 09/05/24 08:00 Rx colchicine 0.6 mg tablet 0.6 mg PO BID PRN gout 04/23/24 09/05/24 Unknown History duloxetine 60 mg capsule,delayed 60 mg PO DAILY 04/23/24 09/05/24 09/05/24 08:00 History release fentanyl 50 mcg/hr transdermal 3 patch topical .Q72H 04/23/24 09/05/24 09/03/24 10:00 History patch folic acid 1 mg tablet 1 mg PO DAILY 04/23/24 09/05/24 09/05/24 08:00 History insulin glargine 100 unit/mL (3 105 unit SUBCUT BEDTIME 04/23/24 09/05/24 09/04/24 20:00 History mL) subcutaneous pen (Lantus Solostar U-100 Insulin) meloxicam 7.5 mg tablet 7.5 mg PO DAILY 04/23/24 09/05/24 09/05/24 08:00 History metoprolol succinate 50 mg 50 mg PO BID 04/23/24 09/05/24 09/05/24 08:00 History tablet,extended release 24 hr oxycodone 10 mg tablet 15 mg PO Q4H PRN Pain 04/23/24 09/05/24 Unknown History prochlorperazine maleate 10 mg 10 mg PO QID PRN Nausea And 04/23/24 09/05/24 Unknown History tablet Vomiting lactulose 20 gram/30 mL oral 20 g (30 mL) PO DAILY PRN 04/24/24 09/05/24 Unknown Rx solution constipation #1,200 mL aspirin 81 mg tablet 81 mg PO DAILY 09/05/24 09/05/24 09/05/24 08:00 History atorvastatin 40 mg tablet 40 mg PO BEDTIME 09/05/24 09/05/24 09/04/24 20:00 History Allergies Allergy/AdvReac Type Severity Reaction Status Date / Time morphine Allergy ADR-Irritab Verified 09/05/24 15:49 le Current Medications Generic Name Dose Route Start Last Admin Trade Name Freq PRN Reason Stop Dose Admin Acetaminophen 650 mg 09/05/24 17:52 09/08/24 09:00 Acetaminophen 325 Mg Tablet PO 650 mg Q6H PRN Administration Mild/Mod Pain Or Temp >/= 101 Atorvastatin Calcium 40 mg 09/06/24 09:00 09/08/24 08:59 Atorvastatin 40 Mg Tablet PO 40 mg DAILY JIMMY Administration Duloxetine HCl 60 mg 09/06/24 09:00 09/08/24 08:59 Duloxetine 60 Mg Capsule PO 60 mg DAILY JIMMY Administration Fentanyl 1 patch 09/06/24 17:45 09/06/24 18:34 Fentanyl 100 Mcg Patch TRANSDERMA 1 patch Q72H JIMMY Administration Fentanyl 1 patch 09/06/24 17:45 09/06/24 18:32 Fentanyl 50 Mcg Patch TRANSDERMA 1 patch Q72H JIMMY Administration Folic Acid 1 mg 09/06/24 09:00 09/08/24 08:59 Folic Acid 1 Mg Tablet PO 1 mg DAILY JIMMY Administration Heparin Sodium (Porcine) 5,000 unit 09/05/24 18:00 09/08/24 05:43 Heparin 5,000 Unit/Ml Inj 1 Ml SUBCUT 5,000 unit Q12H JIMMY Administration Piperacillin Sod/Tazobactam 50 mls @ 12.5 mls/hr 09/05/24 22:00 09/08/24 14:54 Sod 3.375 gm/ Sodium Chloride IV 12.5 mls/hr Q8H JIMMY Administration Vancomycin HCl 1,250 mg in 250 mls @ 166.667 mls/hr 09/07/24 18:00 09/08/24 07:26 Vancocin IV Infused Q12H JIMMY Infusion Insulin Human Lispro 0 unit 09/05/24 18:00 09/08/24 11:56 Insulin Lispro 100 Unit/1 Ml SUBCUT 10 unit WM&BEDTIME JIMMY Administration Protocol Olanzapine 5 mg 09/06/24 09:00 09/08/24 08:59 Olanzapine 5 Mg Tablet PO 5 mg BID JIMMY Administration PFSH Acute 2 PFSH: Medical History Non-small cell lung cancer Diabetes Hypotension due to hypovolemia Anorexia Dehydration Leukopenia Weakness Near syncope Port-A-Cath in place Right-sided back pain Cholecystitis Abdominal pain Rib pain on right side Gout Hyperlipidemia Hypertension Surgical History History of cholecystectomy Family History Father Stomach cancer Grandfather Stomach cancer Social History Smoking and tobacco/nicotine status: former use of tobacco/nicotine Alcohol intake: never Substance/Drug Use: never Additional social history: 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 Vitals/I&O/Wt Last Vital Signs Temp 97.5 F L 09/08/24 12:00 Pulse 83 09/08/24 12:00 Resp 14 09/08/24 12:00 BP 148/79 09/08/24 12:00 Pulse Ox 94 09/08/24 12:00 O2 Del Method Room Air 09/08/24 12:00 O2 Flow Rate 2 09/07/24 10:30 09/08/24 09/08/24 09/08/24 06:59 14:59 22:59 Intake Total 450 / 3010 980 / 980 Balance 450 / 3010 980 / 980 Weight last 48 hrs Weight 89.675 kg Weight 90.31 kg Physical Exam 2 Narrative: General: No acute distress, AO x3 HEENT: PERRLA, pupils bilaterally equal and reactive, pallors not present Chest: Normal vesicular breath sounds, no added sounds, equal good air entry bilaterally Neuro: No focal deficits, no facial deformity, AO x3, power 5/5 in all limbs Data 09/08/24 05:48 09/08/24 05:48 Micro: Microbiology 09/05/24 17:56 Blood Culture - Final Blood Staphylococcus epidermidis Staphylococcus lugdunensis 09/05/24 18:04 Blood Culture - Preliminary Blood NEGATIVE TO DATE 09/07/24 09:28 Gram Stain - Final Sputum - Expectorated Sputum Sputum Culture - Preliminary Yeast species 09/07/24 10:30 Gram Stain - Final Pleural Fluid Body Fluid Culture - Preliminary 09/06/24 16:03 Blood Culture - Preliminary Blood NEGATIVE TO DATE 09/06/24 16:03 Blood Culture - Preliminary Blood NEGATIVE TO DATE 09/06/24 16:15 Blood Culture - Preliminary Blood NEGATIVE TO DATE 09/06/24 16:10 Blood Culture - Preliminary Blood NEGATIVE TO DATE NAME: Siddhartha Christina LOC: [facility] #: [id number] AGE/SX: 63/M ROOM: 278 R E09/05/[address]: Piter Gardner MD : 1960 BED: 2 D IS: FAX #: STATUS: ADM IN OC: Spec #: [id number] Stella: 09/05/24 Status: COMP Req #: [id number] Recd: 09/05/[address]: Yoanna Goodrich MD Src: Blood SpDesc: Ordered: Bcult Comments: SENSITIVITIES, KINME LEFT NOTE FOR MICRO [id number] Procedure Result Verified Site Blood Culture Final 09/08/24-1122 1 OF 4 BOTTLES POSITIVE DIRECT GRAM STAIN: GRAM POSITIVE COCCI IN CLUSTERS IDENTIFICATION BY DIRECT PCR PROBABLE CONTAMINANTS, WORKUP NOT INDICATED Organism 1 Staphylococcus epidermidis Growth 1 BOTTLE Organism 2 Staphylococcus lugdunensis Growth 1 BOTTLE, SAME BOTTLE #1 Gram Stain Charge Charge for Gram Stain CRITICAL RESULT YES/NO: YES CRITICAL CALLED BY: JOSE TO AND READ BACK BY: FITZ DATE: 09/06/24 TIME: 1201 Blood Culture Preliminary (changed) 09/07/24-1131 1 OF 4 BOTTLES POSITIVE DIRECT GRAM STAIN: GRAM POSITIVE COCCI IN CLUSTERS IDENTIFICATION BY DIRECT PCR PROBABLE CONTAMINANTS, WORKUP NOT INDICATED Organism 1 Staphylococcus epidermidis Growth 1 BOTTLE Organism 2 Staphylococcus lugdunensis Growth 1 BOTTLE, SAME BOTTLE #1 Gram Stain Charge Charge for Gram Stain CRITICAL RESULT YES/NO: YES CRITICAL CALLED BY: JOSE TO AND READ BACK BY: FITZ DATE: 09/06/24 TIME: 1201 Blood Culture Preliminary (changed) 09/06/24-2 1 OF 4 BOTTLES POSITIVE DIRECT GRAM STAIN: GRAM POSITIVE COCCI IN CLUSTERS IDENTIFICATION BY DIRECT PCR RESULTS TO FOLLOW Organism 1 Staphylococcus epidermidis Growth 1 BOTTLE Organism 2 Staphylococcus lugdunensis Growth 1 BOTTLE Gram Stain Charge Charge for Gram Stain CRITICAL RESULT YES/NO: YES CRITICAL CALLED BY: JOSE TO AND READ BACK BY: FITZ DATE: 09/06/24 TIME: 120 NAME: Siddhartha Christina LOC: [facility] U #: [id number] AGE/SX: 63/M ROOM: 278 R E09/05/[address]: Piter Gardner MD : 1960 BED: 2 D IS: FAX #: STATUS: ADM IN TLOC: Spec #: [id number] Stella: 09/05/24 Status: RES Req #: [id number] Recd: 09/05/[address]: Yoanna Goodrich MD Src: Blood SpDesc: Ordered: Bcult Comments: SENSITIVITIES, KINME LEFT NOTE FOR MICRO [id number] Procedure Result Verified Site Blood Culture Preliminary 09/06/24 NEGATIVE TO DATE Blood Culture Preliminary (changed) 09/05/24-1823 SPECIMEN COLLECTED NAME: Prakash Christinabhanu Matta LOC: [facility] U #: [id number] AGE/SX: 63/M ROOM: 278 R E09/05/[address]: Piter Gardner MD : 1960 BED: 2 D IS: FAX #: STATUS: ADM IN TLOC: Spec #: [id number] Stella: 09/06/241603 Status: RES Req #: [id number] Recd: 09/06/[address]: María Carlson MD Src: Blood SpDesc: Ordered: Bcult Comments: Comment Obtain from patient's port Procedure Result Verified Site Blood Culture Preliminary 09/07/24 NEGATIVE TO DATE Blood Culture Preliminary (changed) 09/06/24 SPECIMEN COLLECTED NAME: Siddhartha Christina LOC: [facility] U #: [id number] AGE/SX: 63/M ROOM: 278 R E09/05/[address]: Piter Gardner MD : 1960 BED: 2 D IS: FAX #: STATUS: ADM IN TLOC: Spec #: [id number] Stella: 09/06/24 Status: RES Req #: [id number] Recd: 09/06/[address]: María Carlson MD Src: Blood SpDesc: Ordered: Bcult Comments: Comment Obtain from patient's port Procedure Result Verified Site Blood Culture Preliminary 09/07/24 NEGATIVE TO DATE Blood Culture Preliminary (changed) 09/06/24 SPECIMEN COLLECTED NAME: Siddhartha Christina LOC: [facility] U #: [id number] AGE/SX: 63/M ROOM: 278 R E09/05/[address]: Piter Gardner MD : 1960 BED: 2 D IS: FAX #: STATUS: ADM IN TLOC: Spec #: [id number] Stella: 09/06/24 Status: RES Req #: [id number] Recd: 09/06/[address]: María Carlson MD Src: Blood SpDesc: Ordered: Bcult Comments: Comment Obtain from peripheral site and not patient's port Procedure Result Verified Site Blood Culture Preliminary 09/07/24 NEGATIVE TO DATE Blood Culture Preliminary (changed) 09/06/24 SPECIMEN COLLECTED NAME: Siddhartha Christina LOC: [facility] U #: [id number] AGE/SX: 63/M ROOM: 278 R E09/05/[address]: Piter Gardner MD : 1960 BED: 2 D IS: FAX #: STATUS: ADM IN TLOC: Spec #: [id number] Stella: 09/06/24 Status: RES Req #: [id number] Recd: 09/06/[address]: María Carlson MD Src: Blood SpDesc: Ordered: Bcult Comments: Comment Obtain from peripheral site and not patient's port Procedure Result Verified Site Blood Culture Preliminary 09/07/24 NEGATIVE TO DATE Blood Culture Preliminary (changed) 09/06/24 SPECIMEN COLLECTED NAME: Siddhartha Christina LOC: [facility] #: [id number] AGE/SX: 63/M ROOM: [facility] R E09/05/[address]: Piter Gardner MD : 1960 BED: 2 D IS: FAX #: STATUS: ADM IN TLOC: Spec #: [id number] Stella: 09/07/24 Status: RES Req #: [id number] Recd: 09/07/[address]: María Carlson MD Src: Sputum SpDesc: Expec Sput Ordered: SPU Cult & GS Procedure Result Verified Site Gram Stain Final 09/07/24 Result MODERATE WHITE BLOOD CELLS MODERATE EPITHELIAL CELLS HEAVY YEAST FEW GRAM POSITIVE RODS RARE GRAM NEGATIVE RODS Sputum Culture Preliminary 09/08/24 Organism 1 Yeast species Growth HEAVY DAY 1, RESULTS TO FOLLOW NAME: Siddhartha Christina LOC: [facility] U #: [id number] AGE/SX: 63/M ROOM: [facility] R E09/05/[address]: Piter Gardner MD : 1960 BED: 2 D IS: FAX #: STATUS: ADM IN TLOC: Spec #: [id number] Stella: 09/07/24 Status: RES Req #: [id number] Recd: 09/07/[address]: María Carlson MD Src: Pleural Fl SpDesc: Ordered: Body FL Cult&GS Comments: Comment pleural fluid Procedure Result Verified Site Gram Stain Final 09/07/24-1246 Result MANY WHITE BLOOD CELLS NO ORGANISMS SEEN Body Fluid Culture Preliminary 09/08/24-32 NO GROWTH AT 18-24 HOURS AFB Smear from fluid: pending Patient: Siddhartha Christina Unit #: [id number] : 1960 Age/Sex: 63 / M ADM Date: 09/05/24 Loc: [facility] Room/Bed: 278-[address]: Piter Gardner MD Ordering Provider/Ordering MD: Marcy Schumacher DO Date of Service: 09/07/24 Procedure(s): XR chest 1V 11467 Accession Number(s): [id number] Report Number: [id number] WS: [email or web address] CHEST, 1 view. HISTORY: post thoracentesis, RIGHT COMPARISON: 09/05/2024 No pneumothorax status post RIGHT thoracentesis. Small amount of atelectasis and persistent RIGHT pleural effusion. Pleural effusions extends into the fissure. Slight improvement in the pleural effusion. LEFT lung is clear. Right-sided Mediport. Cardiac size: Normal. Mediastinum/Aorta: Normal mediastinum. No osseous abnormality seen. XR/XR chest 1V 48593 IMPRESSION: 1. No pneumothorax status post RIGHT thoracentesis. 2. Residual small RIGHT pleural effusion. Slight improvement in the amount of fluid. Ordering Provider/Ordering MD: Maraí Carlson MD Date of Service: 09/07/24 Procedure(s): US thoracentesis 48284 Accession Number(s): [id number] Report Number: [id number] WS: [email or web address] ULTRASOUND-GUIDED THORACENTESIS, RIGHT HISTORY: right pleural effusion, new Procedure, risks, and complications were explained to the patient. With the patient in an upright position, the skin over the RIGHT posterior thorax was cleansed with ChloraPrep and anesthetized with 1% buffered lidocaine. A 5 Latvian Yueh needle is inserted into the pleural fluid without complication. Approximately 1100 cc of red-tinged clear pleural fluid is removed without difficulty. Specimen collected for analysis. US/US thoracentesis 60428 IMPRESSION: 1. RIGHT thoracentesis yielding 1100 cc of fluid. 2. Chest radiograph to follow to evaluate for pneumothorax. Ordering Provider/Ordering MD: María Carlson MD Date of Service: 09/06/24 Procedure(s): [place] [address] Accession Number(s): [id number] Report Number: [id number] PROCEDURE INFORMATION: Exam: US Duplex Upper Extremity Veins, Bilateral, Complete Exam date and time: 09/06/2024 2:41 PM Age: 63 years old Clinical indication: Screening exam; R/O dvt TECHNIQUE: Imaging protocol: Real-time duplex ultrasound of the extremities with 2-D oreilly scale, color Doppler flow and spectral waveform analysis including responses to compression and other maneuvers (when performed) with image documentation. Complete exam focused on the bilateral upper extremity veins. COMPARISON: CT angio chest PE protcl [id number] 02/09/2024 12:12 AM FINDINGS: Right deep veins: Unremarkable. Axillary and brachial veins are patent throughout without thrombus. Normal Doppler waveforms. Normal compressibility and/or augmentation response. Visualized internal jugular and subclavian veins are patent. Left deep veins: Unremarkable. Axillary and brachial veins are patent throughout without thrombus. Normal Doppler waveforms. Normal compressibility and/or augmentation response. Visualized internal jugular and subclavian veins are patent. Superficial veins: Unremarkable. Visualized cephalic and basilic veins are patent without thrombus. Soft tissues: Unremarkable. US/[place] [id number] IMPRESSION: No evidence of deep vein thrombosis. NAME: Siddhartha Christina LOC: [facility] U #: [id number] AGE/SX: 63/M ROOM: 278 R E09/05/[address]: Piter Gardner MD : 1960 BED: 2 D IS: FAX #: STATUS: ADM IN TLOC: Spec : [id number] Stella: 09/07/24-1030 Status: COMP Req : [id number] Recd: 09/07/24-[address]: María Carlson MD Ordered: BDY Fluid Neena, BF Alb, BF Creat, Trig Pleur, Pleur pH, PLF Total Prot, PLF LDH, PL Glucose, BF HCT Comments: Comment pleural fluid Comment COLLECT IN PURPLE,RED,BLUE,GREEN TOPS & CUP Test Low Normal High Flag Reference Site Color, BF YELLOW BF Appearance CLOUDY Body Fluid WBC 900 /uL BF RBC 6.000 10^3/uL BF Johnson % 64.800 % BF Poly % 35.200 % BF Johnson # 0.583 BF Poly # 0.317 BF Alb 2.7 g/dL NOTE NO REFERENCE RANGE BF Creat 0.88 0.7-1.2 Trig Pleur 40 mg/dL Pleur pH 7.50 6.5-7.5 PLF Total Prot 3.8 g/dL NOTE NO REFERENCE RANGE PLF LDH 452 U/L NOTE NO REFERENCE RANGE Pl Glucose 186.0 mg/dL NOTE NO REFERENCE RANGE BF HCT 0.1 % DISCLAIMER: No established ranges or validation studies for analytes on body fluids. A&P Assessment and plan (1) Bacteremia associated with intravascular line: 63-year-old male with lung cancer, currently on immunotherapy, presenting to the hospital with increasing generalized weakness and chills. Blood cultures positive for Staph epidermidis and staph lugdunensis. Although source was not clearly marked, it appears his blood culture was taken from patient's port. Patient and report that all labs were drawn from the port in the ER; confirmed from the lab that culture is marked as drawn by nurse instead of scientific illustrator, however without being clearly marked cannot say for certain if these are peripheral or port cultures. Though patient has a single positive blood culture for staph lugdunensis, it cannot be dismissed as a culture contaminant as patient has underlying risk factors by way of being immunocompromised and having a port in place. Would recommend removal of the port Subsequently blood cultures so far negative to date. Obtain TTE to evaluate for endocarditis Since patient is immunocompromised, patient will likely need a longer course of antibiotics after port removal to the tune of 4 to 6 weeks. Currently he is on treatment with IV piperacillin/tazobactam and IV vancomycin. Requested lab to perform susceptibilities for staph lugdunensis to be able to narrow down antibiotics accordingly. Thus far the culture has been marked as a contaminant, which would not be the case here. (2) Port or reservoir infection: recommend port removal (3) Pleural effusion, right: Exudative per Light's criteria Gram stain negative so far pending cytology will follow unlikely to be the source of bacteremia Coding Level of Care Code Acute Code for Chg Fwd High MDM includes number and complexity of problems actively addressed during encounter, amount and/or complexity of data reviewed/ordered and described risk of complication, morbidity or mortality of management as documented Diagnoses Bacteremia associated with intravascular line T82.7XXA; R78.81 Port or reservoir infection T80.212A Pleural effusion, right J90
[2024-09-08 17:13] LABS: Glucose Point of Care 175 mg/dL (70-110)
[2024-09-08] MEDS: metoprolol succinate ER (24 HR) 50 mg Tablet 75 MG PO (17:42)
[2024-09-08 20:11] LABS: Glucose Point of Care 274 mg/dL (70-110)
[2024-09-08] MEDS: insulin glargine 100 units/1 mL 20 UNIT SUBCUT (22:14)
[2024-09-09] VITALS (8 sets, daily range): BP systolic 100–151; BP diastolic 65–89; PULSE 75–105; RESP 17–18; TEMP 36.3–36.9; O2SAT 92–95
[2024-09-09 05:41] LABS: Basophils % 0.2 %; Eosinophils # 0.6 10^3/uL (0.0-0.8); Eosinophils % 6.5 %; Hematocrit 36.7 % (37-53); Lymphocytes % 12.3 %; Mean Corpuscular HGB Conc 33.2 g/dL (30-55); Mean Corpuscular Volume 90.2 fl (82-101); Mean Platelet Volume 9.7 fL (7.4-10.4); Monocytes # 0.9 10^3/uL (0.2-0.9); Monocytes % 10.8 %; Neutrophils # 5.89 10^3/uL (1.8-7.7); Neutrophils % 69.8 %; Nucleated Red Blood Cells % 0 %; Platelet Count 196 10^3/cmm (157-399); Red Blood Count 4.07 10^6/uL (3.85-5.65); Red Cell Distribution Width 13.2 % (12.1-15.1); White Blood Count 8.44 10^3/uL (3.29-11.43)
[2024-09-09 06:04] LABS: Vancomycin Trough 21.7 ug/mL (10-15)
[2024-09-09 06:05] LABS: Anion Gap 13.8 (5-19); Blood Urea Nitrogen 12 mg/dL (8-23); Calcium 8.1 mg/dL (8.5-10.5); Carbon Dioxide 25 mmol/L (22-29); Chloride 108 mmol/L (98-107); Creatinine Clr Calc Pharmacy 107.0708; Glucose 116 mg/dL (65-115); Osmolality Calculated 297 mOsm/kg (285-295); Potassium 3.8 mmol/L (3.5-5.1); Sodium 143 mmol/L (136-145)
[2024-09-09 06:17] LABS: Glucose Point of Care 129 mg/dL (70-110)
[2024-09-09] MEDS: heparin 5,000 unit/mL INJ 1 mL 5000 UNIT SUBCUT ×2 (06:33→18:21)
[2024-09-09] MEDS: piperacillin-tazobactam 3.375 GM in sodium chloride 0.9% (plus) 50 ML IV ×3 (06:39→23:24)
[2024-09-09] MEDS: duloxetine 60 mg Capsule PO (08:49)
[2024-09-09] MEDS: folic acid 1 mg Tablet PO (08:49)
[2024-09-09] MEDS: atorvastatin 40 mg Tablet PO (08:49)
[2024-09-09] MEDS: metoprolol succinate ER (24 HR) 50 mg Tablet 75 MG PO ×2 (08:50→18:13)
[2024-09-09] MEDS: OLANZapine 5 mg TABLET PO ×2 (08:51→18:14)
[2024-09-09] MEDS: aspirin 81 mg EC Tablet PO (08:51)
--- NOTE | 2024-09-09 10:45 | PC.SOCIAL ---
IMM Updated Updated pt on IMM. No questions voiced. Provided pt a copy. Initialed, dated, & timed copy in chart.
[2024-09-09 11:49] LABS: Glucose Point of Care 267 mg/dL (70-110)
--- NOTE | 2024-09-09 11:56 | P.PN_ITS ---
Subjective 2 Subjective: He reports still getting palpitations from atrial fibrillation. No additional new symptoms. Vitals/I&O/Wt Last Vital Signs Temp 98.3 F 09/09/24 08:00 Pulse 88 09/09/24 08:00 Resp 17 09/09/24 08:00 BP 136/86 09/09/24 08:00 Pulse Ox 92 09/09/24 08:00 O2 Del Method Room Air 09/08/24 16:00 O2 Flow Rate 2 09/07/24 10:30 09/08/24 09/09/24 09/09/24 22:59 06:59 14:59 Intake Total 540 / 1520 170 / 1690 Balance 540 / 1520 170 / 1690 Weight last 48 hrs Weight 89.176 kg Weight 89.675 kg Physical Exam 2 Narrative: Accompanied by his . Const: COMMON NORMALS: patient oriented x3 and alert GENERAL APPEARANCE: c ooperative ORIENTATION/CONSCIOUSNESS: Yes awake HENMT: COMMON NORMALS: oropharynx normal Neck/C-Spine: COMMON NORMALS: no JVD Resp: COMMON NORMALS: normal respiratory effort AUSCULTATION: breath sounds absent on the right (lower) Cardio: COMMON NORMALS: no JVD, regular rhythm, S1 normal heart sound present, S2 normal heart sound present and No murmurs present (Cardio) RHYTHM: regular rhythm HEART SOUNDS: S1 normal heart sound present and S2 normal heart sound present GI: COMMON NORMALS: Normal to inspection, nondistended, normoactive bowel sounds present, Soft to palpation and non-tender PALPATION: Yes Soft to palpation Extremity: COMMON NORMALS: no joint enlargement GENERAL: Yes edema (Trace) Neuro: COMMON NORMALS: patient oriented x3 and moves all extremities S ENSORIUM/ORIENTATION: Yes alert Skin: COMMON NORMALS: no rashes or lesions noted GENERAL SKIN EXAM: no rashes or lesions noted Data 09/09/24 05:24 09/09/24 05:24 Micro: Microbiology 09/07/24 10:30 Gram Stain - Final Pleural Fluid Body Fluid Culture - Preliminary 09/07/24 09:28 Gram Stain - Final Sputum - Expectorated Sputum Sputum Culture - Preliminary Yeast species 09/05/24 17:56 Blood Culture - Final Blood Staphylococcus epidermidis Staphylococcus lugdunensis 09/05/24 18:04 Blood Culture - Preliminary Blood NEGATIVE TO DATE A&P Assessment and plan (1) Bacteremia associated with intravascular line: Per discussion with him and his , with infectious disease, blood culture findings concerning for port infection. Repeat cultures are pending. Sensitivities have been requested. Port will need to come out. As per discussion with him and his , they are okay with going ahead to remove the port here rather than transferring to [place]. Discussed with the surgeon. He will assess the patient, determine whether this can be done upstairs or he needs to go to the OR, will if so likely may need to be done tomorrow. Placed n.p.o. after midnight. Continue [place] antibiotic coverage at current time with Zosyn, vancomycin, monitor for risk of kidney injury with this antibiotic combination. Appreciate infectious disease recommendations. TTE has been requested. Per discussion with him and his , anticipated additional 4 to 6 weeks of IV antibiotics after port removal. Discussed with family service caseworker. (2) Port or reservoir infection: (3) Pleural effusion, right: Reviewed fluid culture, so far nothing on Gram stain or culture. Follow-up. 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 Diabetes mellitus complication status: with other specified complication Qualified Code(s): E11.69 - Type 2 diabetes mellitus with other specified complication (7) Port-A-Cath in place: (8) Dehydration: (9) Acute UTI: (10) Weakness: (11) Pneumonia: (12) Staphylococcus aureus bacteremia: (13) Immunocompromised: (14) Non-small cell lung cancer: Plan #Generalized weakness, fatigue, fever, chills, malaise #Right-sided pleural effusion with possible infiltrate #Small cell lung cancer currently on immunotherapy #Diabetes mellitus insulin-dependent #Weakness and falls at home #History of gout, hypertension ? Sliding scale insulin moderate dose intensity. Continue Lantus 20 units at bedtime. ? Continue duloxetine, atorvastatin, aspirin. Resume aspirin. ? PT OT A-fib with paroxysmal RVR: Still reports having palpitations. Will supplement potassium. Recheck magnesium. Has been bothered by more episodes of tachycardia. Increased metoprolol dose to 75 mg twice daily. Monitor heart rates. Hypomagnesemia: Received replacement. Recheck level. Lung cancer: fentanyl patch for pain. Full code Due to prophylaxis: Heparin subcu twice daily Attestations 2 Medical Necessity Statement*: Continue admission for assessment and management of complicated staphylococcal bacteremia with Port-A-Cath infection. and High MDM includes amount and/or complexity of data reviewed/ordered [ resulted lab(s)/test(s), ordered lab(s)/test(s) and other healthcare professional discussion] and described risk of complication, morbidity or mortality of management as documented Diagnoses Bacteremia associated with intravascular line T82.7XXA; R78.81 Port or reservoir infection T80.212A Pleural effusion, right J90 Hypertension I10 Pleural effusion J90 Type 2 diabetes mellitus with other specified complication, without long-term current use of insulin E11.69 Diabetes mellitus type: type 2 Diabetes mellitus fpc insulin use: without fpc use Diabetes mellitus complication status: with other specified complication Port-A-Cath in place Z95.828 Dehydration E86.0 Acute UTI N39.0 Weakness R53.1 Pneumonia J18.9 Staphylococcus aureus bacteremia R78.81; B95.61 Immunocompromised D84.9 Non-small cell lung cancer C34.90
[2024-09-09] MEDS: insulin lispro 100 unit/1 mL SUBCUT ×3 (12:42→21:17)
[2024-09-09] MEDS: potassium chloride ER 20 mEq Tablet PO (12:42)
[2024-09-09] MEDS: vancomycin 1,000 MG in sodium chloride 0.9% 250 ML 250 MG IV ×2 (12:44→22:08)
[2024-09-09 12:52] LABS: Magnesium 1.6 mg/dL (1.7-2.3)
--- NOTE | 2024-09-09 14:17 | P.CONIM_ITS ---
Providers/Reason For Consult 2 Consulting Physician/Specialty*: Dr. Bradford general surgery Reason for Consult*: Port removal Attending Physician: Piter Gardner Primary Care Provider: Cole Helms DO History of Present Illness History of Present Illness Siddhartha Christina is a 63 year old male whom general surgery was consulted for port removal. Patient has a history of lung cancer. He was admitted and found to be bacteremic. Currently stable. Medications/Allergies Home Medications Medication Instructions Recorded Confirmed Last Taken Type olmesartan 20 mg tablet 10 mg PO DAILY 09/11/22 09/05/24 09/05/24 08:00 History ondansetron 4 mg disintegrating 4 mg PO Q6H PRN nausea and 02/09/24 09/05/24 Unknown Rx tablet vomiting #14 tabs metformin 1,000 mg tablet 1,000 mg PO BID #180 tabs 03/18/24 09/05/24 09/05/24 08:00 Rx colchicine 0.6 mg tablet 0.6 mg PO BID PRN gout 04/23/24 09/05/24 Unknown History duloxetine 60 mg capsule,delayed 60 mg PO DAILY 04/23/24 09/05/24 09/05/24 08:00 History release fentanyl 50 mcg/hr transdermal 3 patch topical .Q72H 04/23/24 09/05/24 09/03/24 10:00 History patch folic acid 1 mg tablet 1 mg PO DAILY 04/23/24 09/05/24 09/05/24 08:00 History insulin glargine 100 unit/mL (3 105 unit SUBCUT BEDTIME 04/23/24 09/05/24 09/04/24 20:00 History mL) subcutaneous pen (Lantus Solostar U-100 Insulin) meloxicam 7.5 mg tablet 7.5 mg PO DAILY 04/23/24 09/05/24 09/05/24 08:00 History metoprolol succinate 50 mg 50 mg PO BID 04/23/24 09/05/24 09/05/24 08:00 History tablet,extended release 24 hr oxycodone 10 mg tablet 15 mg PO Q4H PRN Pain 04/23/24 09/05/24 Unknown History prochlorperazine maleate 10 mg 10 mg PO QID PRN Nausea And 04/23/24 09/05/24 Unknown History tablet Vomiting lactulose 20 gram/30 mL oral 20 g (30 mL) PO DAILY PRN 04/24/24 09/05/24 Unknown Rx solution constipation #1,200 mL aspirin 81 mg tablet 81 mg PO DAILY 09/05/24 09/05/24 09/05/24 08:00 History atorvastatin 40 mg tablet 40 mg PO BEDTIME 09/05/24 09/05/24 09/04/24 20:00 History Allergies Allergy/AdvReac Type Severity Reaction Status Date / Time morphine Allergy ADR-Irritab Verified 09/05/24 15:49 le Current Medications Generic Name Dose Route Start Last Admin Trade Name Freq PRN Reason Stop Dose Admin Acetaminophen 650 mg 09/05/24 17:52 09/08/24 09:00 Acetaminophen 325 Mg Tablet PO 650 mg Q6H PRN Administration Mild/Mod Pain Or Temp >/= 101 Aspirin 81 mg 09/09/24 09:00 09/09/24 08:51 Aspirin 81 Mg Ec Tablet PO 81 mg DAILY JIMMY Administration Atorvastatin Calcium 40 mg 09/06/24 09:00 09/09/24 08:49 Atorvastatin 40 Mg Tablet PO 40 mg DAILY JIMMY Administration Duloxetine HCl 60 mg 09/06/24 09:00 09/09/24 08:49 Duloxetine 60 Mg Capsule PO 60 mg DAILY JIMMY Administration Fentanyl 1 patch 09/06/24 17:45 09/06/24 18:34 Fentanyl 100 Mcg Patch TRANSDERMA 1 patch Q72H JIMMY Administration Fentanyl 1 patch 09/06/24 17:45 09/06/24 18:32 Fentanyl 50 Mcg Patch TRANSDERMA 1 patch Q72H JIMMY Administration Folic Acid 1 mg 09/06/24 09:00 09/09/24 08:49 Folic Acid 1 Mg Tablet PO 1 mg DAILY JIMMY Administration Heparin Sodium (Porcine) 5,000 unit 09/05/24 18:00 09/09/24 06:33 Heparin 5,000 Unit/Ml Inj 1 Ml SUBCUT 5,000 unit Q12H JIMMY Administration Piperacillin Sod/Tazobactam 50 mls @ 12.5 mls/hr 09/05/24 22:00 09/09/24 06:39 Sod 3.375 gm/ Sodium Chloride IV 12.5 mls/hr Q8H JIMMY Administration Vancomycin HCl 1,000 mg/ 250 mls @ 250 mls/hr 09/09/24 10:00 09/09/24 12:44 Sodium Chloride IV 250 mls/hr Q12H JIMMY Administration Insulin Glargine 20 unit 09/08/24 21:00 09/08/24 22:14 Insulin Glargine 100 Units/1 Ml SUBCUT 20 unit BEDTIME JIMMY Administration Insulin Human Lispro 0 unit 09/05/24 18:00 09/09/24 12:42 Insulin Lispro 100 Unit/1 Ml SUBCUT 10 unit WM&BEDTIME JIMMY Administration Protocol Metoprolol Succinate 75 mg 09/08/24 18:00 09/09/24 08:50 Metoprolol Succinate Er (24 Hr) 50 Mg Tablet PO 75 mg BID JIMMY Administration Olanzapine 5 mg 09/06/24 09:00 09/09/24 08:51 Olanzapine 5 Mg Tablet PO 5 mg BID JIMMY Administration PFSH Acute 2 PFSH: Medical History Non-small cell lung cancer Diabetes Hypotension due to hypovolemia Anorexia Dehydration Leukopenia Weakness Near syncope Port-A-Cath in place Right-sided back pain Cholecystitis Abdominal pain Rib pain on right side Gout Hyperlipidemia Hypertension Surgical History History of cholecystectomy Family History Father Stomach cancer Grandfather Stomach cancer Social History Smoking and tobacco/nicotine status: former use of tobacco/nicotine Alcohol intake: never Substance/Drug Use: never 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 Vitals/I&O/Wt Last Vital Signs Temp 97.8 F 09/09/24 12:00 Pulse 105 H 09/09/24 12:00 Resp 17 09/09/24 12:00 BP 151/89 09/09/24 12:00 Pulse Ox 94 09/09/24 12:00 O2 Del Method Room Air 09/09/24 12:00 O2 Flow Rate 2 09/07/24 10:30 09/08/24 09/09/24 09/09/24 22:59 06:59 14:59 Intake Total 540 / 1520 170 / 1690 240 / 240 Balance 540 / 1520 170 / 1690 240 / 240 Weight last 48 hrs Weight 196 lb 9.6 oz Weight 197 lb 11.2 oz Physical Exam 2 Narrative: Chest: Unlabored breathing room air. No lymphadenopathy. Port in place. No skin changes. Heart: Regular rate and rhythm. Abdomen: Soft, nontender, nondistended. No masses or lymphadenopathy. Data 09/09/24 05:24 09/09/24 05:24 Micro: Microbiology 09/07/24 10:30 Gram Stain - Final Pleural Fluid Body Fluid Culture - Preliminary 09/07/24 09:28 Gram Stain - Final Sputum - Expectorated Sputum Sputum Culture - Preliminary Yeast species 09/05/24 17:56 Blood Culture - Final Blood Staphylococcus epidermidis Staphylococcus lugdunensis 09/05/24 18:04 Blood Culture - Preliminary Blood NEGATIVE TO DATE A&P Assessment and plan (1) Port or reservoir infection: Plan 63-year-old male whom general surgery was consulted for port removal. Patient ate lunch this afternoon. Will plan for port removal tomorrow. N.p.o. after midnight. Discussed risk and benefits and patient agrees to proceed. Coding Level of Care Code 43475 Diagnoses Port or reservoir infection T80.212A Time Spent (min) 30
[2024-09-09 17:27] LABS: Glucose Point of Care 183 mg/dL (70-110)
[2024-09-09] MEDS: fentaNYL 50 mcg Patch 1 PATCH TRANSDERMA (18:15)
[2024-09-09] MEDS: fentaNYL 100 mcg Patch 1 PATCH TRANSDERMA (18:16)
[2024-09-09 20:49] LABS: Glucose Point of Care 336 mg/dL (70-110)
[2024-09-09] MEDS: insulin glargine 100 units/1 mL 20 UNIT SUBCUT (21:18)
[2024-09-10] VITALS (14 sets, daily range): BP systolic 125–179; BP diastolic 61–108; PULSE 70–104; RESP 16–20; TEMP 36.3–36.9; O2SAT 92–100
[2024-09-10 06:08] LABS: Basophils % 0.5 %; Eosinophils # 0.6 10^3/uL (0.0-0.8); Hematocrit 40.9 % (37-53); Lymphocytes # 1.1 10^3/uL (0.8-4.8); Lymphocytes % 12.9 %; Mean Corpuscular Hemoglobin 30.5 pg (27-33); Mean Corpuscular Volume 95.1 fl (82-101); Mean Platelet Volume 9.9 fL (7.4-10.4); Monocytes # 0.9 10^3/uL (0.2-0.9); Monocytes % 10.6 %; Neutrophils # 5.91 10^3/uL (1.8-7.7); Neutrophils % 68.8 %; Nucleated Red Blood Cells % 0 %; Platelet Count 212 10^3/cmm (157-399); Red Cell Distribution Width 13.3 % (12.1-15.1); White Blood Count 8.59 10^3/uL (3.29-11.43)
[2024-09-10 06:14] LABS: Glucose Point of Care 131 mg/dL (70-110)
[2024-09-10] MEDS: heparin 5,000 unit/mL INJ 1 mL 5000 UNIT SUBCUT ×2 (06:25→17:43)
[2024-09-10 06:30] LABS: Blood Urea Nitrogen 12 mg/dL (8-23); Calcium 8.4 mg/dL (8.5-10.5); Carbon Dioxide 23 mmol/L (22-29); Chloride 109 mmol/L (98-107); Creatinine Clr Calc Pharmacy 106.7167; Glucose 142 mg/dL (65-115); Osmolality Calculated 296 mOsm/kg (285-295); Sodium 142 mmol/L (136-145)
[2024-09-10 06:37] LABS: Anion Gap 14.1 (5-19); Potassium 4.1 mmol/L (3.5-5.1)
[2024-09-10] MEDS: piperacillin-tazobactam 3.375 GM in sodium chloride 0.9% (plus) 50 ML IV ×2 (07:04→14:39)
[2024-09-10] MEDS: vancomycin 1,000 MG in sodium chloride 0.9% 250 ML 250 MG IV (10:56)
[2024-09-10] MEDS: sodium chloride 0.9% 1,000 ML 30 ML IV (10:58)
[2024-09-10 11:08] LABS: Glucose Point of Care 203 mg/dL (70-110)
--- NOTE | 2024-09-10 11:15 | ANES.PREANE2 ---
Pre-Anesthetic Assessment Height/Weight: Height 1.83 m Weight 88.496 kg Temp Pulse Resp BP Pulse Ox O2 Del Method O2 Flow Rate 97.9 F 99 18 179/108 94 Room Air 2 09/10/24 10:30 09/10/24 10:30 09/10/24 10:30 09/10/24 10:30 09/10/24 10:30 09/10/24 10:30 09/07/24 10:30 Operation Date: 09/10/24 11:30 Proposed Procedures p Portacath Removal(Not Applicable) - Dano Bradford MD Familial anesthetic complications: None Was Beta Ciro taken within 24 hours: N/A Was Clonidine taken within 24 hours: N/A Last intake: Intake Last Liquid Date 09/09/24 Last Liquid Time 16:00 Last Solid Date 09/09/24 Last Solid Time 12:00 Social No alcohol and No tobacco Exam alert, oriented x 3, clear to auscultation bilaterally and regular rate & rhythm Airway Mallampati: Class III CV/HEM Atrial Fibrillation and Hypertension Metabolic Diabetes Mellitus and Hyperlipidemia Anesthetic Plan ASA status: 4 Anesthesia: MAC Risk of > 500 ml blood loss (7ml/kg in children): No Medications/Allergies Home Medications Medication Instructions Recorded Confirmed Last Taken Type olmesartan 20 mg tablet 10 mg PO DAILY 09/11/22 09/05/24 09/05/24 08:00 History ondansetron 4 mg disintegrating 4 mg PO Q6H PRN nausea and 02/09/24 09/05/24 Unknown Rx tablet vomiting #14 tabs metformin 1,000 mg tablet 1,000 mg PO BID #180 tabs 03/18/24 09/05/24 09/05/24 08:00 Rx colchicine 0.6 mg tablet 0.6 mg PO BID PRN gout 04/23/24 09/05/24 Unknown History duloxetine 60 mg capsule,delayed 60 mg PO DAILY 04/23/24 09/05/24 09/05/24 08:00 History release fentanyl 50 mcg/hr transdermal 3 patch topical .Q72H 04/23/24 09/05/24 09/03/24 10:00 History patch folic acid 1 mg tablet 1 mg PO DAILY 04/23/24 09/05/24 09/05/24 08:00 History insulin glargine 100 unit/mL (3 105 unit SUBCUT BEDTIME 04/23/24 09/05/24 09/04/24 20:00 History mL) subcutaneous pen (Lantus Solostar U-100 Insulin) meloxicam 7.5 mg tablet 7.5 mg PO DAILY 04/23/24 09/05/24 09/05/24 08:00 History metoprolol succinate 50 mg 50 mg PO BID 04/23/24 09/05/24 09/05/24 08:00 History tablet,extended release 24 hr oxycodone 10 mg tablet 15 mg PO Q4H PRN Pain 04/23/24 09/05/24 Unknown History prochlorperazine maleate 10 mg 10 mg PO QID PRN Nausea And 04/23/24 09/05/24 Unknown History tablet Vomiting lactulose 20 gram/30 mL oral 20 g (30 mL) PO DAILY PRN 04/24/24 09/05/24 Unknown Rx solution constipation #1,200 mL aspirin 81 mg tablet 81 mg PO DAILY 09/05/24 09/05/24 09/05/24 08:00 History atorvastatin 40 mg tablet 40 mg PO BEDTIME 09/05/24 09/05/24 09/04/24 20:00 History Allergies Allergy/AdvReac Type Severity Reaction Status Date / Time morphine Allergy ADR-Irritab Verified 09/05/24 15:49 le Current Medications Generic Name Dose Route Start Last Admin Trade Name Freq PRN Reason Stop Dose Admin Acetaminophen 650 mg 09/05/24 17:52 09/08/24 09:00 Acetaminophen 325 Mg Tablet PO 650 mg Q6H PRN Administration Mild/Mod Pain Or Temp >/= 101 Aspirin 81 mg 09/09/24 09:00 09/10/24 07:59 Aspirin 81 Mg Ec Tablet PO Not Given DAILY JIMMY Atorvastatin Calcium 40 mg 09/06/24 09:00 09/09/24 08:49 Atorvastatin 40 Mg Tablet PO 40 mg DAILY JIMMY Administration Duloxetine HCl 60 mg 09/06/24 09:00 09/09/24 08:49 Duloxetine 60 Mg Capsule PO 60 mg DAILY JIMMY Administration Fentanyl 1 patch 09/06/24 17:45 09/09/24 18:16 Fentanyl 100 Mcg Patch TRANSDERMA 1 patch Q72H JIMMY Administration Fentanyl 1 patch 09/06/24 17:45 09/09/24 18:15 Fentanyl 50 Mcg Patch TRANSDERMA 1 patch Q72H JIMMY Administration Folic Acid 1 mg 09/06/24 09:00 09/09/24 08:49 Folic Acid 1 Mg Tablet PO 1 mg DAILY JIMMY Administration Heparin Sodium (Porcine) 5,000 unit 09/05/24 18:00 09/10/24 06:25 Heparin 5,000 Unit/Ml Inj 1 Ml SUBCUT 5,000 unit Q12H JIMMY Administration Piperacillin Sod/Tazobactam 50 mls @ 12.5 mls/hr 09/05/24 22:00 09/10/24 07:29 Sod 3.375 gm/ Sodium Chloride IV 0 mls/hr Q8H JIMMY Infusion Vancomycin HCl 1,000 mg/ 250 mls @ 250 mls/hr 09/09/24 10:00 09/10/24 10:56 Sodium Chloride IV 250 mls/hr Q12H JIMMY Administration Sodium Chloride 1,000 mls @ 30 mls/hr 09/10/24 10:45 09/10/24 10:58 Sodium Chloride 0.9% IV 09/11/24 10:44 30 mls/hr .Q24H JIMMY Administration Insulin Glargine 20 unit 09/08/24 21:00 09/09/24 21:18 Insulin Glargine 100 Units/1 Ml SUBCUT 20 unit BEDTIME JIMMY Administration Insulin Human Lispro 0 unit 09/05/24 18:00 09/10/24 07:31 Insulin Lispro 100 Unit/1 Ml SUBCUT Not Given WM&BEDTIME JIMMY Protocol Metoprolol Succinate 75 mg 09/08/24 18:00 09/09/24 18:13 Metoprolol Succinate Er (24 Hr) 50 Mg Tablet PO 75 mg BID JIMMY Administration Olanzapine 5 mg 09/06/24 09:00 09/09/24 18:14 Olanzapine 5 Mg Tablet PO 5 mg BID JIMMY Administration PFSH Anesthesia Medical History Non-small cell lung cancer Diabetes Hypotension due to hypovolemia Anorexia Dehydration Leukopenia Weakness Near syncope Port-A-Cath in place Right-sided back pain Cholecystitis Abdominal pain Rib pain on right side Gout Hyperlipidemia Hypertension Surgical History History of cholecystectomy Family History Father Stomach cancer Grandfather Stomach cancer Social History Smoking and tobacco/nicotine status: former use of tobacco/nicotine Alcohol intake: never Substance/Drug Use: never 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 Data Anesthesia 09/10/24 05:41 09/10/24 05:41 Short CBC 09/09/24 09/10/24 Range/Units 05:24 05:41 WBC 8.44 8.59 (3.29-11.43) 10^3/uL Hgb 12.20 13.10 (11.27-16.99) g/dL Hct 36.7 L 40.9 (37-53) % MCV 90.2 95.1 (82-101) fl Plt Count 196 212 (157-399) 10^3/cmm Neut % (Auto) 69.8 68.8 % Neut # (Auto) 5.89 5.91 (1.8-7.7) 10^3/uL BMP 09/09/24 09/10/24 05:24 05:41 Sodium 143 142 Potassium 3.8 4.1 Chloride 108 H 109 H Carbon Dioxide 25 23 BUN 12 12 Creatinine 0.8 0.8 Glucose 116 H 142 H Calcium 8.1 L 8.4 L Microbiology 09/07/24 10:30 Gram Stain - Final Pleural Fluid Body Fluid Culture - Final 09/05/24 17:56 Blood Culture - Preliminary Blood Staphylococcus epidermidis Staphylococcus lugdunensis 09/07/24 09:28 Gram Stain - Final Sputum - Expectorated Sputum Sputum Culture - Preliminary Yeast species Cardiac Studies: Echocardiogram 09/08/24 Holter Monitor 03/01/21
--- NOTE | 2024-09-10 11:24 | SUR.PHASEI ---
Called RN on [place] regarding Zosyn from this morning. RN stated IV went bad and patient may have gotten half a dose.
--- NOTE | 2024-09-10 11:34 | W.PM.OPSUD ---
Surgery/Procedure H&P Update DATE OF PROCEDURE: September 10, 2024 DATE H&P PERFORMED: 09/09/24 H&P UPDATE INFORMATION: I have reviewed H&P completed within last 30 days, I have examined patient prior to procedure and No changes to prior documentation PREOP DIAGNOSIS: infected port PLANNED PROCEDURE: Operation Date: 09/10/24 11:30 Proposed Procedures p Portacath Removal(Not Applicable) - Dano Bradford MD
[2024-09-10] MEDS: lidocaine-epi 1% 20 mL INJ INJECTION (12:05)
--- NOTE | 2024-09-10 12:09 | W.PM.BPONFUL ---
Date of Procedure: 09/10/2024 Surgeon: Dr. Bradford Probe Operator(s): None Procedure(s) performed: Right IJ Port-A-Cath removal Findings of the procedure(s): Port-A-Cath removed in its entirety including cuff and catheter. Estimated blood loss: Less than 5 cc Specimen(s) removed: Port-A-Cath including cuff and catheter Post-operative diagnosis: Port-A-Cath infection Pathology: Sent Port-A-Cath with cough and catheter for cultures Implant(s): None Anesthesia: MAC Complications: None Brief history/preop diagnosis: 63-year-old male who presented with bacteremia secondary to Port-A-Cath infection. Discussed risks and benefits and patient agreed to proceed with Port-A-Cath removal. Full operative report: Patient was brought to the operating room. MAC was used. Right arm was tucked. The right chest and neck was prepped and draped in the usual sterile fashion. An incision was carried out over the side of the port on the right chest. A combination of blunt and dissection using electrocautery was used in order to dissect the port including the cuff and the catheter. The catheter was pulled and removed in its entirety. Pressure was applied to the right IJ for 5 minutes. Adequate hemostasis was confirmed in the right chest pocket. Wound was closed using 4-0 Monocryl and surgical glue. Patient will cover anesthesia without any complications. Condition: Stable Dispostion: Floor
--- NOTE | 2024-09-10 12:20 | ANE.PACU2 ---
Inpatient post-anesthesia follow up: Airway intact: Yes Vital signs: Temperature 98.4 F Pulse Rate [Orthos tatic 92 Standing] Pulse Rate [Orthos tatic 86 Sitting] Pulse Rate [Orthos tatic Lying] 65 Pulse Rate 87 Respiratory Rate 16 Blood Pressure [Or thostatic 147/68 Standing] Blood Pressure [Or thostatic 142/83 Sitting] Blood Pressure [Or thostatic 135/83 Lying] Blood Pressure 183/94 Pulse Oximetry 96 Oxygen Delivery Me thod Room Air Oxygen Flow Rate 6 Fraction of Inspir ed Oxygen Hydration adequate: Yes Nausea and vomiting: No Pain level: 1 Mental status: Baseline
[2024-09-10] MEDS: folic acid 1 mg Tablet PO (14:39)
[2024-09-10] MEDS: atorvastatin 40 mg Tablet PO (14:39)
[2024-09-10] MEDS: duloxetine 60 mg Capsule PO (14:39)
[2024-09-10] MEDS: acetaminophen 325 mg Tablet 650 MG PO (14:40)
--- NOTE | 2024-09-10 15:18 | PM.PN ---
Subjective Subjective: Going for port removal today. Still bothered by palpitations from atrial fibrillation. Vitals/I&O/Wt Last Vital Signs Temp 97.7 F 09/10/24 13:40 Pulse 87 09/10/24 13:40 Resp 18 09/10/24 13:40 BP 166/92 09/10/24 13:40 Pulse Ox 96 09/10/24 13:40 O2 Del Method Room Air 09/10/24 13:40 O2 Flow Rate 6 09/10/24 12:17 09/10/24 09/10/24 09/10/24 06:59 14:59 22:59 Intake Total 300 / 1130 324.208 / 324.208 Output Total 5 / 5 Balance 300 / 1130 319.208 / 319.208 Weight last 48 hrs Weight 88.496 kg Weight 89.176 kg Physical Exam Narrative: Accompanied by his Const: COMMON NORMALS: patient oriented x3 and alert GENERAL APPEARANCE: cooperative ORIENTATION/CONSCIOUSNESS: Yes awake HENMT: COMMON NORMALS: oropharynx normal Neck/C-Spine: COMMON NORMALS: no JVD Resp: COMMON NORMALS: normal respiratory effort AUSCULTATION: breath sounds absent on the right (lower) Cardio: COMMON NORMALS: no JVD, regular rhythm, S1 normal heart sound present, S2 normal heart sound present and No murmurs present (Cardio) RHYTHM: regular rhythm HEART SOUNDS: S1 normal heart sound present and S2 normal heart sound present GI: COMMON NORMALS: Normal to inspection, nondistended, normoactive bowel sounds present, Soft to palpation and non-tender PALPATION: Yes Soft to palpation Extremity: COMMON NORMALS: no joint enlargement GENERAL: Yes edema (Trace) Neuro: COMMON NORMALS: patient oriented x3 and moves all extremities SENSORIUM/ORIENTATION: Yes alert Data 09/10/24 05:41 09/10/24 05:41 Micro: Microbiology 09/07/24 09:28 Gram Stain - Final Sputum - Expectorated Sputum Sputum Culture - Final Joyce tropicalis 09/07/24 10:30 Gram Stain - Final Pleural Fluid Body Fluid Culture - Final 09/05/24 17:56 Blood Culture - Preliminary Blood Staphylococcus epidermidis Staphylococcus lugdunensis A&P Assessment and plan (1) Bacteremia associated with intravascular line: Portacatheter removed today. Reviewed surgery note. Discussed with infectious disease specialist, PICC line requested. Sensitivities for prior organisms has been requested, pending. In case unable to obtain would proceed with treatment with vancomycin. Continue empiric antibiotic coverage at current time with Zosyn, vancomycin, monitor for risk of kidney injury with this antibiotic combination. Appreciate infectious disease recommendations. TTE reviewed. No large vegetation. Plans for additional 6 weeks of antibiotics after port removal. Discussed with case management. (2) Port or reservoir infection: (3) Pleural effusion, right: Reviewed fluid culture, so far nothing on Gram stain or culture. Follow-up. 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 operator use Diabetes mellitus complication status: with other specified complication Qualified Code(s): E11.69 - Type 2 diabetes mellitus with other specified complication (7) Port-A-Cath in place: (8) Dehydration: (9) Acute UTI: (10) Weakness: (11) Pneumonia: (12) Staphylococcus aureus bacteremia: (13) Immunocompromised: (14) Non-small cell lung cancer: Plan #Generalized weakness, fatigue, fever, chills, malaise #Right-sided pleural effusion with possible infiltrate #Small cell lung cancer currently on immunotherapy #Diabetes mellitus insulin-dependent #Weakness and falls at home #History of gout, hypertension ? Sliding scale insulin moderate dose intensity. Continue Lantus 20 units at bedtime. ? Continue duloxetine, atorvastatin, aspirin. Resume aspirin. ? PT OT A-fib with paroxysmal RVR: Reports still having intermittent palpitations which have been bothersome to him. We do not really have room to further go up on metoprolol, reviewed monitor, he does have intermittent tachycardia going up into the 140s, but other times has bradycardia into 40s and sometimes as low as 37. Would not further increase metoprolol or give additional cherry blockers. Continue metoprolol for now. Monitor for risk of severe bradycardia. Reviewed potassium, okay today. Reviewed magnesium, mag still low. Will give additional 4 g of magnesium. Continue to monitor rhythm. He is not on anticoagulation, he is on small dose aspirin, reports as per prescription by his social staff worker. Hypomagnesemia: Received replacement. Recheck level. Lung cancer: fentanyl patch for pain. Full code Due to prophylaxis: Heparin subcu twice daily Attestations Medical Necessity Statement*: Continue admission for assessment and management of complicated staphylococcal bacteremia with Port-A-Cath infection, symptomatic atrial fibrillation with tachycardia and bradycardia. and High MDM includes amount and/or complexity of data reviewed/ordered [ previous or external records, resulted lab(s)/test(s), ordered lab(s)/test(s) and other healthcare professional discussion] and described risk of complication, morbidity or mortality of management as documented Diagnoses Bacteremia associated with intravascular line T82.7XXA; R78.81 Port or reservoir infection T80.212A Pleural effusion, right J90 Hypertension I10 Pleural effusion J90 Type 2 diabetes mellitus with other specified complication, without long-term current use of insulin E11.69 Diabetes mellitus type: type 2 Diabetes mellitus 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
[2024-09-10 16:42] LABS: Glucose Point of Care 176 mg/dL (70-110)
[2024-09-10] MEDS: insulin lispro 100 unit/1 mL SUBCUT ×2 (17:44→20:50)
[2024-09-10] MEDS: OLANZapine 5 mg TABLET PO (17:45)
[2024-09-10] MEDS: metoprolol succinate ER (24 HR) 50 mg Tablet 75 MG PO (17:45)
[2024-09-10 20:31] LABS: Glucose Point of Care 258 mg/dL (70-110)
[2024-09-10] MEDS: magnesium sulfate premix 4 GM/100 ML PREMIX IV (20:50)
[2024-09-10] MEDS: insulin glargine 100 units/1 mL 20 UNIT SUBCUT (20:50)
[2024-09-10 21:51] LABS: Vancomycin Trough 22.2 ug/mL (10-15)
[2024-09-10] MEDS: vancomycin 750 MG in sodium chloride 0.9% 250 ML 250 MG IV (23:30)
[2024-09-11] VITALS: BP 138/69; PULSE 71; RESP 16; TEMP 36.3; O2SAT 93
[2024-09-11] MEDS: piperacillin-tazobactam 3.375 GM in sodium chloride 0.9% (plus) 50 ML IV ×2 (00:42→09:24)
[2024-09-11 04:00] VITALS: BP 152/51; PULSE 63; RESP 17; TEMP 36.6; O2SAT 93
[2024-09-11 06:00] VITALS: PULSE 65
[2024-09-11 06:29] LABS: Glucose Point of Care 182 mg/dL (70-110)
[2024-09-11] MEDS: heparin 5,000 unit/mL INJ 1 mL 5000 UNIT SUBCUT (06:30)
[2024-09-11 06:51] LABS: Basophils % 0.5 %; Eosinophils # 0.5 10^3/uL (0.0-0.8); Eosinophils % 6.5 %; Lymphocytes % 13.1 %; Mean Corpuscular HGB Conc 32.3 g/dL (30-55); Mean Corpuscular Hemoglobin 29.6 pg (27-33); Mean Corpuscular Volume 91.5 fl (82-101); Monocytes # 0.8 10^3/uL (0.2-0.9); Monocytes % 10.9 %; Neutrophils # 5.29 10^3/uL (1.8-7.7); Neutrophils % 68.7 %; Nucleated Red Blood Cells % 0 %; Platelet Count 212 10^3/cmm (157-399); Red Blood Count 4.26 10^6/uL (3.85-5.65); Red Cell Distribution Width 13.3 % (12.1-15.1)
[2024-09-11 07:11] LABS: Anion Gap 13.1 (5-19); Blood Urea Nitrogen 15 mg/dL (8-23); Calcium 8.4 mg/dL (8.5-10.5); Carbon Dioxide 26 mmol/L (22-29); Chloride 108 mmol/L (98-107); Creatinine Clr Calc Pharmacy 95.7412; Glomerular Filtration Rate 84.7 mL/min (90-130); Glucose 192 mg/dL (65-115); Magnesium 2.2 mg/dL (1.7-2.3); Osmolality Calculated 302 mOsm/kg (285-295); Potassium 4.1 mmol/L (3.5-5.1); Sodium 143 mmol/L (136-145)
--- NOTE | 2024-09-11 07:21 | XR_ITS ---
WS: [id number] PORTABLE CHEST HISTORY: Post PICC insertion COMPARISON: 09/07/2024 Interval placement of a right-sided PICC line. PICC line tip extends barely to the RIGHT atrium. Gui mmend 2 cm retraction for more optimal positioning. Partial atelectasis of the RIGHT lung due to the moderate size pleural effusion surrounding the lung and extending into the fissure. Pleural effusion is increased since 09/07/2024. No dense consolidatio n in the LEFT lung. There is mild slightly hazy attenuation suggest there may be a small amount of fl uid overload. This also may be exacerbated by positioning of the patient. Cardiac size: Normal. Mediastinum/Aorta: Mild widening due to the adjacent pleural fluid in supine position. No osseous abnormality seen. XR/XR chest 1V portable [id number] IMPRESSION: 1. RIGHT PICC line has been inserted. Recommend 2 cm retraction for more optim al positioning. 2. Moderate RIGHT pleural effusion is increased in size since 09/07/2024. Comp ressive atelectasis in the RIGHT lung.
[2024-09-11 08:00] VITALS: BP 183/94; PULSE 87; RESP 16; TEMP 36.9; O2SAT 96
--- NOTE | 2024-09-11 08:45 | PICC.NOTE ---
Single lumen PICC placed to right basilic vein. Referred to vascular access nurse for PICC placement due to need for IV antbiotics x 6 weeks. Risks and benefits discussed and informed consent obtained from pt. Right arm assessed with right basilic vein measuring 4.1 mm, straight, and apparent best choice for placement. Using sterile technique and MST, right basilic vein accessed x 1 stick. Mid-arm circumference measured 10 cm from right AC 30 cm. Trimmed cath 45 cm with 2 cm external length noted. Radiologist recommended retracting PICC 2 cm for optimal placement. PICC retracted 2 cm. Line secured with stat-lock. Insertion site covered with Biopatch and TSM. Report given to bedside nurse, GELACIO Harper.
[2024-09-11] MEDS: folic acid 1 mg Tablet PO (09:24)
[2024-09-11] MEDS: aspirin 81 mg EC Tablet PO (09:24)
[2024-09-11] MEDS: insulin lispro 100 unit/1 mL SUBCUT ×2 (09:24→12:02)
[2024-09-11] MEDS: metoprolol succinate ER (24 HR) 50 mg Tablet 75 MG PO (09:24)
[2024-09-11] MEDS: duloxetine 60 mg Capsule PO (09:24)
[2024-09-11] MEDS: atorvastatin 40 mg Tablet PO (09:24)
[2024-09-11] MEDS: OLANZapine 5 mg TABLET PO (09:25)
--- NOTE | 2024-09-11 10:48 | P.CONIM_ITS ---
Providers/Reason For Consult 2 Attending Physician: Piter Gardner Primary Care Provider: Cole Helms DO History of Present Illness History of Present Illness Siddhartha Christina is a 63 year old male Medications/Allergies Home Medications Medication Instructions Recorded Confirmed Last Taken Type olmesartan 20 mg tablet 10 mg PO DAILY 09/11/22 09/05/24 09/05/24 08:00 History ondansetron 4 mg disintegrating 4 mg PO Q6H PRN nausea and 02/09/24 09/05/24 Unknown Rx tablet vomiting #14 tabs metformin 1,000 mg tablet 1,000 mg PO BID #180 tabs 03/18/24 09/05/24 09/05/24 08:00 Rx colchicine 0.6 mg tablet 0.6 mg PO BID PRN gout 04/23/24 09/05/24 Unknown History duloxetine 60 mg capsule,delayed 60 mg PO DAILY 04/23/24 09/05/24 09/05/24 08:00 History release fentanyl 50 mcg/hr transdermal 3 patch topical .Q72H 04/23/24 09/05/24 09/03/24 10:00 History patch folic acid 1 mg tablet 1 mg PO DAILY 04/23/24 09/05/24 09/05/24 08:00 History insulin glargine 100 unit/mL (3 105 unit SUBCUT BEDTIME 04/23/24 09/05/24 09/04/24 20:00 History mL) subcutaneous pen (Lantus Solostar U-100 Insulin) meloxicam 7.5 mg tablet 7.5 mg PO DAILY 04/23/24 09/05/24 09/05/24 08:00 History metoprolol succinate 50 mg 50 mg PO BID 04/23/24 09/05/24 09/05/24 08:00 History tablet,extended release 24 hr oxycodone 10 mg tablet 15 mg PO Q4H PRN Pain 04/23/24 09/05/24 Unknown History prochlorperazine maleate 10 mg 10 mg PO QID PRN Nausea And 04/23/24 09/05/24 Unknown History tablet Vomiting lactulose 20 gram/30 mL oral 20 g (30 mL) PO DAILY PRN 04/24/24 09/05/24 Unknown Rx solution constipation #1,200 mL aspirin 81 mg tablet 81 mg PO DAILY 09/05/24 09/05/24 09/05/24 08:00 History atorvastatin 40 mg tablet 40 mg PO BEDTIME 09/05/24 09/05/24 09/04/24 20:00 History Allergies Allergy/AdvReac Type Severity Reaction Status Date / Time morphine Allergy ADR-Irritab Verified 09/05/24 15:49 le Current Medications Generic Name Dose Route Start Last Admin Trade Name Freq PRN Reason Stop Dose Admin Acetaminophen 650 mg 09/05/24 17:52 09/10/24 14:40 Acetaminophen 325 Mg Tablet PO 650 mg Q6H PRN Administration Mild/Mod Pain Or Temp >/= 101 Aspirin 81 mg 09/09/24 09:00 09/11/24 09:24 Aspirin 81 Mg Ec Tablet PO 81 mg DAILY JIMMY Administration Atorvastatin Calcium 40 mg 09/06/24 09:00 09/11/24 09:24 Atorvastatin 40 Mg Tablet PO 40 mg DAILY JIMMY Administration Duloxetine HCl 60 mg 09/06/24 09:00 09/11/24 09:24 Duloxetine 60 Mg Capsule PO 60 mg DAILY JIMMY Administration Fentanyl 1 patch 09/06/24 17:45 09/09/24 18:16 Fentanyl 100 Mcg Patch TRANSDERMA 1 patch Q72H JIMMY Administration Fentanyl 1 patch 09/06/24 17:45 09/09/24 18:15 Fentanyl 50 Mcg Patch TRANSDERMA 1 patch Q72H JIMMY Administration Folic Acid 1 mg 09/06/24 09:00 09/11/24 09:24 Folic Acid 1 Mg Tablet PO 1 mg DAILY JIMMY Administration Heparin Sodium (Porcine) 5,000 unit 09/05/24 18:00 09/11/24 06:30 Heparin 5,000 Unit/Ml Inj 1 Ml SUBCUT 5,000 unit Q12H JIMMY Administration Piperacillin Sod/Tazobactam 50 mls @ 12.5 mls/hr 09/05/24 22:00 09/11/24 09:24 Sod 3.375 gm/ Sodium Chloride IV 12.5 mls/hr Q8H JIMMY Administration Vancomycin HCl 750 mg/ Sodium 250 mls @ 250 mls/hr 09/11/24 00:00 09/11/24 00:45 Chloride IV Infused Q12H JIMMY Infusion Insulin Glargine 20 unit 09/08/24 21:00 09/10/24 20:50 Insulin Glargine 100 Units/1 Ml SUBCUT 20 unit BEDTIME JIMMY Administration Insulin Human Lispro 0 unit 09/05/24 18:00 09/11/24 09:24 Insulin Lispro 100 Unit/1 Ml SUBCUT 6 unit WM&BEDTIME JIMMY Administration Protocol Metoprolol Succinate 75 mg 09/08/24 18:00 09/11/24 09:24 Metoprolol Succinate Er (24 Hr) 50 Mg Tablet PO 75 mg BID JIMMY Administration Olanzapine 5 mg 09/06/24 09:00 09/11/24 09:25 Olanzapine 5 Mg Tablet PO 5 mg BID JIMMY Administration PFSH Acute 2 PFSH: Medical History Non-small cell lung cancer Diabetes Hypotension due to hypovolemia Anorexia Dehydration Leukopenia Weakness Near syncope Port-A-Cath in place Right-sided back pain Cholecystitis Abdominal pain Rib pain on right side Gout Hyperlipidemia Hypertension Surgical History History of cholecystectomy Family History Father Stomach cancer Grandfather Stomach cancer Social History Smoking and tobacco/nicotine status: former use of tobacco/nicotine Alcohol intake: never Substance/Drug Use: never 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 Vitals/I&O/Wt Last Vital Signs Temp 98.4 F 09/11/24 08:00 Pulse 87 09/11/24 08:00 Resp 16 09/11/24 08:00 BP 183/94 09/11/24 08:00 Pulse Ox 96 09/11/24 08:00 O2 Del Method Room Air 09/11/24 08:00 O2 Flow Rate 6 09/10/24 12:17 09/10/24 09/11/24 09/11/24 22:59 06:59 14:59 Intake Total 630 / 954.208 540 / 1494.208 Balance 630 / 949.208 540 / 1489.208 Weight last 48 hrs Weight 90.401 kg Weight 88.496 kg Data 09/11/24 06:13 09/11/24 06:13 Micro: Microbiology 09/05/24 18:04 Blood Culture - Final Blood NO GROWTH AFTER 5 DAYS 09/07/24 09:28 Gram Stain - Final Sputum - Expectorated Sputum Sputum Culture - Final Joyce tropicalis 09/07/24 10:30 Gram Stain - Final Pleural Fluid Body Fluid Culture - Final 09/05/24 17:56 Blood Culture - Preliminary Blood Staphylococcus epidermidis Staphylococcus lugdunensis Coding Level of Care Code Acute Code for [facility] Fwd
[2024-09-11 11:31] LABS: Glucose Point of Care 204 mg/dL (70-110)
[2024-09-11] MEDS: vancomycin 750 MG in sodium chloride 0.9% 250 ML 250 MG IV (12:01)
--- NOTE | 2024-09-11 12:44 | PM.CONSULT ---
Providers/Reason For Consult Consulting Physician/Specialty*: FAIZA Davidson MD/cardiology Reason for Consult*: Patient with atrial fibrillation, rapid and slow ventricular rate Requesting Physician: Dr. Gardner Attending Physician: Piter Gardner Primary Care Provider: Cole Helms DO History of Present Illness History of Present Illness Siddhartha Christina is a 63 year old male with a history of lung CVA, undergoing immune therapy, is admitted to the hospital with complaints of generalized weakness, fever and chills. He was thought to have possible infection of the Port-A-Cath. The blood culture grew staph epidermidis and staph lugdunensis. He is undergoing IV antibiotic treatment. This patient is known to have intermittent atrial fibrillation. He has been taking the metoprolol 50 mg p.o. twice daily. He is being followed by a executive chairman in [place], Dr. Kandi Meier. He has a history of tachy or chelsey arrhythmias. This was diagnosed approximately 3 years ago. According the patient, he was told about needing a pacemaker sometime in the future. According the patient, he never had any syncopal episodes. He has episodes of dizziness when the heart rate goes too fast or too slow. These episodes are infrequent in the beginning but lately seems to be getting more frequent. Patient was found to have tachyarrhythmias with a heart rate in the 130s and occasional episodes of bradycardia with a heart rate in the 30s and 40s in the hospital. Currently seems to be staying in the sinus rhythm. The episodes are paroxysmal. According the patient, he was on some form of anticoagulation for a while and subsequently was discontinued.-Details are not available. He never had a stress test or angiogram in the past. Currently patient is, he did not have any chest pains. No history for heart failure. He has a history of hypertension, dyslipidemia and type 2 diabetes. The blood pressure on the blood sugar has been fairly under control. Small cell C of the lung was diagnosed in the early part of this year. He underwent to 5 courses of chemo therapy and? 10 sessions of radiation treatment initially. Currently he is on immune therapy. This is being followed by the oncologist in [place]. Patient was found to have features of possible Port-A-Cath infection and for that reason, this was taken out during this hospital admission. He also had a large pleural effusion on the right side for which he underwent thoracentesis yesterday. His overall functional status seems to be stable. He is currently remaining afebrile. He has a history of heavy smoking abuse, 3 pack a day for 20 years or so, quit 15 years ago. No alcohol abuse or any substance abuse. Many of his uncles and first cousins had coronary artery disease. Both parents were okay with no significant cardiac illnesses. None of the siblings have any heart problems. Review of Systems Narrative: CONSTITUTIONAL: Low-grade fever/malaise as mentioned before ENT: No hoarseness of voice, auditory disturbances or sore throat. CARDIOVASCULAR: As mentioned above. RESPIRATORY: No significant cough. GASTROINTESTINAL: No hematemesis or melena. GENITOURINARY: No dysuria or hematuria. INTEGUMENTARY: No skin rashes or history of skin cancer. NEURO: No transient ischemic attacks or amaurosis. PSYCHIATRIC: No history of psychosis or major depression. HEMATOLOGIC: No bleeding disorders or significant anemia. ENDOCRINE: No history of polyuria or polydipsia. MUSCULOSKELETAL: No recent joint pain or swelling. ALLERGY/IMMUNOLOGY: As mentioned above. Medications/Allergies Home Medications Medication Instructions Recorded Confirmed Last Taken Type olmesartan 20 mg tablet 10 mg PO DAILY 09/11/22 09/11/24 09/11/24 History ondansetron 4 mg disintegrating 4 mg PO Q6H PRN nausea and 02/09/24 09/11/24 09/11/24 Rx tablet vomiting #14 tabs metformin 1,000 mg tablet 1,000 mg PO BID #180 tabs 03/18/24 09/11/24 09/11/24 Rx colchicine 0.6 mg tablet 0.6 mg PO BID PRN gout 04/23/24 09/11/24 09/11/24 History duloxetine 60 mg capsule,delayed 60 mg PO DAILY 04/23/24 09/11/24 09/11/24 History release fentanyl 50 mcg/hr transdermal 3 patch topical .Q72H 04/23/24 09/11/24 09/11/24 History patch folic acid 1 mg tablet 1 mg PO DAILY 04/23/24 09/11/24 09/11/24 History insulin glargine 100 unit/mL (3 105 unit SUBCUT BEDTIME 04/23/24 09/11/24 09/11/24 History mL) subcutaneous pen (Lantus Solostar U-100 Insulin) metoprolol succinate 50 mg 50 mg PO BID 04/23/24 09/11/24 09/11/24 History tablet,extended release 24 hr oxycodone 10 mg tablet 15 mg PO Q4H PRN Pain 04/23/24 09/11/24 09/11/24 History prochlorperazine maleate 10 mg 10 mg PO QID PRN Nausea And 04/23/24 09/11/24 09/11/24 History tablet Vomiting lactulose 20 gram/30 mL oral 20 g (30 mL) PO DAILY PRN 04/24/24 09/11/24 09/11/24 Rx solution constipation #1,200 mL atorvastatin 40 mg tablet 40 mg PO BEDTIME 09/05/24 09/11/24 09/11/24 History amoxicillin 875 mg-potassium 1 tab PO BID 5 days #10 tabs 09/11/24 09/12/24 09/12/24 Rx clavulanate 125 mg tablet Allergies Allergy/AdvReac Type Severity Reaction Status Date / Time morphine Allergy ADR-Irritab Verified 09/12/24 09:36 le Current Medications Generic Name Dose Route Start Last Admin Trade Name Freq PRN Reason Stop Dose Admin Acetaminophen 650 mg 09/05/24 17:52 09/10/24 14:40 Acetaminophen 325 Mg Tablet PO 650 mg Q6H PRN Administration Mild/Mod Pain Or Temp >/= 101 Aspirin 81 mg 09/09/24 09:00 09/11/24 09:24 Aspirin 81 Mg Ec Tablet PO 81 mg DAILY JIMMY Administration Atorvastatin Calcium 40 mg 09/06/24 09:00 09/11/24 09:24 Atorvastatin 40 Mg Tablet PO 40 mg DAILY JIMMY Administration Duloxetine HCl 60 mg 09/06/24 09:00 09/11/24 09:24 Duloxetine 60 Mg Capsule PO 60 mg DAILY JIMMY Administration Fentanyl 1 patch 09/06/24 17:45 09/09/24 18:16 Fentanyl 100 Mcg Patch TRANSDERMA 1 patch Q72H JIMMY Administration Fentanyl 1 patch 09/06/24 17:45 09/09/24 18:15 Fentanyl 50 Mcg Patch TRANSDERMA 1 patch Q72H JIMMY Administration Folic Acid 1 mg 09/06/24 09:00 09/11/24 09:24 Folic Acid 1 Mg Tablet PO 1 mg DAILY JIMMY Administration Heparin Sodium (Porcine) 5,000 unit 09/05/24 18:00 09/11/24 06:30 Heparin 5,000 Unit/Ml Inj 1 Ml SUBCUT 5,000 unit Q12H JIMMY Administration Piperacillin Sod/Tazobactam 50 mls @ 12.5 mls/hr 09/05/24 22:00 09/11/24 09:24 Sod 3.375 gm/ Sodium Chloride IV 12.5 mls/hr Q8H JIMMY Administration Vancomycin HCl 750 mg/ Sodium 250 mls @ 250 mls/hr 09/11/24 00:00 09/11/24 12:01 Chloride IV 250 mls/hr Q12H JIMMY Administration Insulin Glargine 20 unit 09/08/24 21:00 09/10/24 20:50 Insulin Glargine 100 Units/1 Ml SUBCUT 20 unit BEDTIME JIMMY Administration Insulin Human Lispro 0 unit 09/05/24 18:00 09/11/24 12:02 Insulin Lispro 100 Unit/1 Ml SUBCUT 6 unit WM&BEDTIME JIMMY Administration Protocol Metoprolol Succinate 75 mg 09/08/24 18:00 09/11/24 09:24 Metoprolol Succinate Er (24 Hr) 50 Mg Tablet PO 75 mg BID JIMMY Administration Olanzapine 5 mg 09/06/24 09:00 09/11/24 09:25 Olanzapine 5 Mg Tablet PO 5 mg BID JIMMY Administration PFSH Acute PFSH: Medical History (Updated 09/12/24 @ 10:39 by Juan Davidson MD) Hyperlipidemia Non-small cell lung cancer Diabetes Hypotension due to hypovolemia Anorexia Dehydration Leukopenia Weakness Near syncope Port-A-Cath in place Right-sided back pain Cholecystitis Abdominal pain Rib pain on right side Gout Surgical History History of cholecystectomy Family History Father Stomach cancer Grandfather Stomach cancer Social History Smoking and tobacco/nicotine status: former use of tobacco/nicotine Alcohol intake: never Substance/Drug Use: never 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 Vitals/I&O/Wt Last Vital Signs Temp 98.4 F 09/11/24 08:00 Pulse 87 09/11/24 08:00 Resp 16 09/11/24 08:00 BP 183/94 09/11/24 08:00 Pulse Ox 96 09/11/24 08:00 O2 Del Method Room Air 09/11/24 08:00 O2 Flow Rate 6 09/10/24 12:17 09/10/24 09/11/24 09/11/24 22:59 06:59 14:59 Intake Total 630 / 954.208 540 / 1494.208 Balance 630 / 949.208 540 / 1489.208 Weight last 48 hrs Weight 199 lb 4.8 oz Weight 195 lb 1.6 oz Physical Exam Narrative: GENERAL: The patient is alert and oriented times three. Not in any acute distress. [] HEENT: No significant pallor, icterus or lymphadenopathy.Oral cavity: There are no mucous membrane lesions. NECK: Trachea appears to be central. No masses noted. No JVD or thyromegaly appreciated. RESPIRATORY: Chest is symmetrical. No intercostals muscle retraction or any accessory muscle activation. There is no chest wall tenderness. Breath sounds are diminished on the right side after the mid chest. BREASTS: Deferred. [] HEART: The heart sounds are normal. No S3 or S4. [No significant murmurs] []. No pericardial rub ABDOMEN: No vessel pulsations or distention. No tenderness. No organomegaly appreciated. Bowel sounds are normally heard. [] : Deferred. [] RECTAL: Deferred. [] LYMPHATIC: No lymphadenopathy noted in the neck. EXTREMITIES: No edema or cyanosis. No clubbing. MUSCULOSKELETAL: No acute joint deformities or swelling SKIN: There are no significant rashes or ecchymosis NEUROPSYCHIATRIC: The patient is alert and oriented x3. Appears to be in a good mood. No tremors or rigidity noted. [] Data 09/11/24 06:13 09/11/24 06:13 Other Labs: Chest x-ray from 09/11/2024 1. RIGHT PICC line has been inserted. Recommend 2 cm retraction for more optimal positioning. 2. Moderate RIGHT pleural effusion is increased in size since 09/07/2024. Compressive atelectasis in the RIGHT lung. Echocardiogram done on 09/06/2024 Normal LV size and ejection fraction of 67%. Mild concentric left-ventricular hypertrophy.Grade I/IV diastolic dysfunction (abnormal relaxation filling pattern), normal to mildly elevated filling pressures. Trace tricuspid valve regurgitation. Trace pulmonary valve regurgitation. There is no pericardial effusion. There are no intracardiac masses. No similar previous studies are available for comparison EKG done on 09/05/2024 Possible sinus rhythm with poor R wave progression. Diffuse nonspecific T wave changes. Left axis deviation. Micro: Microbiology 09/10/24 12:08 Catheter Tip Culture - Preliminary Central Line 09/05/24 18:04 Blood Culture - Final Blood NO GROWTH AFTER 5 DAYS 09/07/24 09:28 Gram Stain - Final Sputum - Expectorated Sputum Sputum Culture - Final Joyce tropicalis 09/07/24 10:30 Gram Stain - Final Pleural Fluid Body Fluid Culture - Final A&P Assessment and plan (1) Tachycardia-bradycardia syndrome: Patient has been having episodes of tacky bradycardia arrhythmia where the heart rate may go up into the 140s and then come down to the 40s. The dose of the metoprolol XL was increased to 75 twice daily from 50 mg twice daily. At this point, it may be appropriate to stay on the 50 twice daily. This patient may eventually require a permanent pacemaker. As of now we may continue to monitor the heart rate. Especially in view of the infection, we may not be able to put a permanent pacemaker at this time. He may be discharged home on an event monitor. (2) Staphylococcus aureus bacteremia: Patient is on antibiotic. Infectious disease is on the case. May continue on the current recommendations. (3) Atrial fibrillation: This patient apparently carries a diagnosis of atrial fibrillation, intermittent. But currently seems to be staying in the sinus rhythm Qualifiers: Atrial fibrillation type: paroxysmal Qualified Code(s): I48.0 - Paroxysmal atrial fibrillation (4) Diabetes: Importance of aggressive management of the diabetes, cardiovascular complications of uncontrolled diabetes and the need for compliance to treatment were discussed. Patient seems to understand these well. We will have the follow-up evaluations as scheduled Qualifiers: Diabetes mellitus complication status: with other specified complication Diabetes mellitus long term care administrator insulin use: without retirement use Diabetes mellitus type: type 2 Qualified Code(s): E11.69 - Type 2 diabetes mellitus with other specified complication (5) Hypertension: The blood pressure seems to be under control. May continue the current management. Qualifiers: Hypertension type: primary hypertension Qualified Code(s): I10 - Essential (primary) hypertension (6) Hyperlipidemia: Patient is known to have dyslipidemia. Advised to continue on the current medications. Will have the follow-up evaluation as scheduled. Patient understands the importance of dietary compliance Qualifiers: Hyperlipidemia type: pure hypertriglyceridemia Qualified Code(s): E78.1 - Pure hyperglyceridemia Plan Decrease metoprolol succinate to 50 mg p.o. twice daily If he is remained stable otherwise, may be discharged home with an event monitor. If he chooses to have follow-up with us, may make an appointment to be seen in the office in 2 weeks with Noa Frausto I will be seeing him in the office in a month It would be more appropriate for him to go back to his executive chairman [facility], if he chooses to do so Coding Level of Care Code 20702 Diagnoses Tachycardia-bradycardia syndrome I49.5 Staphylococcus aureus bacteremia R78.81; B95.61 Paroxysmal atrial fibrillation I48.0 Atrial fibrillation type: paroxysmal Type 2 diabetes mellitus with other specified complication, without long-term current use of insulin E11.69 Diabetes mellitus complication status: with other specified complication Diabetes mellitus long term care administrator insulin use: without long term care administrator use Diabetes mellitus type: type 2 Primary hypertension I10 Hypertension type: primary hypertension Pure hypertriglyceridemia E78.1 Hyperlipidemia type: pure hypertriglyceridemia
--- NOTE | 2024-09-11 13:03 | PC.SOCIAL ---
Updated IMM. Updated pt on IMM. No questions voiced. Provided pt a copy. Initialed, dated, & timed copy in chart.
[2024-09-11 17:18] LABS: Glucose Point of Care 145 mg/dL (70-110)
--- NOTE | 2024-09-11 17:19 | PM.DCS ---
Discharge Providers Date of Admission: 09/05/24 17:51 Date of Discharge: September 11, 2024 Attending Provider at Admission: María Carlson MD Attending Provider at Discharge: Piter Gardner Primary Care Provider: Cole Helms DO Diagnoses at Discharge Discharge Diagnosis (1) Atrial fibrillation: Status: Acute Qualifiers: Atrial fibrillation type: paroxysmal Qualified Code(s): I48.0 - Paroxysmal atrial fibrillation (2) Staphylococcus aureus bacteremia: Status: Acute (3) Diabetes: Status: Acute Qualifiers: Diabetes mellitus complication status: with other specified complication Diabetes mellitus senior living insulin use: without senior living use Diabetes mellitus type: type 2 Qualified Code(s): E11.69 - Type 2 diabetes mellitus with other specified complication (4) Hypertension: Status: Acute Qualifiers: Hypertension type: primary hypertension Qualified Code(s): I10 - Essential (primary) hypertension (5) Hyperlipidemia: Status: Acute Qualifiers: Hyperlipidemia type: pure hypertriglyceridemia Qualified Code(s): E78.1 - Pure hyperglyceridemia Reason for Visit Reason for Visit: Afib, peeing a lot, weakness Hospital Course Hospital Course Pleasant 58-year-old gentleman with non-small cell lung cancer on immunotherapy presented with generalized malaise, weakness, fall after his legs giving out, having fever and chills at home. With noted worsened right-sided pleural effusion. Was started empirically on antibiotic coverage, thoracentesis was requested. Found to have exudative effusion without empyema, possibly related to malignancy, but possibly parapneumonic. No growth on pleural fluid culture. Mycobacterial studies and cytology requested and pending. Blood cultures obtained on presentation growing Staph epidermidis and staph lugdunensis. Latter organism concerning for true port infection. Cultures reportedly collected from the port on admission. Repeat cultures obtained both from periphery and port with antibiotic treatment, without growth. TTE was obtained without obvious large vegetation. Patient was seen by infectious disease specialist. Surgery was consulted and port was explanted. PICC line was placed and he will complete 6 weeks of antibiotics currently with vancomycin. Sensitivities were requested from the original culture, and in case available antibiotics may be narrowed. He is asked to follow-up with infectious disease and surgery. Please follow-up with continue treatment, reassess pleural effusion. During hospitalization he also experienced palpitations with history of atrial fibrillation. He is normally on metoprolol succinate 50 mg twice daily as per his director of medical education. During her physician noted brief episodes of tachycardia up to 140s-150s. Metoprolol dose transiently increased to 75 mg twice daily, however, noted also interspersed episodes of bradycardia down to the 40s, and as low as 37 at 1 point. Cardiology was consulted he was evaluated, at some point he may end up requiring pacemaker, although at current time with requirement of IV antibiotics with port infection not a good candidate. Recommendation was for him to further remain here overnight for additional monitoring with recommendation to decrease metoprolol dose back to 50 mg twice daily, however, he could no longer remain in the hospital. He is agreeable with following up as per recommendation with setting up radiation monitor on Saturday. Will also follow-up with his director of medical education for reassessment. During hospitalization also received supplementation for hypomagnesemia. Physical Exam Narrative: Accompanied by his Const: COMMON NORMALS: patient oriented x3 and alert GENERAL APPEARANCE: cooperative ORIENTATION/CONSCIOUSNESS: Yes awake HENMT: COMMON NORMALS: oropharynx normal Neck/C-Spine: COMMON NORMALS: no JVD Chest: OTHER: Port status post explantation. Clean wound right chest. Resp: COMMON NORMALS: normal respiratory effort OTHER: Breath sounds improved in right lung. Cardio: COMMON NORMALS: no JVD, regular rhythm, S1 normal heart sound present, S2 normal heart sound present and No murmurs present (Cardio) RHYTHM: regular rhythm HEART SOUNDS: S1 normal heart sound present and S2 normal heart sound present GI: COMMON NORMALS: Normal to inspection, nondistended, normoactive bowel sounds present, Soft to palpation and non-tender PALPATION: Yes Soft to palpation Extremity: COMMON NORMALS: no joint enlargement GENERAL: Yes edema (Trace) Neuro: COMMON NORMALS: patient oriented x3 and moves all extremities SENSORIUM/ORIENTATION: Yes alert Skin: COMMON NORMALS: no rashes or lesions noted GENERAL SKIN EXAM: no rashes or lesions noted Discharge Data Studies Completed and Pending Completed Studies During Hospitalization Category Date Time Status CXRP [XR chest 1V portable [id number]] Routine Exams 09/11/24 07:21 Completed XR chest 1V [id number] Urgent Exams 09/07/24 10:34 Completed XR chest 1V portable [id number] Stat Exams 09/05/24 16:12 Completed Cytology [PTH] Routine Pth 09/05/24 17:54 [place] [id number] Routine Ultrasound 09/06/24 07:16 Completed CV. echo complete* [id number] Routine Ultrasound 09/08/24 17:09 Completed US thoracentesis [id number] Stat Ultrasound 09/07/24 06:00 Completed Pending at discharge Category Date Time Status Amylase, Pleural Fluid Routine Lab 09/05/24 17:54 Received Basic Metabolic Panel AM LABS Lab 09/12/24 04:00 Ordered Basic Metabolic Panel AM LABS Lab 09/13/24 04:00 Ordered Catheter Tip Culture Routine Lab 09/10/24 12:08 Results Complete Blood Count w/Auto AM LABS Lab 09/12/24 04:00 Ordered Complete Blood Count w/Auto AM LABS Lab 09/13/24 04:00 Ordered Mycobacteria, Culture w/Fluor Routine Lab 09/05/24 17:54 Received Radiology Impressions Venous Duplex 09/06/24 07:16 IMPRESSION: No evidence of deep vein thrombosis. Thoracentesis Ultrasound 09/07/24 06:00 IMPRESSION: 1. RIGHT thoracentesis yielding 1100 cc of fluid. 2. Chest radiograph to follow to evaluate for pneumothorax. Chest X-Ray 09/11/24 07:21 IMPRESSION: 1. RIGHT PICC line has been inserted. Recommend 2 cm retraction for more optimal positioning. 2. Moderate RIGHT pleural effusion is increased in size since 09/07/2024. Compressive atelectasis in the RIGHT lung. Laboratory Results WBC 7.70 10^3/uL (3.29-11.43) 09/11/24 06:13 RBC 4.26 10^6/uL (3.85-5.65) 09/11/24 06:13 Hgb 12.60 g/dL (11.27-16.99) 09/11/24 06:13 Hct 39.0 % (37-53) 09/11/24 06:13 MCV 91.5 fl (82-101) 09/11/24 06:13 MCH 29.6 pg (27-33) 09/11/24 06:13 MCHC 32.3 g/dL (30-55) 09/11/24 06:13 RDW 13.3 % (12.1-15.1) 09/11/24 06:13 Plt Count 212 10^3/cmm (157-399) 09/11/24 06:13 MPV 10.0 fL (7.4-10.4) 09/11/24 06:13 Neut % (Auto) 68.7 % 09/11/24 06:13 Lymph % (Auto) 13.1 % 09/11/24 06:13 Dickson % (Auto) 10.9 % 09/11/24 06:13 Eos % (Auto) 6.5 % 09/11/24 06:13 Baso % (Auto) 0.5 % 09/11/24 06:13 Neut # (Auto) 5.29 10^3/uL (1.8-7.7) 09/11/24 06:13 Lymph # (Auto) 1.0 10^3/uL (0.8-4.8) 09/11/24 06:13 Dickson # (Auto) 0.8 10^3/uL (0.2-0.9) 09/11/24 06:13 Eos # (Auto) 0.5 10^3/uL (0.0-0.8) 09/11/24 06:13 Baso # (Auto) 0.0 10^3/uL (0.0-0.1) 09/11/24 06:13 Nucleated RBC % (auto) 0 % 09/11/24 06:13 Nucleated RBCs # 0.0 /100WBC 09/11/24 06:13 PT 13.6 Seconds (12-15.1) 09/07/24 09:44 APTT 23.5 Seconds (23.9-36.7) L 09/07/24 09:44 PT Patient/Normal 1:1 12.9 Seconds (12.0-15.1) 09/07/24 09:44 PTT Patient/Normal 1:1 25.8 Seconds (23.9-36.7) 09/07/24 09:44 Sodium 143 mmol/L (136-145) 09/11/24 06:13 Potassium 4.1 mmol/L (3.5-5.1) 09/11/24 06:13 Chloride 108 mmol/L (98-107) H 09/11/24 06:13 Carbon Dioxide 26 mmol/L (22-29) 09/11/24 06:13 Anion Gap 13.1 (5-19) 09/11/24 06:13 BUN 15 mg/dL (8-23) 09/11/24 06:13 Creatinine 0.9 mg/dL (0.7-1.2) 09/11/24 06:13 GFR Calculation 84.7 mL/min (90-130) L 09/11/24 06:13 Glucose 192 mg/dL (65-115) H 09/11/24 06:13 POC Glucose 145 mg/dL (70-110) H 09/11/24 16:24 Calculated Osmolality 302 mOsm/kg (285-295) H 09/11/24 06:13 Lactic Acid 2.8 mmol/L (0.5-2.2) H 09/05/24 16:30 Lactic Acid (Sepsis) 1.6 mmol/L (0.5-2.2) 09/05/24 20:28 Calcium 8.4 mg/dL (8.5-10.5) L 09/11/24 06:13 Phosphorus 3.1 mg/dL (2.5-4.5) 09/06/24 04:22 Magnesium 2.2 mg/dL (1.7-2.3) 09/11/24 06:13 Total Bilirubin 0.6 mg/dL (0.15-1.2) 09/06/24 04:22 AST 10 U/L (0-40) 09/06/24 04:22 ALT 7 U/L (0-41) 09/06/24 04:22 Alkaline Phosphatase 76 U/L (40-130) 09/06/24 04:22 Lactate Dehydrogenase 186 U/L (135-225) 09/05/24 16:30 C-Reactive Protein 24.0 mg/L (0.0-4.9) H 09/06/24 16:10 NT-Pro-B Natriuret Pep 437 pg/mL (0-125) H 09/05/24 16:30 Total Protein 5.8 g/dL (6.6-8.7) L 09/06/24 04:22 Albumin 3.2 g/dL (3.5-5.2) L 09/06/24 04:22 Globulin 2.6 g/dL (1.3-4.6) 09/06/24 04:22 Procalcitonin 0.08 ng/mL (0-0.5) 09/05/24 16:30 TSH 0.74 uIU/mL (0.27-4.20) 09/05/24 16:30 Urine Color Dark yellow (Yellow) A 09/05/24 16:55 Urine Appearance Clear (CLEAR) 09/05/24 16:55 Urine pH 5.0 (5-7) 09/05/24 16:55 Ur Specific [place] 1.027 (1.005-1.030) 09/05/24 16:55 Urine Protein 1+ (Negative) A 09/05/24 16:55 Urine Glucose (UA) 3+ (Normal) H 09/05/24 16:55 Urine Ketones 1+ (Negative) H 09/05/24 16:55 Urine Blood Negative (Negative) 09/05/24 16:55 Urine Nitrate Negative (Negative) 09/05/24 16:55 Urine Bilirubin Negative (Negative) 09/05/24 16:55 Urine Urobilinogen 1.0 mg/dL (Negative) 09/05/24 16:55 Ur Leukocyte Esterase Negative (Negative) 09/05/24 16:55 Urine RBC 0-2 /hpf (0-2) 09/05/24 16:55 Urine WBC 5-10 /hpf (0-5) H 09/05/24 16:55 Ur Squamous Epith Cells 0-5 /hpf (0-5) 09/05/24 16:55 Amorphous Sediment Not Reportable 09/05/24 16:55 Urine Bacteria 1+ /hpf (NONE) H 09/05/24 16:55 Hyaline Casts 15.28 /lpf 09/05/24 16:55 Urine Mucus 2+ /hpf 09/05/24 16:55 Fluid Color Yellow 09/07/24 10:30 Fluid Appearance Cloudy 09/07/24 10:30 Fluid WBC 900 /uL 09/07/24 10:30 Fluid RBC 6.000 10^3/uL 09/07/24 10:30 Fluid Hematocrit 0.1 % 09/07/24 10:30 Fld Polynuclear WBCs # 0.317 09/07/24 10:30 Fld Polynuclear WBCs % 35.200 % 09/07/24 10:30 Fl Mononucl WBCs #(Auto) 0.583 09/07/24 10:30 Fl Mononuclear % Auto 64.800 % 09/07/24 10:30 Fld Crystal Laterality Not Reportable 09/07/24 10:30 Fluid Albumin 2.7 g/dL 09/07/24 10:30 Fluid Creatinine 0.88 (0.7-1.2) 09/07/24 10:30 Pleural pH 7.50 (6.5-7.5) 09/07/24 10:30 Pleural Total Protein 3.8 g/dL 09/07/24 10:30 Pleural LDH 452 U/L 09/07/24 10:30 Pleural Glucose 186.0 mg/dL 09/07/24 10:30 Pleural Triglycerides 40 mg/dL 09/07/24 10:30 Nasal MRSA (PCR) Not detected (Negative) 09/06/24 12:59 Vancomycin Trough 22.2 ug/mL (10-15) H 09/10/24 21:21 SARS-CoV-2 Ag (Rapid) negative (Negative) 09/05/24 16:55 Vitals Last Vital Signs Temp 98.4 F 09/11/24 08:00 Pulse 87 09/11/24 08:00 Resp 16 09/11/24 08:00 BP 183/94 09/11/24 08:00 Pulse Ox 96 09/11/24 08:00 O2 Del Method Room Air 09/11/24 08:00 O2 Flow Rate 6 09/10/24 12:17 Discharge Plan Discharge Patient Disposition: Home Health Service Condition: Stable Prescriptions: New amoxicillin-pot clavulanate 875-125 mg tablet 1 tab PO BID 5 Days Qty: 10 0RF Continued olmesartan 20 mg tablet 10 mg PO DAILY metformin 1,000 mg tablet 1,000 mg PO BID Qty: 180 3RF atorvastatin 40 mg Tablet 40 mg PO BEDTIME ondansetron 4 mg tablet,disintegrating 4 mg PO Q6H PRN (Reason: nausea and vomiting) Qty: 14 0RF colchicine 0.6 mg Tablet 0.6 mg PO BID PRN (Reason: gout) insulin glargine [Lantus Solostar U-100 Insulin] 100 unit/mL (3 mL) insulin pen 105 unit SUBCUT BEDTIME fentanyl 50 mcg/hr patch 72 hour 3 patch topical .Q72H metoprolol succinate 50 mg tablet extended release 24 hr 50 mg PO BID prochlorperazine maleate 10 mg tablet 10 mg PO QID PRN (Reason: Nausea And Vomiting) folic acid 1 mg tablet 1 mg PO DAILY duloxetine 60 mg capsule,delayed release(DR/EC) 60 mg PO DAILY oxycodone 10 mg tablet 15 mg PO Q4H PRN (Reason: Pain) Rx Instructions: Pt. states he rarely takes Oxycodone at this time. lactulose 20 gram/30 mL solution 20 g PO DAILY PRN (Reason: constipation) Qty: 1200 0RF Discontinued aspirin 81 mg Tablet 81 mg PO DAILY meloxicam 7.5 mg tablet 7.5 mg PO DAILY Discharge Orders: Discharge Order (Routine); Ordered 09/11/24 Ordered By: Piter Gardner Other Ambulatory Orders: Miscellaneous Procedure (Order) Location: None Selected Ordered By: Abigail Damon Miscellaneous Procedure (Order) Location: None Selected Ordered By: Abigail Damon ECG holter monitor 14 Days (Routine) Timeframe: [id number] Facility: [facility] - Location: Radiology Ordered By: Piter Gardner Referrals: Your, director of medical education [Other] - 4-7 days (Palpitations, atrial fibrillation, tachycardia, bradycardia please call youre director of medical education and schedule appointment) Your, oncologist [Other] (Port infection and removal, pleural effusion PLEASE SEE YOURE ONCOLOGIST SCHEDULED) Infectious Disease Group [facility] [Provider Group] - 1 month (We have notified your physician's clinic of the need for a follow-up appointment to be scheduled. If you have not heard from them within the next 2 business days, please call them directly. ) [facility] Infusion Center [Outside] (You will need to come in daily to get your IV antibiotics. Over the weekend you will come to the GI lab & throughout the week you will go to the [facility] Oncology/Infusion Center. The Infusion Center will call you Saturday with a time to come in there. ) Dano Bradford MD [Physician] - 09/24/24 8:55 am Cole Helms DO [Primary Care Provider] - 09/15/24 8:00 am Discharge Diet: Cardiac Patient Instructions: Amoxicillin/Clavulanate Potassium (By mouth), Pleural Effusion (GEN), Acute Wound Care (DC), Bacteremia (GEN), How to Care for Your PICC (Peripherally Inserted Central Catheter) (GEN), How to Flush Your PICC (Peripherally Inserted Central Catheter) (GEN), Opioid Safety, Post Anesthesia Care Activity Restrictions/Additional Instructions: Continue antibiotics with vancomycin infusions for additional 6 weeks. Follow-up with infectious disease in office for reassessment and follow-up on blood culture results to see if antibiotic may be adjusted. Continue metoprolol 50 mg twice daily, magnesium supplementation, follow-up with your prime provider and director of medical education regarding atrial fibrillation with tachycardia and bradycardia. Set up radiation monitor on Saturday. You may end up needing a pacemaker although a pacemaker is to be considered in view of recently removed infected port and need for IV antibiotics. Complete additional 5 days of Augmentin for possibility of component of pneumonia perhaps contributing to pleural fluid accumulation. Follow-up with your primary doctor for reassessment of pleural fluid and in case of reaccumulation consideration of additional drainage plus minus possibly consideration of chest drain placement. Continue follow-up for lung cancer with your cancer doctor. Follow-up with general surgery for reassessment after port removal. Seek medical attention in case of any worsening or new concerning symptoms. Discharge Attestations Time Spent in Discharge Care*: greater than 30 min Quality Metrics Clinical Quality Measures [ No reported AMI, CVA or VTE this stay] Coding Level of Care Code 88460 Total time (in minutes) for Discharge: 65 Diagnoses Paroxysmal atrial fibrillation I48.0 Atrial fibrillation type: paroxysmal Staphylococcus aureus bacteremia R78.81; B95.61 Type 2 diabetes mellitus with other specified complication, without long-term current use of insulin E11.69 Diabetes mellitus complication status: with other specified complication Diabetes mellitus senior living insulin use: without intermediate teacher use Diabetes mellitus type: type 2 Primary hypertension I10 Hypertension type: primary hypertension Pure hypertriglyceridemia E78.1 Hyperlipidemia type: pure hypertriglyceridemia
[2024-09-13 20:54] LABS: Amylase, Pleural Fluid <10 U/L
== END 2024-09-11 18:20 | disposition home or self-care (01) | DRG 314 ==
LOC: ER 16:19 → MEDSURG 18:22
PROVIDERS: Student in an Organized Health Care Education/Training Program; Admitting Provider Internal Medicine; Emergency Provider Emergency Medicine; PCP Electrodiagnostic Medicine; Visit Provider Internal Medicine
PROC: 0JPT0WZ Removal of Totally Implantable Vascular Access Device from Trunk Subcutaneous Tissue and Fascia, Open Approach (ICD-10-PCS; CPT 36589; principal; 2024-09-10 11:30)
DX: T80.211A Bloodstream infection due to central venous catheter, initial encounter (principal); J18.9 Pneumonia, unspecified organism; R78.81 Bacteremia; C34.90 Malignant neoplasm of unspecified part of unspecified bronchus or lung; J90 Pleural effusion, not elsewhere classified; N39.0 Urinary tract infection, site not specified; D84.821 Immunodeficiency due to drugs; B95.7 Other staphylococcus as the cause of diseases classified elsewhere; I48.0 Paroxysmal atrial fibrillation; E11.9 Type 2 diabetes mellitus without complications; I10 Essential (primary) hypertension; E78.5 Hyperlipidemia, unspecified; M10.9 Gout, unspecified; E86.0 Dehydration; E83.42 Hypomagnesemia; I49.5 Sick sinus syndrome; Z79.620 Long term (current) use of immunosuppressive biologic; Z79.82 Long term (current) use of aspirin; Z79.84 Long term (current) use of oral hypoglycemic drugs; Z79.4 Long term (current) use of insulin; Z79.891 Long term (current) use of opiate analgesic; Z91.81 History of falling; Z87.891 Personal history of nicotine dependence
CPT/HCPCS: 32555; 36415; 36416; 36573; 36591; 71045; 80048; 80053; 80202; 80503; 81001; 82042; 82150; 82570; 82945; 82962; 83605; 83615; 83735; 83880; 83986; 84100; 84145; 84157; 84443; 84478; 85014; 85025; 85610; 85611; 85730; 86140; 87015; 87040; 87070; 87075; 87077; 87106; 87116; 87150; 87186; 87205; 87206; 87426; 87801; 88112; 88305; 89050; 93005; 93306; 93970; 96365; 96367; 96372; 96375; 99285; J0456; J0696; J1644; J1815; J2543; J3370; J3475; J7030; J7050

== ENCOUNTER → 2024-09-15 11:00 | Outpatient (BNVA) | payer MEDICARE, SELFPAY | PROVIDERS: PCP Electrodiagnostic Medicine; Visit Provider Internal Medicine Cardiovascular Disease | DX: I48.91 Unspecified atrial fibrillation (principal); R00.1 Bradycardia, unspecified; I49.1 Atrial premature depolarization; I49.3 Ventricular premature depolarization; I47.20 Ventricular tachycardia, unspecified; I47.10 Supraventricular tachycardia, unspecified; I47.29 Other ventricular tachycardia | CPT/HCPCS: 93246 ==

== ENCOUNTER 2024-09-17 09:00 | Oncology outpatient (recurring) (ONCR) | payer MEDICARE, SELFPAY ==
[2024-09-12] MEDS: vancomycin 1,500 MG/300 ML PIGGYBACK 200 MG IV (09:20)
[2024-09-12 09:31] VITALS: BP 158/91; PULSE 108; RESP 18; TEMP 36.1; O2SAT 97
--- NOTE | 2024-09-12 09:54 | PC.NURSE ---
Patient arrived to ops at 0858 for Vancomycin infusion. Picc to right upper arm in place able to pull back blood and flush well. Patient vital signs stable. Noticed patients hands to be swollen on both sides. Patient stated they have been that way for awhile. Instructed patient to start weighing himself daily.
[2024-09-13] MEDS: vancomycin 1,500 MG/300 ML PIGGYBACK 200 MG IV (09:02)
[2024-09-13 09:12] VITALS: BP 163/102; PULSE 91; RESP 18; TEMP 36.3; O2SAT 94
[2024-09-14 08:37] VITALS: BP 137/81; PULSE 90; RESP 18; TEMP 36.6; O2SAT 94
[2024-09-14 08:45] LABS: Basophils # 0.1 10^3/uL (0.0-0.1); Basophils % 0.5 %; Eosinophils # 0.7 10^3/uL (0.0-0.8); Eosinophils % 6.8 %; Hematocrit 40.8 % (37-53); Lymphocytes # 2.2 10^3/uL (0.8-4.8); Mean Corpuscular HGB Conc 32.1 g/dL (30-55); Mean Corpuscular Hemoglobin 29.8 pg (27-33); Mean Corpuscular Volume 92.7 fl (82-101); Monocytes # 1.1 10^3/uL (0.2-0.9); Monocytes % 10.3 %; Neutrophils # 6.25 10^3/uL (1.8-7.7); Neutrophils % 60.9 %; Nucleated Red Blood Cells % 0 %; Platelet Count 269 10^3/cmm (157-399); Red Cell Distribution Width 13.2 % (12.1-15.1); White Blood Count 10.26 10^3/uL (3.29-11.43)
[2024-09-14 09:08] LABS: Vancomycin Trough 11.9 ug/mL (10-15)
[2024-09-14] MEDS: vancomycin 1,500 MG/300 ML PIGGYBACK 200 MG IV (09:25)
[2024-09-14 09:27] LABS: Alanine Aminotransferase 17 U/L (0-41); Albumin Level 3.3 g/dL (3.5-5.2); Alkaline Phosphatase 109 U/L (40-130); Aspartate Amino Transferase 13 U/L (0-40); Globulin 2.7 g/dL (1.3-4.6); Total Bilirubin 0.3 mg/dL (0.15-1.2)
[2024-09-15 09:18] VITALS: BP 137/85; PULSE 90; RESP 16; TEMP 36.6
[2024-09-15] MEDS: vancomycin 1,500 MG/300 ML PIGGYBACK 200 MG IV (09:22)
[2024-09-16 09:40] VITALS: BP 125/88; PULSE 62; RESP 16; TEMP 36.7; O2SAT 99
[2024-09-16] MEDS: vancomycin 1,500 MG/300 ML PIGGYBACK 200 MG IV (09:43)
[2024-09-16 11:29] VITALS: BP 121/80; PULSE 93; RESP 18; TEMP 36.1; O2SAT 93
[2024-09-17] MEDS: cefTRIAXone 2,000 mg SDV 2000 MG IVP (09:47)
[2024-09-17 10:00] VITALS: BP 149/88; PULSE 98; RESP 16; TEMP 37; O2SAT 97
== END 2024-09-17 23:59 | disposition home or self-care (01) ==
PROVIDERS: PCP Electrodiagnostic Medicine; Visit Provider Student in an Organized Health Care Education/Training Program
DX: T82.7XXA Infection and inflammatory reaction due to other cardiac and vascular devices, implants and grafts, initial encounter (principal); Z79.899 Other long term (current) drug therapy; Z53.9 Procedure and treatment not carried out, unspecified reason
CPT/HCPCS: 36592; 80076; 80202; 82565; 85025; 96365; 96374; J0696; J3370

== ENCOUNTER 2024-09-21 08:53 | Emergency (ER) | payer MEDICARE, OTHER, SELFPAY ==
--- NOTE | 2024-09-21 08:56 | XR_ITS ---
WS: [id number] XR chest 1V portable [id number] REASON FOR EXAM: dyspnea/cough FINDINGS: Compared to the examination of 09/15/2024, there is an increased amount of right pleural effusion (si gnificant volume). Previous CT in June, demonstrates right lung carcinoma with right hilar adenopat hy. The right arm PICC line remains in proper position. Left hemithorax remains clear. XR/XR chest 1V portable [id number] IMPRESSION: Increasing presumed neoplastic effusion.
[2024-09-21 09:12] VITALS: BP 127/84; PULSE 90; RESP 24; TEMP 36.5; O2SAT 95; BMI 27.1
--- NOTE | 2024-09-21 10:06 | ED_ITS ---
HPI - SOB/Dyspnea 2 General: Chief Complaint: Shortness of Breath/Dyspnea Stated Complaint: SOB, flank pain Time Seen by Provider: 09/21/24 08:56 History of Present Illness: HPI Narrative: 64-year-old male presents emergency room complaining of shortness of breath and flank pain. Patient has a history of lung cancer he normally wears oxygen at 2 and half liters by nasal cannula intermittently at home. He is complaining of little bit of abdominal discomfort as well as shortness of breath with activity it has been worse the last couple of days. He is on a Holter monitor they have been concerned about his rate control for his A-fib. On arrival here he is not on his oxygen but is satting 96 to 98%. He has a history of pleural effusions associated with his non-small cell lung cancer. He is currently getting immunotherapy. Associated symptoms: Deny abdominal pain, chest pain or fever(s) Related Data Home Medications Medication Instructions Recorded Confirmed olmesartan 20 mg tablet 10 mg PO DAILY 09/11/22 09/21/24 colchicine 0.6 mg tablet 0.6 mg PO BID PRN gout 04/23/24 09/21/24 duloxetine 60 mg capsule,delayed 60 mg PO DAILY 04/23/24 09/21/24 release fentanyl 50 mcg/hr transdermal 3 patch topical .Q72H 04/23/24 09/21/24 patch folic acid 1 mg tablet 1 mg PO DAILY 04/23/24 09/21/24 insulin glargine 100 unit/mL (3 105 unit SUBCUT BEDTIME 04/23/24 09/21/24 mL) subcutaneous pen (Lantus Solostar U-100 Insulin) metoprolol succinate 50 mg 50 mg PO BID 04/23/24 09/21/24 tablet,extended release 24 hr oxycodone 10 mg tablet 15 mg PO Q4H PRN Pain 04/23/24 09/21/24 prochlorperazine maleate 10 mg 10 mg PO QID PRN Nausea And 04/23/24 09/21/24 tablet Vomiting atorvastatin 40 mg tablet 40 mg PO BEDTIME 09/05/24 09/21/24 meloxicam 7.5 mg tablet 7.5 mg PO DAILY 09/21/24 09/21/24 ondansetron 8 mg disintegrating 8 mg PO TID PRN Nausea And Vomiting 09/21/24 09/21/24 tablet Previous Rx's Medication Instructions Recorded metformin 1,000 mg tablet 1,000 mg PO BID #180 tabs 03/18/24 lactulose 20 gram/30 mL oral 20 g (30 mL) PO DAILY PRN 04/24/24 solution constipation #1,200 mL Allergies Allergy/AdvReac Type Severity Reaction Status Date / Time morphine Allergy ADR-Irritab Verified 09/21/24 09:19 le Review of Systems 2 Const: Denies: fever(s) or chills Card: Denies: chest pain Resp: Denies: dyspnea GI: Denies: abdominal pain : Denies: dysuria, urinary frequency or urinary urgency Musc: Denies: neck pain or back pain Skin/Breast: Denies: rash PFSH ED 2 PFSH: Medical History (Updated 09/21/24 @ 13:49 by David Villagomez DO) Bone lesion Atrial fibrillation Hyperlipidemia Non-small cell lung cancer Diabetes Hypotension due to hypovolemia Anorexia Dehydration Leukopenia Weakness Near syncope Port-A-Cath in place Right-sided back pain Cholecystitis Abdominal pain Rib pain on right side Gout Surgical History History of cholecystectomy Family History Father Stomach cancer Grandfather Stomach cancer Social History Smoking and tobacco/nicotine status: former use of tobacco/nicotine Alcohol intake: never Substance/Drug Use: never Additional social history: 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 Physical Exam 2 Const: COMMON NORMALS: no acute distress GENERAL APPEARANCE: cooperative and comfortable ORIENTATION/CONSCIOUSNESS: Yes awake, Yes oriented to person, Yes oriented to place and Yes oriented to time HENMT: COMMON NORMALS: normocephalic, atraumatic and hearing grossly normal bilaterally HEAD & SCALP: normocephalic and atraumatic Resp: COMMON NORMALS: normal respiratory effort, No retractions and No use of accessory muscles AUSCULTATION: crackles and diminished lung sounds on the right in the lower lung escobar Cardio: COMMON NORMALS: regular rate, regular rhythm and No murmurs present (Cardio) RATE: regular rate RHYTHM: regular rhythm GI: COMMON NORMALS: Soft to palpation and No hepatosplenomegaly present A USCULTATION: Yes normoactive bowel sounds PALPATION: Yes Soft to palpation, No Tenderness to palpation present (GI), No Guarding due to palpation present (GI) and Yes No hepatosplenomegaly present Extremity: COMMON NORMALS: normal to inspection, capillary refill normal, no clubbing, cyanosis or edema, no calf tenderness and no pedal edema Neuro: SENSORIUM/ORIENTATION: Yes oriented to person, Yes oriented to place and Yes oriented to time Skin: COMMON NORMALS: no rashes or lesions noted GENERAL SKIN EXAM: no rashes or lesions noted Course 2 Vital Signs: Vital signs: Vital Signs Temperature 97.7 F 09/21/24 09:12 Pulse Rate 87 09/21/24 14:06 Respiratory Rate 24 H 09/21/24 09:12 Blood Pressure 146/79 09/21/24 14:06 Pulse Oximetry 97 09/21/24 14:06 Oxygen Delivery Me thod Room Air 09/21/24 12:15 MDM - SOB/Dyspnea Medical Decision Making 1800 mL per removed by thoracentesis patient does feel somewhat better chest x- ray does not show significant improvement. He does have worsening of the liver functions. His bleeding times are normal. At this point no suggestions or changes recommended. Recommend that he does follow-up with oncology team to recheck on the abnormal liver functions. We do not have all of his imaging here this may have been a known quantity to his suspected to be worsening given his increasing liver functions. He is on linezolid. It is for 6 weeks. I suspect this is due to the positive blood culture add on 09/05 for staph. Continue that medication for now. Medical Records I reviewed the patient's medical records. Lab Data I reviewed the patient's lab results. 09/21/24 10:30 09/21/24 10:30 Labs/Radiology: Radiology Impressions Chest CTA 09/21/24 10:09 IMPRESSION: 1. No evidence of pulmonary embolus. 2. Large RIGHT pleural effusion with mild RIGHT to LEFT mediastinal shift. Thoracentesis Ultrasound 09/21/24 10:14 IMPRESSION: 1. RIGHT thoracentesis yielding 1800 cc of fluid. 2. Chest radiograph to follow to evaluate for pneumothorax. Chest X-Ray 09/21/24 12:17 IMPRESSION: Post right thoracentesis as above. Laboratory Results WBC 9.11 10^3/uL (3.29-11.43) 09/21/24 10:30 RBC 5.12 10^6/uL (3.85-5.65) 09/21/24 10:30 Hgb 15.00 g/dL (11.27-16.99) 09/21/24 10:30 Hct 46.0 % (37-53) 09/21/24 10:30 MCV 89.8 fl (82-101) 09/21/24 10:30 MCH 29.3 pg (27-33) 09/21/24 10:30 MCHC 32.6 g/dL (30-55) 09/21/24 10:30 RDW 13.5 % (12.1-15.1) 09/21/24 10:30 Plt Count 219 10^3/cmm (157-399) 09/21/24 10:30 MPV 10.1 fL (7.4-10.4) 09/21/24 10:30 Neut % (Auto) 83.2 % 09/21/24 10:30 Lymph % (Auto) 7.8 % 09/21/24 10:30 Barron % (Auto) 4.2 % 09/21/24 10:30 Eos % (Auto) 3.7 % 09/21/24 10:30 Baso % (Auto) 0.8 % 09/21/24 10:30 Neut # (Auto) 7.58 10^3/uL (1.8-7.7) 09/21/24 10:30 Lymph # (Auto) 0.7 10^3/uL (0.8-4.8) L 09/21/24 10:30 Barron # (Auto) 0.4 10^3/uL (0.2-0.9) 09/21/24 10:30 Eos # (Auto) 0.3 10^3/uL (0.0-0.8) 09/21/24 10:30 Baso # (Auto) 0.1 10^3/uL (0.0-0.1) 09/21/24 10:30 Nucleated RBC % (auto) 0 % 09/21/24 10:30 Nucleated RBCs # 0.0 /100WBC 09/21/24 10:30 PT 13.00 SECONDS (12.1-14.9) 09/21/24 10:30 INR 0.95 (0.8-1.2) 09/21/24 10:30 APTT 28.6 SECONDS (23.9-36.7) 09/21/24 10:30 Sodium 140 mmol/L (136-145) 09/21/24 10:30 Potassium 4.1 mmol/L (3.5-5.1) 09/21/24 10:30 Chloride 99 mmol/L (98-107) 09/21/24 10:30 Carbon Dioxide 29 mmol/L (22-29) 09/21/24 10:30 Anion Gap 16.1 (5-19) 09/21/24 10:30 BUN 18 mg/dL (8-23) 09/21/24 10:30 Creatinine 1.0 mg/dL (0.7-1.2) 09/21/24 10:30 GFR Calculation 74.8 mL/min (90-130) L 09/21/24 10:30 Glucose 168 mg/dL (65-115) H 09/21/24 10:30 Calculated Osmolality 296 mOsm/kg (285-295) H 09/21/24 10:30 Calcium 8.9 mg/dL (8.5-10.5) 09/21/24 10:30 Total Bilirubin 0.5 mg/dL (0.15-1.2) 09/21/24 10:30 AST 630 U/L (0-40) H 09/21/24 10:30 ALT 673 U/L (0-41) H 09/21/24 10:30 Alkaline Phosphatase 135 U/L (40-130) H 09/21/24 10:30 Troponin T Baseline 35 ng/L (0-15) H 09/21/24 10:30 Troponin T 120 Minute 27.46 ng/L (0-15) H 09/21/24 12:42 Delta Troponin T -7.54 ABS# (0-10) L 09/21/24 12:42 Total Protein 6.3 g/dL (6.6-8.7) L 09/21/24 10:30 Albumin 4.0 g/dL (3.5-5.2) 09/21/24 10:30 Globulin 2.3 g/dL (1.3-4.6) 09/21/24 10:30 Urine Color Dark yellow (Yellow) A 09/21/24 10:53 Urine Appearance Cloudy (CLEAR) A 09/21/24 10:53 Urine pH 5.0 (5-7) 09/21/24 10:53 Ur Specific Hulbert 1.028 (1.005-1.030) 09/21/24 10:53 Urine Protein 1+ (Negative) A 09/21/24 10:53 Urine Glucose (UA) Negative (Normal) 09/21/24 10:53 Urine Ketones Negative (Negative) 09/21/24 10:53 Urine Blood Negative (Negative) 09/21/24 10:53 Urine Nitrate Negative (Negative) 09/21/24 10:53 Urine Bilirubin Negative (Negative) 09/21/24 10:53 Urine Urobilinogen 1.0 mg/dL (Negative) 09/21/24 10:53 Ur Leukocyte Esterase Negative (Negative) 09/21/24 10:53 Urine WBC Rare /hpf (0-5) 09/21/24 10:53 Ur Squamous Epith Cells 0-4 /hpf (0-5) H 09/21/24 10:53 Amorphous Sediment Not Reportable 09/21/24 10:53 Urine Bacteria 1+ /hpf (NONE) H 09/21/24 10:53 Hyaline Casts Rare /lpf 09/21/24 10:53 Fine Granular Casts Rare /lpf 09/21/24 10:53 All radiology interpretation(s) finalized by discharge Discharge Plan Discharge Patient Disposition: Home Clinical Impression: Pleural effusion, Non-small cell lung cancer Condition: Stable Prescriptions: No Action olmesartan 20 mg tablet 10 mg PO DAILY metformin 1,000 mg tablet 1,000 mg PO BID Qty: 180 3RF atorvastatin 40 mg Tablet 40 mg PO BEDTIME colchicine 0.6 mg Tablet 0.6 mg PO BID PRN (Reason: gout) insulin glargine [Lantus Solostar U-100 Insulin] 100 unit/mL (3 mL) insulin pen 105 unit SUBCUT BEDTIME fentanyl 50 mcg/hr patch 72 hour 3 patch topical .Q72H metoprolol succinate 50 mg tablet extended release 24 hr 50 mg PO BID prochlorperazine maleate 10 mg tablet 10 mg PO QID PRN (Reason: Nausea And Vomiting) folic acid 1 mg tablet 1 mg PO DAILY duloxetine 60 mg capsule,delayed release(DR/EC) 60 mg PO DAILY oxycodone 10 mg tablet 15 mg PO Q4H PRN (Reason: Pain) lactulose 20 gram/30 mL solution 20 g PO DAILY PRN (Reason: constipation) Qty: 1200 0RF ondansetron 8 mg tablet,disintegrating 8 mg PO TID PRN (Reason: Nausea And Vomiting) meloxicam 7.5 mg tablet 7.5 mg PO DAILY Discharge Orders: Discharge ED (Routine); Ordered 09/21/24 Ordered By: David Villagomez Referrals: Cole Helms DO [Primary Care Provider] - Discharge Diet: Usual diet Discharge Activity: Increase activity as tolerated Patient Instructions: Opioid Safety, Pain Management Activity Restrictions/Additional Instructions: Thank you for choosing [facility] for your healthcare needs today. It is very important that you follow up as instructed or that you return to the Emergency Department should you have concerns or if your condition changes or worsens in any way. You are seen in the emergency with complaints of shortness of breath you worsening pleural effusion on the right side we removed around 1800 mL. Recommend you follow-up with your oncology team for consideration of placement of a tunneled Port [place] drain that can drain the lung easily as the effusion recurs Coding Level of Care Code ED Pharmacy Technician Inpatient for Den Santos
--- NOTE | 2024-09-21 10:09 | CT_ITS ---
WS: [id number] CTA OF THE CHEST WITH PULMONARY EMBOLISM PROTOCOL TECHNIQUE: High-resolution contrast enhanced CTA of the chest with coronal and sagittal reformatted i mages with pulmonary embolism protocol. MIP images are also reviewed. CLINICAL INFORMATION: lung CA, pleurel effusion COMPARISON: None. DLP: 421.[address] scans at [facility] use at least one of these dose optimization techniques: automated e xposure control; mA and/or kV adjustment per patient size (includes targeted exams where dose is matc hed to clinical indication); or iterative reconstruction. FINDINGS: Large RIGHT pleural effusion. Mild RIGHT to LEFT mediastinal shift. Proximal main pulmonary arteries are normal. No evidence of pulmonary embolus. LEFT lung is well aerated. Splenic artery calcification. Normal GE junction. Small calcified LEFT thy roid nodule. Metastatic disease in the RIGHT T9, T10 and T11 vertebral bodies extending into the associated RIGHT ribs and posterior elements. This appears sclerotic and likely previously treated. CT/CT angio chest PE protcl [id number] IMPRESSION: 1. No evidence of pulmonary embolus. 2. Large RIGHT pleural effusion with mild RIGHT to LEFT mediastinal shift.
--- NOTE | 2024-09-21 10:14 | US_ITS ---
WS: [id number] ULTRASOUND-GUIDED THORACENTESIS HISTORY: Right pleural effusion associated with known lung cancer Procedure, risks, and complications were explained to the patient. With the patient in an upright pos ition, the skin over the RIGHT posterior thorax was cleansed with ChloraPrep and anesthetized with 1% buffered lidocaine. A 5 Urdu Incline Therapeuticseh needle is inserted into the pleural fluid without complication. Approximately 1800 cc of dark yellow pleural fluid is removed without difficulty. / thoracentesis [id number] IMPRESSION: 1. RIGHT thoracentesis yielding 1800 cc of fluid. 2. Chest radiograph to follow to evaluate for pneumothorax.
[2024-09-21 10:41] LABS: Basophils # 0.1 10^3/uL (0.0-0.1); Basophils % 0.8 %; Eosinophils # 0.3 10^3/uL (0.0-0.8); Eosinophils % 3.7 %; Lymphocytes # 0.7 10^3/uL (0.8-4.8); Lymphocytes % 7.8 %; Mean Corpuscular HGB Conc 32.6 g/dL (30-55); Mean Corpuscular Hemoglobin 29.3 pg (27-33); Mean Corpuscular Volume 89.8 fl (82-101); Mean Platelet Volume 10.1 fL (7.4-10.4); Monocytes # 0.4 10^3/uL (0.2-0.9); Monocytes % 4.2 %; Neutrophils # 7.58 10^3/uL (1.8-7.7); Neutrophils % 83.2 %; Nucleated Red Blood Cells % 0 %; Platelet Count 219 10^3/cmm (157-399); Red Blood Count 5.12 10^6/uL (3.85-5.65); Red Cell Distribution Width 13.5 % (12.1-15.1); White Blood Count 9.11 10^3/uL (3.29-11.43)
--- NOTE | 2024-09-21 10:56 | ECG_ITS ---
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: : 1960 Requested By: David Montejo Order Number: [id number] Reading MD: SURAJ HONG Measurements Intervals [place] Rate: 85 P: 48 WV: 151 QRS: 2 QRSD: 98 T: 76 QT: 349 QTc: 416 Interpretive Statements SINUS RHYTHM WITH FREQUENT VENTRICULAR PREMATURE COMPLEXES POSSIBLE ANTERIOR MYOCARDIAL INFARCTION , OF INDETERMINATE AGE [30 ms Q WAVE IN V3/V4, OR R < 0.2 mV IN V4] Compared to ECG 09/05/2024 16:19:28 Ventricular premature complex(es) now present Myocardial infarct finding still present Electronically Signed On 09-25-2024 00:42:40 RPG DEVELOPER by SURAJ HONG [email or web address]
[2024-09-21 11:00] LABS: Alanine Aminotransferase 673 U/L (0-41); Alkaline Phosphatase 135 U/L (40-130); Anion Gap 16.1 (5-19); Aspartate Amino Transferase 630 U/L (0-40); Blood Urea Nitrogen 18 mg/dL (8-23); Calcium 8.9 mg/dL (8.5-10.5); Carbon Dioxide 29 mmol/L (22-29); Chloride 99 mmol/L (98-107); Creatinine Clr Calc Pharmacy 85.1485; Globulin 2.3 g/dL (1.3-4.6); Glomerular Filtration Rate 74.8 mL/min (90-130); Glucose 168 mg/dL (65-115); Osmolality Calculated 296 mOsm/kg (285-295); Potassium 4.1 mmol/L (3.5-5.1); Sodium 140 mmol/L (136-145); Total Bilirubin 0.5 mg/dL (0.15-1.2); Total Protein 6.3 g/dL (6.6-8.7)
[2024-09-21 11:03] LABS: Bilirubin Urine Negative (Negative); Blood Urine Negative (Negative); Glucose Urine UA Negative (Normal); Ketones Urine Negative (Negative); Leukocyte Esterase Urine Negative (Negative); Nitrate Urine Negative (Negative); Protein Urine 1+ (Negative); Specific Gravity, Urine 1.028 (1.005-1.030); Urine Appearance Cloudy (CLEAR); Urine Color Dark Yellow (Yellow)
[2024-09-21 11:03] LABS: Troponin(5th) Baseline 35 ng/L (0-15)
[2024-09-21 11:21] LABS: INR 0.95 (0.8-1.2); Partial Thromboplastin Time 28.6 SECONDS (23.9-36.7)
[2024-09-21] MEDS: iohexol 350 mg/mL 500 mL Btl (per mL) IV (11:28)
[2024-09-21 11:54] LABS: Add Urine Microscopic? YES; UA Slide Review UA Slide Review Perf
[2024-09-21 11:55] LABS: Add Urine Culture? No; Bacteria Urine 1+ /hpf; Fine Granular Casts Urine RARE /lpf; Hyaline Casts Urine RARE /lpf; Squamous Epithelial Cell Urine 0-4 /hpf (0-5); WBC Urine RARE /hpf (0-5)
[2024-09-21 12:15] VITALS: BP 149/76; PULSE 90; O2SAT 96
--- NOTE | 2024-09-21 12:17 | XR_ITS ---
WS: [id number] XR chest 1V portable [id number] REASON FOR EXAM: PROCEDURE FINDINGS: Post thoracentesis examination demonstrates decrease in the volume of the right pleural effusion. No pneumothorax or hydropneumothorax is identified. XR/XR chest 1V portable [id number] IMPRESSION: Post right thoracentesis as above.
--- NOTE | 2024-09-21 12:40 | ECG_ITS ---
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 Measurements Intervals [place] Rate: 94 P: 0 DC: 0 QRS: -44 QRSD: 133 T: 58 QT: 393 QTc: 492 Interpretive Statements Multifocal atrial rhythm LEFT AXIS DEVIATION [QRS AXIS < -30] RIGHT BUNDLE BRANCH BLOCK [120+ ms QRS DURATION, UPRIGHT V1, 40+ ms S IN I/aVL/V4/V5/V6] Compared to ECG 09/21/2024 10:10:47 Left-axis deviation now present Right bundle-branch block now present Sinus rhythm no longer present Ventricular premature complex(es) no longer present Myocardial infarct finding no longer present Electronically Signed On 09-24-2024 21:24:09 TOWER CLIMBER by Juan Davidson M.D. [email or web address]
[2024-09-21 13:27] LABS: Troponin 5 2HR 27.46 ng/L (0-15)
[2024-09-21 13:30] LABS: Troponin 5 2HR Delta -7.54 ABS# (0-10)
[2024-09-21 14:06] VITALS: BP 146/79; PULSE 87; O2SAT 97
== END 2024-09-21 14:09 | disposition home or self-care (01) ==
PROVIDERS: Emergency Provider Family Medicine; PCP Electrodiagnostic Medicine
DX: J90 Pleural effusion, not elsewhere classified (principal); C34.92 Malignant neoplasm of unspecified part of left bronchus or lung; Z79.4 Long term (current) use of insulin; Z87.891 Personal history of nicotine dependence; E11.9 Type 2 diabetes mellitus without complications
CPT/HCPCS: 32555; 36415; 71045; 71275; 80053; 81001; 84484; 85025; 85610; 85730; 93005; 99285

== ENCOUNTER 2024-10-01 10:00 | Outpatient (CLI) | payer MEDICARE, OTHER, SELFPAY ==
--- NOTE | 2024-10-01 10:02 | US_ITS ---
WS: [id number] RIGHT UPPER QUADRANT ULTRASOUND HISTORY: TRANSAMINITIS COMPARISON: None available. Liver: 17.6 cm in length. Heterogeneous liver. Surface of the liver is nodular and irregular. No mass . Portal Vein: Normal hepatopetal flow with monophasic waveform. Gallbladder: Prior cholecystectomy. CBD: 0.2 cm Pancreas: Not visualized. Right kidney: 10.5 cm in length. Normal size and echogenicity. No hydronephrosis or mass. Aorta and IVC: Mild atherosclerosis aorta. Normal size IVC. No ascites. Small RIGHT pleural effusion. US/US liver [id number] IMPRESSION: 1. Cirrhotic appearing liver. 2. Small RIGHT pleural effusion. 3. Prior cholecystectomy.
== END 2024-10-01 10:01 | disposition home or self-care (01) ==
LOC: RAD 10:00
PROVIDERS: PCP Electrodiagnostic Medicine; Visit Provider Student in an Organized Health Care Education/Training Program
DX: K74.60 Unspecified cirrhosis of liver (principal); Z90.49 Acquired absence of other specified parts of digestive tract; J90 Pleural effusion, not elsewhere classified
CPT/HCPCS: 76705

== ENCOUNTER 2024-10-14 09:48 | Oncology outpatient (recurring) (ONCR) | payer MEDICARE, SELFPAY ==
[2024-09-18] MEDS: cefTRIAXone 2,000 mg SDV 2000 MG IVP (09:30)
[2024-09-18 09:55] VITALS: BP 119/81; PULSE 91; TEMP 36; O2SAT 100
[2024-09-19 09:00] VITALS: BP 147/87; PULSE 74; RESP 18; TEMP 36.6; O2SAT 93
[2024-09-19] MEDS: cefTRIAXone 2,000 mg SDV 2000 MG IVP (09:10)
[2024-09-20] MEDS: cefTRIAXone 2,000 mg SDV 2000 MG IVP (08:56)
[2024-09-20 09:05] VITALS: BP 126/70; PULSE 90; RESP 18; TEMP 36.4; O2SAT 98
[2024-09-21] MEDS: cefTRIAXone 2,000 mg SDV 2000 MG IVP (08:32)
[2024-09-21 08:41] LABS: Basophils # 0.1 10^3/uL (0.0-0.1); Basophils % 0.6 %; Eosinophils # 0.5 10^3/uL (0.0-0.8); Eosinophils % 4.8 %; Hematocrit 41.9 % (37-53); Lymphocytes # 0.8 10^3/uL (0.8-4.8); Lymphocytes % 8.1 %; Mean Corpuscular HGB Conc 32.7 g/dL (30-55); Mean Corpuscular Hemoglobin 29.6 pg (27-33); Mean Corpuscular Volume 90.5 fl (82-101); Mean Platelet Volume 10.6 fL (7.4-10.4); Monocytes # 0.7 10^3/uL (0.2-0.9); Monocytes % 7.7 %; Neutrophils # 7.49 10^3/uL (1.8-7.7); Neutrophils % 78.4 %; Nucleated Red Blood Cells % 0 %; Platelet Count 201 10^3/cmm (157-399); Red Blood Count 4.63 10^6/uL (3.85-5.65); Red Cell Distribution Width 13.6 % (12.1-15.1); White Blood Count 9.56 10^3/uL (3.29-11.43)
[2024-09-21 08:44] VITALS: BP 134/88; PULSE 96; RESP 22; TEMP 36.4; O2SAT 93
[2024-09-22] MEDS: cefTRIAXone 2,000 mg SDV 2000 MG IVP (09:32)
[2024-09-22 09:47] VITALS: BP 124/76; PULSE 76; RESP 16; TEMP 36.7
[2024-09-26 09:00] VITALS: BP 119/80; PULSE 85; RESP 18; TEMP 36.1; O2SAT 97
[2024-09-26] MEDS: vancomycin 1,500 MG/300 ML PIGGYBACK 200 MG IV (09:27)
[2024-09-26 10:43] VITALS: BP 109/66; PULSE 76; RESP 18; O2SAT 97
--- NOTE | 2024-09-26 10:44 | PC.NURSE ---
Pt. requested i recheck his VS because he wasn't feeling well. VS were in close range to admission vs. pt stated back hurting and just not feeling well. stated these are not new sx. pt decided to continue with infusion at this time.
[2024-09-27] MEDS: vancomycin 1,500 MG/300 ML PIGGYBACK 200 MG IV (09:16)
[2024-09-28 09:34] LABS: Basophils # 0.1 10^3/uL (0.0-0.1); Basophils % 0.7 %; Eosinophils # 0.6 10^3/uL (0.0-0.8); Eosinophils % 4.3 %; Hematocrit 42.3 % (37-53); Lymphocytes # 1.7 10^3/uL (0.8-4.8); Mean Corpuscular HGB Conc 32.4 g/dL (30-55); Mean Corpuscular Hemoglobin 29.3 pg (27-33); Mean Corpuscular Volume 90.6 fl (82-101); Mean Platelet Volume 10.6 fL (7.4-10.4); Monocytes # 1.3 10^3/uL (0.2-0.9); Monocytes % 9.1 %; Neutrophils # 10.28 10^3/uL (1.8-7.7); Neutrophils % 73.4 %; Nucleated Red Blood Cells % 0 %; Platelet Count 221 10^3/cmm (157-399); Red Blood Count 4.67 10^6/uL (3.85-5.65); Red Cell Distribution Width 13.4 % (12.1-15.1); White Blood Count 14.03 10^3/uL (3.29-11.43)
[2024-09-28] MEDS: vancomycin 1,500 MG/300 ML PIGGYBACK 200 MG IV (09:55)
[2024-09-28 09:58] LABS: Alanine Aminotransferase 97 U/L (0-41); Albumin Level 3.5 g/dL (3.5-5.2); Alkaline Phosphatase 119 U/L (40-130); Globulin 1.7 g/dL (1.3-4.6); Glomerular Filtration Rate 96.7 mL/min (90-130); Total Bilirubin 0.5 mg/dL (0.15-1.2); Total Protein 5.2 g/dL (6.6-8.7)
[2024-09-28 10:00] LABS: Aspartate Amino Transferase 24 U/L (0-40)
[2024-09-29 09:02] VITALS: BP 110/69; PULSE 92; RESP 16; TEMP 35.9; O2SAT 96
[2024-09-29] MEDS: vancomycin 1,500 MG/300 ML PIGGYBACK 200 MG IV (09:08)
[2024-09-29 09:28] LABS: Vancomycin Trough 12.1 ug/mL (10-15)
[2024-09-29] MEDS: alteplase 1 mg/mL SDV 2 mL 2 MG INTRACATH (10:51)
[2024-09-29 10:55] VITALS: BP 110/59; BP 110/69; PULSE 84; RESP 18; TEMP 36.3; O2SAT 94
[2024-09-30] MEDS: vancomycin 1,500 MG/300 ML PIGGYBACK 200 MG IV (08:53)
[2024-09-30 09:40] VITALS: BP 112/78; PULSE 74; RESP 17; TEMP 35.9; O2SAT 98
[2024-10-01] MEDS: vancomycin 1,500 MG/300 ML PIGGYBACK 200 MG IV (08:08)
[2024-10-01 08:09] VITALS: BP 156/77; PULSE 60; RESP 16; TEMP 35.9; O2SAT 93
[2024-10-01 09:30] VITALS: BP 140/83; PULSE 74; RESP 18; TEMP 36.1; O2SAT 96
[2024-10-03] MEDS: vancomycin 1,500 MG/300 ML PIGGYBACK 200 MG IV (08:48)
[2024-10-03 09:04] VITALS: BP 138/78; PULSE 82; RESP 17; TEMP 36.4; O2SAT 92
[2024-10-04] MEDS: vancomycin 1,500 MG/300 ML PIGGYBACK 200 MG IV (09:14)
[2024-10-04 09:16] VITALS: BP 101/79; PULSE 82; RESP 16; TEMP 36.3; O2SAT 94
[2024-10-05 09:18] LABS: Basophils # 0.1 10^3/uL (0.0-0.1); Basophils % 0.7 %; Eosinophils # 0.7 10^3/uL (0.0-0.8); Eosinophils % 5.1 %; Hematocrit 41.7 % (37-53); Lymphocytes # 1.5 10^3/uL (0.8-4.8); Lymphocytes % 11.1 %; Mean Corpuscular HGB Conc 31.7 g/dL (30-55); Mean Corpuscular Hemoglobin 29.5 pg (27-33); Mean Corpuscular Volume 93.1 fl (82-101); Mean Platelet Volume 10.6 fL (7.4-10.4); Monocytes # 1.1 10^3/uL (0.2-0.9); Monocytes % 8.2 %; Neutrophils # 9.87 10^3/uL (1.8-7.7); Neutrophils % 74.4 %; Nucleated Red Blood Cells % 0 %; Platelet Count 219 10^3/cmm (157-399); Red Blood Count 4.48 10^6/uL (3.85-5.65); Red Cell Distribution Width 13.4 % (12.1-15.1); White Blood Count 13.26 10^3/uL (3.29-11.43)
[2024-10-05] MEDS: vancomycin 1,500 MG/300 ML PIGGYBACK 200 MG IV (09:22)
[2024-10-05 09:31] LABS: Glomerular Filtration Rate 74.8 mL/min (90-130); Total Bilirubin 0.3 mg/dL (0.15-1.2); Total Protein 5.7 g/dL (6.6-8.7)
[2024-10-05 10:14] LABS: Vancomycin Trough 17.1 ug/mL (10-15)
[2024-10-05 10:15] LABS: Alanine Aminotransferase 18 U/L (0-41); Albumin Level 3.2 g/dL (3.5-5.2); Alkaline Phosphatase 99 U/L (40-130); Globulin 2.5 g/dL (1.3-4.6)
[2024-10-05 10:21] LABS: Aspartate Amino Transferase 18 U/L (0-40)
[2024-10-05 11:01] VITALS: BP 110/75; PULSE 78; TEMP 35.8; O2SAT 94
[2024-10-06] MEDS: vancomycin 1,500 MG/300 ML PIGGYBACK 200 MG IV (09:42)
[2024-10-06 11:45] VITALS: BP 117/76; PULSE 85; RESP 17; TEMP 35.8; O2SAT 97
[2024-10-07 07:40] VITALS: BP 119/85; TEMP 35.8
[2024-10-07] MEDS: vancomycin 1,500 MG/300 ML PIGGYBACK 200 MG IV (08:02)
[2024-10-07 08:06] VITALS: PULSE 60; RESP 17; TEMP 36.4; O2SAT 99
[2024-10-07 09:46] VITALS: BP 135/87; PULSE 56; RESP 16; TEMP 36.5
[2024-10-08 09:57] VITALS: PULSE 83; RESP 17; O2SAT 100
[2024-10-08 11:05] LABS: Basophils # 0.1 10^3/uL (0.0-0.1); Basophils % 0.6 %; Eosinophils # 0.4 10^3/uL (0.0-0.8); Hematocrit 39.6 % (37-53); Lymphocytes # 1.2 10^3/uL (0.8-4.8); Lymphocytes % 9.8 %; Mean Corpuscular HGB Conc 32.3 g/dL (30-55); Mean Corpuscular Hemoglobin 29.4 pg (27-33); Mean Platelet Volume 10.5 fL (7.4-10.4); Monocytes % 8.4 %; Neutrophils # 9.46 10^3/uL (1.8-7.7); Neutrophils % 77.9 %; Nucleated Red Blood Cells % 0 %; Platelet Count 208 10^3/cmm (157-399); Red Blood Count 4.35 10^6/uL (3.85-5.65); Red Cell Distribution Width 13.2 % (12.1-15.1); White Blood Count 12.15 10^3/uL (3.29-11.43)
[2024-10-08] MEDS: vancomycin 1,500 MG/300 ML PIGGYBACK 200 MG IV (11:12)
[2024-10-08 11:24] LABS: Albumin Level 3.2 g/dL (3.5-5.2); Alkaline Phosphatase 92 U/L (40-130); Globulin 2.4 g/dL (1.3-4.6); Glomerular Filtration Rate 112.8 mL/min (90-130); Total Bilirubin 0.4 mg/dL (0.15-1.2); Total Protein 5.6 g/dL (6.6-8.7)
[2024-10-08 11:27] LABS: Alanine Aminotransferase 14 U/L (0-41); Aspartate Amino Transferase 24 U/L (0-40)
[2024-10-08 11:36] LABS: Vancomycin Trough 17.2 ug/mL (10-15)
[2024-10-08 12:45] VITALS: BP 124/78; PULSE 78; RESP 17; TEMP 37; O2SAT 98
[2024-10-09 08:27] VITALS: BP 103/66; PULSE 62; RESP 17; TEMP 35.7; O2SAT 96
[2024-10-09] MEDS: vancomycin 1,500 MG/300 ML PIGGYBACK 200 MG IV (08:32)
[2024-10-09 10:15] VITALS: BP 118/78; PULSE 104; TEMP 36.2; O2SAT 99
[2024-10-10 09:02] VITALS: BP 134/86; PULSE 92; RESP 20; TEMP 36.1; O2SAT 93
[2024-10-10] MEDS: vancomycin 1,500 MG/300 ML PIGGYBACK 200 MG IV (09:27)
[2024-10-11] MEDS: vancomycin 1,500 MG/300 ML PIGGYBACK 200 MG IV (08:52)
[2024-10-11 08:57] VITALS: BP 136/91; PULSE 89; RESP 18; TEMP 36.8; O2SAT 98
[2024-10-12 09:26] VITALS: BP 108/72; PULSE 92; RESP 16; TEMP 36.6; O2SAT 92
[2024-10-12] MEDS: vancomycin 1,500 MG/300 ML PIGGYBACK 200 MG IV (09:52)
[2024-10-13 08:54] VITALS: BP 143/87; PULSE 99; RESP 16; TEMP 36; O2SAT 94
[2024-10-13] MEDS: vancomycin 1,500 MG/300 ML PIGGYBACK 200 MG IV (09:08)
[2024-10-13 09:54] LABS: Vancomycin Trough 21.2 ug/mL (10-15)
[2024-10-13 10:49] VITALS: BP 126/78; PULSE 89; RESP 18; TEMP 36.4
[2024-10-14 09:20] VITALS: BP 112/78; PULSE 84; RESP 18; TEMP 36.4; O2SAT 94
== END 2024-10-17 23:59 | disposition home or self-care (01) ==
PROVIDERS: PCP Electrodiagnostic Medicine; Visit Provider Student in an Organized Health Care Education/Training Program
DX: Z53.9 Procedure and treatment not carried out, unspecified reason (principal)
CPT/HCPCS: 36592; 36593; 80076; 80202; 82565; 85025; 96365; 96366; 96374; 96523; J0696; J2997; J3370

== ENCOUNTER 2024-10-17 03:24 | Emergency (ER) | payer MEDICARE, OTHER, SELFPAY ==
[2024-10-17] VITALS (7 sets, daily range): BP systolic 106–134; BP diastolic 65–89; PULSE 88–94; RESP 18–20; TEMP 36.6; O2SAT 97–100; BMI 27.1
--- NOTE | 2024-10-17 04:16 | XRR_ITS ---
PROCEDURE INFORMATION: Exam: XR Chest Exam date and time: 10/17/2024 4:26 AM Age: 64 years old Clinical indication: Shortness of breath; Chest pressure; Prior surgery; Surgery date: 1-6 months; Surgery type: Port a cath removal in aug 2024. Patient HX: C/O chest pain with SOB. Recent thoracentesis at the beginning of September. History of lung cancer with bone mets. ; Additional info: L sided cp SOB TECHNIQUE: Imaging protocol: Radiologic exam of the chest. Views: 1 view. COMPARISON: CR XR chest 1V portable [id number] 09/21/2024 12:54 PM FINDINGS: Tubes, catheters and devices: Catheter of unknown medical significance is seen silhouetting the right lung base. Lungs: Near-complete opacification of the right lung field. Pleural spaces: Large layering pleural effusion is present. Heart/Mediastinum: Leftward shift of the mediastinum. Bones/joints: Diffuse degenerative change of the visualized osseous structures. XR/XR chest 1V portable [id number] IMPRESSION: 1. Large pleural effusion with likely significant right lung atelectasis. Difficult to exclude superimposed infection. 2. Catheter of unknown medical significance is seen silhouetting of the right lung base. Correlate clinically.
[2024-10-17] MEDS: ondansetron 2 mg/ML SDV 2 mL 4 MG IVP (05:07)
[2024-10-17 05:17] LABS: Basophils % 0.3 %; Eosinophils # 0.5 10^3/uL (0.0-0.8); Eosinophils % 4.6 %; Hematocrit 38.2 % (37-53); Lymphocytes # 1.3 10^3/uL (0.8-4.8); Lymphocytes % 10.8 %; Mean Corpuscular HGB Conc 31.9 g/dL (30-55); Mean Corpuscular Hemoglobin 29.6 pg (27-33); Mean Corpuscular Volume 92.7 fl (82-101); Mean Platelet Volume 10.3 fL (7.4-10.4); Monocytes % 8.6 %; Neutrophils # 8.73 10^3/uL (1.8-7.7); Neutrophils % 75.4 %; Nucleated Red Blood Cells % 0 %; Platelet Count 245 10^3/cmm (157-399); Red Blood Count 4.12 10^6/uL (3.85-5.65); Red Cell Distribution Width 13.4 % (12.1-15.1); White Blood Count 11.59 10^3/uL (3.29-11.43)
[2024-10-17 05:44] LABS: Alanine Aminotransferase 14 U/L (0-41); Albumin Level 3.1 g/dL (3.5-5.2); Alkaline Phosphatase 101 U/L (40-130); Aspartate Amino Transferase 17 U/L (0-40); Blood Urea Nitrogen 25 mg/dL (8-23); C Reactive Protein 12.3 mg/L (0.0-4.9); Calcium 8.6 mg/dL (8.5-10.5); Carbon Dioxide 31 mmol/L (22-29); Chloride 99 mmol/L (98-107); Creatinine Clr Calc Pharmacy 106.4356; Globulin 2.5 g/dL (1.3-4.6); Glomerular Filtration Rate 96.7 mL/min (90-130); Glucose 90 mg/dL (65-115); Osmolality Calculated 292 mOsm/kg (285-295); Sodium 139 mmol/L (136-145); Total Bilirubin 0.3 mg/dL (0.15-1.2); Total Protein 5.6 g/dL (6.6-8.7)
[2024-10-17 05:45] LABS: Lactic Sepsis W/Reflex 2.8 mmol/L (0.5-2.2)
--- NOTE | 2024-10-17 05:46 | XRR_ITS ---
PROCEDURE INFORMATION: Exam: XR Chest Exam date and time: 10/17/2024 5:59 AM Age: 64 years old Clinical indication: Other: Check post thoracentesis; Prior surgery; Surgery date: 1-6 months; Surgery type: Port a cath removed late aug 2024. Patient HX: Check S/P thoracentesis with 2 liters aspirated. TECHNIQUE: Imaging protocol: Radiologic exam of the chest. Views: 1 view. COMPARISON: CR (CHEST, ) 10/17/2024 4:26 AM FINDINGS: Tubes, catheters and devices: Stable positioning of previously noted catheter overlying the right lower chest wall. Lungs: Left lung without interval change. Residual right central atelectasis. Pleural spaces: Significant residual right pleural effusion is present. Heart/Mediastinum: No longer mass-effect/shift of the mediastinum. Bones/joints: Osseous structures without interval change. XR/XR chest 1V portable [id number] IMPRESSION: 1. Status post thoracentesis with centralization of the mediastinum (i.e. No longer mass-effect/shift) 2. Significant residual right pleural effusion is present.
--- NOTE | 2024-10-17 06:28 | W.ED.WOUNDLC ---
HPI - Wound/Laceration General: Chief Complaint: Wound/Laceration Stated Complaint: post surgical pain Time Seen by Provider: 10/17/24 04:08 History of Present Illness: 64-year-old male here with right sided pleuritic chest pain. He had a [place] drain placed at an outside facility, and has been getting aspirations via home health. On Saturday, home health was only able to draw 75 cc or so of fluid off of the [place] drain. The patient has developed some shortness of breath, chest discomfort afterwards. No fever. No sputum production. Related Data Home Medications Medication Instructions Recorded Confirmed olmesartan 20 mg tablet 10 mg PO DAILY 09/11/22 10/04/24 colchicine 0.6 mg tablet 0.6 mg PO BID PRN gout 04/23/24 10/04/24 duloxetine 60 mg capsule,delayed 60 mg PO DAILY 04/23/24 10/04/24 release fentanyl 50 mcg/hr transdermal 3 patch topical .Q72H 04/23/24 10/04/24 patch folic acid 1 mg tablet 1 mg PO DAILY 04/23/24 10/04/24 insulin glargine 100 unit/mL (3 55 unit SUBCUT BEDTIME 04/23/24 10/04/24 mL) subcutaneous pen (Lantus Solostar U-100 Insulin) metoprolol succinate 50 mg 50 mg PO BID 04/23/24 10/04/24 tablet,extended release 24 hr oxycodone 10 mg tablet 15 mg PO Q4H PRN Pain 04/23/24 10/04/24 atorvastatin 40 mg tablet 40 mg PO BEDTIME 09/05/24 10/04/24 ondansetron 8 mg disintegrating 8 mg PO TID PRN Nausea And Vomiting 09/21/24 10/04/24 tablet Previous Rx's Medication Instructions Recorded metformin 1,000 mg tablet 1,000 mg PO BID #180 tabs 03/18/24 lactulose 20 gram/30 mL oral 20 g (30 mL) PO DAILY PRN 04/24/24 solution constipation #1,200 mL Allergies Allergy/AdvReac Type Severity Reaction Status Date / Time ceftriaxone Allergy Unknown Verified 10/02/24 15:52 morphine Allergy ADR-Irritab Verified 09/21/24 09:19 le [facility] ED PFS: Medical History (Updated 10/17/24 @ 06:31 by Rafael Sanders DO) Bone lesion Atrial fibrillation Hyperlipidemia Non-small cell lung cancer Diabetes Hypotension due to hypovolemia Anorexia Dehydration Leukopenia Weakness Near syncope Port-A-Cath in place Right-sided back pain Cholecystitis Abdominal pain Rib pain on right side Gout Surgical History History of cholecystectomy Family History Father Stomach cancer Grandfather Stomach cancer Social History Smoking and tobacco/nicotine status: former use of tobacco/nicotine Alcohol intake: never Substance/Drug Use: never Additional social history: 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 Physical Exam Const: GENERAL APPEARANCE: cooperative, ill appearing (mildly) and frail appearing HENMT: COMMON NORMALS: normocephalic, atraumatic and Normal external nose present HEAD & SCALP: normocephalic and atraumatic FACE & SINUS: normal facial exam and face symmetric NOSE: Normal external nose present Eye: COMMON NORMALS: Equal, round and reactive pupils present and EOMs intact bilaterally PUPIL: Yes Equal, round and reactive pupils present Neck/C-Spine: GENERAL: Yes trachea midline Chest: CHEST: Yes Symmetrical chest wall rise Resp: COMMON NORMALS: normal respiratory effort, No retractions and No use of accessory muscles AUSCULTATION: diminished lung sounds on the right Cardio: COMMON NORMALS: regular rate and regular rhythm RATE: regular rate RHYTHM: regular rhythm GI: COMMON NORMALS: Normal to inspection, nondistended, normoactive bowel sounds present Extremity: COMMON NORMALS: no pedal edema Neuro: SHARON COMA SCALE: document GCS findings [place] coma scale eye opening: Spontaneous [place] coma scale verbal response: Orientated [place] coma scale motor response: Obey commands [place] coma scale total score: 15 SENSORY EXAM: Yes extremities (intact) Psych: COMMON NORMALS: speech normal SPEECH: Yes normal speech Skin: COMMON NORMALS: no rashes or lesions noted GENERAL SKIN EXAM: no rashes or lesions noted Course Vital Signs: Vital signs: Vital Signs Temperature 98 F 10/17/24 03:30 Pulse Rate 88 10/17/24 08:40 Respiratory Rate 18 10/17/24 05:14 Blood Pressure 106/65 10/17/24 08:40 Pulse Oximetry 100 10/17/24 08:40 Oxygen Delivery Me thod Nasal Cannula 10/17/24 07:06 Oxygen Flow Rate 2 10/17/24 07:06 MDM - Wound/Laceration Medical Decision Making [place] drain was accessed using sterile technique and flushed with sterile saline. Following this aspiration was performed, and free flow of bloody pleural fluid was obtained easily. 2 L were immediately removed via Vacutainer bottle. Repeat x-ray was performed, with minimal improvement. 1.5 more liters will be drained. At that point, the patient can be discharged. He has home health coming on Saturday, for repeat access and drainage which should be fine. He felt improved after the 3.5L were taken off. Lab Data 10/17/24 05:05 10/17/24 05:05 Radiology Impressions Chest X-Ray 10/17/24 05:46 IMPRESSION: 1. Status post thoracentesis with centralization of the mediastinum (i.e. No longer mass-effect/shift) 2. Significant residual right pleural effusion is present. Laboratory Results WBC 11.59 10^3/uL (3.29-11.43) H 10/17/24 05:05 RBC 4.12 10^6/uL (3.85-5.65) 10/17/24 05:05 Hgb 12.20 g/dL (11.27-16.99) 10/17/24 05:05 Hct 38.2 % (37-53) 10/17/24 05:05 MCV 92.7 fl (82-101) 10/17/24 05:05 MCH 29.6 pg (27-33) 10/17/24 05:05 MCHC 31.9 g/dL (30-55) 10/17/24 05:05 RDW 13.4 % (12.1-15.1) 10/17/24 05:05 Plt Count 245 10^3/cmm (157-399) 10/17/24 05:05 MPV 10.3 fL (7.4-10.4) 10/17/24 05:05 Neut % (Auto) 75.4 % 10/17/24 05:05 Lymph % (Auto) 10.8 % 10/17/24 05:05 [place] % (Auto) 8.6 % 10/17/24 05:05 Eos % (Auto) 4.6 % 10/17/24 05:05 Baso % (Auto) 0.3 % 10/17/24 05:05 Neut # (Auto) 8.73 10^3/uL (1.8-7.7) H 10/17/24 05:05 Lymph # (Auto) 1.3 10^3/uL (0.8-4.8) 10/17/24 05:05 [place] # (Auto) 1.0 10^3/uL (0.2-0.9) H 10/17/24 05:05 Eos # (Auto) 0.5 10^3/uL (0.0-0.8) 10/17/24 05:05 Baso # (Auto) 0.0 10^3/uL (0.0-0.1) 10/17/24 05:05 Nucleated RBC % (auto) 0 % 10/17/24 05:05 Nucleated RBCs # 0.0 /100WBC 10/17/24 05:05 Sodium 139 mmol/L (136-145) 10/17/24 05:05 Potassium 4.0 mmol/L (3.5-5.1) 10/17/24 05:05 Chloride 99 mmol/L (98-107) 10/17/24 05:05 Carbon Dioxide 31 mmol/L (22-29) H 10/17/24 05:05 Anion Gap 13.0 (5-19) 10/17/24 05:05 BUN 25 mg/dL (8-23) H 10/17/24 05:05 Creatinine 0.8 mg/dL (0.7-1.2) 10/17/24 05:05 GFR Calculation 96.7 mL/min (90-130) 10/17/24 05:05 Glucose 90 mg/dL (65-115) 10/17/24 05:05 Calculated Osmolality 292 mOsm/kg (285-295) 10/17/24 05:05 Lactic Acid 2.8 mmol/L (0.5-2.2) H 10/17/24 05:05 Calcium 8.6 mg/dL (8.5-10.5) 10/17/24 05:05 Total Bilirubin 0.3 mg/dL (0.15-1.2) 10/17/24 05:05 AST 17 U/L (0-40) 10/17/24 05:05 ALT 14 U/L (0-41) 10/17/24 05:05 Alkaline Phosphatase 101 U/L (40-130) 10/17/24 05:05 C-Reactive Protein 12.3 mg/L (0.0-4.9) H 10/17/24 05:05 Total Protein 5.6 g/dL (6.6-8.7) L 10/17/24 05:05 Albumin 3.1 g/dL (3.5-5.2) L 10/17/24 05:05 Globulin 2.5 g/dL (1.3-4.6) 10/17/24 05:05 All radiology interpretation(s) finalized by discharge Discharge Plan Discharge Patient Disposition: Home Clinical Impression: Pleural effusion, right Condition: Stable Prescriptions: No Action olmesartan 20 mg tablet 10 mg PO DAILY metformin 1,000 mg tablet 1,000 mg PO BID Qty: 180 3RF atorvastatin 40 mg Tablet 40 mg PO BEDTIME colchicine 0.6 mg Tablet 0.6 mg PO BID PRN (Reason: gout) insulin glargine [Lantus Solostar U-100 Insulin] 100 unit/mL (3 mL) insulin pen 55 unit SUBCUT BEDTIME fentanyl 50 mcg/hr patch 72 hour 3 patch topical .Q72H metoprolol succinate 50 mg tablet extended release 24 hr 50 mg PO BID folic acid 1 mg tablet 1 mg PO DAILY duloxetine 60 mg capsule,delayed release(DR/EC) 60 mg PO DAILY oxycodone 10 mg tablet 15 mg PO Q4H PRN (Reason: Pain) lactulose 20 gram/30 mL solution 20 g PO DAILY PRN (Reason: constipation) Qty: 1200 0RF ondansetron 8 mg tablet,disintegrating 8 mg PO TID PRN (Reason: Nausea And Vomiting) Discharge Orders: Discharge ED (Routine); Ordered 10/17/24 Ordered By: Rafael Sanders Referrals: Cole Helms DO [Primary Care Provider] - 4-7 days Patient Instructions: Pleurisy (ED), Opioid Safety, Pain Management, Pleural Effusion Activity Restrictions/Additional Instructions: Return for any problems, especially worsening shortness of breath, fever, cough, etc. Coding Level of Care Code ED [employer] [facility]
[2024-10-17 07:01] LABS: Reflex Lactate Order REFLEX LACTIC ORDERD
--- NOTE | 2024-10-17 07:41 | PC.NURSE ---
prior to my shift [place] drain accessed by YESSENIA Stover, 2l drained. this RN accessed [place] drain, drained 1l and approx 1/[address] through the 2l draining pt started c/o chest pain. this rn immediately clamped the tube and notified Dr. Sanders. provider ordered to stop draining fluid. approx 3.5l drained in total. pt in stable condition at this time.
== END 2024-10-17 08:50 | disposition home or self-care (01) ==
PROVIDERS: Emergency Provider Emergency Medicine; PCP Electrodiagnostic Medicine
DX: J90 Pleural effusion, not elsewhere classified (principal); Z79.4 Long term (current) use of insulin; Z87.891 Personal history of nicotine dependence; E78.5 Hyperlipidemia, unspecified; E11.9 Type 2 diabetes mellitus without complications; Z85.118 Personal history of other malignant neoplasm of bronchus and lung
CPT/HCPCS: 36415; 71045; 80053; 83605; 85025; 86140; 96374; 99284; J2405